=== PATIENT | male | born 1960 | race Caucasian/White ===

== ENCOUNTER 2016-05-24 13:27 | Inpatient (IN) | payer MEDICARE, OTHER ==
[2016-05-24] MEDS ORDERED: SODIUM CHLORIDE 0.9% 1,000 ML IV STA ×2 (13:37→15:56)
[2016-05-24] MEDS: LORazepam 2 MG/ML SYRINGE IV PRN ×3 (13:41→17:49)
--- NOTE | 2016-05-24 13:44 | ED ---
General Adult HPI - General Stated complaint: Cardiac Arrest Time Seen by Provider: 05/24/16 13:36 Source: family, EMS, RN notes reviewed Mode of arrival: EMS Limitations: altered mental status, physical limitation - History of Present Illness Initial comments: Patient is an unresponsive 55-year-old male presenting to the emergency department following cardiac arrest. Patient is unresponsive and provides no history. History is provided by EMS as well as family. Police are present. Patient reportedly has had some confusion since last night, this morning, intermittent. Patient has had that previously associated with his liver problems. Patient has liver failure with associated severe diabetes and kidney problems. Patient also has HIV. Patient was found have odd movements by family and unresponsive. Fire department placed patient on the AED and 2 shocks were provided. EMS did find a pulse when they arrived and patient was intubated for respiratory support. - Related Data Home Medications Medication Instructions Recorded Confirmed Raltegravir Potassium [Isentress] 400 mg PO BID 01/04/14 05/24/16 Tenofovir Disoproxil Fumarate 300 mg PO MOWEFR 01/04/14 05/24/16 [Viread] lamiVUDine [Epivir] 300 mg PO DAILY 01/04/14 05/24/16 Cevimeline HCl [Evoxac] 30 mg PO TID 02/15/14 05/24/16 DULoxetine HCL [Cymbalta] 60 mg PO DAILY 04/22/16 05/24/16 Ergocalciferol [Vitamin D2 50,000 unit PO Q7D 04/22/16 05/24/16 (DRISDOL)] Lactulose 20 gm PO TID PRN 04/22/16 05/24/16 Maraviroc [Selzentry] 300 mg PO BID 04/22/16 05/24/16 Metoprolol Tartrate [Lopressor] 12.5 mg PO BID 04/22/16 05/24/16 NIFEdipine XL [Procardia XL] 30 mg PO DAILY 04/22/16 05/24/16 Rifaximin [Xifaxan] 550 mg PO BID 04/22/16 05/24/16 Sertraline [Zoloft] 50 mg PO DAILY 04/22/16 05/24/16 Furosemide [Lasix] 80 mg PO DAILY 05/24/16 05/24/16 INSULIN LISPRO (HumaLOG) [humaLOG] See Protocol SQ ACHS 05/24/16 05/24/16 Insulin Glargine [Lantus] 55 unit SQ HS 05/24/16 05/24/16 Morphine Sulfate ER [Ms Contin 15 mg PO HS 05/24/16 05/24/16 15Mg] Multivitamins, Thera [Multivitamin] 1 tab PO DAILY@1200 05/24/16 05/24/16 Pantoprazole Sodium [Protonix] 40 mg PO DAILY 05/24/16 05/24/16 Potassium Chloride ER [K-Dur 10] 40 meq PO DAILY 05/24/16 05/24/16 Zolpidem [Ambien] 5 - 10 mg PO HS 05/24/16 05/24/16 Previous Rx's Medication Instructions Recorded oxyCODONE HCL 30 mg PO Q8H PRN #30 tablet 04/29/16 Sennosides-Docusate Sodium 2 each PO HS tab 04/30/16 [Senokot-S] Allergies Allergy/AdvReac Type Severity Reaction Status Date / Time Penicillins Allergy Intermediate Rash/Hives Verified 05/24/16 14:02 Review of Systems ROS Statement: Those systems with pertinent positive or pertinent negative responses have been documented in the HPI. ROS Other: All systems not noted in ROS Statement are negative. Limitations: ROS unobtainable due to patients medical condition Past Medical History Past Medical History: Diabetes Mellitus, Hypertension, Liver Disease Additional Past Medical History / Comment(s): HIV, IDDM type II, cellulitis BLE , loss of all his teeth due to prior medications for the treatment of underlying illnesses, chronic bilateral leg pain, "hole in my heart", murmur, R side of heart is "larger", bilateral leg/feet neuropathy, anemia. History of Any Multi-Drug Resistant Organisms: None Reported Past Surgical History: Cholecystectomy, Hernia Repair Additional Past Surgical History / Comment(s): Fatty tumor removed from back of neck, incisional hernia repair, liver shunt, cystoscopy, colonoscopy. Past Anesthesia/Blood Transfusion Reactions: No Reported Reaction Past Psychological History: Anxiety Additional Psychological History / Comment(s): Pt lives with his nephew, Misael. There are dogs in the house. He has a walker and a wheelchair he uses on occasion. He drives short distances. Smoking Status: Never smoker Past Alcohol Use History: None Reported Additional Past Alcohol Use History / Comment(s): patient is single. He lives independently and his family home. He is 4 dogs and stay with him. He has no service. There's been no change in his home environment. Past Drug Use History: None Reported - Past Family History Father Family Medical History: Congestive Heart Failure (CHF), CVA/TIA General Exam Limitations: altered mental status, physical limitation General appearance: obtunded Head exam: Present: atraumatic Eye exam: Present: normal appearance, PERRL ENT exam: Present: normal oropharynx Neck exam: Present: normal inspection Respiratory exam: Present: normal lung sounds bilaterally (With bagging insufflation equal breath sounds bilaterally) Cardiovascular Exam: Present: regular rate, normal rhythm GI/Abdominal exam: Present: soft. Absent: tenderness Extremities exam: Present: normal inspection Neurological exam: Present: other (Unresponsive however patient is making some movements and taking some breaths) Psychiatric exam: Present: other (Intubated) Skin exam: Absent: rash Course Vital Signs 05/24/16 05/24/16 05/24/16 13:27 13:36 13:46 Temperature 98.4 F Pulse Rate 78 82 90 Pulse Rate [ Right] Respiratory 10 L 10 L 10 L Rate Blood Pressure 150/90 115/79 123/72 Blood Pressure [Right Arm Supine] O2 Sat by Pulse 85 L 84 L 86 L Oximetry 05/24/16 05/24/16 05/24/16 13:55 14:06 14:15 Temperature Pulse Rate Pulse Rate [ 100 85 100 Right] Respiratory 26 H 34 H 34 H Rate Blood Pressure Blood Pressure 167/102 129/74 131/68 [Right Arm Supine] O2 Sat by Pulse 100 100 Oximetry 05/24/16 05/24/16 05/24/16 14:30 14:45 15:00 Temperature Pulse Rate Pulse Rate [ 95 88 99 Right] Respiratory 35 H 35 H 36 H Rate Blood Pressure Blood Pressure 131/68 131/95 155/75 [Right Arm Supine] O2 Sat by Pulse 100 100 100 Oximetry 05/24/16 05/24/16 15:15 15:30 Temperature Pulse Rate Pulse Rate [ 104 H 111 H Right] Respiratory 36 H 40 H Rate Blood Pressure Blood Pressure 164/98 143/108 [Right Arm Supine] O2 Sat by Pulse 100 Oximetry - Reevaluation(s) Reevaluation #1: 05/24/16 14:01 Dr. Kee was notified of patient. He is currently doing a procedure. 05/24/16 15:59 Patient case was earlier discussed with Dr. Kee who will evaluate patient. Patient reevaluated and unchanged. Computed tomography scan of the chest will be ordered for possible pulmonary embolism. Family states patient did have leg surgery done around a month ago. Heparin was started for possible pulmonary embolism as well as possible myocardial infarction, recent cardiac arrest. Potassium replacement. Fluid provided for possible rhabdomyolysis. Lactulose provided for hepatic encephalopathy. Family updated on results and plan. Patient will be admitted to intensive care unit. 05/24/16 16:22 Case was discussed in detail with Dr. bhakta, who will admit for Dr. Garcia. Case also discussed in detail with Dr. Joseph, who will consult for critical care. They both request consults with GI. EKG Findings - EKG Comments: EKG Findings:: Sinus rhythm at 82 with sinus arrhythmia. MI 162. QRS 114. QT 472. QTC 551. Normal axis. Normal QRS. No acute ST change. Medical Decision Making - Lab Data Result diagrams: 05/24/16 14:05 05/24/16 14:05 Lab Results 05/24/16 05/24/16 05/24/16 Range/Units 14:00 14:05 14:05 WBC 7.8 (3.8-10.6) k/uL RBC 3.21 L (4.30-5.90) m/uL Hgb 10.6 L (13.0-17.5) gm/dL Hct 31.7 L (39.0-53.0) % MCV 98.7 (80.0-100.0) fL MCH 33.1 (25.0-35.0) pg MCHC 33.5 (31.0-37.0) g/dL RDW 14.8 (11.5-15.5) % Plt Count 173 D (150-450) k/uL Neutrophils % 83 % Lymphocytes % 10 % Monocytes % 6 % Eosinophils % 0 % Basophils % 0 % Neutrophils # 6.4 (1.3-7.7) k/uL Lymphocytes # 0.7 L (1.0-4.8) k/uL Monocytes # 0.5 (0-1.0) k/uL Eosinophils # 0.0 (0-0.7) k/uL Basophils # 0.0 (0-0.2) k/uL Poikilocytosis Moderate PT 14.0 H (9.0-12.0) sec INR 1.4 (<1.1) APTT 24.4 (22.0-30.0) sec Sodium (137-145) mmol/L Potassium (3.5-5.1) mmol/L Chloride (98-107) mmol/L Carbon Dioxide (22-30) mmol/L Anion Gap mmol/L BUN (9-20) mg/dL Creatinine (0.66-1.25) mg/dL Est GFR (MDRD) Af Amer (>60 ml/min/1.73 sqM) Est GFR (MDRD) Non-Af (>60 ml/min/1.73 sqM) Glucose (74-99) mg/dL Calcium (8.4-10.2) mg/dL Magnesium (1.6-2.3) mg/dL Total Bilirubin (0.2-1.3) mg/dL AST (17-59) U/L ALT (21-72) U/L Alkaline Phosphatase (38-126) U/L Ammonia (<30) umol/L Total Creatine Kinase (55-170) U/L CK-MB (CK-2) (0.0-2.4) ng/mL CK-MB (CK-2) Rel Index Troponin I (0.000-0.034) ng/mL Total Protein (6.3-8.2) g/dL Albumin (3.5-5.0) g/dL TSH (0.465-4.680) mIU/L Urine Color Yellow Urine Appearance Clear (Clear) Urine pH 7.5 (5.0-8.0) Ur Specific [place] 1.010 (1.001-1.035) Urine Protein 2+ H (Negative) Urine Glucose (UA) 1+ H (Negative) Urine Ketones Negative (Negative) Urine Blood Moderate H (Negative) Urine Nitrate Negative (Negative) Urine Bilirubin Negative (Negative) Urine Urobilinogen 2.0 (<2.0) mg/dL Ur Leukocyte Esterase Negative (Negative) Urine RBC 5 (0-5) /hpf Urine WBC 14 H (0-5) /hpf Ur Squamous Epith Cells <1 (0-4) /hpf Urine Bacteria Rare H (None) /hpf Urine Mucus Rare H (None) /hpf Urine Opiates Screen Detected H (NotDetected) Ur Oxycodone Screen Not Detected (NotDetected) Urine Methadone Screen Not Detected (NotDetected) Ur Propoxyphene Screen Not Detected (NotDetected) Ur Barbiturates Screen Not Detected (NotDetected) U Tricyclic Antidepress Not Detected (NotDetected) Ur Phencyclidine Scrn Not Detected (NotDetected) Ur Amphetamines Screen Not Detected (NotDetected) U Methamphetamines Scrn Not Detected (NotDetected) U Benzodiazepines Scrn Not Detected (NotDetected) Urine Cocaine Screen Not Detected (NotDetected) U Marijuana (THC) Screen Not Detected (NotDetected) 05/24/16 05/24/16 05/24/16 Range/Units 14:05 14:05 14:05 WBC (3.8-10.6) k/uL RBC (4.30-5.90) m/uL Hgb (13.0-17.5) gm/dL Hct (39.0-53.0) % MCV (80.0-100.0) fL MCH (25.0-35.0) pg MCHC (31.0-37.0) g/dL RDW (11.5-15.5) % Plt Count (150-450) k/uL Neutrophils % % Lymphocytes % % Monocytes % % Eosinophils % % Basophils % % Neutrophils # (1.3-7.7) k/uL Lymphocytes # (1.0-4.8) k/uL Monocytes # (0-1.0) k/uL Eosinophils # (0-0.7) k/uL Basophils # (0-0.2) k/uL Poikilocytosis PT (9.0-12.0) sec INR (<1.1) APTT (22.0-30.0) sec Sodium 142 (137-145) mmol/L Potassium 2.4 L* (3.5-5.1) mmol/L Chloride 98 (98-107) mmol/L Carbon Dioxide 28 (22-30) mmol/L Anion Gap 16 mmol/L BUN 17 (9-20) mg/dL Creatinine 1.20 (0.66-1.25) mg/dL Est GFR (MDRD) Af Amer >60 (>60 ml/min/1.73 sqM) Est GFR (MDRD) Non-Af >60 (>60 ml/min/1.73 sqM) Glucose 264 H (74-99) mg/dL Calcium 7.9 L (8.4-10.2) mg/dL Magnesium 2.0 (1.6-2.3) mg/dL Total Bilirubin 3.7 H (0.2-1.3) mg/dL AST 339 H (17-59) U/L ALT 55 (21-72) U/L Alkaline Phosphatase 393 H (38-126) U/L Ammonia 149 H (<30) umol/L Total Creatine Kinase 6215 H (55-170) U/L CK-MB (CK-2) 10.2 H* (0.0-2.4) ng/mL CK-MB (CK-2) Rel Index Troponin I 0.142 H* (0.000-0.034) ng/mL Total Protein 6.5 (6.3-8.2) g/dL Albumin 2.2 L (3.5-5.0) g/dL TSH 1.620 (0.465-4.680) mIU/L Urine Color Urine Appearance (Clear) Urine pH (5.0-8.0) Ur Specific [place] (1.001-1.035) Urine Protein (Negative) Urine Glucose (UA) (Negative) Urine Ketones (Negative) Urine Blood (Negative) Urine Nitrate (Negative) Urine Bilirubin (Negative) Urine Urobilinogen (<2.0) mg/dL Ur Leukocyte Esterase (Negative) Urine RBC (0-5) /hpf Urine WBC (0-5) /hpf Ur Squamous Epith Cells (0-4) /hpf Urine Bacteria (None) /hpf Urine Mucus (None) /hpf Urine Opiates Screen (NotDetected) Ur Oxycodone Screen (NotDetected) Urine Methadone Screen (NotDetected) Ur Propoxyphene Screen (NotDetected) Ur Barbiturates Screen (NotDetected) U Tricyclic Antidepress (NotDetected) Ur Phencyclidine Scrn (NotDetected) Ur Amphetamines Screen (NotDetected) U Methamphetamines Scrn (NotDetected) U Benzodiazepines Scrn (NotDetected) Urine Cocaine Screen (NotDetected) U Marijuana (THC) Screen (NotDetected) - Radiology Data Radiology results: image reviewed (Computed tomography scan of brain shows no acute intercranial abnormality. Chest x-ray shows tube appropriately placed. No acute process.) Critical Care Time Critical Care Time: Yes Total Critical Care Time: 41 Disposition Clinical Impression: Hepatic encephalopathy, Hypokalemia, Cardiac arrest, Rhabdomyolysis Disposition: ADMITTED IP TO THIS [facility] Condition: Critical Referrals: Sushant Garcia DO [Primary Care Provider] - 1-2 days
[2016-05-24] MEDS: PROPOFOL 500 MG in EMPTY BAG 1 BAG IV SCH ×6 (13:45→23:06)
--- NOTE | 2016-05-24 14:24 | XR ---
EXAMINATION TYPE: XR chest 1V portable DATE OF EXAM: 05/24/2016 2:19 PM HISTORY: Shortness of breath. COMPARISON: 04/22/2016. TECHNIQUE: Single view of the chest is submitted. FINDINGS: Endotracheal and NG tubes are appropriately placed. Demonstrated are scattered senescent parenchymal change. There is no evidence for focal infiltrate. The heart is enlarged. No evidence for congestive failure. Hilar and mediastinal structures are within normal limits. Degenerative changes are seen of the dorsal spine. IMPRESSION: 1. Endotracheal and NG tubes are appropriately placed. No evidence of cardiomegaly without overt christina lure.
[2016-05-24 14:27] LABS: Appearance,Urine Clear (Clear); Bacteria,Urine Rare /hpf; Bilirubin,Urine Negative (Negative); Glucose,Urine (UA) 1+ (Negative); Ketones,Urine Negative (Negative); Leukocyte Esterase,Urine Negative (Negative); Mucus,Urine Rare /hpf; Nitrite,Urine Negative (Negative); PH, Urine 7.5 (5.0-8.0); Particle Count 7304; Protein,Urine 2+ (Negative); RBC,Urine 5 /hpf (0-5); Squamous Epithelial Cell,Urine <1 /hpf (0-4); UA Billing (MACRO vs. MICRO) MICRO; WBC,Urine 14 /hpf (0-5)
[2016-05-24 14:27] LABS: Basophils % (A) 0 %; CH 33.7; CHCM 34.4; Eosinophils % (A) 0 %; HCT 31.7 % (39.0-53.0); HGB 10.6 gm/dL (13.0-17.5); Luc # (Auto) 0.08; Luc % (Auto) 1; Lymphocytes # (A) 0.7 k/uL (1.0-4.8); Lymphocytes % (A) 10 %; MCH 33.1 pg (25.0-35.0); MCHC 33.5 g/dL (31.0-37.0); MCV 98.7 fL (80.0-100.0); Mean Platelet Volume 7.4; Monocytes # (A) 0.5 k/uL (0-1.0); Monocytes % (A) 6 %; Neutrophils # (A) 6.4 k/uL (1.3-7.7); Neutrophils % (A) 83 %; Poikilocytosis Moderate; RBC 3.21 m/uL (4.30-5.90); RDW 14.8 % (11.5-15.5); WBC 7.8 k/uL (3.8-10.6); WBC (Perox) 8.32
[2016-05-24 14:33] LABS: INR 1.4 (<1.1); Partial Thromboplastin Time 24.4 sec (22.0-30.0)
[2016-05-24 14:44] LABS: ALT 55 U/L (21-72); AST 339 U/L (17-59); Alkaline Phosphatase 393 U/L (38-126); Anion Gap 16 mmol/L; Blood Urea Nitrogen 17 mg/dL (9-20); Calcium 7.9 mg/dL (8.4-10.2); Carbon Dioxide 28 mmol/L (22-30); Chloride 98 mmol/L (98-107); Glucose 264 mg/dL (74-99); Non-African American GFR(MDRD) >60 (>60 ml/min/1.73 sqM); Sodium 142 mmol/L (137-145); Total Bilirubin 3.7 mg/dL (0.2-1.3); Total Protein 6.5 g/dL (6.3-8.2)
--- NOTE | 2016-05-24 14:50 | CT ---
EXAMINATION TYPE: CT brain wo con DATE OF EXAM: 05/24/2016 2:41 PM COMPARISON: Previous study dated 02/14/2014 HISTORY: AMS. Found unresponsive. CHF. Positive HIV and Liver disease CT DLP: 1047.10 mGycm Automated exposure control for dose reduction was used. FINDINGS: Central structures are midline. There is no evidence of hydrocephalus. No acute focal lesion, mass ef fect or midline shift is seen. I do not see evidence of intracranial blood. There is a 1.9 cm retention cyst or polyp arising from the medial wall of the left maxillary sinus. N o depressed skull fracture is seen. IMPRESSION: 1. NO ACUTE INTRACRANIAL ABNORMALITY. 2. RETENTION CYST OR POLYP, LEFT MAXILLARY SINUS.
[2016-05-24 14:52] LABS: Potassium 2.4 mmol/L (3.5-5.1)
[2016-05-24 15:14] LABS: Troponin I 0.142 ng/mL (0.000-0.034)
[2016-05-24 15:16] LABS: Creatine Kinase MB 10.2 ng/mL (0.0-2.4)
[2016-05-24] MEDS ORDERED: POTASSIUM BICARB-CITRIC ACID 25 MEQ TABLET.EFF PO STA (15:34)
[2016-05-24] MEDS ORDERED: RX INFO: IV CONTRAST WAS GIVEN 1 EACH MISC MISCELLANE PRN (15:53)
[2016-05-24] MEDS ORDERED: DEXTROSE 5%-0.45% NACL 1,000 ML with POTASSIUM CHLORIDE 20 MEQ IV ONE ×2 (15:53)
[2016-05-24] MEDS ORDERED: HEPARIN SODIUM,PORCINE 10,000 UNIT/ML 1 ML VIAL IV ONE (15:56)
[2016-05-24] MEDS ORDERED: HEPARIN SODIUM,PORCINE 5,000 UNIT/ML 1 ML VIAL IV PRN (15:56)
[2016-05-24] MEDS: POTASSIUM CHLORIDE 10 MEQ, LIDOCAINE 2% INJ 10 MG in SODIUM CHLORIDE 0.9% 100 ML IVPB SCH ×3 (15:59→18:15)
[2016-05-24] MEDS ORDERED: HEPARIN SODIUM,PORCINE/D5W PMX 25,000 UNIT in DEXTROSE/WATER 1 500ML.BAG IV SCH (16:00)
[2016-05-24] MEDS ORDERED: NALOXONE 0.4 MG/ML 1 ML VIAL IV PRN (16:16)
[2016-05-24] MEDS ORDERED: D5-0.45% NACL WITH KCL 20MEQ/L 1,000 ML IV ONE (16:30)
[2016-05-24 16:45] LABS: ABG Base Excess 6.9 mmol/L; ABG HCO3 30 mmol/L (21-25); ABG PCO2 34 mmHg (35-45); ABG PH 7.55 (7.35-7.45); ABG PO2 359 mmHg (83-108); ABG TCO2 31 mmol/L (19-24)
[2016-05-24 16:59] LABS: Hemoglobin A1C 5.6 % (4.2-6.1)
--- NOTE | 2016-05-24 17:41 | CT ---
EXAMINATION TYPE: CT angio chest DATE OF EXAM: 05/24/2016 5:32 PM COMPARISON: NONE HISTORY: Patient unable to give history. PE. CT DLP: 477.1 mGycm Automated exposure control for dose reduction was used. CONTRAST: CTA scan of the thorax is performed with IV Contrast, patient injected with 100 mL of Omnipaque 350, pulmonary embolism protocol. . There are Three-D postprocessed images. FINDINGS: Endotracheal tube is noted in good position. The lungs show some mild infiltrate and atelectasis at t he left posterior lung base. There is no evidence of a pulmonary mass. Heart is enlarged. There is no evidence of aortic aneurysm or dissection. There is no pericardial effusion. There is suboptimal con trast density in the pulmonary arteries but I see no filling defects. There is no evidence of pulmona ry embolism. There is no mediastinal adenopathy. There are no hilar masses. There is 10% wedging of T 11 vertebra. IMPRESSION: NO EVIDENCE OF PULMONARY EMBOLISM. THERE IS SOME INFILTRATE AND ATELECTASIS AT THE LEFT POSTERIOR ZIGGY G BASE. CARDIOMEGALY. MILD COMPRESSION OF T11 IS PROBABLY OLD.
[2016-05-24] MEDS: LACTULOSE 20 GM/30 ML CUP PO SCH ×2 (18:14→23:34)
[2016-05-24 18:43] LABS: Glucose,Whole Blood 234 mg/dL (75-99)
[2016-05-24] MEDS: INSULIN LISPRO (humaLOG) 300 UNIT/3 ML VIAL SQ SCH ×3 (18:48→23:49)
[2016-05-24 21:34] LABS: Glucose,Whole Blood 207 mg/dL (75-99)
[2016-05-24] MEDS ORDERED: SODIUM CHLORIDE 0.9% 1,000 ML IV ONE (22:53)
[2016-05-24] MEDS ORDERED: INSULIN DETEMIR 100 UNIT/ML 10 ML VIAL SQ SCH (23:00)
[2016-05-24] MEDS ORDERED: NOREPINEPHRINE 4 MG in SODIUM CHLORIDE 0.9% 250 ML IV SCH (23:00)
[2016-05-24] MEDS ORDERED: Potassium Replacement Protocol 1 EACH MISC MISCELLANE PRN (23:03)
[2016-05-24 23:15] LABS: ALT 63 U/L (21-72); AST 328 U/L (17-59); Alkaline Phosphatase 329 U/L (38-126); Anion Gap 9 mmol/L; Blood Urea Nitrogen 20 mg/dL (9-20); Calcium 7.9 mg/dL (8.4-10.2); Carbon Dioxide 28 mmol/L (22-30); Chloride 104 mmol/L (98-107); Glucose 207 mg/dL (74-99); Non-African American GFR(MDRD) 52 (>60 ml/min/1.73 sqM); Sodium 141 mmol/L (137-145); Total Bilirubin 2.5 mg/dL (0.2-1.3); Total Protein 5.9 g/dL (6.3-8.2)
[2016-05-24 23:17] LABS: Potassium 2.3 mmol/L (3.5-5.1)
[2016-05-24 23:19] LABS: Creatine Kinase MB 6.3 ng/mL (0.0-2.4)
[2016-05-24 23:20] LABS: Troponin I 2.71 ng/mL (0.000-0.034)
[2016-05-24] MEDS: IPRATROPIUM-ALBUTEROL 3 ML NEB INHALATION PRN (23:34)
[2016-05-24] MEDS: SODIUM CHLORIDE 0.9% 1,000 ML IV SCH (23:35)
[2016-05-24] MEDS: CHLORHEXIDINE GLUCONATE 15 ML CUP MUCOUS MEM SCH (23:35)
[2016-05-24 23:53] LABS: Glucose,Whole Blood 222 mg/dL (75-99)
[2016-05-25] MEDS ORDERED: POTASSIUM CHLORIDE ER 20 MEQ TAB.ER PO SCH
[2016-05-25] MEDS: INSULIN GLARGINE 100 UNIT/ML 10 ML VIAL SQ SCH ×2 (00:07→21:38)
[2016-05-25] MEDS: INSULIN LISPRO (humaLOG) 300 UNIT/3 ML VIAL SQ SCH ×4 (00:08→18:14)
[2016-05-25] MEDS: POTASSIUM CHLORIDE 10 MEQ, LIDOCAINE 2% INJ 10 MG in SODIUM CHLORIDE 0.9% 100 ML IV SCH ×7 (00:08→13:29)
[2016-05-25] MEDS: POTASSIUM CHLORIDE ER 20 MEQ TAB.ER PO SCH ×3 (00:38→05:33)
[2016-05-25] MEDS: PROPOFOL 500 MG in EMPTY BAG 1 BAG IV SCH ×6 (00:39→21:11)
[2016-05-25] MEDS: MAGNESIUM SULFATE-D5W PMX 1 GM in DEXTROSE/WATER 1 100ML.BAG IVPB SCH ×2 (00:50→02:06)
[2016-05-25 01:41] LABS: Appearance,Urine Clear (Clear); Bilirubin,Urine Negative (Negative); Glucose,Urine (UA) Negative (Negative); Ketones,Urine Negative (Negative); Leukocyte Esterase,Urine Small (Negative); Mucus,Urine Rare /hpf; Nitrite,Urine Negative (Negative); Particle Count 4298; Protein,Urine 1+ (Negative); RBC,Urine 8 /hpf (0-5); Squamous Epithelial Cell,Urine <1 /hpf (0-4); UA Billing (MACRO vs. MICRO) MICRO; WBC,Urine 18 /hpf (0-5)
[2016-05-25 01:54] LABS: Specific Gravity,Urine 1.046 (1.001-1.035)
[2016-05-25] MEDS ORDERED: ARTIFICIAL TEARS-HYPROMELLOSE DROPS 15 ML BTL BOTH EYES PRN (04:19)
[2016-05-25 05:19] LABS: Basophils % (A) 0 %; CH 33.5; CHCM 34.8; Eosinophils % (A) 0 %; HCT 27.2 % (39.0-53.0); HDW 4.11; HGB 9.7 gm/dL (13.0-17.5); Luc # (Auto) 0.13; Luc % (Auto) 2; Lymphocytes # (A) 1.4 k/uL (1.0-4.8); Lymphocytes % (A) 16 %; MCH 34.5 pg (25.0-35.0); MCHC 35.5 g/dL (31.0-37.0); MCV 97.2 fL (80.0-100.0); Mean Platelet Volume 8.4; Monocytes # (A) 0.7 k/uL (0-1.0); Monocytes % (A) 8 %; Neutrophils # (A) 6.5 k/uL (1.3-7.7); Neutrophils % (A) 75 %; Poikilocytosis Moderate; RDW 15.1 % (11.5-15.5); WBC 8.7 k/uL (3.8-10.6); WBC (Perox) 9.35
[2016-05-25 05:32] LABS: Anion Gap 9 mmol/L; Blood Urea Nitrogen 19 mg/dL (9-20); Calcium 7.3 mg/dL (8.4-10.2); Carbon Dioxide 28 mmol/L (22-30); Chloride 106 mmol/L (98-107); Glucose 179 mg/dL (74-99); INR 1.4 (<1.1); Magnesium 2.4 mg/dL (1.6-2.3); Non-African American GFR(MDRD) 57 (>60 ml/min/1.73 sqM); Partial Thromboplastin Time 29.6 sec (22.0-30.0); Phosphorous 2.5 mg/dL (2.5-4.5); Prothrombin Time 13.7 sec (9.0-12.0); Sodium 143 mmol/L (137-145)
[2016-05-25] MEDS: SODIUM CHLORIDE 0.9% 1,000 ML IV SCH ×4 (05:33→23:58)
[2016-05-25 05:37] LABS: Glucose,Whole Blood 187 mg/dL (75-99)
[2016-05-25 05:50] LABS: Potassium 2.3 mmol/L (3.5-5.1)
[2016-05-25 06:02] LABS: Creatine Kinase MB 5.2 ng/mL (0.0-2.4); Troponin I 2.66 ng/mL (0.000-0.034)
[2016-05-25] MEDS: LACTULOSE 20 GM/30 ML CUP PO SCH ×3 (08:24→21:36)
[2016-05-25] MEDS: CHLORHEXIDINE GLUCONATE 15 ML CUP MUCOUS MEM SCH ×2 (08:24→21:35)
[2016-05-25] MEDS: PANTOPRAZOLE 40 MG/10 ML VIAL IV SCH (08:25)
[2016-05-25] MEDS ORDERED: POTASSIUM CHLORIDE ORAL LIQUID 40 MEQ/30 ML CUP PO ONE (09:01)
--- NOTE | 2016-05-25 09:03 | ECHOF ---
Referral Reason:Cardiac arrest MEASUREMENTS -------- HEIGHT: 172.7 cm WEIGHT: 91.6 kg BP: RVIDd: 3.0 cm (< 3.3) IVSd: 1.4 cm (0.6 - 1.1) LVIDd: 5.6 cm (3.9 - 5.3) LVPWd: 1.4 cm (0.6 - 1.1) IVSs: 1.4 cm LVIDs: 5.2 cm LVPWs: 1.3 cm LAESV Index (A-L): 41.32 ml/m Ao Diam: 3.2 cm (2.0 - 3.7) AV Cusp: 1.9 cm (1.5 - 2.6) LA Diam: 5.3 cm (2.7 - 3.8) MV EXCURSION: 14.230 mm (> 18.000) MV EF SLOPE: 68 mm/s (70 - 150) EPSS: 1.2 cm MV E Micheal: 1.03 m/s MV DecT: 153 ms MV A Micheal: 0.71 m/s MV E/A Ratio: 1.45 RAP: 5.00 mmHg RVSP: 23.20 mmHg FINDINGS -------- Undetermined rhythm. This was a technically adequate study. There is moderate concentric left ventricular hypertrophy. Overall left ventricular systolic function is low-normal with, an EF between 50 - 55 %. The right ventricle is normal in size. LA is severely dilated >40 ml/m2 The right atrial size is normal. There is mild aortic valve sclerosis. There is no evidence of aortic regurgitation. Mild mitral annular calcification present. Mild mitral regurgitation is present. Mild tricuspid regurgitation present. There is no evidence of pulmonary hypertension. The right ventricular systolic pressure, as measured by Doppler, is 23.20mmHg. There is no pulmonic regurgitation present. The aortic root size is normal. There is no pericardial effusion. CONCLUSIONS -------- 1. There is moderate concentric left ventricular hypertrophy. 2. Overall left ventricular systolic function is low-normal with, an EF between 50 - 55 %. 3. LA is severely dilated >40 ml/m2 4. There is mild aortic valve sclerosis. 5. Mild mitral annular calcification present. 6. Mild mitral regurgitation is present. 7. Mild tricuspid regurgitation present. 8. There is no evidence of pulmonary hypertension. 9. The right ventricular systolic pressure, as measured by Doppler, is 23.20mmHg. DATA ENTRY COORDINATOR: Carlota Santos RDCS
--- NOTE | 2016-05-25 09:43 | XR ---
EXAMINATION TYPE: XR chest 1V DATE OF EXAM: 05/25/2016 6:45 AM COMPARISON: 05/24/2016 INDICATION: Intubated difficulty breathing TECHNIQUE: Single frontal view of the chest is obtained. FINDINGS: The heart size is normal. The pulmonary vasculature is normal. The lungs are clear. Endotracheal tube tip is above the pk. A nasogastric tube transverses thorax. IMPRESSION: 1. Mild cardiomegaly. 2. Lines and catheters discussed above
--- NOTE | 2016-05-25 12:58 | P.CNNES ---
History of Present Illness Consult date: 05/25/16 Requesting physician: Aguilar Sandoval Reason for Consult: Mental status changes History of Present Illness: Patient is a 55-year-old male who is being evaluated by the neurology service on 05/25/2016 per the request of Dr. Sandoval for altered mental status. Patient is intubated in the intensive care unit. History is obtained by staff and chart. Patient was recently released from rehabilitation due to leg injury. Patient was at home and apparently was found down and EMS was called. EMS had placed the AED on patient and provided 2 shocks. EMS did find a pulse and patient was intubated for respiratory support. Patient does have history of chronic liver disease, diabetes, and HIV. Upon admission, patient had multiple laboratory abnormalities including ammonia of 149, alk phos 393, AST 339, ALT 55 and hypokalemia of 2.4. Computed tomography scan of the brain showed no acute abnormalities. Cardiology and gastroenterology have been consulted. At the time of my evaluation, patient is intubated and appears to be in no acute distress. Review of Systems REVIEW OF SYSTEMS: Otherwise unremarkable and noncontributory. Past Medical History Past Medical History: Diabetes Mellitus, Hypertension, Liver Disease Additional Past Medical History / Comment(s): HIV, IDDM type II, cellulitis BLE , loss of all his teeth due to prior medications for the treatment of underlying illnesses, chronic bilateral leg pain, "hole in my heart", murmur, R side of heart is "larger", bilateral leg/feet neuropathy, anemia.04-05-16 lt tibial fracture d/t fall History of Any Multi-Drug Resistant Organisms: None Reported Past Surgical History: Cholecystectomy, Hernia Repair Additional Past Surgical History / Comment(s): Fatty tumor removed from back of neck, incisional hernia repair, liver shunt, cystoscopy, colonoscopy.04/25/16 insertion intramedullary nail lt tibia fx. Past Anesthesia/Blood Transfusion Reactions: No Reported Reaction Past Psychological History: Anxiety Additional Psychological History / Comment(s): per pt's niece,pt just returned home 1 week ago after being at [facility] for rehab after lt tibia sx.is recieving home nurse and pt(niece not sure what company)Pt lives with his nephew , Misael alvarado. There are dogs in the house. He has a walker and a wheelchair pt is single. before sx/rehab,pt was independant. no service in past. Smoking Status: Never smoker Past Alcohol Use History: None Reported Additional Past Alcohol Use History / Comment(s): ronment. Past Drug Use History: None Reported - Past Family History Mother Family Medical History: Congestive Heart Failure (CHF), Myocardial Infarction ( [place]) Additional Family Medical History / Comment(s): murmur Father Family Medical History: Congestive Heart Failure (CHF), CVA/TIA Medications and Allergies Home Medications Medication Instructions Recorded Confirmed Type Raltegravir Potassium [Isentress] 400 mg PO BID 01/04/14 05/24/16 History Tenofovir Disoproxil Fumarate 300 mg PO MOWEFR 01/04/14 05/24/16 History [Viread] lamiVUDine [Epivir] 300 mg PO DAILY 01/04/14 05/24/16 History Cevimeline HCl [Evoxac] 30 mg PO TID 02/15/14 05/24/16 History DULoxetine HCL [Cymbalta] 60 mg PO DAILY 04/22/16 05/24/16 History Ergocalciferol [Vitamin D2 50,000 unit PO Q7D 04/22/16 05/24/16 History (DRISDOL)] Lactulose 20 gm PO TID PRN 04/22/16 05/24/16 History Maraviroc [Selzentry] 300 mg PO BID 04/22/16 05/24/16 History Metoprolol Tartrate [Lopressor] 12.5 mg PO BID 04/22/16 05/24/16 History NIFEdipine XL [Procardia XL] 30 mg PO DAILY 04/22/16 05/24/16 History Rifaximin [Xifaxan] 550 mg PO BID 04/22/16 05/24/16 History Sertraline [Zoloft] 50 mg PO DAILY 04/22/16 05/24/16 History Furosemide [Lasix] 80 mg PO DAILY 05/24/16 05/24/16 History INSULIN LISPRO (HumaLOG) [humaLOG] See Protocol SQ ACHS 05/24/16 05/24/16 History Insulin Glargine [Lantus] 55 unit SQ HS 05/24/16 05/24/16 History Morphine Sulfate ER [Ms Contin 15 mg PO HS 05/24/16 05/24/16 History 15Mg] Multivitamins, Thera [Multivitamin] 1 tab PO DAILY@1200 05/24/16 05/24/16 History Pantoprazole Sodium [Protonix] 40 mg PO DAILY 05/24/16 05/24/16 History Potassium Chloride ER [K-Dur 10] 40 meq PO DAILY 05/24/16 05/24/16 History Zolpidem [Ambien] 5 - 10 mg PO HS 05/24/16 05/24/16 History Allergies Allergy/AdvReac Type Severity Reaction Status Date / Time Penicillins Allergy Intermediate Rash/Hives Verified 05/24/16 14:02 Physical Examination - Vital Signs Vital Signs: Vital Signs Temp Pulse Pulse Resp BP BP Pulse Ox 05/25/16 08:00 98.5 F 68 17 93/54 100 05/25/16 07:30 69 17 101/59 100 05/25/16 07:00 71 16 107/61 100 05/25/16 06:30 72 27 H 94/54 99 05/25/16 06:00 70 17 96/54 100 05/25/16 05:30 70 17 92/53 99 05/25/16 05:00 72 18 95/53 99 05/25/16 04:30 99.3 F 72 20 94/50 98 05/25/16 04:00 74 23 93/53 100 05/25/16 03:30 76 20 108/64 100 05/25/16 03:00 79 22 119/65 100 05/25/16 02:30 85 21 109/63 100 05/25/16 02:00 85 18 105/59 99 05/25/16 01:30 84 24 109/58 99 05/25/16 01:00 81 23 101/62 100 05/25/16 00:30 81 21 108/64 100 05/25/16 00:00 99.5 F 80 24 106/61 100 05/24/16 23:38 75 05/24/16 23:30 77 23 101/60 100 05/24/16 23:27 75 05/24/16 23:00 70 19 86/50 100 05/24/16 22:30 73 19 87/50 100 05/24/16 22:00 99.6 F 76 15 99/57 100 05/24/16 21:36 99 05/24/16 21:15 100.0 F H 80 26 H 107/58 100 05/24/16 21:00 99 F 90 26 H 108/58 100 05/24/16 20:30 94 28 H 118/55 100 05/24/16 20:00 94 28 H 111/59 05/24/16 19:30 96 28 H 111/56 05/24/16 19:15 96 32 H 116/60 100 05/24/16 19:00 98 30 H 118/59 100 05/24/16 18:45 96 26 H 115/98 05/24/16 18:30 98 26 H 116/53 99 05/24/16 18:15 98 20 113/58 99 05/24/16 18:00 96 28 H 05/24/16 17:45 96 28 H 111/55 99 05/24/16 17:30 96 28 H 111/52 98 05/24/16 17:15 96 30 H 111/53 100 05/24/16 17:00 99 32 H 128/56 05/24/16 16:45 98.3 F 104 H 36 H 119/58 100 05/24/16 16:30 101 H 36 H 114/55 100 Intake and Output 05/24/16 05/25/16 05/25/16 22:59 06:59 14:59 Intake Total 291.516 8803.196 150 Output Total 720 278 25 Balance -596.219 3533.196 125 Intake: IV 130 3080 150 D5-0.45% NaCl with KCl 130 130 20Meq/l 1,000 ml @ 130 mls/hr IV .Q7H42M ONE Rx# :[id number] Magnesium Sulfate-D5w Pmx 200 1 gm In Dextrose/Water 1 100ml.bag @ 100 mls/hr IVPB Q1H ADAN Rx#: [id number] Potassium Chloride 10 meq 400 Lidocaine 2% Inj 10 mg In Sodium Chloride 0.9% 100 ml @ 100 mls/hr IV Q1HR ADAN Rx#:[id number] Sodium Chloride 0.9% 1, 1350 150 000 ml @ 150 mls/hr IV . Q6H40M ADAN Rx#:[id number] Sodium Chloride 0.9% 1, 1000 000 ml @ 999 mls/hr IV . Q1H1M ONE Rx#:[id number] Intake, IV Titration 351.656 229.196 Amount Heparin Sodium,Porcine/ 207.224 D5w Pmx 25,000 unit In Dextrose/Water 1 500ml. bag @ 18 UNITS/KG/HR 32. 98 mls/hr IV .[id number] ADAN Rx#:[id number] Propofol 500 mg In Empty 144.432 229.196 Bag 1 bag @ Titrate IV . Q0M ADAN Rx#:[id number] Oral 50 Other 80 Output: Gastric Drainage 200 Urine 520 278 25 Other: Voiding Method Indwelling Catheter Indwelling Catheter Weight 96.6 kg 96.6 kg Patient Weight 05/26/16 06:59 Weight 96.6 kg PHYSICAL EXAM: GENERAL APPEARANCE: Patient is a well-developed, male who is intubated in the intensive care unit. HEENT: Normocephalic, atraumatic, no facial asymmetry is seen. Neck is supple with no masses felt. CARDIOVASCULAR: Regular rate and rhythm. ABDOMEN: Nontender, nondistended. EXTREMITIES: Show no edema or clubbing. NEUROLOGICAL EXAM: Patient is unresponsive to verbal stimuli but does withdraw all 4 extremities to pain. Exam was performed having been off sedation for 3 hours. No corneal reflex or gag reflex on exam. Due to unresponsiveness, unable to test motor or sensory exam. No tremors or seizure-like activity is noted. Results - Laboratory Findings CBC and BMP: 05/25/16 04:51 05/25/16 06:58 Abnormal Lab Findings: Abnormal Labs 05/24/16 05/24/16 05/24/16 16:23 18:41 21:33 RBC Hgb Hct Plt Count PT APTT ABG pH 7.55 H ABG pCO2 34 L ABG pO2 359 H ABG HCO3 30 H ABG Total CO2 31 H ABG O2 Saturation 100.0 H Potassium Creatinine Glucose POC Glucose (mg/dL) 234 H 207 H Calcium Magnesium Total Bilirubin AST Alkaline Phosphatase Ammonia Total Creatine Kinase CK-MB (CK-2) Troponin I Total Protein Albumin 05/24/16 05/24/16 05/24/16 22:15 22:15 22:15 RBC Hgb Hct Plt Count PT APTT >200.0 H* ABG pH ABG pCO2 ABG pO2 ABG HCO3 ABG Total CO2 ABG O2 Saturation Potassium 2.3 L* Creatinine 1.41 H Glucose 207 H POC Glucose (mg/dL) Calcium 7.9 L Magnesium Total Bilirubin 2.5 H AST 328 H Alkaline Phosphatase 329 H Ammonia Total Creatine Kinase 5202 H CK-MB (CK-2) 6.3 H* Troponin I 2.710 H* Total Protein 5.9 L Albumin 1.9 L 05/24/16 05/25/16 05/25/16 23:52 04:51 04:51 RBC 2.80 L Hgb 9.7 L Hct 27.2 L Plt Count 142 L PT APTT ABG pH ABG pCO2 ABG pO2 ABG HCO3 ABG Total CO2 ABG O2 Saturation Potassium 2.3 L* Creatinine 1.30 H Glucose 179 H POC Glucose (mg/dL) 222 H Calcium 7.3 L Magnesium 2.4 H Total Bilirubin AST Alkaline Phosphatase Ammonia Total Creatine Kinase CK-MB (CK-2) Troponin I Total Protein Albumin 05/25/16 05/25/16 05/25/16 04:51 04:51 05:35 RBC Hgb Hct Plt Count PT 13.7 H APTT ABG pH ABG pCO2 ABG pO2 ABG HCO3 ABG Total CO2 ABG O2 Saturation Potassium Creatinine Glucose POC Glucose (mg/dL) 187 H Calcium Magnesium Total Bilirubin AST Alkaline Phosphatase Ammonia Total Creatine Kinase CK-MB (CK-2) 5.2 H* Troponin I 2.660 H* Total Protein Albumin 05/25/16 05/25/16 06:58 09:18 RBC Hgb Hct Plt Count PT APTT ABG pH ABG pCO2 ABG pO2 ABG HCO3 ABG Total CO2 ABG O2 Saturation Potassium 2.3 L* Creatinine Glucose POC Glucose (mg/dL) Calcium Magnesium Total Bilirubin AST Alkaline Phosphatase Ammonia 46 H Total Creatine Kinase CK-MB (CK-2) Troponin I Total Protein Albumin Assessment and Plan Plan: Impression: 1. Hepatic encephalopathy 2. Status post cardiac arrest 3. Hypokalemia 4. History of chronic liver disease 5. Diabetes mellitus 6. HIV Recommendations: It does appear patient has multiple metabolic abnormalities contributing to his encephalopathy. As mentioned above, CT of the brain was negative for any acute process. I recommend continuing to stabilize metabolic status. Given multiple comorbidities, neurological exam, and recent cardiac arrest, I do believe prognosis is guarded. I will order an EEG and repeat CT of the brain in the morning. Continue current medical management. Continue neurological checks. I will continue to follow with you. Further recommendations to follow. Thank you for allowing me to participate in the care of your patient. Feel free to contact me with any questions or concerns. I performed an examination of the patient and discussed the management with the COMPOSITE WORKER. I have reviewed the COMPOSITE WORKER notes and agree with the findings and plan of care.
[2016-05-25] MEDS: ENOXAPARIN 30 MG/0.3 ML SYRINGE SQ SCH (13:21)
--- NOTE | 2016-05-25 13:42 | P.CNPUL ---
History of Present Illness Consult date: 05/25/16 Requesting physician: Aguilar Sandoval Reason for consult: other (Acute respiratory failure secondary to cardiac arrest.) Chief complaint: Cardiac arrest History of present illness: This is a 55-year-old white male with history of liver cirrhosis, diabetes, hypertension, HIV infection, and history of neuropathy, according to the his liver disease is not related to hepatitis C or related to any alcohol. He was told that he had nonalcoholic fatty liver in the past. Patient has been seen in the past by the liver transplant team at [facility], and I believe he was listed for liver transplant. At any rate patient had a sudden episode of shortness of breath, in the meantime EMS was called. Just before EMS arrived, patient stopped breathing according to his family members, and within a few minutes, EMS arrived patient was placed on the AED, and 2 shocks were provided. Patient was intubated on site, and according the family CPR was started and he was brought to the ER with CPR in progress. However according to the ER note pulse was established by EMS and documented, and the patient was only on respiratory support upon arrival to the ER. CPR was not actually in progress. Apparently CPR was given for a very short time in the field. In the ER, patient was connected to mechanical ventilation, and he had extensive workup including a CT of the brain which was reported as a relatively normal, CT of the chest showed no evidence of pulmonary embolism there was some atelectasis or infiltrate at the left posterior lung base, echocardiogram showed good LV function, his L a was severely dilated, there was mild aortic valve sclerosis, no evidence of pulmonary hypertension, right-sided ventricular systolic pressure was measured to be 23. Ejection fraction was 50-55% chest x- ray was relatively unremarkable. Labs showed hemoglobin of 9.7, INR of 1.4, potassium was low at 2.3, liver enzymes were all elevated ammonia level was 149 , CPK was just over 5000, troponin was elevated CPK MB bands were elevated. ABG showed a pO2 of 359 pCO2 of 34 pH of 7.55. Since then his ventilator settings were adjusted. And his potassium is being corrected. Patient was eventually transferred to the ICU, and he was already seen by neurology on consultation for potential anoxic brain injury. So far it felt that the patient has hepatic encephalopathy and cardiac arrest. At any rate patient will be monitored closely in the ICU, I have discontinued his sedation to assess his mental status adequately. He was already placed on lactulose for his hepatic encephalopathy and elevated ammonia level and he is yet to be seen by cardiology on consultation. Review of Systems ROS unobtainable: due to mental status Past Medical History Past Medical History: Diabetes Mellitus, Hypertension, Liver Disease Additional Past Medical History / Comment(s): HIV, IDDM type II, cellulitis BLE , loss of all his teeth due to prior medications for the treatment of underlying illnesses, chronic bilateral leg pain, "hole in my heart", murmur, R side of heart is "larger", bilateral leg/feet neuropathy, anemia.04-05-16 lt tibial fracture d/t fall History of Any Multi-Drug Resistant Organisms: None Reported Past Surgical History: Cholecystectomy, Hernia Repair Additional Past Surgical History / Comment(s): Fatty tumor removed from back of neck, incisional hernia repair, liver shunt, cystoscopy, colonoscopy.04/25/16 insertion intramedullary nail lt tibia fx. Past Anesthesia/Blood Transfusion Reactions: No Reported Reaction Past Psychological History: Anxiety Additional Psychological History / Comment(s): per pt's niece,pt just returned home 1 week ago after being at [facility] for rehab after lt tibia sx.is recieving home nurse and pt(niece not sure what company)Pt lives with his nephew , Misael alvarado. There are dogs in the house. He has a walker and a wheelchair pt is single. before sx/rehab,pt was independant. no service in past. Smoking Status: Never smoker Past Alcohol Use History: None Reported Additional Past Alcohol Use History / Comment(s): ronanibal. Past Drug Use History: None Reported - Past Family History Mother Family Medical History: Congestive Heart Failure (CHF), Myocardial Infarction ( [place]) Additional Family Medical History / Comment(s): murmur Father Family Medical History: Congestive Heart Failure (CHF), CVA/TIA Medications and Allergies Home Medications Medication Instructions Recorded Confirmed Type Raltegravir Potassium [Isentress] 400 mg PO BID 01/04/14 05/24/16 History Tenofovir Disoproxil Fumarate 300 mg PO MOWEFR 01/04/14 05/24/16 History [Viread] lamiVUDine [Epivir] 300 mg PO DAILY 01/04/14 05/24/16 History Cevimeline HCl [Evoxac] 30 mg PO TID 02/15/14 05/24/16 History DULoxetine HCL [Cymbalta] 60 mg PO DAILY 04/22/16 05/24/16 History Ergocalciferol [Vitamin D2 50,000 unit PO Q7D 04/22/16 05/24/16 History (DRISDOL)] Lactulose 20 gm PO TID PRN 04/22/16 05/24/16 History Maraviroc [Selzentry] 300 mg PO BID 04/22/16 05/24/16 History Metoprolol Tartrate [Lopressor] 12.5 mg PO BID 04/22/16 05/24/16 History NIFEdipine XL [Procardia XL] 30 mg PO DAILY 04/22/16 05/24/16 History Rifaximin [Xifaxan] 550 mg PO BID 04/22/16 05/24/16 History Sertraline [Zoloft] 50 mg PO DAILY 04/22/16 05/24/16 History Furosemide [Lasix] 80 mg PO DAILY 05/24/16 05/24/16 History INSULIN LISPRO (HumaLOG) [humaLOG] See Protocol SQ ACHS 05/24/16 05/24/16 History Insulin Glargine [Lantus] 55 unit SQ HS 05/24/16 05/24/16 History Morphine Sulfate ER [Ms Contin 15 mg PO HS 05/24/16 05/24/16 History 15Mg] Multivitamins, Thera [Multivitamin] 1 tab PO DAILY@1200 05/24/16 05/24/16 History Pantoprazole Sodium [Protonix] 40 mg PO DAILY 05/24/16 05/24/16 History Potassium Chloride ER [K-Dur 10] 40 meq PO DAILY 05/24/16 05/24/16 History Zolpidem [Ambien] 5 - 10 mg PO HS 05/24/16 05/24/16 History Allergies Allergy/AdvReac Type Severity Reaction Status Date / Time Penicillins Allergy Intermediate Rash/Hives Verified 05/24/16 14:02 Physical Exam Vitals: Vital Signs Temp Pulse Pulse Resp BP BP Pulse Ox 05/25/16 08:00 98.5 F 68 17 93/54 100 05/25/16 07:30 69 17 101/59 100 05/25/16 07:00 71 16 107/61 100 05/25/16 06:30 72 27 H 94/54 99 05/25/16 06:00 70 17 96/54 100 05/25/16 05:30 70 17 92/53 99 05/25/16 05:00 72 18 95/53 99 05/25/16 04:30 99.3 F 72 20 94/50 98 05/25/16 04:00 74 23 93/53 100 05/25/16 03:30 76 20 108/64 100 05/25/16 03:00 79 22 119/65 100 05/25/16 02:30 85 21 109/63 100 05/25/16 02:00 85 18 105/59 99 05/25/16 01:30 84 24 109/58 99 05/25/16 01:00 81 23 101/62 100 05/25/16 00:30 81 21 108/64 100 05/25/16 00:00 99.5 F 80 24 106/61 100 05/24/16 23:38 75 05/24/16 23:30 77 23 101/60 100 05/24/16 23:27 75 05/24/16 23:00 70 19 86/50 100 05/24/16 22:30 73 19 87/50 100 05/24/16 22:00 99.6 F 76 15 99/57 100 05/24/16 21:36 99 05/24/16 21:15 100.0 F H 80 26 H 107/58 100 05/24/16 21:00 99 F 90 26 H 108/58 100 05/24/16 20:30 94 28 H 118/55 100 05/24/16 20:00 94 28 H 111/59 05/24/16 19:30 96 28 H 111/56 05/24/16 19:15 96 32 H 116/60 100 05/24/16 19:00 98 30 H 118/59 100 05/24/16 18:45 96 26 H 115/98 05/24/16 18:30 98 26 H 116/53 99 05/24/16 18:15 98 20 113/58 99 05/24/16 18:00 96 28 H 05/24/16 17:45 96 28 H 111/55 99 05/24/16 17:30 96 28 H 111/52 98 05/24/16 17:15 96 30 H 111/53 100 05/24/16 17:00 99 32 H 128/56 05/24/16 16:45 98.3 F 104 H 36 H 119/58 100 05/24/16 16:30 101 H 36 H 114/55 100 Intake and Output 05/24/16 05/25/16 05/25/16 22:59 06:59 14:59 Intake Total 761.016 0783.196 150 Output Total 720 278 25 Balance -801.594 2688.196 125 Intake: IV 130 3080 150 D5-0.45% NaCl with KCl 130 130 20Meq/l 1,000 ml @ 130 mls/hr IV .Q7H42M ONE Rx# :[id number] Magnesium Sulfate-D5w Pmx 200 1 gm In Dextrose/Water 1 100ml.bag @ 100 mls/hr IVPB Q1H ADAN Rx#: [id number] Potassium Chloride 10 meq 400 Lidocaine 2% Inj 10 mg In Sodium Chloride 0.9% 100 ml @ 100 mls/hr IV Q1HR ADAN Rx#:[id number] Sodium Chloride 0.9% 1, 1350 150 000 ml @ 150 mls/hr IV . Q6H40M ADAN Rx#:[id number] Sodium Chloride 0.9% 1, 1000 000 ml @ 999 mls/hr IV . Q1H1M ONE Rx#:[id number] Intake, IV Titration 351.656 229.196 Amount Heparin Sodium,Porcine/ 207.224 D5w Pmx 25,000 unit In Dextrose/Water 1 500ml. bag @ 18 UNITS/KG/HR 32. 98 mls/hr IV .[id number] ADAN Rx#:[id number] Propofol 500 mg In Empty 144.432 229.196 Bag 1 bag @ Titrate IV . Q0M ADAN Rx#:[id number] Oral 50 Other 80 Output: Gastric Drainage 200 Urine 520 278 25 Other: Voiding Method Indwelling Catheter Indwelling Catheter Weight 96.6 kg 96.6 kg Patient Weight 05/26/16 06:59 Weight 96.6 kg General appearance: Unresponsive, patient only responds to deep painful stimuli , does not respond to any verbal stimuli, his eyes are deviated downwards, does not open eyes to painful stimuli he basically withdraws mostly to pain. Head exam: Present: atraumatic, slightly pale Eye exam: Present: normal appearance, PERRL pale conjunctiva, and slight icterus noted. Pupils are about 3 mm, unreactive to light. Negative corneal reflex noted. ENT exam: Present: normal oropharynx Neck exam: Present: normal inspection Respiratory exam: Present: normal lung sounds bilaterally (With bagging insufflation equal breath sounds bilaterally) Cardiovascular Exam: Present: regular rate, normal rhythm GI/Abdominal exam: Present: soft. Absent: tenderness Extremities exam: Present: normal inspection Neurological exam: Present: other (Unresponsive however patient is making some movements and taking some breaths) Skin exam: Absent: rash Results - Laboratory Findings CBC and BMP: 05/25/16 04:51 05/25/16 06:58 ABG ABG pH 7.55 (7.35-7.45) H 05/24/16 16:23 ABG pCO2 34 mmHg (35-45) L 05/24/16 16:23 ABG pO2 359 mmHg (83-108) H 05/24/16 16:23 ABG O2 Saturation 100.0 % (94-97) H 05/24/16 16:23 PT/INR, D-dimer PT 13.7 sec (9.0-12.0) H 05/25/16 04:51 INR 1.4 (<1.1) 05/25/16 04:51 Abnormal lab findings: Abnormal Labs 05/24/16 05/24/16 05/24/16 16:23 18:41 21:33 RBC Hgb Hct Plt Count PT APTT ABG pH 7.55 H ABG pCO2 34 L ABG pO2 359 H ABG HCO3 30 H ABG Total CO2 31 H ABG O2 Saturation 100.0 H Potassium Creatinine Glucose POC Glucose (mg/dL) 234 H 207 H Calcium Magnesium Total Bilirubin AST Alkaline Phosphatase Ammonia Total Creatine Kinase CK-MB (CK-2) Troponin I Total Protein Albumin 05/24/16 05/24/16 05/24/16 22:15 22:15 22:15 RBC Hgb Hct Plt Count PT APTT >200.0 H* ABG pH ABG pCO2 ABG pO2 ABG HCO3 ABG Total CO2 ABG O2 Saturation Potassium 2.3 L* Creatinine 1.41 H Glucose 207 H POC Glucose (mg/dL) Calcium 7.9 L Magnesium Total Bilirubin 2.5 H AST 328 H Alkaline Phosphatase 329 H Ammonia Total Creatine Kinase 5202 H CK-MB (CK-2) 6.3 H* Troponin I 2.710 H* Total Protein 5.9 L Albumin 1.9 L 05/24/16 05/25/16 05/25/16 23:52 04:51 04:51 RBC 2.80 L Hgb 9.7 L Hct 27.2 L Plt Count 142 L PT APTT ABG pH ABG pCO2 ABG pO2 ABG HCO3 ABG Total CO2 ABG O2 Saturation Potassium 2.3 L* Creatinine 1.30 H Glucose 179 H POC Glucose (mg/dL) 222 H Calcium 7.3 L Magnesium 2.4 H Total Bilirubin AST Alkaline Phosphatase Ammonia Total Creatine Kinase CK-MB (CK-2) Troponin I Total Protein Albumin 05/25/16 05/25/16 05/25/16 04:51 04:51 05:35 RBC Hgb Hct Plt Count PT 13.7 H APTT ABG pH ABG pCO2 ABG pO2 ABG HCO3 ABG Total CO2 ABG O2 Saturation Potassium Creatinine Glucose POC Glucose (mg/dL) 187 H Calcium Magnesium Total Bilirubin AST Alkaline Phosphatase Ammonia Total Creatine Kinase CK-MB (CK-2) 5.2 H* Troponin I 2.660 H* Total Protein Albumin 05/25/16 05/25/16 06:58 09:18 RBC Hgb Hct Plt Count PT APTT ABG pH ABG pCO2 ABG pO2 ABG HCO3 ABG Total CO2 ABG O2 Saturation Potassium 2.3 L* Creatinine Glucose POC Glucose (mg/dL) Calcium Magnesium Total Bilirubin AST Alkaline Phosphatase Ammonia 46 H Total Creatine Kinase CK-MB (CK-2) Troponin I Total Protein Albumin - Diagnostic Findings Chest x-ray: image reviewed (Chest x-ray is relatively unremarkable.) Assessment and Plan Plan: Impression: 1 acute hypoxic respiratory failure secondary to acute cardiac arrest and suspect anoxic brain injury. 2 acute hepatic encephalopathy with significantly elevated ammonia level on presentation. This is related to his underlying liver cirrhosis. 3 acute rhabdomyolysis with elevated CPK, hence the patient will be given fluids at a relatively high rate. 4 electrolytes imbalance mostly hypokalemia, etiology is not clear, but will correct the low potassium accordingly. 5 acute on chronic renal failure. 6 history of chronic liver disease with multiple comorbidities including HIV, diabetes, diabetic neuropathy, chronic anemia, Recommendation: Continue present treatment plan, discussed his condition with his family at bedside, I'm mostly concerned about his neurological status at this point, and we will try to seek neurological evaluation regarding his anoxic brain injury presentation. In the meantime I will go ahead and hold sedatives and narcotics, we will continue GI and DVT prophylaxis, we'll address nutritional support, and I will place on antibiotics if felt necessary prognosis is definitely poor and guarded, critical care time is 45 minutes. Time with Patient: Greater than 30
[2016-05-25 13:56] LABS: Glucose,Whole Blood 194 mg/dL (75-99)
[2016-05-25] MEDS: POTASSIUM CHLORIDE ORAL LIQUID 40 MEQ/30 ML CUP NG-TUBE SCH ×2 (16:32→18:14)
--- NOTE | 2016-05-25 16:52 | HP ---
DATE OF ADMISSION: 05/24/2016 PRESENTING COMPLAINT: Passed out. HISTORY OF PRESENTING COMPLAINT: This is a patient 55-year-old who I saw in the ER yesterday on 05/24/16. Patient's chronic medical stable conditions include history of liver disease with possible cirrhosis being followed at [facility], chronic kidney disease, stage III, HIV, also followed by Dr. Santana, diabetes and peripheral neuropathy. The patient recently had left tibia fracture was at [facility] for rehab and gotten home. Patient lives with his nephew Misael. Patient normally does run a high ammonia level. Patient was noted by family to be somewhat confused the previous night and in the morning of presentation, that is yesterday had some odd movements and then patient had a cardiac arrest. When the EMS arrived, patient had no breathing and was pulseless. Two shocks were given by ED and patient reverted to sinus rhythm. Patient's blood pressure did come up to 168/94. The patient's Accu-Chek was 309 and patient was brought to the ER. I saw the patient in ER, patient was intubated, on the ventilator with a propofol drip. Patient did have a gag reflex per EMS notes. REVIEW OF SYSTEMS: Patient currently intubated. Past medical history of chronic kidney disease, stage III, cirrhosis, HIV, diabetes mellitus type 2, peripheral neuropathy, loss of ( ) due to prior medication for treatment of underlying illnesses, chronic bilateral lower extremity pain, hole in his heart, chronic anemia. PAST SURGICAL HISTORY: Cholecystectomy, hernia repair, fatty tumor removed from the back of the neck, incisional hernia repair, liver shunt, intramedullary nail to left tibia on 04/23/16. Past psych history of anxiety. SOCIAL HISTORY: The patient just returned home from [facility]. Lives with his nephew Misael Reddy. No smoking or alcohol. Patient has a wheelchair and a walker. FAMILY HISTORY: CHF, stroke. HOME MEDICATIONS: 1. Humalog per protocol. 2. Oxycodone 30 mg p.o. q.8 p.r.n. 3. Epivir 300 mg p.o. daily. 4. Ambien 5 to 10 mg p.o. q.h.s. 5. Viread 300 mg p.o. Friday, Friday and Friday. 6. Zoloft 50 mg p.o. daily. 7. Senokot-S 2 tablets p.o. q.h.s. 8. Xifaxan 550 mg p.o. b.i.d. 9. Isentress 400 mg p.o. b.i.d. 10. Potassium 40 mEq p.o. daily. 11. Protonix 40 mg p.o. daily. 12. Procardia XL 30 mg p.o. daily. 13. Multivitamin 1 tablet p.o. daily at noon. 14. MS Contin 15 mg p.o. q.h.s. 15. Lopressor 12.5 p.o. b.i.d. 16. Selzentry 300 mg p.o. b.i.d. 17. Lactulose 20 grams p.o. t.i.d. p.r.n. 18. Lantus 55 units subcu q.h.s. 19. Lasix 80 mg p.o. daily. 20. Vitamin D2, 50,000 units every 7 days. 21. Cymbalta 60 mg p.o. daily. 22. Evoxac 30 mg p.o. t.i.d. Allergy to PENICILLIN. On examination, temperature 98.4, pulse 78, respiration 10, blood pressure 150/90, pulse ox 100% on the ventilator with PEEP of 5 to 10. GENERAL APPEARANCE: Well built, BMI of 31,4, lying on the bed, intubated. EYES: Pupils ( ). Conjunctivae slightly sluggish. HEENT: Endotracheal tube in place. NECK: Short thick. Unable to assess JVD. Mass not palpable. RESPIRATORY: Effort normal. LUNGS: Fair air entry. CARDIOVASCULAR: First and second sounds normal. No edema. ABDOMEN: Soft, nontender. Liver and spleen not palpable. LYMPHATIC: No lymph node palpable in the neck or axillae. PSYCHIATRY: Unable to assess. NEUROLOGICAL: Pupils were slightly reactive. Gag reflex is present. Patient was moving his limbs spontaneously. INVESTIGATIONS: White count 7.8, hemoglobin 10.6. Blood gas showed pH of 7.55. Potassium 2.4. BUN and creatinine are normal. Ammonia level is 149. CPK is 6215. Troponin 0.142. Urine drug positive for opiates. EKG is a poor tracing, but showing some nonspecific ST segment changes. CT scan of the brain nil acute. CT scan of the chest, no evidence of PE. ASSESSMENT: 1. This is a patient who was apparently a witnessed cardiac arrest at home. Initially had no pulse, no respiration and after getting 2 shocks was brought around and had a good blood pressure, went into sinus rhythm after that. Has a troponin leak that could be from the shock itself or could be evolving into myocardial infarction. 2. Acute metabolic encephalopathy. Patient was noted to have mental status changes at home. This could be progressive from his cirrhosis from underlying hepatic encephalopathy, given hyper ammonia state. 3. Cirrhosis, chronic. 4. Chronic kidney disease, stage III from diabetic nephropathy and hypertensive nephrosclerosis. 5. Human immunodeficiency virus. 6. Diabetes mellitus type 2, chronically on insulin causing peripheral neuropathy. 7. Depression and anxiety, not otherwise specified. PLAN: Consultation to Dr. Joseph from critical care was called from the ER, Dr. Santana from infectious disease. Given cirrhosis, Dr. Masters was consulted. I also spoke to ER physician about cardiac consult in view of cardiac arrest and underlying coronary artery disease needs to be strongly considered. There is no family at the bedside currently. Home medications will be resumed. Neuro checks will be closely followed. Prognosis is guarded given multiple comorbidities. Patient is being admitted to the ICU.
[2016-05-25 17:51] LABS: Glucose,Whole Blood 178 mg/dL (75-99)
[2016-05-25] MEDS: DULoxetine HCL 60 MG CAPSULE.DR PO SCH (21:35)
[2016-05-25] MEDS: RIFAXIMIN 550 MG TABLET PO SCH (21:35)
[2016-05-25] MEDS: CEVIMELINE 30 MG CAP PO SCH (21:35)
[2016-05-25] MEDS ORDERED: IV VANCOMYCIN PER PHARMACY 1 EACH MISC MISCELLANE PRN (22:00)
[2016-05-25] MEDS ORDERED: VANCOMYCIN 1,000 MG in SODIUM CHLORIDE 0.9% 250 ML IVPB STA (22:00)
[2016-05-25] MEDS: LEVOFLOXACIN 500MG-D5W PMX 500 MG in DEXTROSE/WATER 1 100ML.BAG IVPB SCH (22:29)
[2016-05-25] MEDS ORDERED: POTASSIUM CHLORIDE ORAL LIQUID 40 MEQ/30 ML CUP NG-TUBE SCH (23:00)
[2016-05-25] MEDS: RALTEGRAVIR POTASSIUM 400 MG PO SCH (23:50)
[2016-05-25] MEDS: LAMIVUDINE 300 MG PO SCH (23:51)
[2016-05-25] MEDS: MARAVIROC 300 MG PO SCH (23:51)
[2016-05-25] MEDS: VANCOMYCIN 1,500 MG in SODIUM CHLORIDE 0.9% 250 ML IVPB SCH (23:52)
[2016-05-26 00:06] LABS: Glucose,Whole Blood 209 mg/dL (75-99)
[2016-05-26] MEDS: INSULIN LISPRO (humaLOG) 300 UNIT/3 ML VIAL SQ SCH ×5 (00:27→23:39)
[2016-05-26] MEDS: PROPOFOL 500 MG in EMPTY BAG 1 BAG IV SCH ×2 (01:04→05:11)
[2016-05-26] MEDS ORDERED: POTASSIUM CHLORIDE ORAL LIQUID 40 MEQ/30 ML CUP NG-TUBE SCH (03:00)
[2016-05-26 05:07] LABS: Glucose,Whole Blood 243 mg/dL (75-99)
[2016-05-26 05:13] LABS: Basophils % (A) 0 %; CHCM 33.2; Eosinophils # (A) 0.1 k/uL (0-0.7); Eosinophils % (A) 1 %; HCT 30.1 % (39.0-53.0); HDW 3.77; HGB 9.8 gm/dL (13.0-17.5); Luc # (Auto) 0.15; Luc % (Auto) 2; Lymphocytes # (A) 1.1 k/uL (1.0-4.8); Lymphocytes % (A) 12 %; MCH 32.7 pg (25.0-35.0); MCHC 32.7 g/dL (31.0-37.0); MCV 100.1 fL (80.0-100.0); Macrocytosis Slight; Mean Platelet Volume 8.7; Monocytes # (A) 0.5 k/uL (0-1.0); Monocytes % (A) 5 %; Neutrophils # (A) 7.5 k/uL (1.3-7.7); Neutrophils % (A) 81 %; Poikilocytosis Slight; RBC 3.01 m/uL (4.30-5.90); RDW 14.8 % (11.5-15.5); WBC 9.3 k/uL (3.8-10.6); WBC (Perox) 9.23
[2016-05-26 05:23] LABS: Anion Gap 4 mmol/L; Blood Urea Nitrogen 18 mg/dL (9-20); Calcium 7.5 mg/dL (8.4-10.2); Carbon Dioxide 26 mmol/L (22-30); Chloride 119 mmol/L (98-107); Glucose 228 mg/dL (74-99); Magnesium 2.4 mg/dL (1.6-2.3); Non-African American GFR(MDRD) >60 (>60 ml/min/1.73 sqM); Phosphorous 2.1 mg/dL (2.5-4.5); Potassium 4.3 mmol/L (3.5-5.1); Sodium 149 mmol/L (137-145)
[2016-05-26] MEDS: SERTRALINE 50 MG TAB PO SCH (08:12)
[2016-05-26] MEDS: ENOXAPARIN 30 MG/0.3 ML SYRINGE SQ SCH (08:12)
[2016-05-26] MEDS: LACTULOSE 20 GM/30 ML CUP PO SCH ×3 (08:12→22:00)
[2016-05-26] MEDS: CEVIMELINE 30 MG CAP PO SCH ×3 (08:12→22:00)
[2016-05-26] MEDS: PANTOPRAZOLE 40 MG/10 ML VIAL IV SCH (08:12)
[2016-05-26] MEDS: RIFAXIMIN 550 MG TABLET PO SCH ×2 (08:13→20:51)
[2016-05-26] MEDS: MARAVIROC 300 MG PO SCH ×2 (08:14→20:55)
[2016-05-26] MEDS: LAMIVUDINE 300 MG PO SCH (08:15)
[2016-05-26] MEDS: RALTEGRAVIR POTASSIUM 400 MG PO SCH ×2 (08:16→20:55)
--- NOTE | 2016-05-26 08:35 | XR ---
EXAMINATION TYPE: XR chest 1V DATE OF EXAM: 05/26/2016 6:48 AM COMPARISON: 05/25/2016 INDICATION: Intubated difficulty breathing TECHNIQUE: Single frontal view of the chest is obtained. FINDINGS: The heart size is normal. The pulmonary vasculature is normal. Minimal blunting left costophrenic angles likely present. Correlate for small left pleural effusion. Lungs otherwise appear clear. Endotracheal tube has its tip above the pk. Nasogastric tube transverses the thorax. EKG leads ov erlie the chest. IMPRESSION: 1. Correlate for minimal developing left pleural effusion
[2016-05-26 08:39] LABS: ABG HCO3 24 mmol/L (21-25); ABG PCO2 35 mmHg (35-45); ABG PH 7.46 (7.35-7.45); ABG PO2 123 mmHg (83-108); ABG TCO2 25 mmol/L (19-24)
[2016-05-26] MEDS: CHLORHEXIDINE GLUCONATE 15 ML CUP MUCOUS MEM SCH ×2 (09:00→20:51)
[2016-05-26] MEDS: SPIRONOLACTONE 25 MG TAB PO SCH (09:00)
--- NOTE | 2016-05-26 10:43 | CT ---
EXAMINATION TYPE: CT brain wo con DATE OF EXAM: 05/26/2016 10:20 AM COMPARISON: 05/24/2016 INDICATION: Encephalopathy DLP: 1144.7 mGycm, Automated exposure control for dose reduction was used. CONTRAST: None CT of the brain is performed utilizing 3 mm thick sections through the posterior fossa and 3 mm thick sections through the remaining calvarium. Study is performed within 24 hours of arrival to the hosp ital. No abnormal hyperdensity is present to suggest an acute intracranial hemorrhage. No mass lesion is evident. No acute infarcts are evident. Ventricles and sulci are appropriate for the patient age. Some mild mucosal thickening within ethmoid air cells. Remaining paranasal sinuses and mastoid air ce lls are clear. IMPRESSIONS: 1. Normal CT Brain
--- NOTE | 2016-05-26 11:00 | PN ---
DATE OF SERVICE: 05/25/2016 PRESENTING COMPLAINT: Cardiac arrest. INTERVAL HISTORY: This is a patient with multiple problems presented with cardiac arrest and was intubated. Consultation with critical care. Cardiology was made from the ER. The patient ( ) the ICU. Patient remains on a ventilator. FIO2 59, PEEP 5, ( ) propofol at tube feedings at 20 mL/h. No family is at the bedside. Review of systems: Patient intubated. Current medications include: IV propofol. Patient had norepinephrine earlier. On examination, temperature 99.7, pulse 55, respiration 34, blood pressure 120/59, pulse ox 100% on 50%. GENERAL APPEARANCE: Lying in bed, intubated. EYES: Pupils equal. Conjunctivae is normal. HEENT: Endotracheal tube ( ). NECK: JVD unable to assess. Mass not palpable. RESPIRATORY: Effort normal. LUNGS: Diminished breath sounds. CARDIOVASCULAR: First and second sounds normal. No edema. ABDOMEN: Soft, nontender. ( ). NEUROLOGICAL: Pupils equal. Plantars are downgoing. INVESTIGATIONS: White count 8.7, hemoglobin 9.7. Potassium 2.3, BUN 19, creatinine 1.30. Troponin 2.7. ASSESSMENT: 1. Possible acute myocardial infarction, present on admission. 2. Acute metabolic encephalopathy, multifactorial, including contributing hepatic encephalopathy. 3. Chronic liver cirrhosis. 4. Chronic kidney disease, stage III from diabetic nephropathy and hypertensive nephrosclerosis. 5. HIV. 6. Type 2 diabetes mellitus, chronically on insulin causing peripheral neuropathy. The patient ( ) not otherwise specified. 7. Acute hypoxic respiratory failure, present at admission, the patient was intubated in the ER. 8. Severe hypokalemia. PLAN: Continue current medication and treatment plan. Supportive care. Follow with pulmonary; cardiology. Overall prognosis is guarded. Will follow.
[2016-05-26] MEDS: DULoxetine HCL 60 MG CAPSULE.DR PO SCH (11:40)
--- NOTE | 2016-05-26 11:55 | PCN ---
DATE OF PROCEDURE: 05/25/2016 PROCEDURE: Placement of a right radial arterial line. PREOPERATIVE DIAGNOSIS: Acute respiratory failure. ANESTHESIA: None deployed. DESCRIPTION OF PROCEDURE: Patient was placed in a supine position. The right wrist was prepared in a sterile fashion and drapes were applied. The right radial artery was palpated, cannulated easily, and a guidewire was placed. A radial Cook's catheter was inserted over the guidewire, and the guidewire was removed. Good blood flow and good waveform were noted. No evidence of any immediate complications. Line was secured using 3-0 silk sutures.
[2016-05-26 11:57] LABS: Glucose,Whole Blood 256 mg/dL (75-99)
--- NOTE | 2016-05-26 12:51 | P.PN ---
Subjective Principal diagnosis: Acute respiratory failure secondary to cardiac arrest This is a 55-year-old white male with history of liver cirrhosis, diabetes, hypertension, HIV infection, and history of neuropathy, according to the his liver disease is not related to hepatitis C or related to any alcohol. He was told that he had nonalcoholic fatty liver in the past. Patient has been seen in the past by the liver transplant team at [facility], and I believe he was listed for liver transplant. At any rate patient had a sudden episode of shortness of breath, in the meantime EMS was called. Just before EMS arrived, patient stopped breathing according to his family members, and within a few minutes, EMS arrived patient was placed on the AED, and 2 shocks were provided. Patient was intubated on site, and according the family CPR was started and he was brought to the ER with CPR in progress. However according to the ER note pulse was established by EMS and documented, and the patient was only on respiratory support upon arrival to the ER. CPR was not actually in progress. Apparently CPR was given for a very short time in the field. In the ER, patient was connected to mechanical ventilation, and he had extensive workup including a CT of the brain which was reported as a relatively normal, CT of the chest showed no evidence of pulmonary embolism there was some atelectasis or infiltrate at the left posterior lung base, echocardiogram showed good LV function, his L a was severely dilated, there was mild aortic valve sclerosis, no evidence of pulmonary hypertension, right-sided ventricular systolic pressure was measured to be 23. Ejection fraction was 50-55% chest x- ray was relatively unremarkable. Labs showed hemoglobin of 9.7, INR of 1.4, potassium was low at 2.3, liver enzymes were all elevated ammonia level was 149 , CPK was just over 5000, troponin was elevated CPK MB bands were elevated. ABG showed a pO2 of 359 pCO2 of 34 pH of 7.55. Since then his ventilator settings were adjusted. And his potassium is being corrected. Patient was eventually transferred to the ICU, and he was already seen by neurology on consultation for potential anoxic brain injury. So far it felt that the patient has hepatic encephalopathy and cardiac arrest. At any rate patient will be monitored closely in the ICU, I have discontinued his sedation to assess his mental status adequately. He was already placed on lactulose for his hepatic encephalopathy and elevated ammonia level and he is yet to be seen by cardiology on consultation. Patient was reevaluated today on 05/26/2016, overall the patient is about the same, even in spite of holding the propofol all day yesterday, and all night last night except for a couple of hours when he was noted to be a bit agitated and tachypneic, patient remains comatose, response mostly to painful stimuli. May move his head but doesn't open eyes with verbal stimuli. Patient seems to withdraw to painful stimuli and grimaces. Otherwise no neurological changes noted over the last [address] hours. Patient had repeat CT of the brain today, and it was relatively normal. Chest x-ray showed a small left pleural effusion otherwise unremarkable. ABG showed a pO2 of 123 pCO2 of 35 pH of 7.46, basic metabolic profile showed hypernatremia and hyperchloremia hence I will change his IV fluid to D5W, and I will recommend free water flushes via nasogastric tube. Objective - Vital Signs Vital signs: Vital Signs Temp 98.6 F 05/26/16 08:00 Pulse 80 05/26/16 11:30 Resp 22 05/26/16 11:30 BP 134/71 05/26/16 11:30 Pulse Ox 100 05/26/16 11:30 Intake & Output 05/25/16 05/26/16 05/26/16 18:59 06:59 18:59 Intake Total 2019 2880.716 660 Output Total 1020 1970 145 Balance 1000 910.716 515 Weight 96.6 kg 100.2 kg Intake: IV 1950 2225 600 Levofloxacin 500Mg-D5w 100 Pmx 500 mg In Dextrose/ Water 1 100ml.bag @ 100 mls/hr IVPB Q24H [facility] Rx#: [id number] Potassium Chloride 10 meq 300 Lidocaine 2% Inj 10 mg In Sodium Chloride 0.9% 100 ml @ 100 mls/hr IV Q1HR [facility] Rx#:[id number] Sodium Chloride 0.9% 1, 1650 1875 600 000 ml @ 150 mls/hr IV . Q6H40M [facility] Rx#:[id number] Vancomycin 1,500 mg In 250 Sodium Chloride 0.9% 250 ml @ 125 mls/hr IVPB Q16H [facility] Rx#:[id number] Intake, IV Titration 50 125.716 Amount Propofol 500 mg In Empty 50 125.716 Bag 1 bag @ Titrate IV . Q0M [facility] Rx#:[id number] Tube Feeding 20 440 60 Other 90 Output: Drainage 1500 FMS 1500 Urine 420 470 145 Stool 600 Other: Voiding Method Indwelling Catheter Indwelling Catheter Indwelling Catheter ABP, PAP, CO, CI - Last Documented Arterial Blood Pressure 155/70 - Exam General appearance: Unresponsive, patient only responds to deep painful stimuli , moves her head in response to verbal stimuli, his eyes are deviated downwards , does not open eyes to painful stimuli he basically withdraws mostly to pain. Head exam: Present: atraumatic, slightly pale Eye exam: Present: normal appearance, PERRL pale conjunctiva, and slight icterus noted. Pupils are about 3 mm, unreactive to light. Negative corneal reflex noted. ENT exam: Present: normal oropharynx Neck exam: Present: normal inspection Respiratory exam: Present: normal lung sounds bilaterally (With bagging insufflation equal breath sounds bilaterally) Cardiovascular Exam: Present: regular rate, normal rhythm GI/Abdominal exam: Present: soft. Absent: tenderness Extremities exam: Present: normal inspection Neurological exam: Patient is comatose, pupils are narrow and unreactive, patient withdraws to pain and grimaces from deep painful stimuli. Does not open eyes even with painful stimuli. Moves his head upon verbal stimuli. Glascow coma score is less than 5 - Labs CBC & Chem 7: 05/26/16 05:05 05/26/16 05:05 Labs: Abnormal Lab Results - Last 24 Hours (Table) 05/25/16 05/25/16 05/25/16 Range/Units 13:37 15:25 17:41 RBC (4.30-5.90) m/uL Hgb (13.0-17.5) gm/dL Hct (39.0-53.0) % MCV (80.0-100.0) fL Plt Count (150-450) k/uL ABG pH (7.35-7.45) ABG pO2 (83-108) mmHg ABG Total CO2 (19-24) mmol/L ABG O2 Saturation (94-97) % Sodium (137-145) mmol/L Potassium 3.1 L (3.5-5.1) mmol/L Chloride (98-107) mmol/L Glucose (74-99) mg/dL POC Glucose (mg/dL) 194 H 178 H (75-99) mg/dL Calcium (8.4-10.2) mg/dL Phosphorus (2.5-4.5) mg/dL Magnesium (1.6-2.3) mg/dL 05/26/16 05/26/16 05/26/16 Range/Units 00:04 05:03 05:05 RBC 3.01 L (4.30-5.90) m/uL Hgb 9.8 L (13.0-17.5) gm/dL Hct 30.1 L (39.0-53.0) % MCV 100.1 H (80.0-100.0) fL Plt Count 116 L (150-450) k/uL ABG pH (7.35-7.45) ABG pO2 (83-108) mmHg ABG Total CO2 (19-24) mmol/L ABG O2 Saturation (94-97) % Sodium (137-145) mmol/L Potassium (3.5-5.1) mmol/L Chloride (98-107) mmol/L Glucose (74-99) mg/dL POC Glucose (mg/dL) 209 H 243 H (75-99) mg/dL Calcium (8.4-10.2) mg/dL Phosphorus (2.5-4.5) mg/dL Magnesium (1.6-2.3) mg/dL 05/26/16 05/26/16 05/26/16 Range/Units 05:05 08:25 11:39 RBC (4.30-5.90) m/uL Hgb (13.0-17.5) gm/dL Hct (39.0-53.0) % MCV (80.0-100.0) fL Plt Count (150-450) k/uL ABG pH 7.46 H (7.35-7.45) ABG pO2 123 H (83-108) mmHg ABG Total CO2 25 H (19-24) mmol/L ABG O2 Saturation 99.0 H (94-97) % Sodium 149 H (137-145) mmol/L Potassium (3.5-5.1) mmol/L Chloride 119 H (98-107) mmol/L Glucose 228 H (74-99) mg/dL POC Glucose (mg/dL) 256 H (75-99) mg/dL Calcium 7.5 L (8.4-10.2) mg/dL Phosphorus 2.1 L (2.5-4.5) mg/dL Magnesium 2.4 H (1.6-2.3) mg/dL Microbiology - Last 24 Hours (Table) 05/25/16 21:00 Urine Culture - Preliminary Urine,Catheterized 05/25/16 20:10 Gram Stain - Preliminary Sputum Sputum Culture - Preliminary Gram Neg Bacilli Assessment and Plan Plan: Impression: 1 acute hypoxic respiratory failure secondary to acute cardiac arrest and suspect profound anoxic brain injury. 2 acute hepatic encephalopathy with significantly elevated ammonia level on presentation. This is related to his underlying liver cirrhosis. Patient is on rifaximin 3 acute rhabdomyolysis with elevated CPK, hence the patient will be given fluids at a relatively high rate. 4 electrolytes imbalance mostly hypokalemia, etiology is not clear, but will correct the low potassium accordingly. 5 acute on chronic renal failure. 6 history of chronic liver disease with multiple comorbidities including HIV, diabetes, diabetic neuropathy, chronic anemia, 7 Hypernatremia and hyperchloremia, this will be corrected by changing his IV fluid and free water boluses via nasogastric tube. Recommendation: Continue present treatment plan, I'm mostly concerned about his neurological status at this point, this is clearly anoxic brain injury presentation. In the meantime I will go ahead and hold sedatives and narcotics , we will continue GI and DVT prophylaxis, continue nutritional support, and I will place on antibiotics empirically, prognosis is definitely poor and guarded , critical care time is 35 minutes. Time with Patient: Greater than 30
[2016-05-26] MEDS: DEXTROSE 5% IN WATER 1,000 ML IV SCH (13:37)
[2016-05-26] MEDS: SODIUM CHLORIDE 0.9% 1,000 ML IV SCH (15:53)
[2016-05-26] MEDS: VANCOMYCIN 1,500 MG in SODIUM CHLORIDE 0.9% 250 ML IVPB SCH (15:58)
--- NOTE | 2016-05-26 16:54 | P.PN ---
Subjective Principal diagnosis: Patient is a 55-year-old male who is being followed by the neurology service for a anoxic brain injury. Patient became short of breath at home and EMS was called. EMS arrived and patient was in respiratory arrest. Patient was placed on AED and 2 shocks were provided. Patient was intubated and brought to [facility]. Patient is in the intensive care unit and is currently intubated. Following his cardiac arrestand given his history of liver disease , he most likely is suffering from a anoxic encephalopathy coupled with hepatic encephalopathy. Patient is slightly more responsive today as compared to yesterday. Repeat computed tomography scan from today did not show any acute abnormalities. All sedation has been held. At the time of my evaluation, patient is intubated and does not appear to be in any acute distress. Objective - Vital Signs Vital signs: Vital Signs Temp 98.9 F 05/26/16 16:00 Pulse 82 05/26/16 16:00 Resp 23 05/26/16 16:00 BP 141/72 05/26/16 16:00 Pulse Ox 100 05/26/16 16:00 Intake & Output 05/25/16 05/26/16 05/26/16 18:59 06:59 18:59 Intake Total 2020 2880.716 1320 Output Total 1020 1970 350 Balance 1000 910.716 970 Weight 96.6 kg 100.2 kg Intake: IV 1950 2225 1200 Dextrose 5% in Water 1, 300 000 ml @ 100 mls/hr IV . Q10H [facility] Rx#:[id number] Levofloxacin 500Mg-D5w 100 Pmx 500 mg In Dextrose/ Water 1 100ml.bag @ 100 mls/hr IVPB Q24H [facility] Rx#: [id number] Potassium Chloride 10 meq 300 Lidocaine 2% Inj 10 mg In Sodium Chloride 0.9% 100 ml @ 100 mls/hr IV Q1HR [facility] Rx#:[id number] Sodium Chloride 0.9% 1, 1650 1875 900 000 ml @ 150 mls/hr IV . Q6H40M [facility] Rx#:[id number] Vancomycin 1,500 mg In 250 Sodium Chloride 0.9% 250 ml @ 125 mls/hr IVPB Q16H [facility] Rx#:[id number] Intake, IV Titration 50 125.716 Amount Propofol 500 mg In Empty 50 125.716 Bag 1 bag @ Titrate IV . Q0M [facility] Rx#:[id number] Tube Feeding 20 440 120 Other 90 Output: Drainage 1500 FMS 1500 Urine 420 470 350 Stool 600 Other: Voiding Method Indwelling Catheter Indwelling Catheter Indwelling Catheter ABP, PAP, CO, CI - Last Documented Arterial Blood Pressure 163/73 - Exam PHYSICAL EXAM: GENERAL APPEARANCE: Patient is a well-developed, male who appears to be in no acute distress. HEENT: Normocephalic, atraumatic, no facial asymmetry is seen. Neck is supple with no masses felt. Patient is intubated CARDIOVASCULAR: Regular rate and rhythm. ABDOMEN: Nontender, nondistended. EXTREMITIES: Show no edema or clubbing. NEUROLOGICAL EXAM: Patient is intubated and does turn head in response to verbal stimulation. He does not open his eyes even to painful stimuli. He does withdraw all 4 extremities to painful stimuli. No tremors or seizure-like activity is seen. - Labs CBC & Chem 7: 05/26/16 05:05 05/26/16 05:05 Labs: Abnormal Lab Results - Last 24 Hours (Table) 05/25/16 05/26/16 05/26/16 Range/Units 17:41 00:04 05:03 RBC (4.30-5.90) m/uL Hgb (13.0-17.5) gm/dL Hct (39.0-53.0) % MCV (80.0-100.0) fL Plt Count (150-450) k/uL ABG pH (7.35-7.45) ABG pO2 (83-108) mmHg ABG Total CO2 (19-24) mmol/L ABG O2 Saturation (94-97) % Sodium (137-145) mmol/L Chloride (98-107) mmol/L Glucose (74-99) mg/dL POC Glucose (mg/dL) 178 H 209 H 243 H (75-99) mg/dL Calcium (8.4-10.2) mg/dL Phosphorus (2.5-4.5) mg/dL Magnesium (1.6-2.3) mg/dL 05/26/16 05/26/16 05/26/16 Range/Units 05:05 05:05 08:25 RBC 3.01 L (4.30-5.90) m/uL Hgb 9.8 L (13.0-17.5) gm/dL Hct 30.1 L (39.0-53.0) % MCV 100.1 H (80.0-100.0) fL Plt Count 116 L (150-450) k/uL ABG pH 7.46 H (7.35-7.45) ABG pO2 123 H (83-108) mmHg ABG Total CO2 25 H (19-24) mmol/L ABG O2 Saturation 99.0 H (94-97) % Sodium 149 H (137-145) mmol/L Chloride 119 H (98-107) mmol/L Glucose 228 H (74-99) mg/dL POC Glucose (mg/dL) (75-99) mg/dL Calcium 7.5 L (8.4-10.2) mg/dL Phosphorus 2.1 L (2.5-4.5) mg/dL Magnesium 2.4 H (1.6-2.3) mg/dL 05/26/16 Range/Units 11:39 RBC (4.30-5.90) m/uL Hgb (13.0-17.5) gm/dL Hct (39.0-53.0) % MCV (80.0-100.0) fL Plt Count (150-450) k/uL ABG pH (7.35-7.45) ABG pO2 (83-108) mmHg ABG Total CO2 (19-24) mmol/L ABG O2 Saturation (94-97) % Sodium (137-145) mmol/L Chloride (98-107) mmol/L Glucose (74-99) mg/dL POC Glucose (mg/dL) 256 H (75-99) mg/dL Calcium (8.4-10.2) mg/dL Phosphorus (2.5-4.5) mg/dL Magnesium (1.6-2.3) mg/dL Microbiology - Last 24 Hours (Table) 05/25/16 21:00 Urine Culture - Preliminary Urine,Catheterized 05/25/16 20:10 Gram Stain - Preliminary Sputum Sputum Culture - Preliminary Gram Neg Bacilli Assessment and Plan Plan: Impression: 1. Status post cardiac arrest, most likely with a anoxic encephalopathy 2. Hepatic encephalopathy 3. History of chronic liver disease 4. HIV 5. Diabetes mellitus 6. Electrolyte imbalance 7. Recommendations: Continue current supportive care. CAT scan of the brain was repeated today and does not show any evidence of acute process. I believe he does show symptoms consistent with anoxic brain injury. Any neurological changes I will repeat a stat computed tomography scan. EEG was done and results are pending. I recommend continue holding sedatives and narcotics. Continue current ICU management. Continue neurological checks. At this point I believe prognosis is guarded. I will continue to follow with you. Further recommendations to follow. I performed an examination of the patient and discussed the management with the [facility]. I have reviewed the [facility] notes and agree with the findings and plan of care.
--- NOTE | 2016-05-26 18:07 | P.CRDCN ---
History of Present Illness History of present illness: 55-year-old male patient with cirrhosis of the liver, stage III chronic kidney disease, retroviral disease, diabetes, presented with a cardiac arrest and resuscitated with 2 shocks. Thereafter he was intubated No history available from the patient still intubated Medication list is reviewed ALLERGIES reviewed On examination he is afebrile 98.9F a pressure 141/72 mmHg Breath sounds are reduced bilaterally Heart sounds S1 and S2 are soft Soft abdomen Impression Status post cardiac arrest Likely anoxic encephalopathy Hepatic encephalopathy Chronic kidney disease Suggest ICU care Address DO NOT RESUSCITATE status The issue of anoxic encephalopathy is being addressed Continue cardiac medications at this time Please call for any cardiac issues Thank you Past Medical History Past Medical History: Diabetes Mellitus, Hypertension, Liver Disease Additional Past Medical History / Comment(s): HIV, IDDM type II, cellulitis BLE , loss of all his teeth due to prior medications for the treatment of underlying illnesses, chronic bilateral leg pain, "hole in my heart", murmur, R side of heart is "larger", bilateral leg/feet neuropathy, anemia.04-05-16 lt tibial fracture d/t fall History of Any Multi-Drug Resistant Organisms: None Reported Past Surgical History: Cholecystectomy, Hernia Repair Additional Past Surgical History / Comment(s): Fatty tumor removed from back of neck, incisional hernia repair, liver shunt, cystoscopy, colonoscopy.04/25/16 insertion intramedullary nail lt tibia fx. Past Anesthesia/Blood Transfusion Reactions: No Reported Reaction Past Psychological History: Anxiety Additional Psychological History / Comment(s): per pt's niece,pt just returned home 1 week ago after being at [facility] for rehab after lt tibia sx.is recieving home nurse and pt(niece not sure what company)Pt lives with his nephew , Misael alvarado. There are dogs in the house. He has a walker and a wheelchair pt is single. before sx/rehab,pt was independant. no service in past. Smoking Status: Never smoker Past Alcohol Use History: None Reported Additional Past Alcohol Use History / Comment(s): ronment. Past Drug Use History: None Reported - Past Family History Mother Family Medical History: Congestive Heart Failure (CHF), Myocardial Infarction ( [place]) Additional Family Medical History / Comment(s): murmur Father Family Medical History: Congestive Heart Failure (CHF), CVA/TIA Medications and Allergies Home Medications Medication Instructions Recorded Confirmed Type Raltegravir Potassium [Isentress] 400 mg PO BID 01/04/14 05/24/16 History Tenofovir Disoproxil Fumarate 300 mg PO MOWEFR 01/04/14 05/24/16 History [Viread] lamiVUDine [Epivir] 300 mg PO DAILY 01/04/14 05/24/16 History Cevimeline HCl [Evoxac] 30 mg PO TID 02/15/14 05/24/16 History DULoxetine HCL [Cymbalta] 60 mg PO DAILY 04/22/16 05/24/16 History Ergocalciferol [Vitamin D2 50,000 unit PO Q7D 04/22/16 05/24/16 History (DRISDOL)] Lactulose 20 gm PO TID PRN 04/22/16 05/24/16 History Maraviroc [Selzentry] 300 mg PO BID 04/22/16 05/24/16 History Metoprolol Tartrate [Lopressor] 12.5 mg PO BID 04/22/16 05/24/16 History NIFEdipine XL [Procardia XL] 30 mg PO DAILY 04/22/16 05/24/16 History Rifaximin [Xifaxan] 550 mg PO BID 04/22/16 05/24/16 History Sertraline [Zoloft] 50 mg PO DAILY 04/22/16 05/24/16 History Furosemide [Lasix] 80 mg PO DAILY 05/24/16 05/24/16 History INSULIN LISPRO (HumaLOG) [humaLOG] See Protocol SQ ACHS 05/24/16 05/24/16 History Insulin Glargine [Lantus] 55 unit SQ HS 05/24/16 05/24/16 History Morphine Sulfate ER [Ms Contin 15 mg PO HS 05/24/16 05/24/16 History 15Mg] Multivitamins, Thera [Multivitamin] 1 tab PO DAILY@1200 05/24/16 05/24/16 History Pantoprazole Sodium [Protonix] 40 mg PO DAILY 05/24/16 05/24/16 History Potassium Chloride ER [K-Dur 10] 40 meq PO DAILY 05/24/16 05/24/16 History Zolpidem [Ambien] 5 - 10 mg PO HS 05/24/16 05/24/16 History Allergies Allergy/AdvReac Type Severity Reaction Status Date / Time Penicillins Allergy Intermediate Rash/Hives Verified 05/24/16 14:02 Physical Exam Vitals: Vital Signs Temp Pulse Resp BP Pulse Ox 05/26/16 16:00 98.9 F 82 23 141/72 100 05/26/16 15:30 77 24 135/76 100 05/26/16 15:00 82 24 141/71 100 05/26/16 14:30 82 23 145/77 100 05/26/16 14:00 80 24 140/77 100 05/26/16 13:30 81 21 138/77 100 05/26/16 13:00 81 25 H 135/76 100 05/26/16 12:30 81 22 134/77 100 05/26/16 12:00 98.9 F 81 22 135/73 100 05/26/16 11:30 80 22 134/71 100 05/26/16 11:00 80 23 128/67 99 05/26/16 10:30 82 21 125/70 100 05/26/16 10:00 128/73 05/26/16 09:30 82 28 H 130/73 100 05/26/16 09:00 81 23 135/77 100 05/26/16 08:30 81 17 137/80 100 05/26/16 08:00 98.6 F 79 16 118/72 100 05/26/16 07:00 77 20 129/72 100 05/26/16 06:00 78 22 135/81 100 05/26/16 05:00 77 21 123/73 100 05/26/16 04:00 98.3 F 79 22 133/75 100 05/26/16 03:00 75 19 116/67 100 05/26/16 02:00 77 23 129/73 100 05/26/16 01:00 78 22 123/69 100 05/26/16 00:00 99.8 F H 81 23 125/69 100 05/25/16 23:07 83 23 125/68 100 05/25/16 23:00 83 23 123/68 100 05/25/16 22:00 84 19 128/68 100 05/25/16 21:00 86 17 128/65 99 05/25/16 20:00 101.9 F H 90 28 H 138/73 99 05/25/16 19:00 90 60 H 142/74 99 Intake and Output 05/26/16 05/26/16 05/26/16 06:59 14:59 22:59 Intake Total 2005.915 1120 200 Output Total 1825 280 70 Balance 180.915 840 130 Intake: IV 1550 1000 200 Dextrose 5% in Water 1, 100 200 000 ml @ 100 mls/hr IV . Q10H ADAN Rx#:[id number] Sodium Chloride 0.9% 1, 1300 900 000 ml @ 150 mls/hr IV . Q6H40M ADAN Rx#:[id number] Vancomycin 1,500 mg In 250 Sodium Chloride 0.9% 250 ml @ 125 mls/hr IVPB Q16H ADAN Rx#:[id number] Intake, IV Titration 95.915 Amount Propofol 500 mg In Empty 95.915 Bag 1 bag @ Titrate IV . Q0M ADAN Rx#:[id number] Tube Feeding 300 120 Other 60 Output: Drainage 1500 FMS 1500 Urine 325 280 70 Other: Voiding Method Indwelling Catheter Indwelling Catheter Weight 100.2 kg ABP, PAP, CO, CI - Last 8 Hours Arterial Blood Pressure 163/73 Arterial Blood Pressure 163/73 Arterial Blood Pressure 156/70 Arterial Blood Pressure 164/76 Arterial Blood Pressure 162/71 Arterial Blood Pressure 155/69 Arterial Blood Pressure 158/70 Arterial Blood Pressure 160/71 Arterial Blood Pressure 157/70 Arterial Blood Pressure 155/70 Arterial Blood Pressure 154/68 Arterial Blood Pressure 153/69 Results 05/26/16 05:05 05/26/16 05:05 CBC 05/26/16 Range/Units 05:05 WBC 9.3 (3.8-10.6) k/uL RBC 3.01 L (4.30-5.90) m/uL Hgb 9.8 L (13.0-17.5) gm/dL Hct 30.1 L (39.0-53.0) % Plt Count 116 L (150-450) k/uL Comprehensive Metabolic Panel 05/25/16 05/26/16 05/26/16 Range/Units 21:00 01:50 05:05 Sodium 149 H (137-145) mmol/L Potassium 3.6 3.9 4.3 (3.5-5.1) mmol/L Chloride 119 H (98-107) mmol/L Carbon Dioxide 26 (22-30) mmol/L BUN 18 (9-20) mg/dL Creatinine 1.16 (0.66-1.25) mg/dL Glucose 228 H (74-99) mg/dL Calcium 7.5 L (8.4-10.2) mg/dL Current Medications Generic Name Dose Route Start Last Admin Trade Name Freq PRN Reason Stop Dose Admin Albuterol/Ipratropium 3 ml 05/24/16 16:16 05/24/16 23:34 Duoneb 0.5 Mg-3 Mg/3 Ml Soln INHALATION 3 ml RT-Q4H PRN Administration Shortness Of Breath Or Wheezing Artificial Tears 1 drops 05/25/16 04:19 05/25/16 05:38 Artificial Tear Drops BOTH EYES 1 drops Q4HR PRN Administration Dry Eye(s) Cevimeline HCl 30 mg 05/25/16 22:00 05/26/16 16:03 Evoxac PO 30 mg TID ADAN Administration Chlorhexidine Gluconate 15 ml 05/24/16 23:00 05/26/16 09:00 Peridex MUCOUS MEM 15 ml BID ADAN Administration Duloxetine HCl 60 mg 05/25/16 20:30 05/26/16 11:40 Cymbalta PO Not Given DAILY ADAN Enoxaparin Sodium 30 mg 05/25/16 09:15 05/26/16 08:12 Lovenox SQ 30 mg DAILY ADAN Administration Propofol 500 mg/ IV Solution 50 mls @ 0 mls/hr 05/24/16 13:45 05/26/16 05:11 IV 33.26 mcg/kg/min .Q0M ADAN 20 mls/hr Protocol Administration Titrate Norepinephrine Bitartrate 4 mg 254 mls @ 0 mls/hr 05/24/16 23:00 / Sodium Chloride IV .Q0M ADAN Protocol Titrate Levofloxacin 500 mg/ IV 100 mls @ 100 mls/hr 05/25/16 22:00 05/25/16 22:29 Solution IVPB 100 mls/hr Q24H ADAN Administration Dextrose/Water 1,000 mls @ 100 mls/hr 05/26/16 13:00 05/26/16 13:37 Dextrose 5%-Water Iv Soln IV 100 mls/hr .Q10H ADAN Administration Ceftazidime 2 gm/ Sodium 100 mls @ 100 mls/hr 05/26/16 16:15 05/26/16 17:12 Chloride IVPB 100 mls/hr Q8HR ADAN Administration Insulin Glargine 25 unit 05/24/16 23:45 05/25/16 21:38 Lantus SQ 25 unit HS ADAN Administration Insulin Human Lispro 0 unit 05/25/16 00:00 05/26/16 13:37 Humalog SQ 4 unit Q6H ADAN Administration Protocol Lactulose 30 gm 05/24/16 16:00 05/26/16 16:03 Cephulac PO 30 gm TID ADAN Administration Lorazepam 1 mg 05/24/16 13:39 05/24/16 17:49 Ativan IV 1 mg Q1HR PRN Administration Mild Agitation Lorazepam 2 mg 05/24/16 13:39 05/24/16 13:41 Ativan IV 2 mg Q1HR PRN Administration Severe Agitation Miscellaneous Information 1 each 05/24/16 23:03 Potassium Per Protocol MISCELLANE DAILY PRN Per Protocol Protocol Naloxone HCl 0.2 mg 05/24/16 16:16 Narcan IV Q2M PRN Opioid Reversal Non-Formulary Medication 300 mg 05/25/16 21:00 05/26/16 08:14 Maraviroc [Selzentry] PO 300 mg BID ADAN Administration Non-Formulary Medication 400 mg 05/25/16 21:00 05/26/16 08:16 Raltegravir Potassium [Isentress] PO 400 mg BID ADAN Administration Non-Formulary Medication 300 mg 05/25/16 20:30 05/26/16 08:15 Lamivudine [Epivir] PO 300 mg DAILY ADAN Administration Pantoprazole Sodium 40 mg 05/25/16 09:00 05/26/16 08:12 Protonix IV 40 mg DAILY ADAN Administration Rifaximin 550 mg 05/25/16 21:00 05/26/16 08:13 Xifaxan PO 550 mg BID ADAN Administration Sertraline HCl 50 mg 05/26/16 09:00 05/26/16 08:12 Zoloft PO 50 mg DAILY ADAN Administration Spironolactone 25 mg 05/26/16 09:00 05/26/16 09:00 Aldactone PO 25 mg DAILY ADAN Administration Intake and Output 05/26/16 05/26/16 05/26/16 06:59 14:59 22:59 Intake Total 2005.915 1120 200 Output Total 1825 280 70 Balance 180.915 840 130 Intake: IV 1550 1000 200 Dextrose 5% in Water 1, 100 200 000 ml @ 100 mls/hr IV . Q10H ADAN Rx#:[id number] Sodium Chloride 0.9% 1, 1300 900 000 ml @ 150 mls/hr IV . Q6H40M ADAN Rx#:[id number] Vancomycin 1,500 mg In 250 Sodium Chloride 0.9% 250 ml @ 125 mls/hr IVPB Q16H ADAN Rx#:[id number] Intake, IV Titration 95.915 Amount Propofol 500 mg In Empty 95.915 Bag 1 bag @ Titrate IV . Q0M ADAN Rx#:[id number] Tube Feeding 300 120 Other 60 Output: Drainage 1500 FMS 1500 Urine 325 280 70 Other: Voiding Method Indwelling Catheter Indwelling Catheter Weight 100.2 kg 05/26/16 05:05 05/26/16 05:05
[2016-05-26 19:21] LABS: Glucose,Whole Blood 259 mg/dL (75-99)
--- NOTE | 2016-05-26 19:33 | CONS ---
DATE OF CONSULTATION: 05/26/2016 REASON FOR CONSULTATION: Fever and pneumonia. HISTORY OF PRESENT ILLNESS: The patient is a 55-year-old male who recently did have a left tib-fib fracture. After stabilization the [facility] The patient was discharged for [facility] about 10 days ago to home. The patient was evaluated by the home care nurse and apparently the patient became unresponsive for which the EMS was called and the patient was resuscitated at the scene. He was intubated and was brought to the [facility] ER where the patient had been evaluated by the ER physician. The patient did have CT angiogram that was negative for PE. However, did show atelectasis and infiltrate at the left posterior lung base. Apparently the patient also had history of HIV and followed with Dr. Santana. It is not very clear what his counts . Patient did have a low-grade fever on the twentieth and another fever of 101.9 Fahrenheit for which the patient was started on the Vanco and Levaquin. ID was consulted for further recommendation regarding antibiotic therapy. Patient's fever has resolved. The patient hemodynamically stable, not on any pressor support. At the time of my evaluation the patient remains to be unresponsive and is being seen by multiple market consultant services. All of the information has been obtained from review of the chart and talking to nursing staff, as the patient is unable to provide any history. Some of the information was provided by the niece, who is power of attorney general. Review of systems could not be reliably obtained. The positive points have been mentioned in the HPI. PAST MEDICAL HISTORY: Significant for diabetes mellitus, hypertension, HIV, left leg fracture, status post repair, lower extremity cellulitis. PAST SURGICAL HISTORY: Cholecystectomy, hernia repair, tumor removed from the back of the neck. Hernia repair, cystoscopy, recent left tib-fib fracture repair. SOCIAL HISTORY: No history of smoking, drinking or drug use. FAMILY HISTORY: Mother with history of congestive heart failure and PA. Father with history of congestive heart failure, CVA and TIA. ALLERGIES: PENICILLIN, however, has taken cephalexin without problem. Medications currently include the patient is on DuoNeb, Cymbalta, Lovenox, Lantus, Humalog, lactulose, levofloxacin, Ativan, Narcan, lamivudine, Isentress, Selzentry, Protonix, rifaximin, Zoloft and Aldactone. On examination, blood pressure is 135/76 with pulse of 81, temperature 98.9, T-max 101. He is 100% on 45% FiO2. General description is a middle-age male intubated on the vent. HEENT EXAMINATION: Pallor. The patient is orally intubated. NECK: Trachea is central. No thyromegaly. LUNGS: Unlabored breathing. Decreased breath sounds at the base. No wheeze. HEART: S1, S2. Regular rate and rhythm. ABDOMEN: Soft, no tenderness. EXTREMITIES: No edema feet. SKIN EXAMINATION: No rash or mass palpable. NEUROLOGICAL: The patient remains to be intubated on the vent. LABS: Hemoglobin is 9.8, white count 9.3. Admission white count was 7.8 with a BUN of 18, creatinine 1.16. Sputum is showing pseudomonas species. Blood culture obtained last night has been pending at this point. Chest x-ray and CT scan report as mentioned above. DIAGNOSTIC IMPRESSION AND PLAN: 1. Patient with fever. The patient does have left lower lobe infiltrate on admission to hospital. The patient did have a recent cardiac arrest requiring resuscitation in the field with recent admission to the hospital for left tibial-fibular fracture, status post repair and patient with underlying HIV with sputum now showing Pseudomonas likely a gram-negative pneumonia. 2. Patient does have PENICILLIN ALLERGY limiting the number of antibiotics that can be safely used. PLAN: 1. Discontinue the vancomycin as no Gram-positive has been grown. 2. Will add Fortaz 2 grams q.8 to his Levaquin to cover for the pseudomonas pneumonia. 3. Continue with his antiretroviral regime of Epivir, Isentress and Selzentry. 4. As the patient is known to Dr. Santana, he will follow the patient as of tomorrow. Family present at beside. Their questions and concerns were answered. JESUS MANUEL
[2016-05-26] MEDS: LEVOFLOXACIN 500MG-D5W PMX 500 MG in DEXTROSE/WATER 1 100ML.BAG IVPB SCH (22:00)
[2016-05-26] MEDS: INSULIN GLARGINE 100 UNIT/ML 10 ML VIAL SQ SCH (22:04)
[2016-05-26 23:40] LABS: Glucose,Whole Blood 259 mg/dL (75-99)
[2016-05-26] MEDS: LORazepam 2 MG/ML SYRINGE IV PRN (23:50)
[2016-05-27] MEDS: LORazepam 2 MG/ML SYRINGE IV PRN (01:43)
[2016-05-27] MEDS: DEXTROSE 5% IN WATER 1,000 ML IV SCH ×3 (02:11→13:59)
[2016-05-27 05:37] LABS: ABG Base Excess -0.5 mmol/L; ABG HCO3 23 mmol/L (21-25); ABG PCO2 34 mmHg (35-45); ABG PH 7.45 (7.35-7.45); ABG PO2 121 mmHg (83-108); ABG TCO2 24 mmol/L (19-24)
[2016-05-27 05:39] LABS: Glucose,Whole Blood 249 mg/dL (75-99)
[2016-05-27 05:48] LABS: Basophils % (A) 0 %; CH 32.9; CHCM 32.6; Eosinophils # (A) 0.1 k/uL (0-0.7); Eosinophils % (A) 1 %; HCT 31.5 % (39.0-53.0); HDW 3.63; HGB 10.2 gm/dL (13.0-17.5); Hypochromasia Slight; Luc # (Auto) 0.12; Luc % (Auto) 2; Lymphocytes # (A) 0.9 k/uL (1.0-4.8); Lymphocytes % (A) 12 %; MCH 32.9 pg (25.0-35.0); MCHC 32.3 g/dL (31.0-37.0); MCV 101.7 fL (80.0-100.0); Macrocytosis Slight; Mean Platelet Volume 7.7; Monocytes # (A) 0.4 k/uL (0-1.0); Monocytes % (A) 5 %; Neutrophils % (A) 80 %; Poikilocytosis Slight; RDW 14.5 % (11.5-15.5); WBC 7.6 k/uL (3.8-10.6); WBC (Perox) 7.93
[2016-05-27 05:59] LABS: Anion Gap 3 mmol/L; Blood Urea Nitrogen 19 mg/dL (9-20); Calcium 7.6 mg/dL (8.4-10.2); Carbon Dioxide 26 mmol/L (22-30); Chloride 117 mmol/L (98-107); Glucose 245 mg/dL (74-99); Magnesium 2.3 mg/dL (1.6-2.3); Non-African American GFR(MDRD) >60 (>60 ml/min/1.73 sqM); Phosphorous 2.4 mg/dL (2.5-4.5); Potassium 3.5 mmol/L (3.5-5.1); Sodium 146 mmol/L (137-145)
[2016-05-27] MEDS: INSULIN LISPRO (humaLOG) 300 UNIT/3 ML VIAL SQ SCH ×3 (06:38→19:55)
[2016-05-27] MEDS ORDERED: SODIUM PHOSPHATE 10 MMOL in SODIUM CHLORIDE 0.9% 250 ML IVPB ONE (06:47)
[2016-05-27] MEDS ORDERED: Phosphorus Replacement Protoco 1 EACH MISC MISCELLANE PRN (06:47)
[2016-05-27] MEDS: POTASSIUM CHLORIDE ORAL LIQUID 40 MEQ/30 ML CUP NG-TUBE SCH ×2 (07:48→09:54)
--- NOTE | 2016-05-27 07:50 | XR ---
EXAMINATION TYPE: XR chest 1V DATE OF EXAM: 05/27/2016 6:43 AM COMPARISON: NONE INDICATION: Difficulty breathing, intubated TECHNIQUE: Single frontal view of the chest is obtained. FINDINGS: The heart size is normal. The pulmonary vasculature is normal. There is silhouetting left diaphragm. Left infiltrate may be present. Blunting the right costophrenic angle is not entirely excluded. This could probably be related to patient body habitus. An endotracheal tube is present with tip above the pk. Nasogastric tube transverses the thorax. IMPRESSION: 1. Suggestion of developing mild bibasilar infiltrates. Correlate for atelectasis or effusion. 2. Lines and catheters discussed above.
[2016-05-27] MEDS: IPRATROPIUM-ALBUTEROL 3 ML NEB INHALATION PRN ×5 (07:56→23:28)
[2016-05-27] MEDS: RIFAXIMIN 550 MG TABLET PO SCH ×2 (08:38→22:24)
[2016-05-27] MEDS: SERTRALINE 50 MG TAB PO SCH (08:38)
[2016-05-27] MEDS: DULoxetine HCL 60 MG CAPSULE.DR PO SCH (08:38)
[2016-05-27] MEDS: CEVIMELINE 30 MG CAP PO SCH ×2 (08:38→17:14)
[2016-05-27] MEDS: SPIRONOLACTONE 25 MG TAB PO SCH (08:38)
[2016-05-27] MEDS: LACTULOSE 20 GM/30 ML CUP PO SCH ×3 (08:38→22:27)
[2016-05-27] MEDS: PANTOPRAZOLE 40 MG/10 ML VIAL IV SCH (08:39)
[2016-05-27] MEDS: LAMIVUDINE 300 MG PO SCH (08:44)
[2016-05-27] MEDS: RALTEGRAVIR POTASSIUM 400 MG PO SCH ×2 (08:45→21:00)
[2016-05-27] MEDS: MARAVIROC 300 MG PO SCH ×2 (08:45→22:24)
[2016-05-27] MEDS: ENOXAPARIN 30 MG/0.3 ML SYRINGE SQ SCH (09:00)
[2016-05-27] MEDS: CHLORHEXIDINE GLUCONATE 15 ML CUP MUCOUS MEM SCH ×2 (09:02→22:23)
--- NOTE | 2016-05-27 10:57 | P.PN ---
Subjective Principal diagnosis: Acute respiratory failure secondary to cardiac arrest This is a 55-year-old gentleman with a known history of liver cirrhosis, diabetes mellitus, hypertension, HIV, neuropathy. The family states his liver disease is not related to hepatitis C or excessive alcohol use. There is some history of nonalcoholic fatty liver disease. He had been evaluated with liver transplant plant at [facility] at one point. He presented here on after having an acute episode of shortness of breath, EMS was called and the patient was found unresponsive. He received 2 shocks in the field and intubated on site. CPR was initiated briefly. A computed tomography scan of the brain was negative for acute intracranial process. The patient has remained unresponsive even without sedation. He is suspected of having hepatic encephalopathy and suspected anoxic encephalopathy. He is seen again today in the intensive care unit. Current vent settings are assist control of 12, tidal via 450 FiO2 50% and a PEEP of 5. A.m. blood gases reveal a P O2 of 112 pCO2 34 and a pH of 7.45. His sputum is positive for pseudomonas aeruginosa. He is currently on ceftazadime and Levaquin. Objective - Vital Signs Vital signs: Vital Signs Temp 99.2 F 05/27/16 08:00 Pulse 78 05/27/16 09:00 Resp 19 05/27/16 09:00 BP 141/76 05/27/16 08:00 Pulse Ox 100 05/27/16 09:00 Intake & Output 05/26/16 05/27/16 05/27/16 18:59 06:59 18:59 Intake Total 1660 2060 575 Output Total 475 465 90 Balance 1185 1595 485 Weight 104.8 kg Intake: IV 1500 1100 300 Dextrose 5% in Water 1, 600 1100 300 000 ml @ 100 mls/hr IV . Q10H ADAN Rx#:[id number] Sodium Chloride 0.9% 1, 900 000 ml @ 150 mls/hr IV . Q6H40M ADAN Rx#:[id number] Intake, IV Titration 200 125 Amount Levofloxacin 500Mg-D5w 100 Pmx 500 mg In Dextrose/ Water 1 100ml.bag @ 100 mls/hr IVPB Q24H ADAN Rx#: [id number] Sodium Phosphate 10 mmol 125 In Sodium Chloride 0.9% 250 ml @ 125 mls/hr IVPB ONCE ONE Rx#:[id number] cefTAZidime 2 gm In 100 Sodium Chloride 0.9% 100 ml @ 100 mls/hr IVPB Q8HR ADAN Rx#:[id number] Tube Feeding 160 640 150 Other 120 Output: Urine 475 465 90 Other: Voiding Method Indwelling Catheter Indwelling Catheter Indwelling Catheter # Bowel Movements 1 ABP, PAP, CO, CI - Last Documented Arterial Blood Pressure 152/64 - Exam GENERAL EXAM: Unresponsive, intubated. Cachectic. HEAD: Normocephalic. EYES: Normal reaction of pupils, equal size. NOSE: Clear with pink turbinates. THROAT: Oral endotracheal and gastric tube secured in place. No erythema or exudates. NECK: No masses, no JVD. CHEST: No chest wall deformity. LUNGS: Equal air entry with bilateral rhonchi. CVS: S1 and S2 normal with no audible murmurs, regular rhythm. ABDOMEN: Soft, normal bowel sounds, no guarding or rigidity. Extremities: There is no peripheral edema. No clubbing, no cyanosis. Peripheral pulses are intact. - Labs CBC & Chem 7: 05/27/16 05:30 05/27/16 05:30 Labs: Abnormal Lab Results - Last 24 Hours (Table) 05/26/16 05/26/16 05/26/16 Range/Units 11:39 19:02 23:38 RBC (4.30-5.90) m/uL Hgb (13.0-17.5) gm/dL Hct (39.0-53.0) % MCV (80.0-100.0) fL Plt Count (150-450) k/uL Lymphocytes # (1.0-4.8) k/uL ABG pCO2 (35-45) mmHg ABG pO2 (83-108) mmHg ABG O2 Saturation (94-97) % Sodium (137-145) mmol/L Chloride (98-107) mmol/L Glucose (74-99) mg/dL POC Glucose (mg/dL) 256 H 259 H 259 H (75-99) mg/dL Calcium (8.4-10.2) mg/dL Phosphorus (2.5-4.5) mg/dL 05/27/16 05/27/16 05/27/16 Range/Units 05:15 05:30 05:30 RBC 3.10 L (4.30-5.90) m/uL Hgb 10.2 L (13.0-17.5) gm/dL Hct 31.5 L (39.0-53.0) % MCV 101.7 H (80.0-100.0) fL Plt Count 110 L (150-450) k/uL Lymphocytes # 0.9 L (1.0-4.8) k/uL ABG pCO2 34 L (35-45) mmHg ABG pO2 121 H (83-108) mmHg ABG O2 Saturation 99.0 H (94-97) % Sodium 146 H (137-145) mmol/L Chloride 117 H (98-107) mmol/L Glucose 245 H (74-99) mg/dL POC Glucose (mg/dL) (75-99) mg/dL Calcium 7.6 L (8.4-10.2) mg/dL Phosphorus 2.4 L (2.5-4.5) mg/dL 05/27/16 Range/Units 05:38 RBC (4.30-5.90) m/uL Hgb (13.0-17.5) gm/dL Hct (39.0-53.0) % MCV (80.0-100.0) fL Plt Count (150-450) k/uL Lymphocytes # (1.0-4.8) k/uL ABG pCO2 (35-45) mmHg ABG pO2 (83-108) mmHg ABG O2 Saturation (94-97) % Sodium (137-145) mmol/L Chloride (98-107) mmol/L Glucose (74-99) mg/dL POC Glucose (mg/dL) 249 H (75-99) mg/dL Calcium (8.4-10.2) mg/dL Phosphorus (2.5-4.5) mg/dL Microbiology - Last 24 Hours (Table) 05/25/16 21:00 Blood Culture - Preliminary Blood No Growth after 24 hours 05/25/16 20:10 Blood Culture - Preliminary Blood No Growth after 24 hours 05/25/16 21:00 Urine Culture - Preliminary Urine,Catheterized 05/25/16 20:10 Gram Stain - Preliminary Sputum Sputum Culture - Preliminary Gram Neg Bacilli Assessment and Plan Plan: Impression: #1 Acute hypoxic respiratory failure secondary to acute cardiac arrest and suspected profound anoxic brain injury. Also pseudomonas aeruginosa positive sputum. #2 Acute hepatic encephalopathy with significantly elevated ammonia on presentation. Most likely secondary to underlying liver cirrhosis. Most recent ammonia down to 46. Patient is on rifaximin. #3 Acute rhabdomyolysis with elevated CPK, fluid resuscitated. #4 Acute on chronic renal failure. #5 History of chronic liver disease. #6 HIV. #7 Diabetes mellitus. #8 Diabetic neuropathy. #9 Chronic anemia. Plan: The patient was seen and evaluated by Dr. Bradshaw. We have all of his sedation on hold. He is given a daily interruption of sedation and currently on a weaning trial of pressure support of 5 and a PEEP of 5. He is withdrawing to painful stimuli otherwise not following any simple commands or making any eye contact. EEG results are pending. Neurology is on the case. His prognosis remains quite guarded at this point. We'll have discussion with the patient's niece who also has power of prosecuting attorney. We'll continue to follow make further recommendations based on his clinical status. Critical care time 35 minutes. Time with Patient: Greater than 30
[2016-05-27 11:41] LABS: Glucose,Whole Blood 273 mg/dL (75-99)
--- NOTE | 2016-05-27 13:04 | PN ---
DATE OF SERVICE: 05/26/2016 PRESENTING COMPLAINT: Cardiac arrest. CLINICAL HISTORY: This patient with multiple problems presented with cardiac arrest, was intubated and remains on a ventilator, FiO2 of 45 and PEEP of 5. Patient is running a tube feeding at 40 mL/h, off any pressors. Patient is actually following some commands. Patient on FMS and making liquids, still is on lactulose. REVIEW OF SYSTEMS: Patient is intubated. Current medications include IV ceftazidime, Levaquin. On examination, afebrile, pulse 82, respirations 20, blood pressure 142/74, pulse ox of 45%. A gentleman lying in bed, intubated. EYES: Pupils equal. Conjunctivae normal. HEENT: Endotracheal tube in place, unable to assess, mass not palpable. RESPIRATORY: Decreased breath sounds. CARDIOVASCULAR: First and second sounds normal. No edema. ABDOMEN: Soft, nontender. Liver and spleen not palpable. NEUROLOGICAL: Moving his limbs. Following some commands. Pupils are equal and reactive. INVESTIGATIONS: White count 9.3, hemoglobin 9.8, platelets 116, sodium 149, potassium 4.3, BUN 18, creatinine 1.16. Accu-Cheks are noted. CT scan of the brain normal. ASSESSMENT: 1. Possible acute myocardial infarction, non-ST elevation present on admission related to cardiac arrest. 2. Acute metabolic encephalopathy, multifactorial contributing hepatic encephalopathy. 3. Chronic liver cirrhosis. 4. Chronic kidney disease stage III from diabetic nephropathy and ( ) nephrosclerosis. 5. HIV. 6. Diabetes mellitus type 2, chronically on insulin, causing peripheral neuropathy. 7. Acute hypoxic respiratory failure, present at admission, patient required to be on ventilation. 8. Electrolyte abnormalities. 9. Hepatic nephropathy. 10. Hypernatremia probably from for a free water deficit. 11. Hypoalbuminemia. 12. Left lower abdomen pneumonia, present on admission, showing gram-negative bacilli and pseudomonas. 13. Depression not otherwise specified. PLAN: Overall prognosis is guarded. Continue current medication and treatment plan. Will follow. There maybe an element of anoxic brain injury. Will await further input from Neurology.
--- NOTE | 2016-05-27 13:11 | EEG ---
DATE OF SERVICE: 05/25/2016 INDICATIONS FOR EXAMINATION: Altered mental status. AGE: 55Y DESCRIPTION OF PROCEDURE: This EEG was performed using a 21 channel digital electroencephalograph, following international 10-20 system. DESCRIPTION OF THE RECORDING: From the beginning of the tracing with the patient's eyes closed, the background rhythm was mostly consisting of 5-6 Hz theta frequency. Frequent slowing into the Delta range is seen. Photic stimulation was performed with no driving response seen. No pathological waves were elicited. Rare muscle artifacts are seen. Hyperventilation was not performed. No obvious epileptiform discharges were seen. His EKG lead showed regular rate and rhythm. INTERPRETATION: This awake EEG is abnormal due to the presence of generalized slowing of the background rhythm mostly in the theta range and frequently into the delta range. This is consistent with severe encephalopathy. No epileptiform discharges were seen. The absence of epileptiform discharges does not rule out the diagnosis of epilepsy, therefore, clinical correlation is recommended.
--- NOTE | 2016-05-27 15:51 | P.PN ---
Subjective Principal diagnosis: Patient is a 55-year-old male who is being followed by the neurology service for a anoxic brain injury. Patient became short of breath at home and EMS was called. EMS arrived and patient was in respiratory arrest. Patient was placed on AED and 2 shocks were provided. Patient was intubated and brought to [facility]. Patient is in the intensive care unit and is currently intubated. Following his cardiac arrest and given his history of liver disease , he most likely is suffering from a anoxic encephalopathy coupled with hepatic encephalopathy. Patient is slightly more responsive today as compared to yesterday. Repeat computed tomography scan did not show any acute abnormalities. All sedation has been held. At the time of my evaluation , patient is intubated and does not appear to be in any acute distress. Objective - Vital Signs Vital signs: Vital Signs Temp 99.1 F 05/27/16 12:23 Pulse 79 05/27/16 14:00 Resp 21 05/27/16 12:00 BP 133/75 05/27/16 12:23 Pulse Ox 100 05/27/16 14:00 Intake & Output 05/26/16 05/27/16 05/27/16 18:59 06:59 18:59 Intake Total 1660 2060 1250 Output Total 475 465 335 Balance 1185 1595 915 Weight 104.8 kg Intake: IV 1500 1100 700 Dextrose 5% in Water 1, 600 1100 700 000 ml @ 100 mls/hr IV . Q10H [facility] Rx#:[id number] Sodium Chloride 0.9% 1, 900 000 ml @ 150 mls/hr IV . Q6H40M [facility] Rx#:[id number] Intake, IV Titration 200 350 Amount Levofloxacin 500Mg-D5w 100 Pmx 500 mg In Dextrose/ Water 1 100ml.bag @ 100 mls/hr IVPB Q24H [facility] Rx#: [id number] Sodium Phosphate 10 mmol 250 In Sodium Chloride 0.9% 250 ml @ 125 mls/hr IVPB ONCE ONE Rx#:[id number] cefTAZidime 2 gm In 100 100 Sodium Chloride 0.9% 100 ml @ 100 mls/hr IVPB Q8HR [facility] Rx#:[id number] Tube Feeding 160 640 200 Other 120 Output: Urine 475 465 335 Other: Voiding Method Indwelling Catheter Indwelling Catheter Indwelling Catheter # Bowel Movements 1 ABP, PAP, CO, CI - Last Documented Arterial Blood Pressure 154/67 - Exam PHYSICAL EXAM: GENERAL APPEARANCE: Patient is a well-developed, male who is intubated in the ICU HEENT: Normocephalic, atraumatic, no obvious facial asymmetry is seen. Patient is intubated CARDIOVASCULAR: Regular rate and rhythm. ABDOMEN: Nontender, nondistended. EXTREMITIES: Show no edema or clubbing. NEUROLOGICAL EXAM: Patient is intubated and does turn head in response to verbal stimulation. He does withdraw all 4 extremities to painful stimuli. No tremors or seizure-like activity is seen. - Labs CBC & Chem 7: 05/27/16 05:30 05/27/16 05:30 Labs: Abnormal Lab Results - Last 24 Hours (Table) 05/26/16 05/26/16 05/27/16 Range/Units 19:02 23:38 05:15 RBC (4.30-5.90) m/uL Hgb (13.0-17.5) gm/dL Hct (39.0-53.0) % MCV (80.0-100.0) fL Plt Count (150-450) k/uL Lymphocytes # (1.0-4.8) k/uL ABG pCO2 34 L (35-45) mmHg ABG pO2 121 H (83-108) mmHg ABG O2 Saturation 99.0 H (94-97) % Sodium (137-145) mmol/L Chloride (98-107) mmol/L Glucose (74-99) mg/dL POC Glucose (mg/dL) 259 H 259 H (75-99) mg/dL Calcium (8.4-10.2) mg/dL Phosphorus (2.5-4.5) mg/dL 05/27/16 05/27/16 05/27/16 Range/Units 05:30 05:30 05:38 RBC 3.10 L (4.30-5.90) m/uL Hgb 10.2 L (13.0-17.5) gm/dL Hct 31.5 L (39.0-53.0) % MCV 101.7 H (80.0-100.0) fL Plt Count 110 L (150-450) k/uL Lymphocytes # 0.9 L (1.0-4.8) k/uL ABG pCO2 (35-45) mmHg ABG pO2 (83-108) mmHg ABG O2 Saturation (94-97) % Sodium 146 H (137-145) mmol/L Chloride 117 H (98-107) mmol/L Glucose 245 H (74-99) mg/dL POC Glucose (mg/dL) 249 H (75-99) mg/dL Calcium 7.6 L (8.4-10.2) mg/dL Phosphorus 2.4 L (2.5-4.5) mg/dL 05/27/16 Range/Units 11:24 RBC (4.30-5.90) m/uL Hgb (13.0-17.5) gm/dL Hct (39.0-53.0) % MCV (80.0-100.0) fL Plt Count (150-450) k/uL Lymphocytes # (1.0-4.8) k/uL ABG pCO2 (35-45) mmHg ABG pO2 (83-108) mmHg ABG O2 Saturation (94-97) % Sodium (137-145) mmol/L Chloride (98-107) mmol/L Glucose (74-99) mg/dL POC Glucose (mg/dL) 273 H (75-99) mg/dL Calcium (8.4-10.2) mg/dL Phosphorus (2.5-4.5) mg/dL Microbiology - Last 24 Hours (Table) 05/25/16 21:00 Urine Culture - Preliminary Urine,Catheterized Gram Neg Bacilli 05/25/16 20:10 Gram Stain - Final Sputum Sputum Culture - Final Escherichia coli 05/25/16 21:00 Blood Culture - Preliminary Blood No Growth after 24 hours 05/25/16 20:10 Blood Culture - Preliminary Blood No Growth after 24 hours Assessment and Plan Plan: Impression: 1. Status post cardiac arrest, most likely with a anoxic encephalopathy 2. Hepatic encephalopathy 3. History of chronic liver disease 4. HIV 5. Diabetes mellitus 6. Electrolyte imbalance Recommendations: Continue current supportive care. CAT scan of the brain was repeated and does not show any evidence of acute process. I believe he does show symptoms consistent with anoxic brain injury. Any neurological changes I will repeat a stat computed tomography scan. EEG was done and shows severe encephalopathy. I recommend continue holding sedatives and narcotics. Continue current ICU management. Continue neurological checks. At this point I believe prognosis is guarded. I will continue to follow with you. Further recommendations to follow. I performed an examination of the patient and discussed the management with the [employer]. I have reviewed the [employer] notes and agree with the findings and plan of care.
[2016-05-27 17:43] LABS: Glucose,Whole Blood 319 mg/dL (75-99)
[2016-05-27] MEDS ORDERED: INSULIN REGULAR BOLUS (FROM DRIP BAG) IV PRN ×2 (17:53→18:30)
[2016-05-27] MEDS: INSULIN REGULAR 100 UNIT in SODIUM CHLORIDE 0.9% 100 ML IV SCH (18:27)
[2016-05-27 19:08] LABS: Glucose,Whole Blood 284 mg/dL (75-99)
--- NOTE | 2016-05-27 19:09 | P.PN ---
Subjective Principal diagnosis: Respiratory failure 55-year-old male was noted from the office practice where he is cared for for his HIV infection and his history of severe underlying liver disease. He has a history of nonalcoholic fatty liver disease which has been very severe in the past. He follows with hepatology at [facility] where he's even been evaluated for liver transplantation. However after extensive medical treatment he's had a marked improvement. His extensive ascites resolved. His massive edema resolved. It isn't functioning relatively well. It is related the patient was having shortness of breath. And with this EMS was called. It was related that is a arrives the patient had a cardiopulmonary arrest. AED was applied and he received 2 shocks. He was intubated and transported to hospital with only a brief course of CPR required. The patient is been seen by pulmonary critical care and workup has failed reveal evidence of pulmonary embolus or of an acute myocardial infarction. He has evidence of preserved ejection fraction but does have dilated left atrium. There is concern that there is underlying pneumonia with worsening hepatic encephalopathy as the triggers for his current cardiopulmonary arrest. He remains in the intensive care unit intubated sedated and mechanically ventilated. He isn't having diarrhea, but C. diff was negative likely from the lactulose is being given. Chest x-ray with basilar infiltrate, and potential infiltrate seen on the computed tomography scan of the left lower lobe. Objective - Vital Signs Vital signs: Vital Signs Temp 98.3 F 05/27/16 16:00 Pulse 94 05/27/16 17:00 Resp 21 05/27/16 12:00 BP 133/75 05/27/16 12:23 Pulse Ox 100 05/27/16 17:00 Intake & Output 05/26/16 05/27/16 05/27/16 18:59 06:59 18:59 Intake Total 1660 2060 2000 Output Total 475 465 515 Balance 1185 1595 1485 Weight 104.8 kg Intake: IV 1500 1100 1000 Dextrose 5% in Water 1, 600 1100 1000 000 ml @ 100 mls/hr IV . Q10H [facility] Rx#:[id number] Sodium Chloride 0.9% 1, 900 000 ml @ 150 mls/hr IV . Q6H40M [facility] Rx#:[id number] Intake, IV Titration 200 350 Amount Levofloxacin 500Mg-D5w 100 Pmx 500 mg In Dextrose/ Water 1 100ml.bag @ 100 mls/hr IVPB Q24H [facility] Rx#: [id number] Sodium Phosphate 10 mmol 250 In Sodium Chloride 0.9% 250 ml @ 125 mls/hr IVPB ONCE ONE Rx#:[id number] cefTAZidime 2 gm In 100 100 Sodium Chloride 0.9% 100 ml @ 100 mls/hr IVPB Q8HR [facility] Rx#:[id number] Tube Feeding 160 640 650 Other 120 Output: Urine 475 465 515 Other: Voiding Method Indwelling Catheter Indwelling Catheter Indwelling Catheter # Bowel Movements 1 ABP, PAP, CO, CI - Last Documented Arterial Blood Pressure 157/63 - Exam 55-year-old male who is intubated and mechanically ventilated who is had a large amount of sedation is now on hold but the patient is still not interactive. HEENT: Anicteric conjunctiva are pink and moist nasal mucosa grossly intact without significant lesions, there is no thrush. No lesions neuro-cavity around the endotracheal tube Neck: The neck is supple without significant lymphadenopathy or thyromegaly. Lungs: Symmetrical air entry is noted. No stiff and wheezing. Few basilar crackles. No bronchial sounds. Heart: Regular rate and rhythm with an audible S1-S2, no S3 soft S4 There is no significant murmur click or rub, PMI was nondisplaced. Abdomen: Mildly obese Positive bowel sounds soft and nontender without palpable masses or organomegaly. Abdomen is not rigid and there is no fluid wave Extremities: The upper extremities have excellent pulses they are symmetric, no significant petechiae or telangiectasia. No splinter hemorrhages were noted. Lower extremities reveals the bilateral edema Neuro: The patient has been heavily sedated sedation is now held but he is still obtunded - Labs CBC & Chem 7: 05/27/16 05:30 05/27/16 05:30 Labs: Abnormal Lab Results - Last 24 Hours (Table) 05/26/16 05/26/16 05/27/16 Range/Units 19:02 23:38 05:15 RBC (4.30-5.90) m/uL Hgb (13.0-17.5) gm/dL Hct (39.0-53.0) % MCV (80.0-100.0) fL Plt Count (150-450) k/uL Lymphocytes # (1.0-4.8) k/uL ABG pCO2 34 L (35-45) mmHg ABG pO2 121 H (83-108) mmHg ABG O2 Saturation 99.0 H (94-97) % Sodium (137-145) mmol/L Chloride (98-107) mmol/L Glucose (74-99) mg/dL POC Glucose (mg/dL) 259 H 259 H (75-99) mg/dL Calcium (8.4-10.2) mg/dL Phosphorus (2.5-4.5) mg/dL 05/27/16 05/27/16 05/27/16 Range/Units 05:30 05:30 05:38 RBC 3.10 L (4.30-5.90) m/uL Hgb 10.2 L (13.0-17.5) gm/dL Hct 31.5 L (39.0-53.0) % MCV 101.7 H (80.0-100.0) fL Plt Count 110 L (150-450) k/uL Lymphocytes # 0.9 L (1.0-4.8) k/uL ABG pCO2 (35-45) mmHg ABG pO2 (83-108) mmHg ABG O2 Saturation (94-97) % Sodium 146 H (137-145) mmol/L Chloride 117 H (98-107) mmol/L Glucose 245 H (74-99) mg/dL POC Glucose (mg/dL) 249 H (75-99) mg/dL Calcium 7.6 L (8.4-10.2) mg/dL Phosphorus 2.4 L (2.5-4.5) mg/dL 05/27/16 05/27/16 Range/Units 11:24 17:40 RBC (4.30-5.90) m/uL Hgb (13.0-17.5) gm/dL Hct (39.0-53.0) % MCV (80.0-100.0) fL Plt Count (150-450) k/uL Lymphocytes # (1.0-4.8) k/uL ABG pCO2 (35-45) mmHg ABG pO2 (83-108) mmHg ABG O2 Saturation (94-97) % Sodium (137-145) mmol/L Chloride (98-107) mmol/L Glucose (74-99) mg/dL POC Glucose (mg/dL) 273 H 319 H (75-99) mg/dL Calcium (8.4-10.2) mg/dL Phosphorus (2.5-4.5) mg/dL Microbiology - Last 24 Hours (Table) 05/25/16 21:00 Urine Culture - Preliminary Urine,Catheterized Gram Neg Bacilli 05/25/16 20:10 Gram Stain - Final Sputum Sputum Culture - Final Escherichia coli 05/25/16 21:00 Blood Culture - Preliminary Blood No Growth after 24 hours 05/25/16 20:10 Blood Culture - Preliminary Blood No Growth after 24 hours Laboratory Results WBC 7.6 k/uL (3.8-10.6) 05/27/16 05:30 RBC 3.10 m/uL (4.30-5.90) L 05/27/16 05:30 Hgb 10.2 gm/dL (13.0-17.5) L 05/27/16 05:30 Hct 31.5 % (39.0-53.0) L 05/27/16 05:30 MCV 101.7 fL (80.0-100.0) H 05/27/16 05:30 MCH 32.9 pg (25.0-35.0) 05/27/16 05:30 MCHC 32.3 g/dL (31.0-37.0) 05/27/16 05:30 RDW 14.5 % (11.5-15.5) 05/27/16 05:30 Plt Count 110 k/uL (150-450) L 05/27/16 05:30 Neutrophils % 80 % 05/27/16 05:30 Lymphocytes % 12 % 05/27/16 05:30 Monocytes % 5 % 05/27/16 05:30 Eosinophils % 1 % 05/27/16 05:30 Basophils % 0 % 05/27/16 05:30 Neutrophils # 6.0 k/uL (1.3-7.7) 05/27/16 05:30 Lymphocytes # 0.9 k/uL (1.0-4.8) L 05/27/16 05:30 Monocytes # 0.4 k/uL (0-1.0) 05/27/16 05:30 Eosinophils # 0.1 k/uL (0-0.7) 05/27/16 05:30 Basophils # 0.0 k/uL (0-0.2) 05/27/16 05:30 Hypochromasia Slight 05/27/16 05:30 Poikilocytosis Slight 05/27/16 05:30 Macrocytosis Slight 05/27/16 05:30 PT 13.7 sec (9.0-12.0) H 05/25/16 04:51 INR 1.4 (<1.1) 05/25/16 04:51 APTT 29.6 sec (22.0-30.0) 05/25/16 04:51 Sample Site MIR[place] 05/27/16 05:15 ABG pH 7.45 (7.35-7.45) 05/27/16 05:15 ABG pCO2 34 mmHg (35-45) L 05/27/16 05:15 ABG pO2 121 mmHg (83-108) H 05/27/16 05:15 ABG HCO3 23 mmol/L (21-25) 05/27/16 05:15 ABG Total CO2 24 mmol/L (19-24) 05/27/16 05:15 ABG O2 Saturation 99.0 % (94-97) H 05/27/16 05:15 ABG Base Excess -0.5 mmol/L 05/27/16 05:15 FiO2 45 % 05/27/16 05:15 Sodium 146 mmol/L (137-145) H 05/27/16 05:30 Potassium 3.5 mmol/L (3.5-5.1) 05/27/16 05:30 Chloride 117 mmol/L (98-107) H 05/27/16 05:30 Carbon Dioxide 26 mmol/L (22-30) 05/27/16 05:30 Anion Gap 3 mmol/L 05/27/16 05:30 BUN 19 mg/dL (9-20) 05/27/16 05:30 Creatinine 1.03 mg/dL (0.66-1.25) 05/27/16 05:30 Est GFR (MDRD) Af Amer >60 (>60 ml/min/1.73 sqM) 05/27/16 05:30 Est GFR (MDRD) Non-Af >60 (>60 ml/min/1.73 sqM) 05/27/16 05:30 Glucose 245 mg/dL (74-99) H 05/27/16 05:30 POC Glucose (mg/dL) 319 mg/dL (75-99) H 05/27/16 17:40 POC Glu Matchbook Maker ID Shereen Tidwell 05/27/16 17:[address] Glu mg/dL 114 mg/dL 05/24/16 14:05 Hemoglobin A1c 5.6 % (4.2-6.1) 05/24/16 14:05 Calcium 7.6 mg/dL (8.4-10.2) L 05/27/16 05:30 Phosphorus 2.4 mg/dL (2.5-4.5) L 05/27/16 05:30 Magnesium 2.3 mg/dL (1.6-2.3) 05/27/16 05:30 Total Bilirubin 2.5 mg/dL (0.2-1.3) H 05/24/16 22:15 AST 328 U/L (17-59) H 05/24/16 22:15 ALT 63 U/L (21-72) 05/24/16 22:15 Alkaline Phosphatase 329 U/L (38-126) H 05/24/16 22:15 Ammonia 46 umol/L (<30) H 05/25/16 09:18 Total Creatine Kinase 5202 U/L (55-170) H 05/24/16 22:15 CK-MB (CK-2) 5.2 ng/mL (0.0-2.4) H* 05/25/16 04:51 CK-MB (CK-2) Rel Index 05/24/16 22:15 Troponin I 2.660 ng/mL (0.000-0.034) H* 05/25/16 04:51 Total Protein 5.9 g/dL (6.3-8.2) L 05/24/16 22:15 Albumin 1.9 g/dL (3.5-5.0) L 05/24/16 22:15 TSH 1.620 mIU/L (0.465-4.680) 05/24/16 14:05 Urine Color Yellow 05/24/16 14:00 Urine Appearance Clear (Clear) 05/24/16 14:00 Urine pH 7.5 (5.0-8.0) 05/24/16 14:00 Ur Specific [place] 1.010 (1.001-1.035) 05/24/16 14:00 Urine Protein 2+ (Negative) H 05/24/16 14:00 Urine Glucose (UA) 1+ (Negative) H 05/24/16 14:00 Urine Ketones Negative (Negative) 05/24/16 14:00 Urine Blood Moderate (Negative) H 05/24/16 14:00 Urine Nitrate Negative (Negative) 05/24/16 14:00 Urine Bilirubin Negative (Negative) 05/24/16 14:00 Urine Urobilinogen 2.0 mg/dL (<2.0) 05/24/16 14:00 Ur Leukocyte Esterase Negative (Negative) 05/24/16 14:00 Urine RBC 5 /hpf (0-5) 05/24/16 14:00 Urine WBC 14 /hpf (0-5) H 05/24/16 14:00 Ur Squamous Epith Cells <1 /hpf (0-4) 05/24/16 14:00 Urine Bacteria Rare /hpf (None) H 05/24/16 14:00 Hyaline Casts 2 /lpf (0-2) 05/24/16 01:30 Urine Mucus Rare /hpf (None) H 05/24/16 14:00 Urine Opiates Screen Detected (NotDetected) H 05/24/16 14:00 Ur Oxycodone Screen Not Detected (NotDetected) 05/24/16 14:00 Urine Methadone Screen Not Detected (NotDetected) 05/24/16 14:00 Ur Propoxyphene Screen Not Detected (NotDetected) 05/24/16 14:00 Ur Barbiturates Screen Not Detected (NotDetected) 05/24/16 14:00 U Tricyclic Antidepress Not Detected (NotDetected) 05/24/16 14:00 Ur Phencyclidine Scrn Not Detected (NotDetected) 05/24/16 14:00 Ur Amphetamines Screen Not Detected (NotDetected) 05/24/16 14:00 U Methamphetamines Scrn Not Detected (NotDetected) 05/24/16 14:00 U Benzodiazepines Scrn Not Detected (NotDetected) 05/24/16 14:00 Urine Cocaine Screen Not Detected (NotDetected) 05/24/16 14:00 U Marijuana (THC) Screen Not Detected (NotDetected) 05/24/16 14:00 C. difficile (EIA) Intrp Negative (Negative) 05/27/16 11:00 Microbiology 05/25/16 21:00 Urine,Catheterized Urine Culture - Preliminary Gram Neg Bacilli 05/25/16 20:10 Sputum Gram Stain - Final 05/25/16 20:10 Sputum Sputum Culture - Final Escherichia coli 05/24/16 14:52 Sputum Gram Stain - Preliminary 05/24/16 14:52 Sputum Sputum Culture - Preliminary Pseudomonas aeruginosa Gram Neg Bacilli 05/25/16 21:00 Blood Blood Culture - Preliminary No Growth after 24 hours 05/25/16 20:10 Blood Blood Culture - Preliminary No Growth after 24 hours Assessment and Plan (1) Cardiac arrest Narrative/Plan: 55-year-old male known to the service because of his follow-up in the office for his HIV infection. His home HIV medications have been reordered with his Isentress Selzentry and Epivir. These should continue. Patient had evidence of cardiopulmonary arrest and is now improving. He is on CPAP on the ventilator. But is not having significant awakening at this time. With his underlying liver disease admitted take a while for him to metabolize the sedatives having given up till date. There is of course great concern about anoxic encephalopathy. Patient has evidence of ESBL E. coli as well as pseudomonas aeruginosa in his sputum. And with this his antibiotic therapy is altered to meropenem. Follow-up cultures will be obtained as indicated. Status: Acute (2) Hepatic encephalopathy Status: Acute (3) Pseudomonas pneumonia Status: Acute
[2016-05-27 20:25] LABS: Glucose,Whole Blood 279 mg/dL (75-99)
[2016-05-27 22:23] LABS: Glucose,Whole Blood 236 mg/dL (75-99)
[2016-05-27] MEDS: MEROPENEM 1 GM in SODIUM CHLORIDE 0.9% 100 ML IVPB SCH (22:23)
[2016-05-27] MEDS: LEVOFLOXACIN 500MG-D5W PMX 500 MG in DEXTROSE/WATER 1 100ML.BAG IVPB SCH (22:27)
[2016-05-27 23:59] LABS: Glucose,Whole Blood 230 mg/dL (75-99)
[2016-05-28] MEDS: CEVIMELINE 30 MG CAP PO SCH ×4 (00:33→21:27)
[2016-05-28 01:25] LABS: Glucose,Whole Blood 232 mg/dL (75-99)
[2016-05-28 03:10] LABS: Glucose,Whole Blood 229 mg/dL (75-99)
[2016-05-28] MEDS: IPRATROPIUM-ALBUTEROL 3 ML NEB INHALATION PRN ×4 (03:37→15:45)
[2016-05-28 04:51] LABS: Glucose,Whole Blood 227 mg/dL (75-99)
[2016-05-28 04:58] LABS: Basophils % (A) 0 %; CHCM 32.8; Eosinophils # (A) 0.2 k/uL (0-0.7); Eosinophils % (A) 2 %; HCT 30.5 % (39.0-53.0); HDW 3.46; Luc # (Auto) 0.13; Luc % (Auto) 2; Lymphocytes % (A) 14 %; MCH 33.3 pg (25.0-35.0); MCHC 32.9 g/dL (31.0-37.0); MCV 101.2 fL (80.0-100.0); Macrocytosis Slight; Mean Platelet Volume 8.6; Monocytes # (A) 0.4 k/uL (0-1.0); Monocytes % (A) 6 %; Neutrophils # (A) 5.1 k/uL (1.3-7.7); Neutrophils % (A) 75 %; Poikilocytosis Slight; RBC 3.01 m/uL (4.30-5.90); RDW 14.4 % (11.5-15.5); WBC 6.8 k/uL (3.8-10.6); WBC (Perox) 6.63
[2016-05-28 05:01] LABS: ABG Base Excess -2.7 mmol/L; ABG HCO3 21 mmol/L (21-25); ABG PCO2 34 mmHg (35-45); ABG PH 7.42 (7.35-7.45); ABG PO2 119 mmHg (83-108); ABG TCO2 22 mmol/L (19-24)
[2016-05-28 05:02] LABS: ABG Oxygen Saturation 98.8 % (94-97)
[2016-05-28 05:19] LABS: Anion Gap 7 mmol/L; Blood Urea Nitrogen 17 mg/dL (9-20); Calcium 7.7 mg/dL (8.4-10.2); Carbon Dioxide 23 mmol/L (22-30); Chloride 113 mmol/L (98-107); Glucose 223 mg/dL (74-99); Magnesium 2.3 mg/dL (1.6-2.3); Non-African American GFR(MDRD) >60 (>60 ml/min/1.73 sqM); Phosphorous 2.8 mg/dL (2.5-4.5); Potassium 3.5 mmol/L (3.5-5.1); Sodium 143 mmol/L (137-145)
[2016-05-28] MEDS: MEROPENEM 1 GM in SODIUM CHLORIDE 0.9% 100 ML IVPB SCH ×3 (05:23→21:32)
[2016-05-28] MEDS: DEXTROSE 5% IN WATER 1,000 ML IV SCH (05:23)
[2016-05-28 06:51] LABS: Glucose,Whole Blood 212 mg/dL (75-99)
--- NOTE | 2016-05-28 07:44 | XR ---
EXAMINATION TYPE: XR chest 1V DATE OF EXAM: 05/28/2016 6:37 AM COMPARISON: 05/26/2016 HISTORY: Shortness of breath TECHNIQUE: Single frontal view of the chest is obtained. FINDINGS: ET and NG tube stable. Bilateral infiltrate and small effusion. Stable cardiomegaly. No pn eumothorax. Arthropathy of the shoulders. IMPRESSION: 1. Bilateral infiltrate and small effusion.
[2016-05-28] MEDS: RALTEGRAVIR POTASSIUM 400 MG PO SCH ×2 (08:22→21:27)
[2016-05-28] MEDS: SERTRALINE 50 MG TAB PO SCH (08:22)
[2016-05-28] MEDS: DULoxetine HCL 60 MG CAPSULE.DR PO SCH (08:22)
[2016-05-28] MEDS: MARAVIROC 300 MG PO SCH ×2 (08:22→21:27)
[2016-05-28] MEDS: SPIRONOLACTONE 25 MG TAB PO SCH (08:22)
[2016-05-28] MEDS: RIFAXIMIN 550 MG TABLET PO SCH ×2 (08:22→21:27)
[2016-05-28] MEDS: LAMIVUDINE 300 MG PO SCH (08:22)
[2016-05-28] MEDS: ENOXAPARIN 30 MG/0.3 ML SYRINGE SQ SCH (08:23)
[2016-05-28] MEDS: PANTOPRAZOLE 40 MG/10 ML VIAL IV SCH (08:23)
[2016-05-28 08:25] LABS: Glucose,Whole Blood 220 mg/dL (75-99)
[2016-05-28] MEDS: POTASSIUM CHLORIDE ORAL LIQUID 40 MEQ/30 ML CUP NG-TUBE SCH ×2 (08:33→11:19)
[2016-05-28] MEDS: METOPROLOL TARTRATE 12.5 MG TAB PO SCH ×2 (08:33→21:27)
--- NOTE | 2016-05-28 08:49 | P.PN ---
Subjective Progress note dated 05/28/2016 This is a 55-year-old gentleman with a known history of liver cirrhosis diabetes hypertension and HIV and neuropathy. The patient has a history of acute respiratory failure and should be able to be extubated today. The patient presented on May 24 with an acute episode of shortness of breath EMS was called the patient was found unresponsive. The patient apparently was defibrillated or cardioverted on the field. CPR was initiated. The patient was placed on the ventilator and will be extubated today finally. He sought of anoxic brain injury. His EEG showed evidence of diffuse slowing consistent with metabolic/anoxic brain injury. Talk to the family yesterday about CODE STATUS. There were unwilling to make any decisions about CODE STATUS at that time. Apparently supposed to be in today to see the patient. Today he is much improved and is somewhat alert. Is a weaning parameters are excellent. He did well on this PSG and CPAP and hence the patient will get be given a trial extubation. His rapid shallow breathing index was 53. His vent settings include the assist control mode rate of 10 timeline 400 FiO2 40% PEEP of 5. Currently he is on PSV 5 CPAP of 5 and 40%. His blood gases are valid ventilator included a PaO2 of 119 a pCO2 of 34. Some 0.42. This is consistent with hyperoxemia and a mixed acid-base disturbance including a mild respiratory alkalosis and mild metabolic acidosis. He is on an insulin drip at 6 units per hour D5W to 100 mL now her to be changing 0.4 575 and vital HPI 50 with a goal of 50 which is currently on hold in anticipation of extubation. Objective - Vital Signs Vital signs: Vital Signs Temp 100.4 F H 05/28/16 04:00 Pulse 106 H 05/28/16 08:01 Resp 21 05/28/16 07:46 BP 140/81 05/28/16 07:00 Pulse Ox 100 05/28/16 07:00 Intake & Output 05/27/16 05/28/16 05/28/16 18:59 06:59 18:59 Intake Total 2100 2797.384 400 Output Total 545 1445 25 Balance 1555 1352.384 375 Weight 107.3 kg Intake: IV 1100 1200 100 Dextrose 5% in Water 1, 1100 1200 100 000 ml @ 100 mls/hr IV . Q10H COUNTS INCLUDE 234 BEDS AT THE [facility] Rx#:[id number] Intake, IV Titration 350 387.384 Amount Insulin Regular 100 unit 87.384 In Sodium Chloride 0.9% 100 ml @ Per Protocol IV .Q0M COUNTS INCLUDE 234 BEDS AT THE [facility] Rx#:[id number] Levofloxacin 500Mg-D5w 100 Pmx 500 mg In Dextrose/ Water 1 100ml.bag @ 100 mls/hr IVPB Q24H COUNTS INCLUDE 234 BEDS AT THE [facility] Rx#: [id number] Meropenem 1 gm In Sodium 200 Chloride 0.9% 100 ml @ 100 mls/hr IVPB Q8H COUNTS INCLUDE 234 BEDS AT THE [facility] Rx#:[id number] Sodium Phosphate 10 mmol 250 In Sodium Chloride 0.9% 250 ml @ 125 mls/hr IVPB ONCE ONE Rx#:[id number] cefTAZidime 2 gm In 100 Sodium Chloride 0.9% 100 ml @ 100 mls/hr IVPB Q8HR COUNTS INCLUDE 234 BEDS AT THE [facility] Rx#:[id number] Tube Feeding 650 750 100 Other 460 200 Output: Urine 545 845 25 Stool 600 Other: Voiding Method Indwelling Catheter Indwelling Catheter Indwelling Catheter ABP, PAP, CO, CI - Last Documented Arterial Blood Pressure 181/81 - Exam No acute distress, not particularly oriented. Somewhat somnolent and lethargic but he does arouse. He does follow basic commands. HEENT examination is grossly unremarkable. Endotracheal tube and NG tube in place. Neck supple. Full range of motion. No adenopathy. Cardiovascular examination reveals regular rhythm rate. Heart rate about mid 80s. No murmur. Lungs reveal a few scattered coarse rhonchi. Breath sounds diminished. Abdomen soft bowel sounds are heard. Extremities are intact. - Labs CBC & Chem 7: 05/28/16 04:55 05/28/16 04:55 Labs: Abnormal Lab Results - Last 24 Hours (Table) 05/27/16 05/27/16 05/27/16 Range/Units 11:24 17:40 19:06 RBC (4.30-5.90) m/uL Hgb (13.0-17.5) gm/dL Hct (39.0-53.0) % MCV (80.0-100.0) fL Plt Count (150-450) k/uL ABG pCO2 (35-45) mmHg ABG pO2 (83-108) mmHg ABG O2 Saturation (94-97) % Chloride (98-107) mmol/L Glucose (74-99) mg/dL POC Glucose (mg/dL) 273 H 319 H 284 H (75-99) mg/dL Calcium (8.4-10.2) mg/dL 05/27/16 05/27/16 05/27/16 Range/Units 20:24 22:20 23:56 RBC (4.30-5.90) m/uL Hgb (13.0-17.5) gm/dL Hct (39.0-53.0) % MCV (80.0-100.0) fL Plt Count (150-450) k/uL ABG pCO2 (35-45) mmHg ABG pO2 (83-108) mmHg ABG O2 Saturation (94-97) % Chloride (98-107) mmol/L Glucose (74-99) mg/dL POC Glucose (mg/dL) 279 H 236 H 230 H (75-99) mg/dL Calcium (8.4-10.2) mg/dL 05/28/16 05/28/16 05/28/16 Range/Units 01:24 03:08 04:48 RBC (4.30-5.90) m/uL Hgb (13.0-17.5) gm/dL Hct (39.0-53.0) % MCV (80.0-100.0) fL Plt Count (150-450) k/uL ABG pCO2 (35-45) mmHg ABG pO2 (83-108) mmHg ABG O2 Saturation (94-97) % Chloride (98-107) mmol/L Glucose (74-99) mg/dL POC Glucose (mg/dL) 232 H 229 H 227 H (75-99) mg/dL Calcium (8.4-10.2) mg/dL 05/28/16 05/28/16 05/28/16 Range/Units 04:55 04:55 04:56 RBC 3.01 L (4.30-5.90) m/uL Hgb 10.0 L (13.0-17.5) gm/dL Hct 30.5 L (39.0-53.0) % MCV 101.2 H (80.0-100.0) fL Plt Count 106 L (150-450) k/uL ABG pCO2 34 L (35-45) mmHg ABG pO2 119 H (83-108) mmHg ABG O2 Saturation 98.8 H (94-97) % Chloride 113 H (98-107) mmol/L Glucose 223 H (74-99) mg/dL POC Glucose (mg/dL) (75-99) mg/dL Calcium 7.7 L (8.4-10.2) mg/dL 05/28/16 05/28/16 Range/Units 06:50 08:23 RBC (4.30-5.90) m/uL Hgb (13.0-17.5) gm/dL Hct (39.0-53.0) % MCV (80.0-100.0) fL Plt Count (150-450) k/uL ABG pCO2 (35-45) mmHg ABG pO2 (83-108) mmHg ABG O2 Saturation (94-97) % Chloride (98-107) mmol/L Glucose (74-99) mg/dL POC Glucose (mg/dL) 212 H 220 H (75-99) mg/dL Calcium (8.4-10.2) mg/dL Microbiology - Last 24 Hours (Table) 05/25/16 21:00 Blood Culture - Preliminary Blood No Growth after 48 hours 05/25/16 20:10 Blood Culture - Preliminary Blood No Growth after 48 hours 05/25/16 21:00 Urine Culture - Preliminary Urine,Catheterized Gram Neg Bacilli 05/25/16 20:10 Gram Stain - Final Sputum Sputum Culture - Final Escherichia coli Assessment and Plan (1) Acute respiratory failure Status: Acute (2) Cardiac arrest Status: Acute (3) Hepatic encephalopathy Status: Acute (4) Rhabdomyolysis Status: Acute (5) Altered mental status Status: Acute (6) Cirrhosis Status: Acute (7) Diabetes Status: Acute (8) HIV (human immunodeficiency virus infection) Status: Acute Plan: Plan dated 05/28/2016 The patient will be given a trial of extubation. Additional recommendations suggestions are forthcoming. We'll stop the sedation which has been stopped a couple days ago. We'll DC the tube feeds. We'll DC the endotracheal tube and the NG tube. I'll go through the medications labs and x-rays. Additional recommendations suggestions are forthcoming. Prognosis is very guarded. Time with Patient: Greater than 30
[2016-05-28] MEDS: SODIUM CHLORIDE 0.45% 1,000 ML IV SCH ×2 (08:56→21:26)
[2016-05-28 09:52] LABS: Glucose,Whole Blood 177 mg/dL (75-99)
--- NOTE | 2016-05-28 10:14 | PN ---
DATE OF SERVICE: 05/27/2016 PRESENTING COMPLAINT: Cardiac arrest. INTERVAL HISTORY: This is a patient presented with multiple problems in the ICU and admitted with cardiac arrest, acute UT, remains on the ventilator. FIO2 45 and PEEP of 5. Tube feeding is in place. Patient not on any sedatives. Patient does seem to follow some commands ( ). Moving his limbs about. Still having liquid stools. REVIEW OF SYSTEMS: Patient intubated. Current medications are reviewed that include IV insulin, Levaquin and Meropenem, lactulose, etc. On examination, temperature 99.1, pulse 80, respirations 21, blood pressure 130/75, pulse 100% on ventilator. GENERAL APPEARANCE: Lying in bed. EYES: Open. HEENT: Endotracheal tube in place. NECK: Jugular venous distention unable to assess. Mass not palpable. RESPIRATORY: Effort normal. LUNGS: Diminished breath sounds. CARDIOVASCULAR: First and second sounds no edema. ABDOMEN: Soft, nontender. NEUROLOGICAL: The patient does turn his head to voice. Attempts to move his limbs. INVESTIGATIONS: White count 7.6, hemoglobin 10.2, potassium 3.5. BUN and creatinine are normal. C. difficile negative. EEG is reported per Dr. Wells generalized slowing of the background suggestive of severe encephalopathy. There is no seizure activity. Patient's sputum is growing pseudomonas aeruginosa and urine has gram-negative bacilli. ASSESSMENT: 1. Possible acute myocardial infarction ( ) type, present on admission related cardiac arrest causing cardiac arrest. 2. Acute metabolic encephalopathy multifactorial contributing to hepatic encephalopathy. 3. Possible anoxic some element of anoxic brain injury per neurology. 4. Chronic liver cirrhosis. 5. Chronic kidney stage III from diabetic nephropathy and nephrosclerosis. 6. HIV. 7. Diabetes mellitus type 2, chronically on insulin causing peripheral neuropathy. 8. Acute hypoxic failure, present on admission, the patient remains on ventilator. 9. Electrolyte abnormalities. 10. Hepatic encephalopathy. 11. Hypernatremia, probably from free water deficit. 12. Hypoalbuminemia from liver disease. 13. Left lower lobe pneumonia, present on admission from Pseudomonas. 14. Acute urinary tract infection from gram-negative bacilli. 15. Depression not otherwise specified. PLAN: Overall prognosis guarded. Continue medications and treatment plan. Dr. Bradshaw will be talking to the family. Continue supportive care. Prognosis guarded.
[2016-05-28 11:53] LABS: Glucose,Whole Blood 138 mg/dL (75-99)
[2016-05-28] MEDS ORDERED: POTASSIUM CHLORIDE 10 MEQ, LIDOCAINE 2% INJ 10 MG in SODIUM CHLORIDE 0.9% 100 ML IVPB SCH (12:00)
[2016-05-28 14:21] LABS: Glucose,Whole Blood 150 mg/dL (75-99)
[2016-05-28] MEDS: INSULIN REGULAR 100 UNIT in SODIUM CHLORIDE 0.9% 100 ML IV SCH ×2 (14:28→21:23)
[2016-05-28 15:05] LABS: Glucose,Whole Blood 167 mg/dL (75-99)
[2016-05-28 16:49] LABS: Glucose,Whole Blood 134 mg/dL (75-99)
[2016-05-28 18:07] LABS: Glucose,Whole Blood 139 mg/dL (75-99)
[2016-05-28 19:04] LABS: Glucose,Whole Blood 154 mg/dL (75-99)
[2016-05-28 20:01] LABS: Glucose,Whole Blood 140 mg/dL (75-99)
--- NOTE | 2016-05-28 22:02 | P.PN ---
Subjective Principal diagnosis: Respiratory failure 55-year-old male was noted from the office practice where he is cared for for his HIV infection and his history of severe underlying liver disease. He has a history of nonalcoholic fatty liver disease which has been very severe in the past. He follows with hepatology at [facility] where he's even been evaluated for liver transplantation. However after extensive medical treatment he's had a marked improvement. His extensive ascites resolved. His massive edema resolved. It isn't functioning relatively well. It is related the patient was having shortness of breath. And with this EMS was called. It was related that is a arrives the patient had a cardiopulmonary arrest. AED was applied and he received 2 shocks. He was intubated and transported to hospital with only a brief course of CPR required. The patient is been seen by pulmonary critical care and workup has failed reveal evidence of pulmonary embolus or of an acute myocardial infarction. He has evidence of preserved ejection fraction but does have dilated left atrium. There is concern that there is underlying pneumonia with worsening hepatic encephalopathy as the triggers for his current cardiopulmonary arrest. He remains in the intensive care unit he has been extubated. He was having diarrhea, but C. diff was negative likely from the lactulose is being given. Chest x-ray with basilar infiltrate, and potential infiltrate seen on the computed tomography scan of the left lower lobe. Objective - Vital Signs Vital signs: Vital Signs Temp 99.2 F 05/28/16 20:00 Pulse 78 05/28/16 21:00 Resp 20 05/28/16 21:00 BP 140/69 05/28/16 21:00 Pulse Ox 99 05/28/16 21:00 Intake & Output 05/28/16 05/28/16 05/29/16 06:59 18:59 06:59 Intake Total 2797.384 1269.641 227.283 Output Total 1445 493 105 Balance 1352.384 776.641 122.283 Weight 107.3 kg 107.3 kg Intake: IV 1200 950 225 Dextrose 5% in Water 1, 1200 200 000 ml @ 100 mls/hr IV . Q10H [facility] Rx#:[id number] Sodium Chloride 0.45% 1, 750 225 000 ml @ 75 mls/hr IV . [id number] [facility] Rx#:[id number] Intake, IV Titration 387.384 19.641 2.283 Amount Insulin Regular 100 unit 87.384 19.641 2.283 In Sodium Chloride 0.9% 100 ml @ Per Protocol IV .Q0M [facility] Rx#:[id number] Levofloxacin 500Mg-D5w 100 Pmx 500 mg In Dextrose/ Water 1 100ml.bag @ 100 mls/hr IVPB Q24H [facility] Rx#: [id number] Meropenem 1 gm In Sodium 200 Chloride 0.9% 100 ml @ 100 mls/hr IVPB Q8H [facility] Rx#:[id number] Tube Feeding 750 100 Other 460 200 Output: Urine 845 493 105 Stool 600 Other: Voiding Method Indwelling Catheter Indwelling Catheter Indwelling Catheter ABP, PAP, CO, CI - Last Documented Arterial Blood Pressure 141/61 - Exam 55-year-old male who is extubated opens eyes and smiled but no active speech was noted HEENT: Anicteric conjunctiva are pink and moist nasal mucosa grossly intact without significant lesions, there is no thrush. No lesions in the oral cavity around the prior endotracheal tube Neck: The neck is supple without significant lymphadenopathy or thyromegaly. Lungs: Symmetrical air entry is noted. No stiff and wheezing. Few basilar crackles. No bronchial sounds. Heart: Regular rate and rhythm with an audible S1-S2, no S3 soft S4 There is no significant murmur click or rub, PMI was nondisplaced. Abdomen: Mildly obese Positive bowel sounds soft and nontender without palpable masses or organomegaly. Abdomen is not rigid and there is no fluid wave Extremities: The upper extremities have excellent pulses they are symmetric, no significant petechiae or telangiectasia. No splinter hemorrhages were noted. Lower extremities reveals the bilateral edema Neuro: still sedated but opened eyes and smiled but no spontaneous speech - Labs CBC & Chem 7: 05/28/16 04:55 05/28/16 19:22 Labs: Abnormal Lab Results - Last 24 Hours (Table) 05/27/16 05/27/16 05/28/16 Range/Units 22:20 23:56 01:24 RBC (4.30-5.90) m/uL Hgb (13.0-17.5) gm/dL Hct (39.0-53.0) % MCV (80.0-100.0) fL Plt Count (150-450) k/uL ABG pCO2 (35-45) mmHg ABG pO2 (83-108) mmHg ABG O2 Saturation (94-97) % Potassium (3.5-5.1) mmol/L Chloride (98-107) mmol/L Glucose (74-99) mg/dL POC Glucose (mg/dL) 236 H 230 H 232 H (75-99) mg/dL Calcium (8.4-10.2) mg/dL 05/28/16 05/28/16 05/28/16 Range/Units 03:08 04:48 04:55 RBC 3.01 L (4.30-5.90) m/uL Hgb 10.0 L (13.0-17.5) gm/dL Hct 30.5 L (39.0-53.0) % MCV 101.2 H (80.0-100.0) fL Plt Count 106 L (150-450) k/uL ABG pCO2 (35-45) mmHg ABG pO2 (83-108) mmHg ABG O2 Saturation (94-97) % Potassium (3.5-5.1) mmol/L Chloride (98-107) mmol/L Glucose (74-99) mg/dL POC Glucose (mg/dL) 229 H 227 H (75-99) mg/dL Calcium (8.4-10.2) mg/dL 05/28/16 05/28/16 05/28/16 Range/Units 04:55 04:56 06:50 RBC (4.30-5.90) m/uL Hgb (13.0-17.5) gm/dL Hct (39.0-53.0) % MCV (80.0-100.0) fL Plt Count (150-450) k/uL ABG pCO2 34 L (35-45) mmHg ABG pO2 119 H (83-108) mmHg ABG O2 Saturation 98.8 H (94-97) % Potassium (3.5-5.1) mmol/L Chloride 113 H (98-107) mmol/L Glucose 223 H (74-99) mg/dL POC Glucose (mg/dL) 212 H (75-99) mg/dL Calcium 7.7 L (8.4-10.2) mg/dL 05/28/16 05/28/16 05/28/16 Range/Units 08:23 09:51 11:51 RBC (4.30-5.90) m/uL Hgb (13.0-17.5) gm/dL Hct (39.0-53.0) % MCV (80.0-100.0) fL Plt Count (150-450) k/uL ABG pCO2 (35-45) mmHg ABG pO2 (83-108) mmHg ABG O2 Saturation (94-97) % Potassium (3.5-5.1) mmol/L Chloride (98-107) mmol/L Glucose (74-99) mg/dL POC Glucose (mg/dL) 220 H 177 H 138 H (75-99) mg/dL Calcium (8.4-10.2) mg/dL 05/28/16 05/28/16 05/28/16 Range/Units 14:19 15:04 16:47 RBC (4.30-5.90) m/uL Hgb (13.0-17.5) gm/dL Hct (39.0-53.0) % MCV (80.0-100.0) fL Plt Count (150-450) k/uL ABG pCO2 (35-45) mmHg ABG pO2 (83-108) mmHg ABG O2 Saturation (94-97) % Potassium (3.5-5.1) mmol/L Chloride (98-107) mmol/L Glucose (74-99) mg/dL POC Glucose (mg/dL) 150 H 167 H 134 H (75-99) mg/dL Calcium (8.4-10.2) mg/dL 05/28/16 05/28/16 05/28/16 Range/Units 18:04 19:03 19:22 RBC (4.30-5.90) m/uL Hgb (13.0-17.5) gm/dL Hct (39.0-53.0) % MCV (80.0-100.0) fL Plt Count (150-450) k/uL ABG pCO2 (35-45) mmHg ABG pO2 (83-108) mmHg ABG O2 Saturation (94-97) % Potassium 5.6 H (3.5-5.1) mmol/L Chloride (98-107) mmol/L Glucose (74-99) mg/dL POC Glucose (mg/dL) 139 H 154 H (75-99) mg/dL Calcium (8.4-10.2) mg/dL 05/28/16 Range/Units 20:00 RBC (4.30-5.90) m/uL Hgb (13.0-17.5) gm/dL Hct (39.0-53.0) % MCV (80.0-100.0) fL Plt Count (150-450) k/uL ABG pCO2 (35-45) mmHg ABG pO2 (83-108) mmHg ABG O2 Saturation (94-97) % Potassium (3.5-5.1) mmol/L Chloride (98-107) mmol/L Glucose (74-99) mg/dL POC Glucose (mg/dL) 140 H (75-99) mg/dL Calcium (8.4-10.2) mg/dL Microbiology - Last 24 Hours (Table) 05/25/16 21:00 Urine Culture - Final Urine,Catheterized Proteus mirabilis 05/25/16 21:00 Blood Culture - Preliminary Blood No Growth after 48 hours 05/25/16 20:10 Blood Culture - Preliminary Blood No Growth after 48 hours Laboratory Results WBC 6.8 k/uL (3.8-10.6) 05/28/16 04:55 RBC 3.01 m/uL (4.30-5.90) L 05/28/16 04:55 Hgb 10.0 gm/dL (13.0-17.5) L 05/28/16 04:55 Hct 30.5 % (39.0-53.0) L 05/28/16 04:55 MCV 101.2 fL (80.0-100.0) H 05/28/16 04:55 MCH 33.3 pg (25.0-35.0) 05/28/16 04:55 MCHC 32.9 g/dL (31.0-37.0) 05/28/16 04:55 RDW 14.4 % (11.5-15.5) 05/28/16 04:55 Plt Count 106 k/uL (150-450) L 05/28/16 04:55 Neutrophils % 75 % 05/28/16 04:55 Lymphocytes % 14 % 05/28/16 04:55 Monocytes % 6 % 05/28/16 04:55 Eosinophils % 2 % 05/28/16 04:55 Basophils % 0 % 05/28/16 04:55 Neutrophils # 5.1 k/uL (1.3-7.7) 05/28/16 04:55 Lymphocytes # 1.0 k/uL (1.0-4.8) 05/28/16 04:55 Monocytes # 0.4 k/uL (0-1.0) 05/28/16 04:55 Eosinophils # 0.2 k/uL (0-0.7) 05/28/16 04:55 Basophils # 0.0 k/uL (0-0.2) 05/28/16 04:55 Hypochromasia Slight 05/27/16 05:30 Poikilocytosis Slight 05/28/16 04:55 Macrocytosis Slight 05/28/16 04:55 PT 13.7 sec (9.0-12.0) H 05/25/16 04:51 INR 1.4 (<1.1) 05/25/16 04:51 APTT 29.6 sec (22.0-30.0) 05/25/16 04:51 Sample Site [place] 05/28/16 04:56 ABG pH 7.42 (7.35-7.45) 05/28/16 04:56 ABG pCO2 34 mmHg (35-45) L 05/28/16 04:56 ABG pO2 119 mmHg (83-108) H 05/28/16 04:56 ABG HCO3 21 mmol/L (21-25) 05/28/16 04:56 ABG Total CO2 22 mmol/L (19-24) 05/28/16 04:56 ABG O2 Saturation 98.8 % (94-97) H 05/28/16 04:56 ABG Base Excess -2.7 mmol/L 05/28/16 04:56 FiO2 45 % 05/28/16 04:56 Sodium 143 mmol/L (137-145) 05/28/16 04:55 Potassium 5.6 mmol/L (3.5-5.1) H 05/28/16 19:22 Chloride 113 mmol/L (98-107) H 05/28/16 04:55 Carbon Dioxide 23 mmol/L (22-30) 05/28/16 04:55 Anion Gap 7 mmol/L 05/28/16 04:55 BUN 17 mg/dL (9-20) 05/28/16 04:55 Creatinine 0.90 mg/dL (0.66-1.25) 05/28/16 04:55 Est GFR (MDRD) Af Amer >60 (>60 ml/min/1.73 sqM) 05/28/16 04:55 Est GFR (MDRD) Non-Af >60 (>60 ml/min/1.73 sqM) 05/28/16 04:55 Glucose 223 mg/dL (74-99) H 05/28/16 04:55 POC Glucose (mg/dL) 140 mg/dL (75-99) H 05/28/16 20:00 POC Glu Lead Designer ID Lyn Singer 05/28/16 20:[address] Glu mg/dL 114 mg/dL 05/24/16 14:05 Hemoglobin A1c 5.6 % (4.2-6.1) 05/24/16 14:05 Calcium 7.7 mg/dL (8.4-10.2) L 05/28/16 04:55 Phosphorus 2.8 mg/dL (2.5-4.5) 05/28/16 04:55 Magnesium 2.3 mg/dL (1.6-2.3) 05/28/16 04:55 Total Bilirubin 2.5 mg/dL (0.2-1.3) H 05/24/16 22:15 AST 328 U/L (17-59) H 05/24/16 22:15 ALT 63 U/L (21-72) 05/24/16 22:15 Alkaline Phosphatase 329 U/L (38-126) H 05/24/16 22:15 Ammonia 28 umol/L (<30) 05/28/16 08:10 Total Creatine Kinase 5202 U/L (55-170) H 05/24/16 22:15 CK-MB (CK-2) 5.2 ng/mL (0.0-2.4) H* 05/25/16 04:51 CK-MB (CK-2) Rel Index 05/24/16 22:15 Troponin I 2.660 ng/mL (0.000-0.034) H* 05/25/16 04:51 Total Protein 5.9 g/dL (6.3-8.2) L 05/24/16 22:15 Albumin 1.9 g/dL (3.5-5.0) L 05/24/16 22:15 TSH 1.620 mIU/L (0.465-4.680) 05/24/16 14:05 Urine Color Yellow 05/24/16 14:00 Urine Appearance Clear (Clear) 05/24/16 14:00 Urine pH 7.5 (5.0-8.0) 05/24/16 14:00 Ur Specific [place] 1.010 (1.001-1.035) 05/24/16 14:00 Urine Protein 2+ (Negative) H 05/24/16 14:00 Urine Glucose (UA) 1+ (Negative) H 05/24/16 14:00 Urine Ketones Negative (Negative) 05/24/16 14:00 Urine Blood Moderate (Negative) H 05/24/16 14:00 Urine Nitrate Negative (Negative) 05/24/16 14:00 Urine Bilirubin Negative (Negative) 05/24/16 14:00 Urine Urobilinogen 2.0 mg/dL (<2.0) 05/24/16 14:00 Ur Leukocyte Esterase Negative (Negative) 05/24/16 14:00 Urine RBC 5 /hpf (0-5) 05/24/16 14:00 Urine WBC 14 /hpf (0-5) H 05/24/16 14:00 Ur Squamous Epith Cells <1 /hpf (0-4) 05/24/16 14:00 Urine Bacteria Rare /hpf (None) H 05/24/16 14:00 Hyaline Casts 2 /lpf (0-2) 05/24/16 01:30 Urine Mucus Rare /hpf (None) H 05/24/16 14:00 Urine Opiates Screen Detected (NotDetected) H 05/24/16 14:00 Ur Oxycodone Screen Not Detected (NotDetected) 05/24/16 14:00 Urine Methadone Screen Not Detected (NotDetected) 05/24/16 14:00 Ur Propoxyphene Screen Not Detected (NotDetected) 05/24/16 14:00 Ur Barbiturates Screen Not Detected (NotDetected) 05/24/16 14:00 U Tricyclic Antidepress Not Detected (NotDetected) 05/24/16 14:00 Ur Phencyclidine Scrn Not Detected (NotDetected) 05/24/16 14:00 Ur Amphetamines Screen Not Detected (NotDetected) 05/24/16 14:00 U Methamphetamines Scrn Not Detected (NotDetected) 05/24/16 14:00 U Benzodiazepines Scrn Not Detected (NotDetected) 05/24/16 14:00 Urine Cocaine Screen Not Detected (NotDetected) 05/24/16 14:00 U Marijuana (THC) Screen Not Detected (NotDetected) 05/24/16 14:00 C. difficile (EIA) Intrp Negative (Negative) 05/27/16 11:00 Microbiology 05/25/16 21:00 Urine,Catheterized Urine Culture - Final Proteus mirabilis 05/24/16 14:52 Sputum Gram Stain - Final 05/24/16 14:52 Sputum Sputum Culture - Final Pseudomonas aeruginosa Escherichia coli 05/25/16 21:00 Blood Blood Culture - Preliminary No Growth after 48 hours 05/25/16 20:10 Blood Blood Culture - Preliminary No Growth after 48 hours 05/25/16 20:10 Sputum Gram Stain - Final 05/25/16 20:10 Sputum Sputum Culture - Final Escherichia coli Assessment and Plan (1) Cardiac arrest Narrative/Plan: 55-year-old male known to the service because of his follow-up in the office for his HIV infection. His home HIV medications have been reordered with his Isentress Selzentry and Epivir. These should continue. Patient had evidence of cardiopulmonary arrest and is now improving. Patient has evidence of ESBL E. coli as well as pseudomonas aeruginosa in his sputum. And with this his antibiotic therapy is altered to meropenem. Follow-up cultures will be obtained as indicated. The urine culture reveals ESBL Proteus, also treated with the Merrem Improved and extubated but still with altered mental status. Status: Acute (2) Hepatic encephalopathy Status: Acute (3) Pseudomonas pneumonia Status: Acute
[2016-05-28 22:07] LABS: Glucose,Whole Blood 136 mg/dL (75-99)
[2016-05-28] MEDS: LEVOFLOXACIN 500MG-D5W PMX 500 MG in DEXTROSE/WATER 1 100ML.BAG IVPB SCH (22:18)
--- NOTE | 2016-05-28 22:18 | P.PN ---
Subjective Principal diagnosis: Toxic Metablic Encephalopathy The patient 55-year-old male being followed by neurology for toxic metabolic encephalopathy. Patient became short of breath at home and EMS was called. EMS arrived the patient was in cardiac arrest, was placed on AED multiple shocks were given to resuscitate the patient. Patient was intubated prior to arrival at the ED. Currently the patient is in the intensive care unit and is supine in bed in no acute distress. Patient was observed to be extubated prior to contact today and per nursing staff appears to be making some small improvement. As noted earlier repeated CT of the brain did not show any acute abnormalities. Objective - Vital Signs Vital signs: Vital Signs Temp 99.2 F 05/28/16 20:00 Pulse 78 05/28/16 21:00 Resp 20 05/28/16 21:00 BP 140/69 05/28/16 21:00 Pulse Ox 99 05/28/16 21:00 Intake & Output 05/28/16 05/28/16 05/29/16 06:59 18:59 06:59 Intake Total 2797.384 1269.641 227.283 Output Total 1445 493 105 Balance 1352.384 776.641 122.283 Weight 107.3 kg 107.3 kg Intake: IV 1200 950 225 Dextrose 5% in Water 1, 1200 200 000 ml @ 100 mls/hr IV . Q10H [facility] Rx#:[id number] Sodium Chloride 0.45% 1, 750 225 000 ml @ 75 mls/hr IV . [id number] ADAN Rx#:[id number] Intake, IV Titration 387.384 19.641 2.283 Amount Insulin Regular 100 unit 87.384 19.641 2.283 In Sodium Chloride 0.9% 100 ml @ Per Protocol IV .Q0M ADAN Rx#:[id number] Levofloxacin 500Mg-D5w 100 Pmx 500 mg In Dextrose/ Water 1 100ml.bag @ 100 mls/hr IVPB Q24H ADAN Rx#: [id number] Meropenem 1 gm In Sodium 200 Chloride 0.9% 100 ml @ 100 mls/hr IVPB Q8H [facility] Rx#:[id number] Tube Feeding 750 100 Other 460 200 Output: Urine 845 493 105 Stool 600 Other: Voiding Method Indwelling Catheter Indwelling Catheter Indwelling Catheter ABP, PAP, CO, CI - Last Documented Arterial Blood Pressure 141/61 - Constitutional General appearance: Present: no acute distress, obese - EENT EENT Comment(s): normocephalic, atraumatic, no obvious facial asymmetry is seen. Patient is no longer an intubated. - Neck Details: supple no masses - Respiratory Details: breathing independently, not intubated and on room air. - Cardiovascular Details: regular rate and rhythm - Gastrointestinal Gastrointestinal Comment(s): nontender, nondistended - Neurologic Neurologic Comment(s): Patient does turn head to verbal stimuli. Patient will follow some small commands. Patient does withdraw to pain. No tremors or seizure-like activity was observed on exam. No unilateral lateralizing weakness on exam. Patient was alert and oriented 1. Speech was garbled. - Musculoskeletal Musculoskeletal Comment(s): strengths are equal bilaterally, 1 out of 5 in upper extremities. Strengths are equal bilaterally in the patient's lower extremities. Strength lower extremity are 1 out of 5. - Psychiatric Psychiatric Comment(s): alert and oriented 1. - Labs CBC & Chem 7: 05/28/16 04:55 05/28/16 19:22 Labs: Abnormal Lab Results - Last 24 Hours (Table) 05/27/16 05/27/16 05/28/16 Range/Units 22:20 23:56 01:24 RBC (4.30-5.90) m/uL Hgb (13.0-17.5) gm/dL Hct (39.0-53.0) % MCV (80.0-100.0) fL Plt Count (150-450) k/uL ABG pCO2 (35-45) mmHg ABG pO2 (83-108) mmHg ABG O2 Saturation (94-97) % Potassium (3.5-5.1) mmol/L Chloride (98-107) mmol/L Glucose (74-99) mg/dL POC Glucose (mg/dL) 236 H 230 H 232 H (75-99) mg/dL Calcium (8.4-10.2) mg/dL 05/28/16 05/28/16 05/28/16 Range/Units 03:08 04:48 04:55 RBC 3.01 L (4.30-5.90) m/uL Hgb 10.0 L (13.0-17.5) gm/dL Hct 30.5 L (39.0-53.0) % MCV 101.2 H (80.0-100.0) fL Plt Count 106 L (150-450) k/uL ABG pCO2 (35-45) mmHg ABG pO2 (83-108) mmHg ABG O2 Saturation (94-97) % Potassium (3.5-5.1) mmol/L Chloride (98-107) mmol/L Glucose (74-99) mg/dL POC Glucose (mg/dL) 229 H 227 H (75-99) mg/dL Calcium (8.4-10.2) mg/dL 05/28/16 05/28/16 05/28/16 Range/Units 04:55 04:56 06:50 RBC (4.30-5.90) m/uL Hgb (13.0-17.5) gm/dL Hct (39.0-53.0) % MCV (80.0-100.0) fL Plt Count (150-450) k/uL ABG pCO2 34 L (35-45) mmHg ABG pO2 119 H (83-108) mmHg ABG O2 Saturation 98.8 H (94-97) % Potassium (3.5-5.1) mmol/L Chloride 113 H (98-107) mmol/L Glucose 223 H (74-99) mg/dL POC Glucose (mg/dL) 212 H (75-99) mg/dL Calcium 7.7 L (8.4-10.2) mg/dL 05/28/16 05/28/16 05/28/16 Range/Units 08:23 09:51 11:51 RBC (4.30-5.90) m/uL Hgb (13.0-17.5) gm/dL Hct (39.0-53.0) % MCV (80.0-100.0) fL Plt Count (150-450) k/uL ABG pCO2 (35-45) mmHg ABG pO2 (83-108) mmHg ABG O2 Saturation (94-97) % Potassium (3.5-5.1) mmol/L Chloride (98-107) mmol/L Glucose (74-99) mg/dL POC Glucose (mg/dL) 220 H 177 H 138 H (75-99) mg/dL Calcium (8.4-10.2) mg/dL 01/05/28/16 05/28/16 Range/Units 14:19 15:04 16:47 RBC (4.30-5.90) m/uL Hgb (13.0-17.5) gm/dL Hct (39.0-53.0) % MCV (80.0-100.0) fL Plt Count (150-450) k/uL ABG pCO2 (35-45) mmHg ABG pO2 (83-108) mmHg ABG O2 Saturation (94-97) % Potassium (3.5-5.1) mmol/L Chloride (98-107) mmol/L Glucose (74-99) mg/dL POC Glucose (mg/dL) 150 H 167 H 134 H (75-99) mg/dL Calcium (8.4-10.2) mg/dL 05/28/16 05/28/16 05/28/16 Range/Units 18:04 19:03 19:22 RBC (4.30-5.90) m/uL Hgb (13.0-17.5) gm/dL Hct (39.0-53.0) % MCV (80.0-100.0) fL Plt Count (150-450) k/uL ABG pCO2 (35-45) mmHg ABG pO2 (83-108) mmHg ABG O2 Saturation (94-97) % Potassium 5.6 H (3.5-5.1) mmol/L Chloride (98-107) mmol/L Glucose (74-99) mg/dL POC Glucose (mg/dL) 139 H 154 H (75-99) mg/dL Calcium (8.4-10.2) mg/dL 05/28/16 Range/Units 20:00 RBC (4.30-5.90) m/uL Hgb (13.0-17.5) gm/dL Hct (39.0-53.0) % MCV (80.0-100.0) fL Plt Count (150-450) k/uL ABG pCO2 (35-45) mmHg ABG pO2 (83-108) mmHg ABG O2 Saturation (94-97) % Potassium (3.5-5.1) mmol/L Chloride (98-107) mmol/L Glucose (74-99) mg/dL POC Glucose (mg/dL) 140 H (75-99) mg/dL Calcium (8.4-10.2) mg/dL Microbiology - Last 24 Hours (Table) 05/25/16 21:00 Urine Culture - Final Urine,Catheterized Proteus mirabilis 05/25/16 21:00 Blood Culture - Preliminary Blood No Growth after 48 hours 05/25/16 20:10 Blood Culture - Preliminary Blood No Growth after 48 hours Assessment and Plan (1) Toxic metabolic encephalopathy Status: Acute (2) Altered mental status Narrative/Plan: impression: 1. Status post cardiac arrest 2. Toxic metabolic encephalopathy 3. History of chronic liver disease 4. Diabetes mellitus 5. HIV 6. Electrolyte imbalance Continue current supportive care. CT of the brain does not show any evidence of acute process. Patient's symptoms appear to be consistent with toxic metabolic encephalopathy. On exam today it was noted that the patient is extubated, more alert, does respond to simple commands and does appear to be slightly improved from previous neurology note. EEG confirms severe encephalopathy. Recommend continued holding of sedatives and narcotics. Continue current ICU protocol management. Neurological checks as ordered are continued. If patient experiences any neurological decline, patient will be immediately sent for stat CT of the brain to attempt to identify any new or changing underlying etiology. Current prognosis is still guarded although slightly improved. Neurology will continue to follow provide further updates as needed or warranted. I discussed the patient's pertinent medical information with Dr. Wells. He agrees with the plan of care as implemented. Status: Acute
[2016-05-28 23:06] LABS: Glucose,Whole Blood 132 mg/dL (75-99)
[2016-05-29 00:05] LABS: Glucose,Whole Blood 147 mg/dL (75-99)
[2016-05-29 01:01] LABS: Glucose,Whole Blood 157 mg/dL (75-99)
[2016-05-29 02:03] LABS: Glucose,Whole Blood 141 mg/dL (75-99)
[2016-05-29 04:40] LABS: Glucose,Whole Blood 134 mg/dL (75-99)
[2016-05-29 05:17] LABS: Anion Gap 5 mmol/L; Calcium 8.1 mg/dL (8.4-10.2); Carbon Dioxide 20 mmol/L (22-30); Chloride 115 mmol/L (98-107); Glucose 133 mg/dL (74-99); Non-African American GFR(MDRD) >60 (>60 ml/min/1.73 sqM); Sodium 140 mmol/L (137-145)
[2016-05-29] MEDS: MEROPENEM 1 GM in SODIUM CHLORIDE 0.9% 100 ML IVPB SCH ×3 (05:17→22:27)
[2016-05-29 05:21] LABS: Basophils % (A) 1 %; CH 31.9; Eosinophils # (A) 0.2 k/uL (0-0.7); Eosinophils % (A) 4 %; HCT 30.6 % (39.0-53.0); HGB 9.5 gm/dL (13.0-17.5); Hypochromasia Marked; Luc # (Auto) 0.13; Luc % (Auto) 2; Lymphocytes # (A) 0.9 k/uL (1.0-4.8); Lymphocytes % (A) 15 %; MCH 33.1 pg (25.0-35.0); Macrocytosis Moderate; Mean Platelet Volume 8.2; Monocytes # (A) 0.4 k/uL (0-1.0); Monocytes % (A) 7 %; Neutrophils # (A) 4.1 k/uL (1.3-7.7); Neutrophils % (A) 72 %; RBC 2.86 m/uL (4.30-5.90); RDW 14.3 % (11.5-15.5); WBC 5.8 k/uL (3.8-10.6); WBC (Perox) 5.97
[2016-05-29 05:24] LABS: Blood Urea Nitrogen 18 mg/dL (9-20); Magnesium 2.3 mg/dL (1.6-2.3); Phosphorous 2.4 mg/dL (2.5-4.5); Potassium 4.7 mmol/L (3.5-5.1)
[2016-05-29 05:28] LABS: MCV 106.9 fL (80.0-100.0)
[2016-05-29 05:35] LABS: Glucose,Whole Blood 144 mg/dL (75-99)
[2016-05-29 06:00] LABS: Glucose,Whole Blood 128 mg/dL (75-99)
[2016-05-29 06:51] LABS: Glucose,Whole Blood 128 mg/dL (75-99)
--- NOTE | 2016-05-29 07:28 | XR ---
EXAMINATION TYPE: XR chest 1V DATE OF EXAM: 05/29/2016 6:51 AM HISTORY: Shortness of breath. COMPARISON: 05/28/2016 TECHNIQUE: Single view of the chest is submitted. FINDINGS: Endotracheal and NG tubes have been removed. Demonstrated are scattered senescent parenchymal change. There is continued increased density left lower lobe. The heart is enlarged. Pulmonary venous congestion without overt failure. Hilar and mediastinal structures are within normal limits. Degenerative changes are seen of the dorsal spine. IMPRESSION: 1. There is continued increased density left lower lobe. The heart is enlarged. Pulmonary venous congestion without overt failure.
--- NOTE | 2016-05-29 08:31 | PN ---
DATE OF SERVICE: 05/28/2016 PRESENTING COMPLAINT: Cardiac arrest. INTERVAL HISTORY: This patient with multiple problems in the ICU, initially presented with cardiac arrest. Extubated earlier this morning, on nasal cannula. Following simple commands but lethargic. Patient's family is at the bedside. Review of systems cannot be done but patient is following commands. Current medications are reviewed. On examination, temperature 98, pulse 71, respiration 16, blood pressure 122/72, pulse ox 100%. GENERAL APPEARANCE: Lying in bed, awake, lethargic. EYES: Pupils equal, conjunctivae normal. HEENT: Nasal cannula in place. NECK: JVD not able to assess. Respiratory effort increased LUNGS: Diminished breath sounds. CARDIOVASCULAR: First and second sounds normal. No edema. ABDOMEN: Soft, nontender. Liver and spleen not palpable. NEUROLOGICAL: Patient is following commands, moving limbs but lethargic. INVESTIGATIONS: White count 7.6, hemoglobin 10.2, potassium 4.5, labs are from yesterday. ASSESSMENT: 1. Possible acute myocardial infarction present at admission causing cardiac arrest. 2. Acute metabolic encephalopathy, multifactorial, present on admission including hepatic encephalopathy. 3. Element of anoxic brain injury following cardiac arrest per Neurology. 4. Liver cirrhosis. 5. Chronic kidney disease stage III, from diabetic nephropathy and nephrosclerosis. 6. HIV. 7. Diabetes mellitus type 2, chronically on insulin causing peripheral neuropathy. 8. Acute hypoxic respiratory failure, patient was on the ventilator and I extubated earlier today. 9. Electrolyte abnormalities. 10. Hepatic encephalopathy. 11. Hypernatremia from free water deficit. 12. Hyperlipidemia from liver disease and possibly malnutrition. 13. Left lobe pneumonia, ( ) from pseudomonas. 14. Acute urinary tract infection from gram-negative bacilli. 15. Depression, not otherwise specified. PLAN: Continue current medication and treatment plan. Care was discussed with the family at the beside. Prognosis is guarded. They want the patient to remain FULL CODE. Care was also discussed with Dr. Bradshaw from Pulmonary.
[2016-05-29 08:32] LABS: Glucose,Whole Blood 120 mg/dL (75-99)
[2016-05-29] MEDS: DULoxetine HCL 60 MG CAPSULE.DR PO SCH (09:42)
[2016-05-29] MEDS: LAMIVUDINE 300 MG PO SCH (09:42)
[2016-05-29] MEDS: SERTRALINE 50 MG TAB PO SCH (09:42)
[2016-05-29] MEDS: PANTOPRAZOLE 40 MG/10 ML VIAL IV SCH (09:42)
[2016-05-29] MEDS: METOPROLOL TARTRATE 12.5 MG TAB PO SCH ×2 (09:42→21:09)
[2016-05-29] MEDS: SPIRONOLACTONE 25 MG TAB PO SCH (09:42)
[2016-05-29] MEDS: RIFAXIMIN 550 MG TABLET PO SCH ×2 (09:43→21:09)
[2016-05-29] MEDS: ENOXAPARIN 40 MG/0.4 ML SYRINGE SQ SCH (09:43)
[2016-05-29] MEDS: CEVIMELINE 30 MG CAP PO SCH ×3 (09:43→21:43)
[2016-05-29] MEDS: MARAVIROC 300 MG PO SCH ×2 (09:43→21:07)
[2016-05-29] MEDS: RALTEGRAVIR POTASSIUM 400 MG PO SCH ×2 (09:47→21:08)
--- NOTE | 2016-05-29 10:22 | P.PN ---
Subjective Progress note dated 05/28/2016 This is a 55-year-old gentleman with a known history of liver cirrhosis diabetes hypertension and HIV and neuropathy. The patient has a history of acute respiratory failure and should be able to be extubated today. The patient presented on May 24 with an acute episode of shortness of breath EMS was called the patient was found unresponsive. The patient apparently was defibrillated or cardioverted on the field. CPR was initiated. The patient was placed on the ventilator and will be extubated today finally. He sought of anoxic brain injury. His EEG showed evidence of diffuse slowing consistent with metabolic/anoxic brain injury. Talk to the family yesterday about CODE STATUS. There were unwilling to make any decisions about CODE STATUS at that time. Apparently supposed to be in today to see the patient. Today he is much improved and is somewhat alert. Is a weaning parameters are excellent. He did well on this PSG and CPAP and hence the patient will get be given a trial extubation. His rapid shallow breathing index was 53. His vent settings include the assist control mode rate of 10 timeline 400 FiO2 40% PEEP of 5. Currently he is on PSV 5 CPAP of 5 and 40%. His blood gases are valid ventilator included a PaO2 of 119 a pCO2 of 34. Some 0.42. This is consistent with hyperoxemia and a mixed acid-base disturbance including a mild respiratory alkalosis and mild metabolic acidosis. He is on an insulin drip at 6 units per hour D5W to 100 mL now her to be changing 0.4 575 and vital HPI 50 with a goal of 50 which is currently on hold in anticipation of extubation. Progress note dated 05/29/2016 next This is a 55-year-old man who was extubated on May 28. He is doing much better. He Getting room air. His IV is up 0.45 IV at 75 mL an hour. His insulin drip is off. Other than that the patient is doing relatively well. The patient can be transferred out of the unit. Regular him a bed on the general medical floor with telemetry. Objective - Vital Signs Vital signs: Vital Signs Temp 98.4 F 05/29/16 09:00 Pulse 74 05/29/16 10:00 Resp 24 05/29/16 10:00 BP 138/72 05/29/16 10:00 Pulse Ox 97 05/29/16 10:00 Intake & Output 05/28/16 05/29/16 05/29/16 18:59 06:59 18:59 Intake Total 8659.820 8721.767 225 Output Total 493 1430 130 Balance 776.641 -224.233 95 Weight 107.3 kg 106.2 kg Intake: IV 950 1100 225 Dextrose 5% in Water 1, 200 000 ml @ 100 mls/hr IV . Q10H [facility] Rx#:[id number] Levofloxacin 500Mg-D5w 100 Pmx 500 mg In Dextrose/ Water 1 100ml.bag @ 100 mls/hr IVPB Q24H [facility] Rx#: [id number] Meropenem 1 gm In Sodium 100 Chloride 0.9% 100 ml @ 100 mls/hr IVPB Q8H [facility] Rx#:[id number] Sodium Chloride 0.45% 1, 750 900 225 000 ml @ 75 mls/hr IV . [id number] [facility] Rx#:[id number] Intake, IV Titration 19.641 105.767 Amount Insulin Regular 100 unit 19.641 5.767 In Sodium Chloride 0.9% 100 ml @ Per Protocol IV .Q0M [facility] Rx#:[id number] Meropenem 1 gm In Sodium 100 Chloride 0.9% 100 ml @ 100 mls/hr IVPB Q8H [facility] Rx#:[id number] Tube Feeding 100 Other 200 Output: Drainage 900 FMS 900 Urine 493 530 130 Stool 0 0 Other: Voiding Method Indwelling Catheter Indwelling Catheter Indwelling Catheter ABP, PAP, CO, CI - Last Documented Arterial Blood Pressure 141/61 - Exam No acute distress, not particularly oriented. Somewhat somnolent and lethargic but he does arouse. He does follow basic commands. HEENT examination is grossly unremarkable. Endotracheal tube and NG tube in place. Neck supple. Full range of motion. No adenopathy. Cardiovascular examination reveals regular rhythm rate. Heart rate about mid 80s. No murmur. Lungs reveal a few scattered coarse rhonchi. Breath sounds diminished. Abdomen soft bowel sounds are heard. Extremities are intact. - Labs CBC & Chem 7: 05/29/16 04:40 05/29/16 04:40 Labs: Abnormal Lab Results - Last 24 Hours (Table) 05/28/16 05/28/16 05/28/16 Range/Units 11:51 14:19 15:04 RBC (4.30-5.90) m/uL Hgb (13.0-17.5) gm/dL Hct (39.0-53.0) % MCV (80.0-100.0) fL Plt Count (150-450) k/uL Lymphocytes # (1.0-4.8) k/uL Potassium (3.5-5.1) mmol/L Chloride (98-107) mmol/L Carbon Dioxide (22-30) mmol/L Glucose (74-99) mg/dL POC Glucose (mg/dL) 138 H 150 H 167 H (75-99) mg/dL Calcium (8.4-10.2) mg/dL Phosphorus (2.5-4.5) mg/dL 05/28/16 05/28/16 05/28/16 Range/Units 16:47 18:04 19:03 RBC (4.30-5.90) m/uL Hgb (13.0-17.5) gm/dL Hct (39.0-53.0) % MCV (80.0-100.0) fL Plt Count (150-450) k/uL Lymphocytes # (1.0-4.8) k/uL Potassium (3.5-5.1) mmol/L Chloride (98-107) mmol/L Carbon Dioxide (22-30) mmol/L Glucose (74-99) mg/dL POC Glucose (mg/dL) 134 H 139 H 154 H (75-99) mg/dL Calcium (8.4-10.2) mg/dL Phosphorus (2.5-4.5) mg/dL 05/28/16 05/28/16 05/28/16 Range/Units 19:22 20:00 22:05 RBC (4.30-5.90) m/uL Hgb (13.0-17.5) gm/dL Hct (39.0-53.0) % MCV (80.0-100.0) fL Plt Count (150-450) k/uL Lymphocytes # (1.0-4.8) k/uL Potassium 5.6 H (3.5-5.1) mmol/L Chloride (98-107) mmol/L Carbon Dioxide (22-30) mmol/L Glucose (74-99) mg/dL POC Glucose (mg/dL) 140 H 136 H (75-99) mg/dL Calcium (8.4-10.2) mg/dL Phosphorus (2.5-4.5) mg/dL 05/28/16 05/29/16 05/29/16 Range/Units 23:04 00:02 01:00 RBC (4.30-5.90) m/uL Hgb (13.0-17.5) gm/dL Hct (39.0-53.0) % MCV (80.0-100.0) fL Plt Count (150-450) k/uL Lymphocytes # (1.0-4.8) k/uL Potassium (3.5-5.1) mmol/L Chloride (98-107) mmol/L Carbon Dioxide (22-30) mmol/L Glucose (74-99) mg/dL POC Glucose (mg/dL) 132 H 147 H 157 H (75-99) mg/dL Calcium (8.4-10.2) mg/dL Phosphorus (2.5-4.5) mg/dL 05/29/16 05/29/16 05/29/16 Range/Units 02:01 04:21 04:40 RBC 2.86 L (4.30-5.90) m/uL Hgb 9.5 L (13.0-17.5) gm/dL Hct 30.6 L (39.0-53.0) % MCV 106.9 H D (80.0-100.0) fL Plt Count 108 L (150-450) k/uL Lymphocytes # 0.9 L (1.0-4.8) k/uL Potassium (3.5-5.1) mmol/L Chloride (98-107) mmol/L Carbon Dioxide (22-30) mmol/L Glucose (74-99) mg/dL POC Glucose (mg/dL) 141 H 134 H (75-99) mg/dL Calcium (8.4-10.2) mg/dL Phosphorus (2.5-4.5) mg/dL 05/29/16 05/29/16 05/29/16 Range/Units 04:40 05:16 05:56 RBC (4.30-5.90) m/uL Hgb (13.0-17.5) gm/dL Hct (39.0-53.0) % MCV (80.0-100.0) fL Plt Count (150-450) k/uL Lymphocytes # (1.0-4.8) k/uL Potassium (3.5-5.1) mmol/L Chloride 115 H (98-107) mmol/L Carbon Dioxide 20 L (22-30) mmol/L Glucose 133 H (74-99) mg/dL POC Glucose (mg/dL) 144 H 128 H (75-99) mg/dL Calcium 8.1 L (8.4-10.2) mg/dL Phosphorus 2.4 L (2.5-4.5) mg/dL 05/29/16 05/29/16 Range/Units 06:49 08:31 RBC (4.30-5.90) m/uL Hgb (13.0-17.5) gm/dL Hct (39.0-53.0) % MCV (80.0-100.0) fL Plt Count (150-450) k/uL Lymphocytes # (1.0-4.8) k/uL Potassium (3.5-5.1) mmol/L Chloride (98-107) mmol/L Carbon Dioxide (22-30) mmol/L Glucose (74-99) mg/dL POC Glucose (mg/dL) 128 H 120 H (75-99) mg/dL Calcium (8.4-10.2) mg/dL Phosphorus (2.5-4.5) mg/dL Microbiology - Last 24 Hours (Table) 05/25/16 21:00 Blood Culture - Preliminary Blood No Growth after 72 hours 05/25/16 20:10 Blood Culture - Preliminary Blood No Growth after 72 hours 05/25/16 21:00 Urine Culture - Final Urine,Catheterized Proteus mirabilis Assessment and Plan (1) Acute respiratory failure Status: Acute (2) Cardiac arrest Status: Acute (3) Hepatic encephalopathy Status: Acute (4) Rhabdomyolysis Status: Acute (5) Altered mental status Status: Acute (6) Cirrhosis Status: Acute (7) Diabetes Status: Acute (8) HIV (human immunodeficiency virus infection) Status: Acute Plan: Plan dated 05/28/2016 The patient will be given a trial of extubation. Additional recommendations suggestions are forthcoming. We'll stop the sedation which has been stopped a couple days ago. We'll DC the tube feeds. We'll DC the endotracheal tube and the NG tube. I'll go through the medications labs and x-rays. Additional recommendations suggestions are forthcoming. Prognosis is very guarded. Plan dated 05/29/2016 The patient is doing much better. The patient can be transferred out to the general medical floor with telemetry. We'll review we'll review the medications labs x-rays. No discharge recommendations are made. Overall prognosis is still guarded. We'll continue to follow. Time with Patient: Less than 30
[2016-05-29] MEDS ORDERED: IPRATROPIUM-ALBUTEROL 3 ML NEB INHALATION PRN (10:24)
[2016-05-29 10:59] LABS: Glucose,Whole Blood 139 mg/dL (75-99)
[2016-05-29] MEDS: IPRATROPIUM-ALBUTEROL 3 ML NEB INHALATION SCH ×3 (11:48→19:51)
[2016-05-29 12:26] LABS: Glucose,Whole Blood 146 mg/dL (75-99)
[2016-05-29] MEDS: SODIUM CHLORIDE 0.45% 1,000 ML IV SCH (12:36)
[2016-05-29] MEDS: INSULIN LISPRO (humaLOG) 300 UNIT/3 ML VIAL SQ SCH ×3 (13:27→21:11)
[2016-05-29 17:29] LABS: Glucose,Whole Blood 155 mg/dL (75-99)
--- NOTE | 2016-05-29 17:41 | PN ---
DATE OF SERVICE: 05/29/2016 PRESENTING COMPLAINT: Cardiac arrest. INTERVAL HISTORY: This is a patient in the ICU who initially presented with cardiac arrest felt to be from acute [place]. Patient was extubated yesterday. Patient is lethargic. Does speak a bit, but still somewhat lethargic. ( ) his meals. No family is at the bedside. Review of systems is difficult to obtain. Current medications are reviewed that include Levaquin, meropenem, Xifaxan. On examination, temperature 98.6, pulse 65, respiration 20, blood pressure 127/64, pulse ox 97% on room air. GENERAL APPEARANCE: Propped up in bed. Tired. Somewhat lethargic but does follow commands. EYES: Pupils equal. Conjunctivae normal. NECK: JVD not raised. Mass not palpable. RESPIRATORY: Effort increased. LUNGS: Diminished breath sounds. CARDIOVASCULAR: First and second sounds normal. No edema. ABDOMEN: Soft, nontender. Liver and spleen not palpable. PSYCHIATRY: Unable to assess. NEUROLOGICAL: Moving all 4 limbs. Following commands, but lethargic. INVESTIGATIONS: Accu-Cheks are noted. White count 5.8, hemoglobin 9.5. Potassium 4.7. BUN and creatinine are normal. Chest x-ray, portable: Questionable infiltrate. ASSESSMENT: 1. Possible acute myocardial infarction upon admission causing the patient to have cardiac arrest, [id number] type. 2. Acute metabolic encephalopathy, multifactorial, present on admission, including hepatic encephalopathy. 3. Element of anoxic brain injury following cardiac arrest per Neurology. 4. Liver cirrhosis. 5. Chronic kidney disease, stage III, from diabetic nephropathy and nephrosclerosis. 6. HIV. 7. Diabetes mellitus, type 2, chronically on insulin, causing peripheral neuropathy. 8. Acute hypoxic respiratory failure. Patient was on ventilator, extubated yesterday. 9. Electrolyte abnormalities. 10. Hepatic encephalopathy. 11. Hypernatremia from free water deficit. 12. Hyperlipidemia from liver disease. 13. Hypoalbuminemia from liver disease and possible malnutrition. 14. Left lobe pneumonia from pseudomonas. 15. Urinary tract infection from Proteus mirabilis. 16. Depression not otherwise specified. PLAN: Overall prognosis remains guarded. Patient is FULL CODE per family. I will put the patient back on some lactulose. Antiretroviral treatment is in place. Overall prognosis guarded.
--- NOTE | 2016-05-29 18:46 | P.PN ---
Subjective Principal diagnosis: Patient is a 55-year-old male who is being followed by the neurology service for toxic metabolic encephalopathy. Patient became short of breath at home and EMS was called. EMS arrived and patient was in respiratory arrest. Patient was placed on AED and 2 shocks were provided. Patient was intubated and brought to [facility]. Patient is currently extubated and has been transferred to medical floor. Patient is slightly more responsive today as compared to yesterday. Patient is following commands. Patient tries to speak but difficult to understand. Computed tomography scan on admission did not show any acute abnormalities and a repeat CT was done which also did not show any acute abnormalities. At the time of my evaluation, patient is extubated and does not appear to be in any acute distress. Objective - Vital Signs Vital signs: Vital Signs Temp 98 F 05/29/16 18:22 Pulse 79 05/29/16 18:22 Resp 20 05/29/16 18:22 BP 127/70 05/29/16 18:22 Pulse Ox 96 05/29/16 18:22 Intake & Output 05/28/16 05/29/16 05/29/16 18:59 06:59 18:59 Intake Total 4248.255 7806.767 700 Output Total 493 1430 2533 Balance 776.641 -224.233 -1833 Weight 107.3 kg 106.2 kg Intake: IV 950 1100 700 Dextrose 5% in Water 1, 200 000 ml @ 100 mls/hr IV . Q10H [facility] Rx#:[id number] Levofloxacin 500Mg-D5w 100 Pmx 500 mg In Dextrose/ Water 1 100ml.bag @ 100 mls/hr IVPB Q24H [facility] Rx#: [id number] Meropenem 1 gm In Sodium 100 100 Chloride 0.9% 100 ml @ 100 mls/hr IVPB Q8H [facility] Rx#:[id number] Sodium Chloride 0.45% 1, 750 900 600 000 ml @ 75 mls/hr IV . [id number] [facility] Rx#:[id number] Intake, IV Titration 19.641 105.767 Amount Insulin Regular 100 unit 19.641 5.767 In Sodium Chloride 0.9% 100 ml @ Per Protocol IV .Q0M [facility] Rx#:[id number] Meropenem 1 gm In Sodium 100 Chloride 0.9% 100 ml @ 100 mls/hr IVPB Q8H [facility] Rx#:[id number] Tube Feeding 100 Other 200 Output: Drainage 900 1800 FMS 900 1800 Urine 493 530 733 Stool 0 0 Other: Voiding Method Indwelling Catheter Indwelling Catheter Indwelling Catheter ABP, PAP, CO, CI - Last Documented Arterial Blood Pressure 141/61 - Exam PHYSICAL EXAM: GENERAL APPEARANCE: Patient is a well-developed, male who is intubated in the ICU HEENT: Normocephalic, atraumatic, no obvious facial asymmetry is seen. Patient is intubated CARDIOVASCULAR: Regular rate and rhythm. ABDOMEN: Nontender, nondistended. EXTREMITIES: Show no edema or clubbing. NEUROLOGICAL EXAM: Patient is extubated and and is following commands. He moves all 4 extremities purposefully. No obvious facial asymmetry is noted. Unable to assess for sensory deficit as patient is not able to cooperate as of yet. No tremors or seizure-like activity is seen. - Labs CBC & Chem 7: 05/29/16 04:40 05/29/16 04:40 Labs: Abnormal Lab Results - Last 24 Hours (Table) 05/28/16 05/28/16 05/28/16 Range/Units 19:03 19:22 20:00 RBC (4.30-5.90) m/uL Hgb (13.0-17.5) gm/dL Hct (39.0-53.0) % MCV (80.0-100.0) fL Plt Count (150-450) k/uL Lymphocytes # (1.0-4.8) k/uL Potassium 5.6 H (3.5-5.1) mmol/L Chloride (98-107) mmol/L Carbon Dioxide (22-30) mmol/L Glucose (74-99) mg/dL POC Glucose (mg/dL) 154 H 140 H (75-99) mg/dL Calcium (8.4-10.2) mg/dL Phosphorus (2.5-4.5) mg/dL 05/28/16 05/28/16 05/29/16 Range/Units 22:05 23:04 00:02 RBC (4.30-5.90) m/uL Hgb (13.0-17.5) gm/dL Hct (39.0-53.0) % MCV (80.0-100.0) fL Plt Count (150-450) k/uL Lymphocytes # (1.0-4.8) k/uL Potassium (3.5-5.1) mmol/L Chloride (98-107) mmol/L Carbon Dioxide (22-30) mmol/L Glucose (74-99) mg/dL POC Glucose (mg/dL) 136 H 132 H 147 H (75-99) mg/dL Calcium (8.4-10.2) mg/dL Phosphorus (2.5-4.5) mg/dL 05/29/16 05/29/16 05/29/16 Range/Units 01:00 02:01 04:21 RBC (4.30-5.90) m/uL Hgb (13.0-17.5) gm/dL Hct (39.0-53.0) % MCV (80.0-100.0) fL Plt Count (150-450) k/uL Lymphocytes # (1.0-4.8) k/uL Potassium (3.5-5.1) mmol/L Chloride (98-107) mmol/L Carbon Dioxide (22-30) mmol/L Glucose (74-99) mg/dL POC Glucose (mg/dL) 157 H 141 H 134 H (75-99) mg/dL Calcium (8.4-10.2) mg/dL Phosphorus (2.5-4.5) mg/dL 05/29/16 05/29/16 05/29/16 Range/Units 04:40 04:40 05:16 RBC 2.86 L (4.30-5.90) m/uL Hgb 9.5 L (13.0-17.5) gm/dL Hct 30.6 L (39.0-53.0) % MCV 106.9 H D (80.0-100.0) fL Plt Count 108 L (150-450) k/uL Lymphocytes # 0.9 L (1.0-4.8) k/uL Potassium (3.5-5.1) mmol/L Chloride 115 H (98-107) mmol/L Carbon Dioxide 20 L (22-30) mmol/L Glucose 133 H (74-99) mg/dL POC Glucose (mg/dL) 144 H (75-99) mg/dL Calcium 8.1 L (8.4-10.2) mg/dL Phosphorus 2.4 L (2.5-4.5) mg/dL 05/29/16 05/29/16 05/29/16 Range/Units 05:56 06:49 08:31 RBC (4.30-5.90) m/uL Hgb (13.0-17.5) gm/dL Hct (39.0-53.0) % MCV (80.0-100.0) fL Plt Count (150-450) k/uL Lymphocytes # (1.0-4.8) k/uL Potassium (3.5-5.1) mmol/L Chloride (98-107) mmol/L Carbon Dioxide (22-30) mmol/L Glucose (74-99) mg/dL POC Glucose (mg/dL) 128 H 128 H 120 H (75-99) mg/dL Calcium (8.4-10.2) mg/dL Phosphorus (2.5-4.5) mg/dL 05/29/16 05/29/16 05/29/16 Range/Units 10:39 12:25 17:27 RBC (4.30-5.90) m/uL Hgb (13.0-17.5) gm/dL Hct (39.0-53.0) % MCV (80.0-100.0) fL Plt Count (150-450) k/uL Lymphocytes # (1.0-4.8) k/uL Potassium (3.5-5.1) mmol/L Chloride (98-107) mmol/L Carbon Dioxide (22-30) mmol/L Glucose (74-99) mg/dL POC Glucose (mg/dL) 139 H 146 H 155 H (75-99) mg/dL Calcium (8.4-10.2) mg/dL Phosphorus (2.5-4.5) mg/dL Microbiology - Last 24 Hours (Table) 05/25/16 21:00 Blood Culture - Preliminary Blood No Growth after 72 hours 05/25/16 20:10 Blood Culture - Preliminary Blood No Growth after 72 hours 05/25/16 21:00 Urine Culture - Final Urine,Catheterized Proteus mirabilis Assessment and Plan Plan: Impression: 1. Status post cardiac arrest 2. Toxic metabolic encephalopathy 3. History of chronic liver disease 4. HIV 5. Diabetes mellitus 6. Electrolyte imbalance Recommendations: Continue current supportive care. As you recall Brian CAT scan of the brain was repeated and did not show any evidence of acute process. He is much more responsive today and following commands. Any neurological changes I will repeat a stat computed tomography scan. EEG was done and shows severe encephalopathy. I recommend continue holding sedatives and narcotics. Continue current medical management. Continue neurological checks. I will continue to follow with you. Further recommendations to follow. I performed an examination of the patient and discussed the management with the LEAF TIER. I have reviewed the LEAF TIER notes and agree with the findings and plan of care.
[2016-05-29 20:41] LABS: Glucose,Whole Blood 164 mg/dL (75-99)
--- NOTE | 2016-05-29 21:50 | P.PN ---
Subjective Principal diagnosis: Respiratory failure 55-year-old male was noted from the office practice where he is cared for for his HIV infection and his history of severe underlying liver disease. He has a history of nonalcoholic fatty liver disease which has been very severe in the past. He follows with hepatology at [facility] where he's even been evaluated for liver transplantation. However after extensive medical treatment he's had a marked improvement. His extensive ascites resolved. His massive edema resolved. It isn't functioning relatively well. It is related the patient was having shortness of breath. And with this EMS was called. It was related that is a arrives the patient had a cardiopulmonary arrest. AED was applied and he received 2 shocks. He was intubated and transported to hospital with only a brief course of CPR required. The patient is been seen by pulmonary critical care and workup has failed reveal evidence of pulmonary embolus or of an acute myocardial infarction. He has evidence of preserved ejection fraction but does have dilated left atrium. There is concern that there is underlying pneumonia with worsening hepatic encephalopathy as the triggers for his current cardiopulmonary arrest. He remains in the intensive care unit he has been extubated. He was having diarrhea, but C. diff was negative likely from the lactulose is being given. Chest x-ray with basilar infiltrate, and potential infiltrate seen on the computed tomography scan of the left lower lobe. Patient is now more awake and alert. He recognizes me and is able to say my name. Speech is somewhat still difficult to discern with his niece present it is very easy to understand what he is saying. He has not achieved his baseline. However he relates the president was Obama and doesn't like the other antonieta. Although not at baseline he certainly is considerably improved. Objective - Vital Signs Vital signs: Vital Signs Temp 98 F 05/29/16 18:22 Pulse 70 05/29/16 20:01 Resp 20 05/29/16 18:22 BP 127/70 05/29/16 18:22 Pulse Ox 96 05/29/16 18:22 Intake & Output 05/29/16 05/29/16 05/30/16 06:59 18:59 06:59 Intake Total 1205.767 700 Output Total 1430 0623 Balance -224.233 -1833 Weight 106.2 kg Intake: IV 1100 700 Levofloxacin 500Mg-D5w 100 Pmx 500 mg In Dextrose/ Water 1 100ml.bag @ 100 mls/hr IVPB Q24H [facility] Rx#: [id number] Meropenem 1 gm In Sodium 100 100 Chloride 0.9% 100 ml @ 100 mls/hr IVPB Q8H [facility] Rx#:[id number] Sodium Chloride 0.45% 1, 900 600 000 ml @ 75 mls/hr IV . [id number] [facility] Rx#:[id number] Intake, IV Titration 105.767 Amount Insulin Regular 100 unit 5.767 In Sodium Chloride 0.9% 100 ml @ Per Protocol IV .Q0M [facility] Rx#:[id number] Meropenem 1 gm In Sodium 100 Chloride 0.9% 100 ml @ 100 mls/hr IVPB Q8H [facility] Rx#:[id number] Output: Drainage 900 1800 FMS 900 1800 Urine 530 733 Stool 0 0 Other: Voiding Method Indwelling Catheter Indwelling Catheter ABP, PAP, CO, CI - Last Documented Arterial Blood Pressure 141/61 - Exam 55-year-old male who is extubated opens eyes and smiled but no active speech was noted HEENT: Anicteric conjunctiva are pink and moist nasal mucosa grossly intact without significant lesions, there is no thrush. No lesions in the oral cavity around the prior endotracheal tube Neck: The neck is supple without significant lymphadenopathy or thyromegaly. Lungs: Symmetrical air entry is noted. No stiff and wheezing. Few basilar crackles. No bronchial sounds. Heart: Regular rate and rhythm with an audible S1-S2, no S3 soft S4 There is no significant murmur click or rub, PMI was nondisplaced. Abdomen: Mildly obese Positive bowel sounds soft and nontender without palpable masses or organomegaly. Abdomen is not rigid and there is no fluid wave Extremities: The upper extremities have excellent pulses they are symmetric, no significant petechiae or telangiectasia. No splinter hemorrhages were noted. Lower extremities reveals the bilateral edema Neuro: Was able to state my Name still not at baseline however as far as his mental status - Labs CBC & Chem 7: 05/29/16 04:40 05/29/16 04:40 Labs: Abnormal Lab Results - Last 24 Hours (Table) 05/28/16 05/28/16 05/29/16 Range/Units 22:05 23:04 00:02 RBC (4.30-5.90) m/uL Hgb (13.0-17.5) gm/dL Hct (39.0-53.0) % MCV (80.0-100.0) fL Plt Count (150-450) k/uL Lymphocytes # (1.0-4.8) k/uL Chloride (98-107) mmol/L Carbon Dioxide (22-30) mmol/L Glucose (74-99) mg/dL POC Glucose (mg/dL) 136 H 132 H 147 H (75-99) mg/dL Calcium (8.4-10.2) mg/dL Phosphorus (2.5-4.5) mg/dL 05/29/16 05/29/16 05/29/16 Range/Units 01:00 02:01 04:21 RBC (4.30-5.90) m/uL Hgb (13.0-17.5) gm/dL Hct (39.0-53.0) % MCV (80.0-100.0) fL Plt Count (150-450) k/uL Lymphocytes # (1.0-4.8) k/uL Chloride (98-107) mmol/L Carbon Dioxide (22-30) mmol/L Glucose (74-99) mg/dL POC Glucose (mg/dL) 157 H 141 H 134 H (75-99) mg/dL Calcium (8.4-10.2) mg/dL Phosphorus (2.5-4.5) mg/dL 05/29/16 05/29/16 05/29/16 Range/Units 04:40 04:40 05:16 RBC 2.86 L (4.30-5.90) m/uL Hgb 9.5 L (13.0-17.5) gm/dL Hct 30.6 L (39.0-53.0) % MCV 106.9 H D (80.0-100.0) fL Plt Count 108 L (150-450) k/uL Lymphocytes # 0.9 L (1.0-4.8) k/uL Chloride 115 H (98-107) mmol/L Carbon Dioxide 20 L (22-30) mmol/L Glucose 133 H (74-99) mg/dL POC Glucose (mg/dL) 144 H (75-99) mg/dL Calcium 8.1 L (8.4-10.2) mg/dL Phosphorus 2.4 L (2.5-4.5) mg/dL 05/29/16 05/29/16 05/29/16 Range/Units 05:56 06:49 08:31 RBC (4.30-5.90) m/uL Hgb (13.0-17.5) gm/dL Hct (39.0-53.0) % MCV (80.0-100.0) fL Plt Count (150-450) k/uL Lymphocytes # (1.0-4.8) k/uL Chloride (98-107) mmol/L Carbon Dioxide (22-30) mmol/L Glucose (74-99) mg/dL POC Glucose (mg/dL) 128 H 128 H 120 H (75-99) mg/dL Calcium (8.4-10.2) mg/dL Phosphorus (2.5-4.5) mg/dL 05/29/16 05/29/16 05/29/16 Range/Units 10:39 12:25 17:27 RBC (4.30-5.90) m/uL Hgb (13.0-17.5) gm/dL Hct (39.0-53.0) % MCV (80.0-100.0) fL Plt Count (150-450) k/uL Lymphocytes # (1.0-4.8) k/uL Chloride (98-107) mmol/L Carbon Dioxide (22-30) mmol/L Glucose (74-99) mg/dL POC Glucose (mg/dL) 139 H 146 H 155 H (75-99) mg/dL Calcium (8.4-10.2) mg/dL Phosphorus (2.5-4.5) mg/dL 05/29/16 Range/Units 20:39 RBC (4.30-5.90) m/uL Hgb (13.0-17.5) gm/dL Hct (39.0-53.0) % MCV (80.0-100.0) fL Plt Count (150-450) k/uL Lymphocytes # (1.0-4.8) k/uL Chloride (98-107) mmol/L Carbon Dioxide (22-30) mmol/L Glucose (74-99) mg/dL POC Glucose (mg/dL) 164 H (75-99) mg/dL Calcium (8.4-10.2) mg/dL Phosphorus (2.5-4.5) mg/dL Microbiology - Last 24 Hours (Table) 05/25/16 21:00 Blood Culture - Preliminary Blood No Growth after 72 hours 05/25/16 20:10 Blood Culture - Preliminary Blood No Growth after 72 hours Laboratory Results WBC 5.8 k/uL (3.8-10.6) 05/29/16 04:40 RBC 2.86 m/uL (4.30-5.90) L 05/29/16 04:40 Hgb 9.5 gm/dL (13.0-17.5) L 05/29/16 04:40 Hct 30.6 % (39.0-53.0) L 05/29/16 04:40 MCV 106.9 fL (80.0-100.0) H D 05/29/16 04:40 MCH 33.1 pg (25.0-35.0) 05/29/16 04:40 MCHC 31.0 g/dL (31.0-37.0) 05/29/16 04:40 RDW 14.3 % (11.5-15.5) 05/29/16 04:40 Plt Count 108 k/uL (150-450) L 05/29/16 04:40 Neutrophils % 72 % 05/29/16 04:40 Lymphocytes % 15 % 05/29/16 04:40 Monocytes % 7 % 05/29/16 04:40 Eosinophils % 4 % 05/29/16 04:40 Basophils % 1 % 05/29/16 04:40 Neutrophils # 4.1 k/uL (1.3-7.7) 05/29/16 04:40 Lymphocytes # 0.9 k/uL (1.0-4.8) L 05/29/16 04:40 Monocytes # 0.4 k/uL (0-1.0) 05/29/16 04:40 Eosinophils # 0.2 k/uL (0-0.7) 05/29/16 04:40 Basophils # 0.0 k/uL (0-0.2) 05/29/16 04:40 Hypochromasia Marked 05/29/16 04:40 Poikilocytosis Slight 05/28/16 04:55 Macrocytosis Moderate 05/29/16 04:40 PT 13.7 sec (9.0-12.0) H 05/25/16 04:51 INR 1.4 (<1.1) 05/25/16 04:51 APTT 29.6 sec (22.0-30.0) 05/25/16 04:51 Sample Site MIRLANDE 05/28/16 04:56 ABG pH 7.42 (7.35-7.45) 05/28/16 04:56 ABG pCO2 34 mmHg (35-45) L 05/28/16 04:56 ABG pO2 119 mmHg (83-108) H 05/28/16 04:56 ABG HCO3 21 mmol/L (21-25) 05/28/16 04:56 ABG Total CO2 22 mmol/L (19-24) 05/28/16 04:56 ABG O2 Saturation 98.8 % (94-97) H 05/28/16 04:56 ABG Base Excess -2.7 mmol/L 05/28/16 04:56 FiO2 45 % 05/28/16 04:56 Sodium 140 mmol/L (137-145) 05/29/16 04:40 Potassium 4.7 mmol/L (3.5-5.1) 05/29/16 04:40 Chloride 115 mmol/L (98-107) H 05/29/16 04:40 Carbon Dioxide 20 mmol/L (22-30) L 05/29/16 04:40 Anion Gap 5 mmol/L 05/29/16 04:40 BUN 18 mg/dL (9-20) 05/29/16 04:40 Creatinine 0.80 mg/dL (0.66-1.25) 05/29/16 04:40 Est GFR (MDRD) Af Amer >60 (>60 ml/min/1.73 sqM) 05/29/16 04:40 Est GFR (MDRD) Non-Af >60 (>60 ml/min/1.73 sqM) 05/29/16 04:40 Glucose 133 mg/dL (74-99) H 05/29/16 04:40 POC Glucose (mg/dL) 164 mg/dL (75-99) H 05/29/16 20:39 POC Glu [employer] Odette Fraire 05/29/16 20:[address] Glu mg/dL 114 mg/dL 05/24/16 14:05 Hemoglobin A1c 5.6 % (4.2-6.1) 05/24/16 14:05 Calcium 8.1 mg/dL (8.4-10.2) L 05/29/16 04:40 Phosphorus 2.4 mg/dL (2.5-4.5) L 05/29/16 04:40 Magnesium 2.3 mg/dL (1.6-2.3) 05/29/16 04:40 Total Bilirubin 2.5 mg/dL (0.2-1.3) H 05/24/16 22:15 AST 328 U/L (17-59) H 05/24/16 22:15 ALT 63 U/L (21-72) 05/24/16 22:15 Alkaline Phosphatase 329 U/L (38-126) H 05/24/16 22:15 Ammonia 28 umol/L (<30) 05/28/16 08:10 Total Creatine Kinase 5202 U/L (55-170) H 05/24/16 22:15 CK-MB (CK-2) 5.2 ng/mL (0.0-2.4) H* 05/25/16 04:51 CK-MB (CK-2) Rel Index 05/24/16 22:15 Troponin I 2.660 ng/mL (0.000-0.034) H* 05/25/16 04:51 Total Protein 5.9 g/dL (6.3-8.2) L 05/24/16 22:15 Albumin 1.9 g/dL (3.5-5.0) L 05/24/16 22:15 TSH 1.620 mIU/L (0.465-4.680) 05/24/16 14:05 Urine Color Yellow 05/24/16 14:00 Urine Appearance Clear (Clear) 05/24/16 14:00 Urine pH 7.5 (5.0-8.0) 05/24/16 14:00 Ur Specific [place] 1.010 (1.001-1.035) 05/24/16 14:00 Urine Protein 2+ (Negative) H 05/24/16 14:00 Urine Glucose (UA) 1+ (Negative) H 05/24/16 14:00 Urine Ketones Negative (Negative) 05/24/16 14:00 Urine Blood Moderate (Negative) H 05/24/16 14:00 Urine Nitrate Negative (Negative) 05/24/16 14:00 Urine Bilirubin Negative (Negative) 05/24/16 14:00 Urine Urobilinogen 2.0 mg/dL (<2.0) 05/24/16 14:00 Ur Leukocyte Esterase Negative (Negative) 05/24/16 14:00 Urine RBC 5 /hpf (0-5) 05/24/16 14:00 Urine WBC 14 /hpf (0-5) H 05/24/16 14:00 Ur Squamous Epith Cells <1 /hpf (0-4) 05/24/16 14:00 Urine Bacteria Rare /hpf (None) H 05/24/16 14:00 Hyaline Casts 2 /lpf (0-2) 05/24/16 01:30 Urine Mucus Rare /hpf (None) H 05/24/16 14:00 Urine Opiates Screen Detected (NotDetected) H 05/24/16 14:00 Ur Oxycodone Screen Not Detected (NotDetected) 05/24/16 14:00 Urine Methadone Screen Not Detected (NotDetected) 05/24/16 14:00 Ur Propoxyphene Screen Not Detected (NotDetected) 05/24/16 14:00 Ur Barbiturates Screen Not Detected (NotDetected) 05/24/16 14:00 U Tricyclic Antidepress Not Detected (NotDetected) 05/24/16 14:00 Ur Phencyclidine Scrn Not Detected (NotDetected) 05/24/16 14:00 Ur Amphetamines Screen Not Detected (NotDetected) 05/24/16 14:00 U Methamphetamines Scrn Not Detected (NotDetected) 05/24/16 14:00 U Benzodiazepines Scrn Not Detected (NotDetected) 05/24/16 14:00 Urine Cocaine Screen Not Detected (NotDetected) 05/24/16 14:00 U Marijuana (THC) Screen Not Detected (NotDetected) 05/24/16 14:00 C. difficile (EIA) Intrp Negative (Negative) 05/27/16 11:00 Microbiology 05/25/16 21:00 Blood Blood Culture - Preliminary No Growth after 72 hours 01/21/17 20:10 Blood Blood Culture - Preliminary No Growth after 72 hours 05/25/16 21:00 Urine,Catheterized Urine Culture - Final Proteus mirabilis 05/24/16 14:52 Sputum Gram Stain - Final 05/24/16 14:52 Sputum Sputum Culture - Final Pseudomonas aeruginosa Escherichia coli 05/25/16 20:10 Sputum Gram Stain - Final 05/25/16 20:10 Sputum Sputum Culture - Final Escherichia coli Assessment and Plan (1) Cardiac arrest Narrative/Plan: 55-year-old male known to the service because of his follow-up in the office for his HIV infection. His home HIV medications have been reordered with his Isentress Selzentry and Epivir. These should continue. Patient had evidence of cardiopulmonary arrest and is now improving. Patient has evidence of ESBL E. coli as well as pseudomonas aeruginosa in his sputum. And with this his antibiotic therapy is altered to meropenem. Follow-up cultures will be obtained as indicated. The urine culture reveals ESBL Proteus, also treated with the Merrem Overall he is improved. Doing well with current supportive care. Antibiotic therapy is planned for a 7-10 day course of therapy for the multiple passages of them and found both in his sputum as well as his urine. Fortunately he is showing some significant improvement at this time. HIV medications to continue. Status: Acute (2) Hepatic encephalopathy Status: Acute (3) Pseudomonas pneumonia Status: Acute
[2016-05-29] MEDS: LEVOFLOXACIN 500MG-D5W PMX 500 MG in DEXTROSE/WATER 1 100ML.BAG IVPB SCH (23:28)
[2016-05-30] MEDS: MEROPENEM 1 GM in SODIUM CHLORIDE 0.9% 100 ML IVPB SCH ×3 (05:02→21:24)
[2016-05-30] MEDS: SODIUM CHLORIDE 0.45% 1,000 ML IV SCH ×2 (05:04→13:17)
[2016-05-30] MEDS: IPRATROPIUM-ALBUTEROL 3 ML NEB INHALATION SCH ×4 (07:05→20:05)
[2016-05-30 07:16] LABS: Glucose,Whole Blood 180 mg/dL (75-99)
[2016-05-30] MEDS: SERTRALINE 50 MG TAB PO SCH (08:09)
[2016-05-30] MEDS: METOPROLOL TARTRATE 12.5 MG TAB PO SCH ×2 (08:09→20:39)
[2016-05-30] MEDS: CEVIMELINE 30 MG CAP PO SCH ×3 (08:09→22:39)
[2016-05-30] MEDS: INSULIN LISPRO (humaLOG) 300 UNIT/3 ML VIAL SQ SCH ×4 (08:10→22:36)
[2016-05-30] MEDS: PANTOPRAZOLE 40 MG TABLET PO SCH (08:10)
[2016-05-30] MEDS: LAMIVUDINE 300 MG PO SCH (08:10)
[2016-05-30] MEDS: DULoxetine HCL 60 MG CAPSULE.DR PO SCH (08:10)
[2016-05-30] MEDS: RIFAXIMIN 550 MG TABLET PO SCH ×2 (08:10→20:41)
[2016-05-30] MEDS: SPIRONOLACTONE 25 MG TAB PO SCH (08:10)
[2016-05-30] MEDS: MARAVIROC 300 MG PO SCH ×2 (08:12→20:38)
[2016-05-30] MEDS: RALTEGRAVIR POTASSIUM 400 MG PO SCH ×2 (08:12→20:41)
--- NOTE | 2016-05-30 10:44 | P.CN ---
Psychiatric Consult - . Consult date: 05/30/16 Consult:: I reviewed the medical record and attempted to interview Mr. Mcintyre. Medicine service consulted psychiatry because Mr. Mcintyre has a history of depression and is currently treated with 2 antidepressant medications sertraline and duloxetine. According to the EMR is family called EMS. When EMS arrived at the home he was reportedly without not breathing and pulseless. He reverted to normal sinus rhythm after EMT administered cardioversion. In the ED he had altered mental status. He was obtunded and unresponsive except for occasional involuntary movements. He has history of chronic kidney disease, cirrhosis of liver, HIV, diabetes mellitus type 2, peripheral neuropathy and recent admission for internal fixation of a left tibial fracture. He was admitted to ICU with the diagnoses of an encephalopathy due to anoxia and hepatic failure. He was extubated 05/28/2016 and transferred from ICU to a general medical bed on 2016. He was unable to provide a history. He was alert and responsive. He made eye contact but had difficulty attending to the examination. He could not explain the reason for his hospitalization. During our interview he began picking at his bed linen and uttered "somebody lost their passport." He also pointed to the side of his bed and spoke as though he was seeing a dog. He talked about the dog having and he "threw it in the trash". He had a bright almost elated facial expression. He was oriented to person and place (he was able to identify the hospital as "[facility]"). He showed psychomotor agitation and restless movements of his legs. I did not evaluate his gait. His speech was spontaneous and dysarthric. His affect was bright and inappropriate to the circumstance and the setting. His thinking was concrete and not fully coherent and organized. He was experiencing visual hallucinations but denied auditory hallucinations. He did not appear to be responding to internal stimuli. [facility] Concentration [facility]. His total weighted error score was 23; a total weighted error score greater than 10 is consistent with cognitive impairment. He did not know the year or the month ( he thought the month was July and the year was 1986). He registered the memory phrase "Arden Naqvi, [address] [place] [address]". He was not able to estimate the time within 1 hour actual time. He is able to count backwards from 20-1 but he was unable to say the months of the year in reverse order. He remembered one element of the memory phrase after the above distraction exercise as (he remembered "[place]"). Impression: He is a 55-year-old man with multiple medical problems who presented to the hospital following a cardiopulmonary event. His treatment required the services of the intensive care unit including respiratory support. He has marked impairment of cognitive functioning associated with visual hallucinations. From a psychiatric perspective his history and presentation is consistent with delirium most likely from multiple causes. His cognitive impairments preclude assessment and treatment of his depression. Recommendation: I discontinued the sertraline. I'm uncertain if he had been prescribed duloxetine for depression or for the treatment of peripheral neuropathy. If he had been prescribed duloxetine for depression we can taper it and discontinue the medication and reevaluate his need for antidepressant medications once his cognitive functioning returns to baseline. If he becomes agitated consider haloperidol 5 mg by mouth/IM depending on the severity of agitation. Will follow. 05/30/16 10:13
[2016-05-30 12:57] LABS: Glucose,Whole Blood 193 mg/dL (75-99)
[2016-05-30] MEDS ORDERED: LIDOCAINE 2% INJ 20 MG/ML SQ ONE (14:26)
[2016-05-30] MEDS: LACTULOSE 20 GM/30 ML CUP PO SCH ×2 (16:14→22:42)
--- NOTE | 2016-05-30 17:55 | P.PN ---
Subjective Principal diagnosis: Patient is a 55-year-old male who is being followed by the neurology service for toxic metabolic encephalopathy. Patient became short of breath at home and EMS was called. EMS arrived and patient was in respiratory arrest. Patient was placed on AED and 2 shocks were provided. Patient was intubated and brought to [facility]. Patient is currently extubated and has been transferred to medical floor. Patient is much more responsive today as compared to yesterday. Patient is following commands. Patient speech is much clearer. Repeat EEG was done and results are pending. At the time of my evaluation, patient is extubated and does not appear to be in any acute distress. Objective - Vital Signs Vital signs: Vital Signs Temp 97.8 F 05/30/16 15:56 Pulse 81 05/30/16 15:56 Resp 20 05/30/16 15:56 BP 139/70 05/30/16 15:56 Pulse Ox 97 05/30/16 15:56 Intake & Output 05/29/16 05/30/16 05/30/16 18:59 06:59 18:59 Intake Total 700 360 Output Total 2533 425 400 Balance -1833 -425 -40 Weight 89.6 kg Intake: IV 700 Meropenem 1 gm In Sodium 100 Chloride 0.9% 100 ml @ 100 mls/hr IVPB Q8H ADAN Rx#:[id number] Sodium Chloride 0.45% 1, 600 000 ml @ 75 mls/hr IV . [id number] ADAN Rx#:[id number] Oral 360 Output: Drainage 1800 FMS 1800 Urine 733 425 400 Stool 0 Other: Voiding Method Indwelling Catheter Indwelling Catheter Indwelling Catheter # Bowel Movements 1 ABP, PAP, CO, CI - Last Documented Arterial Blood Pressure 141/61 - Exam PHYSICAL EXAM: GENERAL APPEARANCE: Patient is a well-developed, male who appears to be in no acute distress HEENT: Normocephalic, atraumatic, no obvious facial asymmetry is seen. CARDIOVASCULAR: Regular rate and rhythm. ABDOMEN: Nontender, nondistended. EXTREMITIES: Show no edema or clubbing. NEUROLOGICAL EXAM: Patient is awake, alert, and oriented 3. Strength is 4/5 in bilateral upper extremities and 3+/5 in bilateral lower extremities. Sensory exam is normal to light touch in all 4 extremities. No facial asymmetry is seen on cranial nerve testing. No tremors or seizure-like activity is noted. - Labs CBC & Chem 7: 05/29/16 04:40 05/29/16 04:40 Labs: Abnormal Lab Results - Last 24 Hours (Table) 05/29/16 05/30/16 05/30/16 Range/Units 20:39 07:02 12:36 POC Glucose (mg/dL) 164 H 180 H 193 H (75-99) mg/dL Microbiology - Last 24 Hours (Table) 05/25/16 21:00 Blood Culture - Preliminary Blood No Growth after 96 hours 05/25/16 20:10 Blood Culture - Preliminary Blood No Growth after 96 hours Assessment and Plan Plan: Impression: 1. Status post cardiac arrest 2. Toxic metabolic encephalopathy 3. History of chronic liver disease 4. HIV 5. Diabetes mellitus 6. Electrolyte imbalance Recommendations: Continue current supportive care. Patient is much more responsive today and following commands. Any neurological changes I will repeat a stat computed tomography scan. Repeat EEG was done and results are pending. I recommend continue holding sedatives and narcotics. Continue current medical management. Continue neurological checks. I will continue to follow with you. Further recommendations to follow. I performed an examination of the patient and discussed the management with the FUR MATCHER. I have reviewed the FUR MATCHER notes and agree with the findings and plan of care.
[2016-05-30 18:36] LABS: Glucose,Whole Blood 212 mg/dL (75-99)
[2016-05-30 18:45] LABS: Glucose,Whole Blood 231 mg/dL (75-99)
--- NOTE | 2016-05-30 20:19 | PN ---
DATE OF SERVICE: 05/30/2016 PRESENTING COMPLAINT: Cardiac arrest. INTERVAL HISTORY: This patient is in ICU, initially presented with cardiac arrest felt to be acute [facility]. Patient is far more awake today, but is still a bit lethargic. Also getting treated for pneumonia and a UTI. Patient did tolerate his diet. Patient has chronically no teeth. Does not appear to be much trouble swallowing. Review of systems done for constitutional, cardiovascular, GI, pulmonary; relevant findings as above. Current medications are reviewed that include: 1. IV meropenem and 2. Levaquin. On examination, temperature 97.8, pulse 81, respirations 20, blood pressure 130/70, pulse ox 97% on room air. GENERAL APPEARANCE: Sitting in bed, more awake; joking, was less lethargic. EYES: Pupils equal. Conjunctivae normal. NECK: JVD not raised. Mass not palpable. RESPIRATORY: Effort normal. LUNGS: Diminished breath sounds. CARDIOVASCULAR: First and second sounds normal. No edema. ABDOMEN: Nontender. Liver and spleen not palpable. PSYCHIATRY: Still mentation is a bit low, but patient is actually smiling and joking. NEUROLOGICAL: Moving all 4 limbs. INVESTIGATIONS: Accu-Cheks are noted. ASSESSMENT: 1. Acute myocardial infarction upon admission causing the patient to have a cardiac arrest, non-ST elevation type. 2. Acute metabolic encephalopathy, multifactorial, present on admission, including hepatic encephalopathy with improvement. 3. 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 4. Liver cirrhosis. 5. Chronic kidney stage 3 from diabetic nephropathy and nephrosclerosis. 6. Human immunodeficiency virus. 7. Diabetes mellitus type 2 chronically on insulin causing peripheral neuropathy. 8. Acute hypoxic respiratory failure. Patient is status post ventilator, currently on nasal cannula. 9. Hepatic encephalopathy. 10. Hypernatremia from free water deficit, improved. 11. Hypoalbuminemia from liver disease and possible malnutrition. 12. Left lower lobe pneumonia from Pseudomonas and extended-spectrum beta-lactamase Escherichia coli. 13. Acute urinary tract infection from Proteus mirabilis. 14. Depression, not otherwise specified possible. PLAN: Patient will be started on lactulose. I spoke to the speech therapy. Patient's diet will be advanced to mechanical soft diet. Patient seems to be slowly coming around. I spoke to the nurse, who will titrate his bowel movements to 2 to 3 times a day.
[2016-05-30] MEDS: LEVOFLOXACIN 500 MG TAB PO SCH (20:36)
[2016-05-30] MEDS ORDERED: MORPHINE SULFATE ER 15 MG TABLET PO SCH (21:00)
[2016-05-30 21:32] LABS: Glucose,Whole Blood 196 mg/dL (75-99)
--- NOTE | 2016-05-30 22:09 | P.PN ---
Subjective Principal diagnosis: Respiratory failure 55-year-old male was noted from the office practice where he is cared for for his HIV infection and his history of severe underlying liver disease. He has a history of nonalcoholic fatty liver disease which has been very severe in the past. He follows with hepatology at [facility] where he's even been evaluated for liver transplantation. However after extensive medical treatment he's had a marked improvement. His extensive ascites resolved. His massive edema resolved. It isn't functioning relatively well. It is related the patient was having shortness of breath. And with this EMS was called. It was related that is a arrives the patient had a cardiopulmonary arrest. AED was applied and he received 2 shocks. He was intubated and transported to hospital with only a brief course of CPR required. The patient is been seen by pulmonary critical care and workup has failed reveal evidence of pulmonary embolus or of an acute myocardial infarction. He has evidence of preserved ejection fraction but does have dilated left atrium. There is concern that there is underlying pneumonia with worsening hepatic encephalopathy as the triggers for his current cardiopulmonary arrest. He remains in the intensive care unit he has been extubated. He was having diarrhea, but C. diff was negative likely from the lactulose is being given. Chest x-ray with basilar infiltrate, and potential infiltrate seen on the computed tomography scan of the left lower lobe. Patient is sitting up. Eating his lunch. Recognize my name and says it very clearly. However still having some hallucination believes his nephew was sitting in the room. He is not present. Objective - Vital Signs Vital signs: Vital Signs Temp 98.5 F 05/30/16 21:50 Pulse 83 05/30/16 21:50 Resp 18 05/30/16 21:50 BP 155/74 05/30/16 21:50 Pulse Ox 95 05/30/16 21:50 Intake & Output 05/30/16 05/30/16 05/31/16 06:59 18:59 06:59 Intake Total 360 Output Total 425 400 Balance -425 -40 Weight 89.6 kg Intake: Oral 360 Output: Urine 425 400 Other: Voiding Method Indwelling Catheter Indwelling Catheter # Bowel Movements 1 ABP, PAP, CO, CI - Last Documented Arterial Blood Pressure 141/61 - Exam 55-year-old male who is extubated opens eyes and smiled but no active speech was noted HEENT: Anicteric conjunctiva are pink and moist nasal mucosa grossly intact without significant lesions, there is no thrush. No lesions in the oral cavity around the prior endotracheal tube Neck: The neck is supple without significant lymphadenopathy or thyromegaly. Lungs: Symmetrical air entry is noted. No stiff and wheezing. Few basilar crackles. No bronchial sounds. Heart: Regular rate and rhythm with an audible S1-S2, no S3 soft S4 There is no significant murmur click or rub, PMI was nondisplaced. Abdomen: Mildly obese Positive bowel sounds soft and nontender without palpable masses or organomegaly. Abdomen is not rigid and there is no fluid wave Extremities: The upper extremities have excellent pulses they are symmetric, no significant petechiae or telangiectasia. No splinter hemorrhages were noted. Lower extremities reveals the bilateral edema Neuro: Was able to state my Name still not at baseline however as far as his mental status - Labs CBC & Chem 7: 05/29/16 04:40 05/29/16 04:40 Labs: Abnormal Lab Results - Last 24 Hours (Table) 05/30/16 05/30/16 05/30/16 Range/Units 07:02 12:36 18:33 POC Glucose (mg/dL) 180 H 193 H 231 H (75-99) mg/dL 05/30/16 05/30/16 Range/Units 18:35 21:24 POC Glucose (mg/dL) 212 H 196 H (75-99) mg/dL Microbiology - Last 24 Hours (Table) 05/25/16 21:00 Blood Culture - Preliminary Blood No Growth after 96 hours 05/25/16 20:10 Blood Culture - Preliminary Blood No Growth after 96 hours Laboratory Results WBC 5.8 k/uL (3.8-10.6) 05/29/16 04:40 RBC 2.86 m/uL (4.30-5.90) L 05/29/16 04:40 Hgb 9.5 gm/dL (13.0-17.5) L 05/29/16 04:40 Hct 30.6 % (39.0-53.0) L 05/29/16 04:40 MCV 106.9 fL (80.0-100.0) H D 05/29/16 04:40 MCH 33.1 pg (25.0-35.0) 05/29/16 04:40 MCHC 31.0 g/dL (31.0-37.0) 05/29/16 04:40 RDW 14.3 % (11.5-15.5) 05/29/16 04:40 Plt Count 108 k/uL (150-450) L 05/29/16 04:40 Neutrophils % 72 % 05/29/16 04:40 Lymphocytes % 15 % 05/29/16 04:40 Monocytes % 7 % 05/29/16 04:40 Eosinophils % 4 % 05/29/16 04:40 Basophils % 1 % 05/29/16 04:40 Neutrophils # 4.1 k/uL (1.3-7.7) 05/29/16 04:40 Lymphocytes # 0.9 k/uL (1.0-4.8) L 05/29/16 04:40 Monocytes # 0.4 k/uL (0-1.0) 05/29/16 04:40 Eosinophils # 0.2 k/uL (0-0.7) 05/29/16 04:40 Basophils # 0.0 k/uL (0-0.2) 05/29/16 04:40 Hypochromasia Marked 05/29/16 04:40 Poikilocytosis Slight 05/28/16 04:55 Macrocytosis Moderate 05/29/16 04:40 PT 13.7 sec (9.0-12.0) H 05/25/16 04:51 INR 1.4 (<1.1) 05/25/16 04:51 APTT 29.6 sec (22.0-30.0) 05/25/16 04:51 Sample Site GILBERTS 05/28/16 04:56 ABG pH 7.42 (7.35-7.45) 05/28/16 04:56 ABG pCO2 34 mmHg (35-45) L 05/28/16 04:56 ABG pO2 119 mmHg (83-108) H 05/28/16 04:56 ABG HCO3 21 mmol/L (21-25) 05/28/16 04:56 ABG Total CO2 22 mmol/L (19-24) 05/28/16 04:56 ABG O2 Saturation 98.8 % (94-97) H 05/28/16 04:56 ABG Base Excess -2.7 mmol/L 05/28/16 04:56 FiO2 45 % 05/28/16 04:56 Sodium 140 mmol/L (137-145) 05/29/16 04:40 Potassium 4.7 mmol/L (3.5-5.1) 05/29/16 04:40 Chloride 115 mmol/L (98-107) H 05/29/16 04:40 Carbon Dioxide 20 mmol/L (22-30) L 05/29/16 04:40 Anion Gap 5 mmol/L 05/29/16 04:40 BUN 18 mg/dL (9-20) 05/29/16 04:40 Creatinine 0.80 mg/dL (0.66-1.25) 05/29/16 04:40 Est GFR (MDRD) Af Amer >60 (>60 ml/min/1.73 sqM) 05/29/16 04:40 Est GFR (MDRD) Non-Af >60 (>60 ml/min/1.73 sqM) 05/29/16 04:40 Glucose 133 mg/dL (74-99) H 05/29/16 04:40 POC Glucose (mg/dL) 196 mg/dL (75-99) H 05/30/16 21:24 POC Glu Spring Machine Operator ID 05/30/16 21:[address] Glu mg/dL 114 mg/dL 05/24/16 14:05 Hemoglobin A1c 5.6 % (4.2-6.1) 05/24/16 14:05 Calcium 8.1 mg/dL (8.4-10.2) L 05/29/16 04:40 Phosphorus 2.4 mg/dL (2.5-4.5) L 05/29/16 04:40 Magnesium 2.3 mg/dL (1.6-2.3) 05/29/16 04:40 Total Bilirubin 2.5 mg/dL (0.2-1.3) H 05/24/16 22:15 AST 328 U/L (17-59) H 05/24/16 22:15 ALT 63 U/L (21-72) 05/24/16 22:15 Alkaline Phosphatase 329 U/L (38-126) H 05/24/16 22:15 Ammonia 28 umol/L (<30) 05/28/16 08:10 Total Creatine Kinase 5202 U/L (55-170) H 05/24/16 22:15 CK-MB (CK-2) 5.2 ng/mL (0.0-2.4) H* 05/25/16 04:51 CK-MB (CK-2) Rel Index 05/24/16 22:15 Troponin I 2.660 ng/mL (0.000-0.034) H* 05/25/16 04:51 Total Protein 5.9 g/dL (6.3-8.2) L 05/24/16 22:15 Albumin 1.9 g/dL (3.5-5.0) L 05/24/16 22:15 TSH 1.620 mIU/L (0.465-4.680) 05/24/16 14:05 Urine Color Yellow 05/24/16 14:00 Urine Appearance Clear (Clear) 05/24/16 14:00 Urine pH 7.5 (5.0-8.0) 05/24/16 14:00 Ur Specific [place] 1.010 (1.001-1.035) 05/24/16 14:00 Urine Protein 2+ (Negative) H 05/24/16 14:00 Urine Glucose (UA) 1+ (Negative) H 05/24/16 14:00 Urine Ketones Negative (Negative) 05/24/16 14:00 Urine Blood Moderate (Negative) H 05/24/16 14:00 Urine Nitrate Negative (Negative) 05/24/16 14:00 Urine Bilirubin Negative (Negative) 05/24/16 14:00 Urine Urobilinogen 2.0 mg/dL (<2.0) 05/24/16 14:00 Ur Leukocyte Esterase Negative (Negative) 05/24/16 14:00 Urine RBC 5 /hpf (0-5) 05/24/16 14:00 Urine WBC 14 /hpf (0-5) H 05/24/16 14:00 Ur Squamous Epith Cells <1 /hpf (0-4) 05/24/16 14:00 Urine Bacteria Rare /hpf (None) H 05/24/16 14:00 Hyaline Casts 2 /lpf (0-2) 05/24/16 01:30 Urine Mucus Rare /hpf (None) H 05/24/16 14:00 Urine Opiates Screen Detected (NotDetected) H 05/24/16 14:00 Ur Oxycodone Screen Not Detected (NotDetected) 05/24/16 14:00 Urine Methadone Screen Not Detected (NotDetected) 05/24/16 14:00 Ur Propoxyphene Screen Not Detected (NotDetected) 05/24/16 14:00 Ur Barbiturates Screen Not Detected (NotDetected) 05/24/16 14:00 U Tricyclic Antidepress Not Detected (NotDetected) 05/24/16 14:00 Ur Phencyclidine Scrn Not Detected (NotDetected) 05/24/16 14:00 Ur Amphetamines Screen Not Detected (NotDetected) 05/24/16 14:00 U Methamphetamines Scrn Not Detected (NotDetected) 05/24/16 14:00 U Benzodiazepines Scrn Not Detected (NotDetected) 05/24/16 14:00 Urine Cocaine Screen Not Detected (NotDetected) 05/24/16 14:00 U Marijuana (THC) Screen Not Detected (NotDetected) 05/24/16 14:00 C. difficile (EIA) Intrp Negative (Negative) 05/27/16 11:00 Microbiology 05/25/16 21:00 Blood Blood Culture - Preliminary No Growth after 96 hours 05/25/16 20:10 Blood Blood Culture - Preliminary No Growth after 96 hours 05/25/16 21:00 Urine,Catheterized Urine Culture - Final Proteus mirabilis 05/24/16 14:52 Sputum Gram Stain - Final 05/24/16 14:52 Sputum Sputum Culture - Final Pseudomonas aeruginosa Escherichia coli 05/25/16 20:10 Sputum Gram Stain - Final 05/25/16 20:10 Sputum Sputum Culture - Final Escherichia coli Assessment and Plan (1) Cardiac arrest Narrative/Plan: 55-year-old male known to the service because of his follow-up in the office for his HIV infection. His home HIV medications have been reordered with his Isentress Selzentry and Epivir. These should continue. Patient had evidence of cardiopulmonary arrest and is now improving. Patient has evidence of ESBL E. coli as well as pseudomonas aeruginosa in his sputum. And with this his antibiotic therapy is altered to meropenem. Follow-up cultures will be obtained as indicated. The urine culture reveals ESBL Proteus, also treated with the Merrem Overall he is improved. Doing well with current supportive care. Antibiotic therapy is planned for 10 day course of therapy for the multiple pathogens and found both in his sputum as well as his urine. Fortunately he is showing some significant improvement at this time. HIV medications to continue. Status: Acute (2) Hepatic encephalopathy Status: Acute (3) Pseudomonas pneumonia Status: Acute
[2016-05-30] MEDS: MORPHINE SULFATE ER 15 MG TABLET PO SCH (22:40)
[2016-05-31] MEDS: MEROPENEM 1 GM in SODIUM CHLORIDE 0.9% 100 ML IVPB SCH ×3 (05:25→21:36)
[2016-05-31] MEDS: SODIUM CHLORIDE 0.45% 1,000 ML IV SCH ×3 (05:29→21:48)
[2016-05-31] MEDS: IPRATROPIUM-ALBUTEROL 3 ML NEB INHALATION SCH ×4 (06:43→21:04)
[2016-05-31 07:32] LABS: Glucose,Whole Blood 175 mg/dL (75-99)
--- NOTE | 2016-05-31 07:53 | EEG ---
DATE OF SERVICE: 05/30/2016 INDICATIONS FOR EXAMINATION: Altered mental status, status post cardiac arrest. AGE: 55Y DESCRIPTION OF THE PROCEDURE: This EEG was performed using a 21-channel digital electroencephalograph, following the international 10 to 20 system. DESCRIPTION OF THE RECORDING: From the beginning of the tracing, and with the patient's eyes closed, the background rhythm was mostly consisting of 7 Hz theta frequency in the posterior occipital leads. No obvious asymmetry is seen. Frequent movement artifacts and muscle artifacts are noticed. Photic stimulation was performed with no driving response seen. No pathological waves were elicited. Hyperventilation was not performed. The patient remains awake throughout the tracing. No epileptiform discharges were seen. His EKG lead showed a regular rate and rhythm. INTERPRETATION: This awake EEG is limited due to the frequency of movement and muscle artifacts. The background rhythm was mostly consisting of 7 Hz theta frequency, consistent with mild encephalopathy. No epileptiform discharges were seen. Overall, this EEG shows improvements compared to 05/25/2016 study. Clinical correlation is recommended.
[2016-05-31] MEDS: SPIRONOLACTONE 25 MG TAB PO SCH (08:54)
[2016-05-31] MEDS: LACTULOSE 20 GM/30 ML CUP PO SCH ×2 (08:54→17:16)
[2016-05-31] MEDS: PANTOPRAZOLE 40 MG TABLET PO SCH (08:54)
[2016-05-31] MEDS: METOPROLOL TARTRATE 12.5 MG TAB PO SCH ×2 (08:54→21:57)
[2016-05-31] MEDS: RIFAXIMIN 550 MG TABLET PO SCH ×2 (08:54→22:00)
[2016-05-31] MEDS: DULoxetine HCL 60 MG CAPSULE.DR PO SCH (08:54)
[2016-05-31] MEDS: MARAVIROC 300 MG PO SCH ×2 (08:55→21:56)
[2016-05-31] MEDS: RALTEGRAVIR POTASSIUM 400 MG PO SCH ×2 (08:55→22:00)
[2016-05-31] MEDS: ENOXAPARIN 40 MG/0.4 ML SYRINGE SQ SCH (08:55)
[2016-05-31] MEDS: INSULIN LISPRO (humaLOG) 300 UNIT/3 ML VIAL SQ SCH ×4 (08:55→20:19)
[2016-05-31] MEDS: CEVIMELINE 30 MG CAP PO SCH ×3 (08:56→22:08)
[2016-05-31] MEDS: LAMIVUDINE 300 MG PO SCH (08:56)
--- NOTE | 2016-05-31 09:50 | IR ---
EXAMINATION TYPE: IR cvc insert >=5 years DATE OF EXAM: 05/30/2016 2:57 PM COMPARISON: NONE CLINICAL HISTORY: Infection Needs long-term intravenous access for antibiotics. PROCEDURE: After informed consent, the skin overlying the upper extremity vein was localized with ultrasound and noted to be compressible and patent. An ultrasound image was obtained and submitted on the patient' s chart. The overlying skin was prepped and draped and Lidocaine was used for local anesthesia. A s kin john was made with a scalpel. Access was gained to the vein under ultrasound guidance with a 21 gauge needle and a 0.018 inch wire was advanced. Access site was dilated with Peel-Away sheath and c atheter tailored to the appropriate length and advanced such that the distal tip is at the cavoatrial junction. Spot image was obtained verifying placement. Catheter was fixed to the skin with suture and a sterile dressing was placed following hemostasis. Catheter was aspirated and flushed with sali ne. Patient was discharged in stable condition without complication. Maximal barrier technique is ut ilized. Ultrasound image is documented on the chart. Ultrasound used with sterile technique. Fluoro time and fluoroscopic images submitted to document procedure: Single intraoperative C-arm imag e, 0.7 minutes fluoroscopy time IMPRESSION: STATUS POST ULTRASOUND AND FLUOROSCOPIC GUIDED PICC LINE PLACEMENT, READY FOR USE. THIS PROCEDURE WAS PERFORMED BY THE UNDERSIGNED.
[2016-05-31] MEDS ORDERED: DULoxetine HCL 60 MG CAPSULE.DR PO SCH (11:07)
--- NOTE | 2016-05-31 11:09 | P.CN ---
Psychiatric Consult - . Consult date: 05/31/16 Consult:: SUBJECTIVE: I reviewed the medical record and attempted interview Mr. Mcintyre. He asked me if I liked his dog and he pointed to his lap. He appeared surprised when I told him that I don't see a dog on his lap. He then turned and spoke as though somebody was sitting in the corner of his room-"you see the dog don't you." OBJECTIVE: According to the record he has had no episodes of behavioral dyscontrol. He presented as a disheveled appearing 55-year-old male who was pleasant on approach. He was edentulous. He maintained eye contact and appeared to attend to the interview. He had a bright almost elated facial expression. He was alert and oriented to person only. He recognizes he is in hospital but he did not know the name the hospital. He thought the month was July and the year was 1953. He was laying comfortably in bed. He had episodic movements of his head and legs that did not appear leg breaker former ballistic in nature. His speech was spontaneous; he did not show pressured speech or flight of ideas. His affect was bright and inappropriate to the circumstance. He did not express ideas reference or paranoid ideation. His thinking was concrete and not coherent or logical. He described visual hallucinations. Is unable to determine if he was experiencing auditory or tactile hallucinations. ASSESSMENT: He remains confused and disoriented. However, he has not demonstrated behavioral dyscontrol or the need for administration of sedatives and/or antipsychotic medications. PLAN: I can see no indication to continue duloxetine at the present time. I will discontinue decreased the dose to 30 mg; consider discontinuing in 2-3 days. If he shows behavioral dyscontrol or agitation consider Haldol 5 mg IM/ by mouth depending on the severity of the agitation. I will sign off on the case for now. If you have further concerns please reconsult psychiatry. 05/30/16 10:13 05/31/16 10:58
[2016-05-31 12:14] LABS: Glucose,Whole Blood 149 mg/dL (75-99)
[2016-05-31 17:06] LABS: Glucose,Whole Blood 174 mg/dL (75-99)
[2016-05-31] MEDS ORDERED: LACTULOSE 20 GM/30 ML CUP PO PRN (19:48)
[2016-05-31 20:18] LABS: Glucose,Whole Blood 197 mg/dL (75-99)
[2016-05-31] MEDS: LEVOFLOXACIN 500 MG TAB PO SCH (21:56)
[2016-05-31] MEDS: MORPHINE SULFATE ER 15 MG TABLET PO SCH (21:58)
--- NOTE | 2016-05-31 22:47 | P.PN ---
Subjective Principal diagnosis: Respiratory failure 55-year-old male was noted from the office practice where he is cared for for his HIV infection and his history of severe underlying liver disease. He has a history of nonalcoholic fatty liver disease which has been very severe in the past. He follows with hepatology at [facility] where he's even been evaluated for liver transplantation. However after extensive medical treatment he's had a marked improvement. His extensive ascites resolved. His massive edema resolved. It isn't functioning relatively well. It is related the patient was having shortness of breath. And with this EMS was called. It was related that is a arrives the patient had a cardiopulmonary arrest. AED was applied and he received 2 shocks. He was intubated and transported to hospital with only a brief course of CPR required. The patient is been seen by pulmonary critical care and workup has failed reveal evidence of pulmonary embolus or of an acute myocardial infarction. He has evidence of preserved ejection fraction but does have dilated left atrium. There is concern that there is underlying pneumonia with worsening hepatic encephalopathy as the triggers for his current cardiopulmonary arrest. He remains in the intensive care unit he has been extubated. He was having diarrhea, but C. diff was negative likely from the lactulose is being given. Chest x-ray with basilar infiltrate, and potential infiltrate seen on the computed tomography scan of the left lower lobe. Patient is sitting up. Eating his lunch. Recognize my name and says it very clearly. However still having some hallucination believes his dog is on his bed. He is not present. Objective - Vital Signs Vital signs: Vital Signs Temp 98.3 F 05/31/16 22:13 Pulse 83 05/31/16 22:13 Resp 17 05/31/16 22:13 BP 147/75 05/31/16 22:13 Pulse Ox 96 05/31/16 22:13 Intake & Output 05/31/16 05/31/16 06/01/16 06:59 18:59 06:59 Intake Total 200 100 Output Total 425 Balance 200 -325 Weight 89.6 kg Intake: Oral 200 100 Output: Urine 425 Other: Voiding Method Indwelling Catheter Indwelling Catheter # Bowel Movements 6 3 ABP, PAP, CO, CI - Last Documented Arterial Blood Pressure 141/61 - Exam 55-year-old male who is extubated opens eyes and smiled but no active speech was noted HEENT: Anicteric conjunctiva are pink and moist nasal mucosa grossly intact without significant lesions, there is no thrush. No lesions in the oral cavity around the prior endotracheal tube Neck: The neck is supple without significant lymphadenopathy or thyromegaly. Lungs: Symmetrical air entry is noted. No stiff and wheezing. Few basilar crackles. No bronchial sounds. Heart: Regular rate and rhythm with an audible S1-S2, no S3 soft S4 There is no significant murmur click or rub, PMI was nondisplaced. Abdomen: Mildly obese Positive bowel sounds soft and nontender without palpable masses or organomegaly. Abdomen is not rigid and there is no fluid wave Extremities: The upper extremities have excellent pulses they are symmetric, no significant petechiae or telangiectasia. No splinter hemorrhages were noted. Lower extremities reveals the bilateral edema Neuro: Was able to state my Name still not at baseline however as far as his mental status - Labs CBC & Chem 7: 05/29/16 04:40 05/29/16 04:40 Labs: Abnormal Lab Results - Last 24 Hours (Table) 05/31/16 05/31/16 05/31/16 Range/Units 07:14 12:04 16:41 POC Glucose (mg/dL) 175 H 149 H 174 H (75-99) mg/dL 05/31/16 Range/Units 20:17 POC Glucose (mg/dL) 197 H (75-99) mg/dL Microbiology - Last 24 Hours (Table) 05/25/16 20:10 Blood Culture - Final Blood No Growth after 144 hours 05/25/16 21:00 Blood Culture - Preliminary Blood No Growth after 120 hours Laboratory Results WBC 5.8 k/uL (3.8-10.6) 05/29/16 04:40 RBC 2.86 m/uL (4.30-5.90) L 05/29/16 04:40 Hgb 9.5 gm/dL (13.0-17.5) L 05/29/16 04:40 Hct 30.6 % (39.0-53.0) L 05/29/16 04:40 MCV 106.9 fL (80.0-100.0) H D 05/29/16 04:40 MCH 33.1 pg (25.0-35.0) 05/29/16 04:40 MCHC 31.0 g/dL (31.0-37.0) 05/29/16 04:40 RDW 14.3 % (11.5-15.5) 05/29/16 04:40 Plt Count 108 k/uL (150-450) L 05/29/16 04:40 Neutrophils % 72 % 05/29/16 04:40 Lymphocytes % 15 % 05/29/16 04:40 Monocytes % 7 % 05/29/16 04:40 Eosinophils % 4 % 05/29/16 04:40 Basophils % 1 % 05/29/16 04:40 Neutrophils # 4.1 k/uL (1.3-7.7) 05/29/16 04:40 Lymphocytes # 0.9 k/uL (1.0-4.8) L 05/29/16 04:40 Monocytes # 0.4 k/uL (0-1.0) 05/29/16 04:40 Eosinophils # 0.2 k/uL (0-0.7) 05/29/16 04:40 Basophils # 0.0 k/uL (0-0.2) 05/29/16 04:40 Hypochromasia Marked 05/29/16 04:40 Poikilocytosis Slight 05/28/16 04:55 Macrocytosis Moderate 05/29/16 04:40 PT 13.7 sec (9.0-12.0) H 05/25/16 04:51 INR 1.4 (<1.1) 05/25/16 04:51 APTT 29.6 sec (22.0-30.0) 05/25/16 04:51 Sample Site [place] 05/28/16 04:56 ABG pH 7.42 (7.35-7.45) 05/28/16 04:56 ABG pCO2 34 mmHg (35-45) L 05/28/16 04:56 ABG pO2 119 mmHg (83-108) H 05/28/16 04:56 ABG HCO3 21 mmol/L (21-25) 05/28/16 04:56 ABG Total CO2 22 mmol/L (19-24) 05/28/16 04:56 ABG O2 Saturation 98.8 % (94-97) H 05/28/16 04:56 ABG Base Excess -2.7 mmol/L 05/28/16 04:56 FiO2 45 % 05/28/16 04:56 Sodium 140 mmol/L (137-145) 05/29/16 04:40 Potassium 4.7 mmol/L (3.5-5.1) 05/29/16 04:40 Chloride 115 mmol/L (98-107) H 05/29/16 04:40 Carbon Dioxide 20 mmol/L (22-30) L 05/29/16 04:40 Anion Gap 5 mmol/L 05/29/16 04:40 BUN 18 mg/dL (9-20) 05/29/16 04:40 Creatinine 0.80 mg/dL (0.66-1.25) 05/29/16 04:40 Est GFR (MDRD) Af Amer >60 (>60 ml/min/1.73 sqM) 05/29/16 04:40 Est GFR (MDRD) Non-Af >60 (>60 ml/min/1.73 sqM) 05/29/16 04:40 Glucose 133 mg/dL (74-99) H 05/29/16 04:40 POC Glucose (mg/dL) 197 mg/dL (75-99) H 05/31/16 20:17 POC Glu Le[employer] ROMARIO Odette Garibay 05/31/16 20:[address] Glu mg/dL 114 mg/dL 05/24/16 14:05 Hemoglobin A1c 5.6 % (4.2-6.1) 05/24/16 14:05 Calcium 8.1 mg/dL (8.4-10.2) L 05/29/16 04:40 Phosphorus 2.4 mg/dL (2.5-4.5) L 05/29/16 04:40 Magnesium 2.3 mg/dL (1.6-2.3) 05/29/16 04:40 Total Bilirubin 2.5 mg/dL (0.2-1.3) H 05/24/16 22:15 AST 328 U/L (17-59) H 05/24/16 22:15 ALT 63 U/L (21-72) 05/24/16 22:15 Alkaline Phosphatase 329 U/L (38-126) H 05/24/16 22:15 Ammonia 28 umol/L (<30) 05/28/16 08:10 Total Creatine Kinase 5202 U/L (55-170) H 05/24/16 22:15 CK-MB (CK-2) 5.2 ng/mL (0.0-2.4) H* 05/25/16 04:51 CK-MB (CK-2) Rel Index 05/24/16 22:15 Troponin I 2.660 ng/mL (0.000-0.034) H* 05/25/16 04:51 Total Protein 5.9 g/dL (6.3-8.2) L 05/24/16 22:15 Albumin 1.9 g/dL (3.5-5.0) L 05/24/16 22:15 TSH 1.620 mIU/L (0.465-4.680) 05/24/16 14:05 Urine Color Yellow 05/24/16 14:00 Urine Appearance Clear (Clear) 05/24/16 14:00 Urine pH 7.5 (5.0-8.0) 05/24/16 14:00 Ur Specific [place] 1.010 (1.001-1.035) 05/24/16 14:00 Urine Protein 2+ (Negative) H 05/24/16 14:00 Urine Glucose (UA) 1+ (Negative) H 05/24/16 14:00 Urine Ketones Negative (Negative) 05/24/16 14:00 Urine Blood Moderate (Negative) H 05/24/16 14:00 Urine Nitrate Negative (Negative) 05/24/16 14:00 Urine Bilirubin Negative (Negative) 05/24/16 14:00 Urine Urobilinogen 2.0 mg/dL (<2.0) 05/24/16 14:00 Ur Leukocyte Esterase Negative (Negative) 05/24/16 14:00 Urine RBC 5 /hpf (0-5) 05/24/16 14:00 Urine WBC 14 /hpf (0-5) H 05/24/16 14:00 Ur Squamous Epith Cells <1 /hpf (0-4) 05/24/16 14:00 Urine Bacteria Rare /hpf (None) H 05/24/16 14:00 Hyaline Casts 2 /lpf (0-2) 05/24/16 01:30 Urine Mucus Rare /hpf (None) H 05/24/16 14:00 Urine Opiates Screen Detected (NotDetected) H 05/24/16 14:00 Ur Oxycodone Screen Not Detected (NotDetected) 05/24/16 14:00 Urine Methadone Screen Not Detected (NotDetected) 05/24/16 14:00 Ur Propoxyphene Screen Not Detected (NotDetected) 05/24/16 14:00 Ur Barbiturates Screen Not Detected (NotDetected) 05/24/16 14:00 U Tricyclic Antidepress Not Detected (NotDetected) 05/24/16 14:00 Ur Phencyclidine Scrn Not Detected (NotDetected) 05/24/16 14:00 Ur Amphetamines Screen Not Detected (NotDetected) 05/24/16 14:00 U Methamphetamines Scrn Not Detected (NotDetected) 05/24/16 14:00 U Benzodiazepines Scrn Not Detected (NotDetected) 05/24/16 14:00 Urine Cocaine Screen Not Detected (NotDetected) 05/24/16 14:00 U Marijuana (THC) Screen Not Detected (NotDetected) 05/24/16 14:00 C. difficile (EIA) Intrp Negative (Negative) 05/27/16 11:00 Microbiology 05/25/16 20:10 Blood Blood Culture - Final No Growth after 144 hours 05/25/16 21:00 Blood Blood Culture - Preliminary No Growth after 120 hours 05/25/16 21:00 Urine,Catheterized Urine Culture - Final Proteus mirabilis 05/24/16 14:52 Sputum Gram Stain - Final 05/24/16 14:52 Sputum Sputum Culture - Final Pseudomonas aeruginosa Escherichia coli 05/25/16 20:10 Sputum Gram Stain - Final 05/25/16 20:10 Sputum Sputum Culture - Final Escherichia coli Assessment and Plan (1) Cardiac arrest Narrative/Plan: 55-year-old male known to the service because of his follow-up in the office for his HIV infection. His home HIV medications have been reordered with his Isentress Selzentry and Epivir. These should continue. Patient had evidence of cardiopulmonary arrest and is now improving. Patient has evidence of ESBL E. coli as well as pseudomonas aeruginosa in his sputum. And with this his antibiotic therapy is altered to meropenem. Follow-up cultures will be obtained as indicated. The urine culture reveals ESBL Proteus, also treated with the Merrem Overall he is improved. Doing well with current supportive care. Antibiotic therapy is planned for 10 day course of therapy for the multiple pathogens and found both in his sputum as well as his urine. Fortunately he is showing some significant improvement at this time. HIV medications to continue. Status: Acute (2) Hepatic encephalopathy Status: Acute (3) Pseudomonas pneumonia Status: Acute
--- NOTE | 2016-05-31 22:54 | PN ---
DATE OF SERVICE: 05/31/2016 PRESENTING COMPLAINT: Cardiac arrest. INTERVAL HISTORY: This patient in the ICU presented with cardiac arrest felt to be from acute [place]. Patient also had a UTI, pneumonia, also underlying cirrhosis. Patient is awake, but is delirious. Patient tolerating his diet, having bowel movements. Review of systems done for constitutional, cardiovascular, GI, pulmonary; relevant findings as above. Current medications are reviewed that include IV meropenem. On examination, temperature 99.1, pulse rate 89, respirations 18, blood pressure 139/73, pulse ox 95% on room air. GENERAL APPEARANCE: Lying in bed; awake, but somewhat delirious. EYES: Pupils equal. Conjunctivae normal. NECK: JVD not raised. Mass not palpable. RESPIRATORY: Effort normal. Diminished breath sounds. CARDIOVASCULAR: First and second sounds normal. No edema. ABDOMEN: Soft, nontender. Liver and spleen not palpable. PSYCHIATRY: Patient thinks it is the 1980s. He takes the name of another place. NEUROLOGICAL: Moving all 4 limbs. INVESTIGATIONS: Accu-Cheks are noted. ASSESSMENT: 1. Acute myocardial infarction upon admission causing the patient to have a cardiac arrest with non-ST elevation type. 2. Acute metabolic encephalopathy, multifactorial, present at admission, including hepatic encephalopathy. 3. Acute delirium, multifactorial. 4. Anoxic brain injury suspected by Neurology. 5. Liver cirrhosis. 6. Chronic kidney disease stage 3 from diabetic nephropathy and nephrosclerosis. 7. Human immunodeficiency virus. 8. Diabetes mellitus type 2, chronically on insulin, causing peripheral neuropathy. 9. Acute hypoxic respiratory failure. Patient is status post ventilator, currently on nasal cannula. 10. Hepatic encephalopathy. 11. Hypernatremia from free water deficit, improved. 12. Hypoalbuminemia from liver disease and possible malnutrition. 13. Left lobe pneumonia from Pseudomonas and extended-spectrum beta-lactamase Escherichia coli. 14. Acute urinary tract infection from Proteus mirabilis. 15. Depression, not otherwise specified. PLAN: Continue current medication and treatment plan. Patient is getting his MS Contin at night. I am not sure if that is contributing to his confusion or not. Patient is already on lactulose to titrate his stools. Continue to watch.
--- NOTE | 2016-05-31 23:30 | P.PN ---
Subjective Principal diagnosis: Toxic Metablic Encephalopathy The patient 55-year-old male being followed by neurology for toxic metabolic encephalopathy. Patient became short of breath at home and EMS was called. EMS arrived the patient was in cardiac arrest, was placed on AED multiple shocks were given to resuscitate the patient. Patient was intubated prior to arrival at the ED. Since being hopstalized, the patient was in [facility] ICU on a ventilator but has since improved, was extubated and envetually transferred to the floor. The patient was supine in bed with nursing in the room. The patient was still confused. He was alert and oriented x2 and in no acute distress. He is currently being managed for toxic metabolic encepahlopathy that is multifactorial. Objective - Vital Signs Vital signs: Vital Signs Temp 98.3 F 05/31/16 22:13 Pulse 83 05/31/16 22:13 Resp 17 05/31/16 22:13 BP 147/75 05/31/16 22:13 Pulse Ox 96 05/31/16 22:13 Intake & Output 05/31/16 05/31/16 06/01/16 06:59 18:59 06:59 Intake Total 200 100 Output Total 425 Balance 200 -325 Weight 89.6 kg Intake: Oral 200 100 Output: Urine 425 Other: Voiding Method Indwelling Catheter Indwelling Catheter # Bowel Movements 6 3 ABP, PAP, CO, CI - Last Documented Arterial Blood Pressure 141/61 - Constitutional General appearance: Present: no acute distress, obese - EENT Eyes: Present: EOMI, PERRLA ENT: Present: NA/AT - Neck Details: supple no masses - Respiratory Details: no increased work of breathing - Cardiovascular Details: regular rate and rhythm - Gastrointestinal Gastrointestinal Comment(s): nontender nondistended - Integumentary Integumentary Comment(s): normal - Neurologic Neurologic Comment(s): Patient is alert and oriented 2, strength is 5 the bilateral upper and lower extremities. No unilateral weakness, no facial asymmetry is seen in physical exam. No seizure activity noted. Deep tendon reflexes are equal bilaterally both upper and lower extremities. - Musculoskeletal Musculoskeletal: Present: strength equal bilaterally - Labs CBC & Chem 7: 05/29/16 04:40 05/29/16 04:40 Labs: Abnormal Lab Results - Last 24 Hours (Table) 05/31/16 05/31/16 05/31/16 Range/Units 07:14 12:04 16:41 POC Glucose (mg/dL) 175 H 149 H 174 H (75-99) mg/dL 05/31/16 Range/Units 20:17 POC Glucose (mg/dL) 197 H (75-99) mg/dL Microbiology - Last 24 Hours (Table) 05/25/16 21:00 Blood Culture - Final Blood No Growth after 144 hours 05/25/16 20:10 Blood Culture - Final Blood No Growth after 144 hours Assessment and Plan (1) Toxic metabolic encephalopathy Status: Acute (2) Altered mental status Narrative/Plan: impression: 1. Status post cardiac arrest 2. Toxic metabolic encephalopathy 3. History of chronic liver disease 4. Diabetes mellitus 5. HIV 6. Electrolyte imbalance Continue current supportive care. CT of the brain does not show any evidence of acute process. Patient's symptoms appear to be consistent with toxic metabolic encephalopathy. On exam today it was noted that the patient is resting in bed and but he still is somewhat intermittently disoriented. Repeat EEG noted mild encephalopathy. Recommend continued holding of sedatives and narcotics. Neurological checks as ordered are continued. If patient experiences any neurological decline, patient will be immediately sent for stat CT of the brain to attempt to identify any new or changing underlying etiology. Neurology will follow on an as-needed basis. If the patient is discharged, please notify the patient to contact our office within 2 business days for a follow-up appointment in office within 10 business days. I discussed the patient's pertinent medical information with Dr. Wells. He agrees with the plan of care as implemented. Status: Acute
[2016-06-01] MEDS: MEROPENEM 1 GM in SODIUM CHLORIDE 0.9% 100 ML IVPB SCH ×3 (05:30→20:55)
[2016-06-01 07:15] LABS: Glucose,Whole Blood 161 mg/dL (75-99)
[2016-06-01] MEDS: IPRATROPIUM-ALBUTEROL 3 ML NEB INHALATION SCH ×4 (08:13→20:35)
[2016-06-01] MEDS: INSULIN LISPRO (humaLOG) 300 UNIT/3 ML VIAL SQ SCH ×4 (09:39→21:10)
[2016-06-01] MEDS: METOPROLOL TARTRATE 12.5 MG TAB PO SCH ×2 (09:40→20:58)
[2016-06-01] MEDS: RIFAXIMIN 550 MG TABLET PO SCH ×2 (09:40→20:59)
[2016-06-01] MEDS: CEVIMELINE 30 MG CAP PO SCH ×3 (09:40→20:58)
[2016-06-01] MEDS: PANTOPRAZOLE 40 MG TABLET PO SCH (09:41)
[2016-06-01] MEDS: RALTEGRAVIR POTASSIUM 400 MG PO SCH ×2 (09:41→21:00)
[2016-06-01] MEDS: SPIRONOLACTONE 25 MG TAB PO SCH (09:41)
[2016-06-01] MEDS: LAMIVUDINE 300 MG PO SCH (09:42)
[2016-06-01] MEDS: MARAVIROC 300 MG PO SCH ×2 (09:42→20:59)
[2016-06-01] MEDS: DULoxetine HCL 30 MG CAPSULE.DR PO SCH (12:00)
[2016-06-01 12:29] LABS: Glucose,Whole Blood 152 mg/dL (75-99)
[2016-06-01] MEDS: SODIUM CHLORIDE 0.45% 1,000 ML IV SCH (13:02)
--- NOTE | 2016-06-01 17:07 | P.PN ---
Subjective Principal diagnosis: Respiratory failure 55-year-old male was noted from the office practice where he is cared for for his HIV infection and his history of severe underlying liver disease. He has a history of nonalcoholic fatty liver disease which has been very severe in the past. He follows with hepatology at [facility] where he's even been evaluated for liver transplantation. However after extensive medical treatment he's had a marked improvement. His extensive ascites resolved. His massive edema resolved. It isn't functioning relatively well. It is related the patient was having shortness of breath. And with this EMS was called. It was related that is a arrives the patient had a cardiopulmonary arrest. AED was applied and he received 2 shocks. He was intubated and transported to hospital with only a brief course of CPR required. The patient is been seen by pulmonary critical care and workup has failed reveal evidence of pulmonary embolus or of an acute myocardial infarction. He has evidence of preserved ejection fraction but does have dilated left atrium. There is concern that there is underlying pneumonia with worsening hepatic encephalopathy as the triggers for his current cardiopulmonary arrest. He remains in the intensive care unit he has been extubated. He was having diarrhea, but C. diff was negative likely from the lactulose is being given. Chest x-ray with basilar infiltrate, and potential infiltrate seen on the computed tomography scan of the left lower lobe. Patient is sitting up. Eating his lunch. Recognize my name and says it very clearly. However still having some hallucination believes his dog is on his bed. He is not present. Objective - Vital Signs Vital signs: Vital Signs Temp 98.4 F 06/01/16 14:46 Pulse 72 06/01/16 14:53 Resp 20 06/01/16 14:46 BP 146/73 06/01/16 14:46 Pulse Ox 92 L 06/01/16 14:46 Intake & Output 05/31/16 06/01/16 06/01/16 18:59 06:59 18:59 Intake Total 100 250 Output Total 425 650 300 Balance -325 -650 -50 Weight 89.6 kg 102.5 kg Intake: Oral 100 250 Output: Urine 425 650 300 Other: Voiding Method Indwelling Catheter Indwelling Catheter Indwelling Catheter # Voids 1 # Bowel Movements 3 1 ABP, PAP, CO, CI - Last Documented Arterial Blood Pressure 141/61 - Exam 55-year-old male who is extubated opens eyes and smiled but no active speech was noted HEENT: Anicteric conjunctiva are pink and moist nasal mucosa grossly intact without significant lesions, there is no thrush. No lesions in the oral cavity around the prior endotracheal tube Neck: The neck is supple without significant lymphadenopathy or thyromegaly. Lungs: Symmetrical air entry is noted. No stiff and wheezing. Few basilar crackles. No bronchial sounds. Heart: Regular rate and rhythm with an audible S1-S2, no S3 soft S4 There is no significant murmur click or rub, PMI was nondisplaced. Abdomen: Mildly obese Positive bowel sounds soft and nontender without palpable masses or organomegaly. Abdomen is not rigid and there is no fluid wave Extremities: The upper extremities have excellent pulses they are symmetric, no significant petechiae or telangiectasia. No splinter hemorrhages were noted. Lower extremities reveals the bilateral edema Neuro: Was able to state my Name still not at baseline however as far as his mental status - Labs CBC & Chem 7: 05/29/16 04:40 05/29/16 04:40 Labs: Abnormal Lab Results - Last 24 Hours (Table) 05/31/16 06/01/16 06/01/16 Range/Units 20:17 07:06 11:57 POC Glucose (mg/dL) 197 H 161 H 152 H (75-99) mg/dL Microbiology - Last 24 Hours (Table) 05/25/16 21:00 Blood Culture - Final Blood No Growth after 144 hours 05/25/16 20:10 Blood Culture - Final Blood No Growth after 144 hours Laboratory Results WBC 5.8 k/uL (3.8-10.6) 05/29/16 04:40 RBC 2.86 m/uL (4.30-5.90) L 05/29/16 04:40 Hgb 9.5 gm/dL (13.0-17.5) L 05/29/16 04:40 Hct 30.6 % (39.0-53.0) L 05/29/16 04:40 MCV 106.9 fL (80.0-100.0) H D 05/29/16 04:40 MCH 33.1 pg (25.0-35.0) 05/29/16 04:40 MCHC 31.0 g/dL (31.0-37.0) 05/29/16 04:40 RDW 14.3 % (11.5-15.5) 05/29/16 04:40 Plt Count 108 k/uL (150-450) L 05/29/16 04:40 Neutrophils % 72 % 05/29/16 04:40 Lymphocytes % 15 % 05/29/16 04:40 Monocytes % 7 % 05/29/16 04:40 Eosinophils % 4 % 05/29/16 04:40 Basophils % 1 % 05/29/16 04:40 Neutrophils # 4.1 k/uL (1.3-7.7) 05/29/16 04:40 Lymphocytes # 0.9 k/uL (1.0-4.8) L 05/29/16 04:40 Monocytes # 0.4 k/uL (0-1.0) 05/29/16 04:40 Eosinophils # 0.2 k/uL (0-0.7) 05/29/16 04:40 Basophils # 0.0 k/uL (0-0.2) 05/29/16 04:40 Hypochromasia Marked 05/29/16 04:40 Poikilocytosis Slight 05/28/16 04:55 Macrocytosis Moderate 05/29/16 04:40 PT 13.7 sec (9.0-12.0) H 05/25/16 04:51 INR 1.4 (<1.1) 05/25/16 04:51 APTT 29.6 sec (22.0-30.0) 05/25/16 04:51 Sample Site [place] 05/28/16 04:56 ABG pH 7.42 (7.35-7.45) 05/28/16 04:56 ABG pCO2 34 mmHg (35-45) L 05/28/16 04:56 ABG pO2 119 mmHg (83-108) H 05/28/16 04:56 ABG HCO3 21 mmol/L (21-25) 05/28/16 04:56 ABG Total CO2 22 mmol/L (19-24) 05/28/16 04:56 ABG O2 Saturation 98.8 % (94-97) H 05/28/16 04:56 ABG Base Excess -2.7 mmol/L 05/28/16 04:56 FiO2 45 % 05/28/16 04:56 Sodium 140 mmol/L (137-145) 05/29/16 04:40 Potassium 4.7 mmol/L (3.5-5.1) 05/29/16 04:40 Chloride 115 mmol/L (98-107) H 05/29/16 04:40 Carbon Dioxide 20 mmol/L (22-30) L 05/29/16 04:40 Anion Gap 5 mmol/L 05/29/16 04:40 BUN 18 mg/dL (9-20) 05/29/16 04:40 Creatinine 0.80 mg/dL (0.66-1.25) 05/29/16 04:40 Est GFR (MDRD) Af Amer >60 (>60 ml/min/1.73 sqM) 05/29/16 04:40 Est GFR (MDRD) Non-Af >60 (>60 ml/min/1.73 sqM) 05/29/16 04:40 Glucose 133 mg/dL (74-99) H 05/29/16 04:40 POC Glucose (mg/dL) 152 mg/dL (75-99) H 06/01/16 11:57 POC Glu [employer]vey[employer] Operator ID Maria Del Carmen Martins 06/01/16 11:[address] Glu mg/dL 114 mg/dL 05/24/16 14:05 Hemoglobin A1c 5.6 % (4.2-6.1) 05/24/16 14:05 Calcium 8.1 mg/dL (8.4-10.2) L 05/29/16 04:40 Phosphorus 2.4 mg/dL (2.5-4.5) L 05/29/16 04:40 Magnesium 2.3 mg/dL (1.6-2.3) 05/29/16 04:40 Total Bilirubin 2.5 mg/dL (0.2-1.3) H 05/24/16 22:15 AST 328 U/L (17-59) H 05/24/16 22:15 ALT 63 U/L (21-72) 05/24/16 22:15 Alkaline Phosphatase 329 U/L (38-126) H 05/24/16 22:15 Ammonia 28 umol/L (<30) 05/28/16 08:10 Total Creatine Kinase 5202 U/L (55-170) H 05/24/16 22:15 CK-MB (CK-2) 5.2 ng/mL (0.0-2.4) H* 05/25/16 04:51 CK-MB (CK-2) Rel Index 05/24/16 22:15 Troponin I 2.660 ng/mL (0.000-0.034) H* 05/25/16 04:51 Total Protein 5.9 g/dL (6.3-8.2) L 05/24/16 22:15 Albumin 1.9 g/dL (3.5-5.0) L 05/24/16 22:15 TSH 1.620 mIU/L (0.465-4.680) 05/24/16 14:05 Urine Color Yellow 05/24/16 14:00 Urine Appearance Clear (Clear) 05/24/16 14:00 Urine pH 7.5 (5.0-8.0) 05/24/16 14:00 Ur Specific [place] 1.010 (1.001-1.035) 05/24/16 14:00 Urine Protein 2+ (Negative) H 05/24/16 14:00 Urine Glucose (UA) 1+ (Negative) H 05/24/16 14:00 Urine Ketones Negative (Negative) 05/24/16 14:00 Urine Blood Moderate (Negative) H 05/24/16 14:00 Urine Nitrate Negative (Negative) 05/24/16 14:00 Urine Bilirubin Negative (Negative) 05/24/16 14:00 Urine Urobilinogen 2.0 mg/dL (<2.0) 05/24/16 14:00 Ur Leukocyte Esterase Negative (Negative) 05/24/16 14:00 Urine RBC 5 /hpf (0-5) 05/24/16 14:00 Urine WBC 14 /hpf (0-5) H 05/24/16 14:00 Ur Squamous Epith Cells <1 /hpf (0-4) 05/24/16 14:00 Urine Bacteria Rare /hpf (None) H 05/24/16 14:00 Hyaline Casts 2 /lpf (0-2) 05/24/16 01:30 Urine Mucus Rare /hpf (None) H 05/24/16 14:00 Urine Opiates Screen Detected (NotDetected) H 05/24/16 14:00 Ur Oxycodone Screen Not Detected (NotDetected) 05/24/16 14:00 Urine Methadone Screen Not Detected (NotDetected) 05/24/16 14:00 Ur Propoxyphene Screen Not Detected (NotDetected) 05/24/16 14:00 Ur Barbiturates Screen Not Detected (NotDetected) 05/24/16 14:00 U Tricyclic Antidepress Not Detected (NotDetected) 05/24/16 14:00 Ur Phencyclidine Scrn Not Detected (NotDetected) 05/24/16 14:00 Ur Amphetamines Screen Not Detected (NotDetected) 05/24/16 14:00 U Methamphetamines Scrn Not Detected (NotDetected) 05/24/16 14:00 U Benzodiazepines Scrn Not Detected (NotDetected) 05/24/16 14:00 Urine Cocaine Screen Not Detected (NotDetected) 05/24/16 14:00 U Marijuana (THC) Screen Not Detected (NotDetected) 05/24/16 14:00 C. difficile (EIA) Intrp Negative (Negative) 05/27/16 11:00 Microbiology 05/25/16 21:00 Blood Blood Culture - Final No Growth after 144 hours 05/25/16 20:10 Blood Blood Culture - Final No Growth after 144 hours 05/25/16 21:00 Urine,Catheterized Urine Culture - Final Proteus mirabilis 05/24/16 14:52 Sputum Gram Stain - Final 05/24/16 14:52 Sputum Sputum Culture - Final Pseudomonas aeruginosa Escherichia coli 05/25/16 20:10 Sputum Gram Stain - Final 05/25/16 20:10 Sputum Sputum Culture - Final Escherichia coli Assessment and Plan (1) Cardiac arrest Narrative/Plan: 55-year-old male known to the service because of his follow-up in the office for his HIV infection. His home HIV medications have been reordered with his Isentress Selzentry and Epivir. These should continue. Patient had evidence of cardiopulmonary arrest and is now improving. Patient has evidence of ESBL E. coli as well as pseudomonas aeruginosa in his sputum. And with this his antibiotic therapy is altered to meropenem. Follow-up cultures will be obtained as indicated. The urine culture reveals ESBL Proteus, also treated with the Merrem Overall he is improved. Doing well with current supportive care. Antibiotic therapy is planned for 10 day course of therapy for the multiple pathogens and found both in his sputum as well as his urine. Fortunately he is showing some significant improvement at this time. HIV medications to continue. Incentive spirometer is requested Status: Acute (2) Hepatic encephalopathy Status: Acute (3) Pseudomonas pneumonia Status: Acute
[2016-06-01 17:18] LABS: Glucose,Whole Blood 201 mg/dL (75-99)
[2016-06-01] MEDS: MORPHINE SULFATE ER 15 MG TABLET PO SCH (20:55)
[2016-06-01] MEDS: LEVOFLOXACIN 500 MG TAB PO SCH (20:59)
[2016-06-01 21:04] LABS: Glucose,Whole Blood 164 mg/dL (75-99)
--- NOTE | 2016-06-01 22:34 | PN ---
DATE OF SERVICE: 06/01/2016 PRESENTING COMPLAINT: Cardiac arrest. INTERVAL HISTORY: This patient presented with cardiac arrest, acute OH, also treated for UTI, pneumonia, has underlying cirrhosis. Patient's niece and nephew in the room. Patient does live only with his nephew. Patient doing a bit better. He knows that he is at [facility], is a bit more oriented today, has been tolerating his diet. Review of systems done for constitutional, cardiovascular, GI, pulmonary; relevant findings as above. Current medications are reviewed that include: 1. Levaquin. 2. Meropenem. On examination, temperature 98.4, pulse 71, respirations 20, blood pressure 146/73, pulse ox 92% on room air. GENERAL APPEARANCE: Lying in bed awake, moving about, more comfortable. EYES: Pupils equal. Conjunctivae normal. NECK: JVD not raised. Mass not palpable. RESPIRATORY: Effort normal. LUNGS: Slightly decreased breath sounds. CARDIOVASCULAR: First and second sounds normal. No edema. ABDOMEN: Soft. Liver, spleen not palpable. PSYCHIATRY: Patient notes that he is in [facility], more oriented than yesterday. NEUROLOGICAL: Moving all 4 limbs. INVESTIGATIONS: Accu-Cheks are noted. ASSESSMENT: 1. Acute myocardial infarction upon presentation, causing patient to be in cardiac arrest, non-ST elevation type. 2. Acute metabolic encephalopathy, multifactorial, present on admission, including hepatic encephalopathy. 3. Acute delirium, multifactorial, improving. 4. Anoxic brain injury suspected per Neurology. 5. Liver cirrhosis. 6. Chronic kidney disease stage 3 from diabetic nephropathy and nephrosclerosis. 7. Human immunodeficiency virus. 8. Diabetes mellitus type 2, chronically on insulin causing peripheral neuropathy. 9. Acute hypoxic respiratory failure, status post ventilator. 10. Hypernatremia from the free water deficit, improved. 11. Hypoalbuminemia from liver disease and possible malnutrition. 12. Left lobe pneumonia from Pseudomonas, extended-spectrum beta-lactamase Escherichia coli. 13. Acute urinary tract infection from Proteus mirabilis. 14. Depression, not otherwise specified. PLAN: Patient is somewhat doing better. Will repeat a chest x-ray in the morning, labs in the morning. Follow.
[2016-06-02] MEDS: MEROPENEM 1 GM in SODIUM CHLORIDE 0.9% 100 ML IVPB SCH ×3 (05:16→20:33)
[2016-06-02 07:24] LABS: Glucose,Whole Blood 137 mg/dL (75-99)
[2016-06-02] MEDS: IPRATROPIUM-ALBUTEROL 3 ML NEB INHALATION SCH ×4 (07:51→19:57)
[2016-06-02 09:23] LABS: ALT 67 U/L (21-72); AST 100 U/L (17-59); Alkaline Phosphatase 367 U/L (38-126); Anion Gap 4 mmol/L; Blood Urea Nitrogen 14 mg/dL (9-20); Calcium 8.4 mg/dL (8.4-10.2); Carbon Dioxide 26 mmol/L (22-30); Chloride 112 mmol/L (98-107); Glucose 139 mg/dL (74-99); Non-African American GFR(MDRD) >60 (>60 ml/min/1.73 sqM); Potassium 3.8 mmol/L (3.5-5.1); Sodium 142 mmol/L (137-145); Total Bilirubin 2.6 mg/dL (0.2-1.3); Total Protein 6.2 g/dL (6.3-8.2)
[2016-06-02 09:25] LABS: Basophils % (A) 1 %; CH 33.2; CHCM 32.9; Eosinophils # (A) 0.2 k/uL (0-0.7); Eosinophils % (A) 3 %; HCT 34.5 % (39.0-53.0); HDW 3.48; HGB 11.2 gm/dL (13.0-17.5); Luc # (Auto) 0.14; Luc % (Auto) 2; Lymphocytes % (A) 17 %; MCH 33.1 pg (25.0-35.0); MCHC 32.6 g/dL (31.0-37.0); Macrocytosis Slight; Mean Platelet Volume 8.1; Monocytes # (A) 0.5 k/uL (0-1.0); Monocytes % (A) 9 %; Neutrophils # (A) 3.9 k/uL (1.3-7.7); Neutrophils % (A) 68 %; Poikilocytosis Slight; RBC 3.39 m/uL (4.30-5.90); RDW 14.8 % (11.5-15.5); WBC 5.8 k/uL (3.8-10.6)
--- NOTE | 2016-06-02 09:38 | XR ---
EXAMINATION TYPE: XR chest 2V DATE OF EXAM: 06/02/2016 9:35 AM COMPARISON: 05/29/2016 HISTORY: Shortness of breath FINDINGS: The the heart is enlarged. Subsegmental changes at the left lung base again noted. Interstitium stabl e. PICC line again noted. No pneumothorax. Small effusion noted bilaterally greater on the left. Lung s are clear and there is no pneumothorax, pleural effusion, or focal pneumonia. IMPRESSION: 1. Left lower lobe infiltrate and small bilateral effusions are stable. Mild central venous congestio n not excluded. Correlate clinically.
[2016-06-02 09:44] LABS: MCV 101.7 fL (80.0-100.0)
[2016-06-02] MEDS: RALTEGRAVIR POTASSIUM 400 MG PO SCH ×2 (10:23→20:32)
[2016-06-02] MEDS: METOPROLOL TARTRATE 12.5 MG TAB PO SCH ×2 (10:24→20:33)
[2016-06-02] MEDS: LAMIVUDINE 300 MG PO SCH (10:24)
[2016-06-02] MEDS: INSULIN LISPRO (humaLOG) 300 UNIT/3 ML VIAL SQ SCH ×4 (10:24→20:56)
[2016-06-02] MEDS: MARAVIROC 300 MG PO SCH ×2 (10:24→20:32)
[2016-06-02] MEDS: CEVIMELINE 30 MG CAP PO SCH ×3 (10:25→20:44)
[2016-06-02] MEDS: RIFAXIMIN 550 MG TABLET PO SCH ×2 (10:25→20:33)
[2016-06-02] MEDS: PANTOPRAZOLE 40 MG TABLET PO SCH (10:25)
[2016-06-02] MEDS: DULoxetine HCL 30 MG CAPSULE.DR PO SCH (10:25)
[2016-06-02] MEDS: SPIRONOLACTONE 25 MG TAB PO SCH (10:27)
[2016-06-02 12:08] LABS: Glucose,Whole Blood 182 mg/dL (75-99)
--- NOTE | 2016-06-02 16:10 | P.PN ---
Subjective Principal diagnosis: Respiratory failure 55-year-old male was noted from the office practice where he is cared for for his HIV infection and his history of severe underlying liver disease. He has a history of nonalcoholic fatty liver disease which has been very severe in the past. He follows with hepatology at [facility] where he's even been evaluated for liver transplantation. However after extensive medical treatment he's had a marked improvement. His extensive ascites resolved. His massive edema resolved. It isn't functioning relatively well. It is related the patient was having shortness of breath. And with this EMS was called. It was related that is a arrives the patient had a cardiopulmonary arrest. AED was applied and he received 2 shocks. He was intubated and transported to hospital with only a brief course of CPR required. The patient is been seen by pulmonary critical care and workup has failed reveal evidence of pulmonary embolus or of an acute myocardial infarction. He has evidence of preserved ejection fraction but does have dilated left atrium. There is concern that there is underlying pneumonia with worsening hepatic encephalopathy as the triggers for his current cardiopulmonary arrest. He remains in the intensive care unit he has been extubated. He was having diarrhea, but C. diff was negative likely from the lactulose is being given. Chest x-ray with basilar infiltrate, and potential infiltrate seen on the computed tomography scan of the left lower lobe. Patient is sitting up. Eating his lunch. Recognize my name and says it very clearly. Hallucinations have cleared. No longer seeing animals or other people in the room that are not present. Still not at baseline. Objective - Vital Signs Vital signs: Vital Signs Temp 98.9 F 06/02/16 15:00 Pulse 72 06/02/16 15:45 Resp 20 06/02/16 15:00 BP 123/79 06/02/16 15:00 Pulse Ox 92 L 06/02/16 15:00 Intake & Output 06/01/16 06/02/16 06/02/16 18:59 06:59 18:59 Intake Total 250 360 Output Total 300 400 250 Balance -50 -400 110 Weight 104.5 kg Intake: Oral 250 360 Output: Urine 300 400 250 Other: Voiding Method Indwelling Catheter Indwelling Catheter Indwelling Catheter # Bowel Movements 1 1 ABP, PAP, CO, CI - Last Documented Arterial Blood Pressure 141/61 - Exam 55-year-old male who is extubated opens eyes and smiled but no active speech was noted HEENT: Anicteric conjunctiva are pink and moist nasal mucosa grossly intact without significant lesions, there is no thrush. No lesions in the oral cavity around the prior endotracheal tube Neck: The neck is supple without significant lymphadenopathy or thyromegaly. Lungs: Symmetrical air entry is noted. No stiff and wheezing. Few basilar crackles. No bronchial sounds. Heart: Regular rate and rhythm with an audible S1-S2, no S3 soft S4 There is no significant murmur click or rub, PMI was nondisplaced. Abdomen: Mildly obese Positive bowel sounds soft and nontender without palpable masses or organomegaly. Abdomen is not rigid and there is no fluid wave Extremities: The upper extremities have excellent pulses they are symmetric, no significant petechiae or telangiectasia. No splinter hemorrhages were noted. Lower extremities reveals the bilateral edema Neuro: Was able to state my Name Marlene Sanchez, conversational still not at baseline however as far as his mental status - Labs CBC & Chem 7: 06/02/16 08:45 06/02/16 08:45 Labs: Abnormal Lab Results - Last 24 Hours (Table) 06/01/16 06/01/16 06/02/16 Range/Units 16:56 21:01 06:58 RBC (4.30-5.90) m/uL Hgb (13.0-17.5) gm/dL Hct (39.0-53.0) % MCV (80.0-100.0) fL Plt Count (150-450) k/uL Chloride (98-107) mmol/L Glucose (74-99) mg/dL POC Glucose (mg/dL) 201 H 164 H 137 H (75-99) mg/dL Total Bilirubin (0.2-1.3) mg/dL AST (17-59) U/L Alkaline Phosphatase (38-126) U/L Total Protein (6.3-8.2) g/dL Albumin (3.5-5.0) g/dL 06/02/16 06/02/16 06/02/16 Range/Units 08:45 08:45 11:42 RBC 3.39 L (4.30-5.90) m/uL Hgb 11.2 L (13.0-17.5) gm/dL Hct 34.5 L (39.0-53.0) % MCV 101.7 H D (80.0-100.0) fL Plt Count 120 L (150-450) k/uL Chloride 112 H (98-107) mmol/L Glucose 139 H (74-99) mg/dL POC Glucose (mg/dL) 182 H (75-99) mg/dL Total Bilirubin 2.6 H (0.2-1.3) mg/dL AST 100 H (17-59) U/L Alkaline Phosphatase 367 H (38-126) U/L Total Protein 6.2 L (6.3-8.2) g/dL Albumin 1.9 L (3.5-5.0) g/dL Laboratory Results WBC 5.8 k/uL (3.8-10.6) 06/02/16 08:45 RBC 3.39 m/uL (4.30-5.90) L 06/02/16 08:45 Hgb 11.2 gm/dL (13.0-17.5) L 06/02/16 08:45 Hct 34.5 % (39.0-53.0) L 06/02/16 08:45 MCV 101.7 fL (80.0-100.0) H D 06/02/16 08:45 MCH 33.1 pg (25.0-35.0) 06/02/16 08:45 MCHC 32.6 g/dL (31.0-37.0) 06/02/16 08:45 RDW 14.8 % (11.5-15.5) 06/02/16 08:45 Plt Count 120 k/uL (150-450) L 06/02/16 08:45 Neutrophils % 68 % 06/02/16 08:45 Lymphocytes % 17 % 06/02/16 08:45 Monocytes % 9 % 06/02/16 08:45 Eosinophils % 3 % 06/02/16 08:45 Basophils % 1 % 06/02/16 08:45 Neutrophils # 3.9 k/uL (1.3-7.7) 06/02/16 08:45 Lymphocytes # 1.0 k/uL (1.0-4.8) 06/02/16 08:45 Monocytes # 0.5 k/uL (0-1.0) 06/02/16 08:45 Eosinophils # 0.2 k/uL (0-0.7) 06/02/16 08:45 Basophils # 0.0 k/uL (0-0.2) 06/02/16 08:45 Hypochromasia Marked 05/29/16 04:40 Poikilocytosis Slight 06/02/16 08:45 Macrocytosis Slight 06/02/16 08:45 PT 13.7 sec (9.0-12.0) H 05/25/16 04:51 INR 1.4 (<1.1) 05/25/16 04:51 APTT 29.6 sec (22.0-30.0) 05/25/16 04:51 Sample Site [place] 05/28/16 04:56 ABG pH 7.42 (7.35-7.45) 05/28/16 04:56 ABG pCO2 34 mmHg (35-45) L 05/28/16 04:56 ABG pO2 119 mmHg (83-108) H 05/28/16 04:56 ABG HCO3 21 mmol/L (21-25) 05/28/16 04:56 ABG Total CO2 22 mmol/L (19-24) 05/28/16 04:56 ABG O2 Saturation 98.8 % (94-97) H 05/28/16 04:56 ABG Base Excess -2.7 mmol/L 05/28/16 04:56 FiO2 45 % 05/28/16 04:56 Sodium 142 mmol/L (137-145) 06/02/16 08:45 Potassium 3.8 mmol/L (3.5-5.1) 06/02/16 08:45 Chloride 112 mmol/L (98-107) H 06/02/16 08:45 Carbon Dioxide 26 mmol/L (22-30) 06/02/16 08:45 Anion Gap 4 mmol/L 06/02/16 08:45 BUN 14 mg/dL (9-20) 06/02/16 08:45 Creatinine 0.83 mg/dL (0.66-1.25) 06/02/16 08:45 Est GFR (MDRD) Af Amer >60 (>60 ml/min/1.73 sqM) 06/02/16 08:45 Est GFR (MDRD) Non-Af >60 (>60 ml/min/1.73 sqM) 06/02/16 08:45 Glucose 139 mg/dL (74-99) H 06/02/16 08:45 POC Glucose (mg/dL) 182 mg/dL (75-99) H 06/02/16 11:42 POC Glu Director Safety Council ID Maria Del Carmen Martins 06/02/16 11:[address] Glu mg/dL 114 mg/dL 05/24/16 14:05 Hemoglobin A1c 5.6 % (4.2-6.1) 05/24/16 14:05 Calcium 8.4 mg/dL (8.4-10.2) 06/02/16 08:45 Phosphorus 2.4 mg/dL (2.5-4.5) L 05/29/16 04:40 Magnesium 2.3 mg/dL (1.6-2.3) 05/29/16 04:40 Total Bilirubin 2.6 mg/dL (0.2-1.3) H 06/02/16 08:45 AST 100 U/L (17-59) H 06/02/16 08:45 ALT 67 U/L (21-72) 06/02/16 08:45 Alkaline Phosphatase 367 U/L (38-126) H 06/02/16 08:45 Ammonia 28 umol/L (<30) 05/28/16 08:10 Total Creatine Kinase 5202 U/L (55-170) H 05/24/16 22:15 CK-MB (CK-2) 5.2 ng/mL (0.0-2.4) H* 05/25/16 04:51 CK-MB (CK-2) Rel Index 05/24/16 22:15 Troponin I 2.660 ng/mL (0.000-0.034) H* 05/25/16 04:51 Total Protein 6.2 g/dL (6.3-8.2) L 06/02/16 08:45 Albumin 1.9 g/dL (3.5-5.0) L 06/02/16 08:45 TSH 1.620 mIU/L (0.465-4.680) 05/24/16 14:05 Urine Color Yellow 05/24/16 14:00 Urine Appearance Clear (Clear) 05/24/16 14:00 Urine pH 7.5 (5.0-8.0) 05/24/16 14:00 Ur Specific [place] 1.010 (1.001-1.035) 05/24/16 14:00 Urine Protein 2+ (Negative) H 05/24/16 14:00 Urine Glucose (UA) 1+ (Negative) H 05/24/16 14:00 Urine Ketones Negative (Negative) 05/24/16 14:00 Urine Blood Moderate (Negative) H 05/24/16 14:00 Urine Nitrate Negative (Negative) 05/24/16 14:00 Urine Bilirubin Negative (Negative) 05/24/16 14:00 Urine Urobilinogen 2.0 mg/dL (<2.0) 05/24/16 14:00 Ur Leukocyte Esterase Negative (Negative) 05/24/16 14:00 Urine RBC 5 /hpf (0-5) 05/24/16 14:00 Urine WBC 14 /hpf (0-5) H 05/24/16 14:00 Ur Squamous Epith Cells <1 /hpf (0-4) 05/24/16 14:00 Urine Bacteria Rare /hpf (None) H 05/24/16 14:00 Hyaline Casts 2 /lpf (0-2) 05/24/16 01:30 Urine Mucus Rare /hpf (None) H 05/24/16 14:00 Urine Opiates Screen Detected (NotDetected) H 05/24/16 14:00 Ur Oxycodone Screen Not Detected (NotDetected) 05/24/16 14:00 Urine Methadone Screen Not Detected (NotDetected) 05/24/16 14:00 Ur Propoxyphene Screen Not Detected (NotDetected) 05/24/16 14:00 Ur Barbiturates Screen Not Detected (NotDetected) 05/24/16 14:00 U Tricyclic Antidepress Not Detected (NotDetected) 05/24/16 14:00 Ur Phencyclidine Scrn Not Detected (NotDetected) 05/24/16 14:00 Ur Amphetamines Screen Not Detected (NotDetected) 05/24/16 14:00 U Methamphetamines Scrn Not Detected (NotDetected) 05/24/16 14:00 U Benzodiazepines Scrn Not Detected (NotDetected) 05/24/16 14:00 Urine Cocaine Screen Not Detected (NotDetected) 05/24/16 14:00 U Marijuana (THC) Screen Not Detected (NotDetected) 05/24/16 14:00 C. difficile (EIA) Intrp Negative (Negative) 05/27/16 11:00 Microbiology 05/25/16 21:00 Blood Blood Culture - Final No Growth after 144 hours 05/25/16 20:10 Blood Blood Culture - Final No Growth after 144 hours 05/25/16 21:00 Urine,Catheterized Urine Culture - Final Proteus mirabilis 05/24/16 14:52 Sputum Gram Stain - Final 05/24/16 14:52 Sputum Sputum Culture - Final Pseudomonas aeruginosa Escherichia coli 05/25/16 20:10 Sputum Gram Stain - Final 05/25/16 20:10 Sputum Sputum Culture - Final Escherichia coli Assessment and Plan (1) Cardiac arrest Narrative/Plan: 55-year-old male known to the service because of his follow-up in the office for his HIV infection. His home HIV medications have been reordered with his Isentress Selzentry and Epivir. These should continue. Patient had evidence of cardiopulmonary arrest and is now improving. Patient has evidence of ESBL E. coli as well as pseudomonas aeruginosa in his sputum. And with this his antibiotic therapy is altered to meropenem. Follow-up cultures will be obtained as indicated. The urine culture reveals ESBL Proteus, also treated with the Merrem Overall he is improved. Doing well with current supportive care. Antibiotic therapy is planned for 10 day course of therapy for the multiple pathogens and found both in his sputum as well as his urine. Fortunately he is showing some significant improvement at this time. HIV medications to continue. Incentive spirometer is requested Status: Acute (2) Hepatic encephalopathy Status: Acute (3) Pseudomonas pneumonia Status: Acute
[2016-06-02 17:52] LABS: Glucose,Whole Blood 291 mg/dL (75-99)
[2016-06-02] MEDS: LEVOFLOXACIN 500 MG TAB PO SCH (20:31)
[2016-06-02] MEDS: MORPHINE SULFATE ER 15 MG TABLET PO SCH (20:42)
[2016-06-02 21:00] LABS: Glucose,Whole Blood 212 mg/dL (75-99)
[2016-06-03] MEDS: FUROSEMIDE 10 MG/ML 2 ML VIAL IV SCH ×4 (00:19→23:03)
[2016-06-03] MEDS: MEROPENEM 1 GM in SODIUM CHLORIDE 0.9% 100 ML IVPB SCH ×3 (04:57→20:49)
[2016-06-03 07:51] LABS: Glucose,Whole Blood 205 mg/dL (75-99)
[2016-06-03] MEDS: IPRATROPIUM-ALBUTEROL 3 ML NEB INHALATION SCH ×4 (08:46→19:48)
[2016-06-03] MEDS: RALTEGRAVIR POTASSIUM 400 MG PO SCH ×2 (08:56→20:48)
[2016-06-03] MEDS: MARAVIROC 300 MG PO SCH ×2 (08:56→20:49)
[2016-06-03] MEDS: RIFAXIMIN 550 MG TABLET PO SCH ×2 (08:57→20:50)
[2016-06-03] MEDS: CEVIMELINE 30 MG CAP PO SCH ×3 (08:57→20:50)
[2016-06-03] MEDS: METOPROLOL TARTRATE 12.5 MG TAB PO SCH ×2 (08:57→20:49)
[2016-06-03] MEDS: LAMIVUDINE 300 MG PO SCH (08:57)
[2016-06-03] MEDS: PANTOPRAZOLE 40 MG TABLET PO SCH (08:57)
[2016-06-03] MEDS: SPIRONOLACTONE 25 MG TAB PO SCH (08:58)
[2016-06-03] MEDS: INSULIN LISPRO (humaLOG) 300 UNIT/3 ML VIAL SQ SCH ×4 (08:58→20:50)
[2016-06-03] MEDS: DULoxetine HCL 30 MG CAPSULE.DR PO SCH (08:58)
[2016-06-03 11:38] VITALS: BMI 34.3
--- NOTE | 2016-06-03 12:10 | PN ---
DATE OF SERVICE: 06/02/2016 PRESENTING COMPLAINT: Cardiac arrest. INTERVAL HISTORY: This patient had a cardiac arrest/acute [place], also found to have a UTI, pneumonia, has got underlying cirrhosis and HIV. Every single day is getting more and more talkative, still not back to his normal self. Looks like he did tolerate some diet. Review of systems done for constitutional, cardiovascular, GI, pulmonary; relevant findings as above, really has not been out of bed. Current medications are reviewed that include IV meropenem, Levaquin. On examination, temperature 98.9, pulse 74, respirations 20, blood pressure 123/79, pulse ox 92% on room air. GENERAL: Lying in bed, tired-appearing, but more awake. EYES: Pupils equal, conjunctivae normal. NECK: JVD not raised. Mass not palpable. Respiratory effort normal. LUNGS: Diminished breath sounds. CARDIOVASCULAR: First and second sounds normal. Edema present ABDOMEN: Soft, nontender. Liver and spleen not palpable. PSYCHIATRY: Getting more and more day awake, knows that he is in the hospital, is talking about why he is here. NEUROLOGICAL: Moving all 4 limbs. INVESTIGATIONS: Chest x-ray shows pulmonary edema. White count 5.8. Potassium 3.8, BUN and creatinine are normal. Accu-Cheks are noted, albumin 1.9. ASSESSMENT: 1. Acute myocardial infarction upon presentation, causing patient to be in cardiac arrest, non-ST elevation-type. 2. Acute metabolic encephalopathy, multifactorial present on admission, including hepatic encephalopathy improving. 3. Acute delirium, multifactorial improving. 4. Anoxic brain injury, initially suspected per Neurology. 5. Liver cirrhosis. 6. Chronic kidney disease stage III, from diabetic nephropathy and nephrosclerosis. 7. HIV. 8. Diabetes mellitus type 2, chronically on insulin causing peripheral neuropathy. 9. Acute hypoxic respiratory failure, status post ventilator. 10. Hypernatremia from free water deficit, improved. 11. Hypoalbuminemia from liver disease and possible moderate protein calorie malnutrition from decreased oral intake. 12. Left lower lobe pneumonia from Pseudomonas and ESBL Escherichia coli. 13. Acute urinary tract infection from Proteus mirabilis. 14. Depression, not otherwise specified. PLAN: ( ) patient increased fluid overloaded. Will give IV Lasix, will also check patient's BNP. Patient's 2-D echocardiogram has shown preserved LV function.
[2016-06-03 12:14] LABS: Glucose,Whole Blood 174 mg/dL (75-99)
--- NOTE | 2016-06-03 17:11 | P.PN ---
Subjective This is a 55-year-old gentleman with a known history of liver cirrhosis, diabetes ,hypertension ,and HIV and neuropathy. He has a history of nonalcoholic fatty liver disease which has been very severe in the past. He follows with hepatology at [facility] where he's even been evaluated for liver transplantation. The patient had a cardiacpulmonary arrest. It is related the patient was having shortness of breath. And with this EMS was called. It was related that is a arrives the patient had a cardiopulmonary arrest. AED was applied and he received 2 shocks. He was intubated and transported to hospital with only a brief course of CPR required. The patient is been seen by pulmonary critical care and workup has failed reveal evidence of pulmonary embolus or of an acute myocardial infarction. He has evidence of preserved ejection fraction but does have dilated left atrium. the patient was also weaned off the mechanical ventilator and was extubated without any major difficulties. On 06/03/2016, the patient's mental status improved significantly and he is much more appropriate and alert. His edema is also improved and he does not have any new complaints for now. The patient is on IV Lasix 20 mg IV push every 8 hours. He is producing adequate amount of urine output. The patient is also on lactulose and Xifaxan and there is no evidence of any significant hepatic encephalopathy for now. He is tolerating his diet. His chest x-ray from yesterday showed some small better pleural effusion and pulmonary vascular congestion/increased pulmonary vascular markings. Patient has pseudomonas and E. coli in his sputum and Proteus mirabilis in his urine and the patient is currently on a combination of Merrem and Levaquin. ID is on the case and the patient is being followed up by Dr. Santana. Objective - Vital Signs Vital signs: Vital Signs Temp 98.5 F 06/03/16 07:00 Pulse 64 06/03/16 12:05 Resp 18 06/03/16 07:00 BP 145/97 06/03/16 07:00 Pulse Ox 94 L 06/03/16 08:46 Intake & Output 06/02/16 06/03/16 06/03/16 18:59 06:59 18:59 Intake Total 900 200 Output Total 250 1250 Balance 650 200 -1250 Weight 105.5 kg 105.5 kg Intake: Oral 900 200 Output: Urine 250 1250 Other: Voiding Method Indwelling Catheter Indwelling Catheter Indwelling Catheter # Bowel Movements 2 1 ABP, PAP, CO, CI - Last Documented Arterial Blood Pressure 141/61 - Exam The patient appeared well nourished and normally developed. Vital signs as documented. Head exam is unremarkable. No scleral icterus or corneal arcus noted. Neck is without jugular venous distension, thyromegaly, or carotid bruits. Carotid upstrokes are brisk bilaterally. Lungs are clear to auscultation and percussion. Cardiac exam reveals the PMI to be normally sized and situated. Rhythm is regular. First and second heart sounds normal. No murmurs, rubs or gallops. Abdominal exam reveals normal bowel sounds, no masses , no organomegaly and no aortic enlargement. Extremities are nonedematous and both femoral and pedal pulses are normal. - Labs CBC & Chem 7: 06/02/16 08:45 06/02/16 08:45 Labs: Abnormal Lab Results - Last 24 Hours (Table) 06/02/16 06/02/16 06/03/16 Range/Units 17:14 20:52 07:38 POC Glucose (mg/dL) 291 H 212 H 205 H (75-99) mg/dL 06/03/16 Range/Units 12:09 POC Glucose (mg/dL) 174 H (75-99) mg/dL Assessment and Plan Plan: Impression: #1 Acute hypoxic respiratory failure secondary to acute cardiopulmonary arrest which is recovered and the patient was extubated without any major difficulties. Most recent chest x-ray from yesterday showing small bilateral pleural effusions and cardiomegaly. There is no evidence of any ongoing pneumonia. The patient was found to have Pseudomonas and E. coli in his sputum and he is currently on a combination of Merrem and Levaquin. The E. coli is an ESBL producing organism. #2 Acute hepatic encephalopathy with significantly elevated ammonia on presentation. Most likely secondary to underlying liver cirrhosis. The patient 's mentation is improved and the patient is still on a combination of lactulose and Xifaxan #3 Acute rhabdomyolysis with elevated CPK, recovered #4 Acute on chronic renal failure, recovered. The patient is still has a Proteus mirabilis in his urine #5 History of chronic liver disease. #6 HIV. #7 Diabetes mellitus. #8 Diabetic neuropathy. #9 Chronic anemia. Plan Continue treatment. Continue antibiotics. We'll follow
[2016-06-03 17:30] LABS: Glucose,Whole Blood 231 mg/dL (75-99)
--- NOTE | 2016-06-03 19:13 | P.PN ---
Subjective Principal diagnosis: Respiratory failure 55-year-old male was noted from the office practice where he is cared for for his HIV infection and his history of severe underlying liver disease. He has a history of nonalcoholic fatty liver disease which has been very severe in the past. He follows with hepatology at [facility] where he's even been evaluated for liver transplantation. However after extensive medical treatment he's had a marked improvement. His extensive ascites resolved. His massive edema resolved. It isn't functioning relatively well. It is related the patient was having shortness of breath. And with this EMS was called. It was related that is a arrives the patient had a cardiopulmonary arrest. AED was applied and he received 2 shocks. He was intubated and transported to hospital with only a brief course of CPR required. The patient is been seen by pulmonary critical care and workup has failed reveal evidence of pulmonary embolus or of an acute myocardial infarction. He has evidence of preserved ejection fraction but does have dilated left atrium. There is concern that there is underlying pneumonia with worsening hepatic encephalopathy as the triggers for his current cardiopulmonary arrest. He remains in the intensive care unit he has been extubated. He was having diarrhea, but C. diff was negative likely from the lactulose is being given. Chest x-ray with basilar infiltrate, and potential infiltrate seen on the computed tomography scan of the left lower lobe. Patient is sitting up. Remains further improved. Recognize my name and says it very clearly. Hallucinations have cleared. No longer seeing animals or other people in the room that are not present. Still not at baseline. Objective - Vital Signs Vital signs: Vital Signs Temp 100.0 F H 06/03/16 15:00 Pulse 70 06/03/16 15:00 Resp 18 06/03/16 15:00 BP 136/74 06/03/16 15:00 Pulse Ox 94 L 06/03/16 15:00 Intake & Output 06/03/16 06/03/16 06/04/16 06:59 18:59 06:59 Intake Total 200 Output Total 1900 Balance 200 -1900 Weight 105.5 kg 105.5 kg Intake: Oral 200 Output: Urine 1900 Other: Voiding Method Indwelling Catheter Indwelling Catheter # Bowel Movements 2 ABP, PAP, CO, CI - Last Documented Arterial Blood Pressure 141/61 - Exam 55-year-old male who is extubated opens eyes and smiled but no active speech was noted HEENT: Anicteric conjunctiva are pink and moist nasal mucosa grossly intact without significant lesions, there is no thrush. No lesions in the oral cavity around the prior endotracheal tube Neck: The neck is supple without significant lymphadenopathy or thyromegaly. Lungs: Symmetrical air entry is noted. No stiff and wheezing. Few basilar crackles. No bronchial sounds. Heart: Regular rate and rhythm with an audible S1-S2, no S3 soft S4 There is no significant murmur click or rub, PMI was nondisplaced. Abdomen: Mildly obese Positive bowel sounds soft and nontender without palpable masses or organomegaly. Abdomen is not rigid and there is no fluid wave Extremities: The upper extremities have excellent pulses they are symmetric, no significant petechiae or telangiectasia. No splinter hemorrhages were noted. Lower extremities reveals the bilateral edema Neuro: Was able to state my Name Marlene Sanchez, conversational still not at baseline however as far as his mental status - Labs CBC & Chem 7: 06/02/16 08:45 06/02/16 08:45 Labs: Abnormal Lab Results - Last 24 Hours (Table) 06/02/16 06/03/16 06/03/16 Range/Units 20:52 07:38 12:09 POC Glucose (mg/dL) 212 H 205 H 174 H (75-99) mg/dL 06/03/16 Range/Units 17:10 POC Glucose (mg/dL) 231 H (75-99) mg/dL Laboratory Results WBC 5.8 k/uL (3.8-10.6) 06/02/16 08:45 RBC 3.39 m/uL (4.30-5.90) L 06/02/16 08:45 Hgb 11.2 gm/dL (13.0-17.5) L 06/02/16 08:45 Hct 34.5 % (39.0-53.0) L 06/02/16 08:45 MCV 101.7 fL (80.0-100.0) H D 06/02/16 08:45 MCH 33.1 pg (25.0-35.0) 06/02/16 08:45 MCHC 32.6 g/dL (31.0-37.0) 06/02/16 08:45 RDW 14.8 % (11.5-15.5) 06/02/16 08:45 Plt Count 120 k/uL (150-450) L 06/02/16 08:45 Neutrophils % 68 % 06/02/16 08:45 Lymphocytes % 17 % 06/02/16 08:45 Monocytes % 9 % 06/02/16 08:45 Eosinophils % 3 % 06/02/16 08:45 Basophils % 1 % 06/02/16 08:45 Neutrophils # 3.9 k/uL (1.3-7.7) 06/02/16 08:45 Lymphocytes # 1.0 k/uL (1.0-4.8) 06/02/16 08:45 Monocytes # 0.5 k/uL (0-1.0) 06/02/16 08:45 Eosinophils # 0.2 k/uL (0-0.7) 06/02/16 08:45 Basophils # 0.0 k/uL (0-0.2) 06/02/16 08:45 Hypochromasia Marked 05/29/16 04:40 Poikilocytosis Slight 06/02/16 08:45 Macrocytosis Slight 06/02/16 08:45 PT 13.7 sec (9.0-12.0) H 05/25/16 04:51 INR 1.4 (<1.1) 05/25/16 04:51 APTT 29.6 sec (22.0-30.0) 05/25/16 04:51 Sample Site BRACKNEY 05/28/16 04:56 ABG pH 7.42 (7.35-7.45) 05/28/16 04:56 ABG pCO2 34 mmHg (35-45) L 05/28/16 04:56 ABG pO2 119 mmHg (83-108) H 05/28/16 04:56 ABG HCO3 21 mmol/L (21-25) 05/28/16 04:56 ABG Total CO2 22 mmol/L (19-24) 05/28/16 04:56 ABG O2 Saturation 98.8 % (94-97) H 05/28/16 04:56 ABG Base Excess -2.7 mmol/L 05/28/16 04:56 FiO2 45 % 05/28/16 04:56 Sodium 142 mmol/L (137-145) 06/02/16 08:45 Potassium 3.8 mmol/L (3.5-5.1) 06/02/16 08:45 Chloride 112 mmol/L (98-107) H 06/02/16 08:45 Carbon Dioxide 26 mmol/L (22-30) 06/02/16 08:45 Anion Gap 4 mmol/L 06/02/16 08:45 BUN 14 mg/dL (9-20) 06/02/16 08:45 Creatinine 0.83 mg/dL (0.66-1.25) 06/02/16 08:45 Est GFR (MDRD) Af Amer >60 (>60 ml/min/1.73 sqM) 06/02/16 08:45 Est GFR (MDRD) Non-Af >60 (>60 ml/min/1.73 sqM) 06/02/16 08:45 Glucose 139 mg/dL (74-99) H 06/02/16 08:45 POC Glucose (mg/dL) 231 mg/dL (75-99) H 06/03/16 17:10 POC Glu Conventions Assistant ID Maria Del Carmen Martins 06/03/16 17:[address] Glu mg/dL 114 mg/dL 05/24/16 14:05 Hemoglobin A1c 5.6 % (4.2-6.1) 05/24/16 14:05 Calcium 8.4 mg/dL (8.4-10.2) 06/02/16 08:45 Phosphorus 2.4 mg/dL (2.5-4.5) L 05/29/16 04:40 Magnesium 2.3 mg/dL (1.6-2.3) 05/29/16 04:40 Total Bilirubin 2.6 mg/dL (0.2-1.3) H 06/02/16 08:45 AST 100 U/L (17-59) H 06/02/16 08:45 ALT 67 U/L (21-72) 06/02/16 08:45 Alkaline Phosphatase 367 U/L (38-126) H 06/02/16 08:45 Ammonia 28 umol/L (<30) 05/28/16 08:10 Total Creatine Kinase 5202 U/L (55-170) H 05/24/16 22:15 CK-MB (CK-2) 5.2 ng/mL (0.0-2.4) H* 05/25/16 04:51 CK-MB (CK-2) Rel Index 05/24/16 22:15 Troponin I 2.660 ng/mL (0.000-0.034) H* 05/25/16 04:51 NT-Pro-B Natriuret Pep 8680 pg/mL 06/02/16 05:58 Total Protein 6.2 g/dL (6.3-8.2) L 06/02/16 08:45 Albumin 1.9 g/dL (3.5-5.0) L 06/02/16 08:45 TSH 1.620 mIU/L (0.465-4.680) 05/24/16 14:05 Urine Color Yellow 05/24/16 14:00 Urine Appearance Clear (Clear) 05/24/16 14:00 Urine pH 7.5 (5.0-8.0) 05/24/16 14:00 Ur Specific [place] 1.010 (1.001-1.035) 05/24/16 14:00 Urine Protein 2+ (Negative) H 05/24/16 14:00 Urine Glucose (UA) 1+ (Negative) H 05/24/16 14:00 Urine Ketones Negative (Negative) 05/24/16 14:00 Urine Blood Moderate (Negative) H 05/24/16 14:00 Urine Nitrate Negative (Negative) 05/24/16 14:00 Urine Bilirubin Negative (Negative) 05/24/16 14:00 Urine Urobilinogen 2.0 mg/dL (<2.0) 05/24/16 14:00 Ur Leukocyte Esterase Negative (Negative) 05/24/16 14:00 Urine RBC 5 /hpf (0-5) 05/24/16 14:00 Urine WBC 14 /hpf (0-5) H 05/24/16 14:00 Ur Squamous Epith Cells <1 /hpf (0-4) 05/24/16 14:00 Urine Bacteria Rare /hpf (None) H 05/24/16 14:00 Hyaline Casts 2 /lpf (0-2) 05/24/16 01:30 Urine Mucus Rare /hpf (None) H 05/24/16 14:00 Urine Opiates Screen Detected (NotDetected) H 05/24/16 14:00 Ur Oxycodone Screen Not Detected (NotDetected) 05/24/16 14:00 Urine Methadone Screen Not Detected (NotDetected) 05/24/16 14:00 Ur Propoxyphene Screen Not Detected (NotDetected) 05/24/16 14:00 Ur Barbiturates Screen Not Detected (NotDetected) 05/24/16 14:00 U Tricyclic Antidepress Not Detected (NotDetected) 05/24/16 14:00 Ur Phencyclidine Scrn Not Detected (NotDetected) 05/24/16 14:00 Ur Amphetamines Screen Not Detected (NotDetected) 05/24/16 14:00 U Methamphetamines Scrn Not Detected (NotDetected) 05/24/16 14:00 U Benzodiazepines Scrn Not Detected (NotDetected) 05/24/16 14:00 Urine Cocaine Screen Not Detected (NotDetected) 05/24/16 14:00 U Marijuana (THC) Screen Not Detected (NotDetected) 05/24/16 14:00 C. difficile (EIA) Intrp Negative (Negative) 05/27/16 11:00 Microbiology 05/25/16 21:00 Blood Blood Culture - Final No Growth after 144 hours 05/25/16 20:10 Blood Blood Culture - Final No Growth after 144 hours 05/25/16 21:00 Urine,Catheterized Urine Culture - Final Proteus mirabilis 05/24/16 14:52 Sputum Gram Stain - Final 05/24/16 14:52 Sputum Sputum Culture - Final Pseudomonas aeruginosa Escherichia coli 05/25/16 20:10 Sputum Gram Stain - Final 05/25/16 20:10 Sputum Sputum Culture - Final Escherichia coli Assessment and Plan (1) Cardiac arrest Narrative/Plan: 55-year-old male known to the service because of his follow-up in the office for his HIV infection. His home HIV medications have been reordered with his Isentress Selzentry and Epivir. These should continue. Patient had evidence of cardiopulmonary arrest and is now improving. Patient has evidence of ESBL E. coli as well as pseudomonas aeruginosa in his sputum. And with this his antibiotic therapy is altered to meropenem. Follow-up cultures will be obtained as indicated. The urine culture reveals ESBL Proteus, also treated with the Merrem Overall he is improved. Doing well with current supportive care. Antibiotic therapy is planned for 10 day course of therapy for the multiple pathogens and found both in his sputum as well as his urine. Fortunately he is showing some significant improvement at this time. HIV medications to continue. Incentive spirometer is being utilized Status: Acute (2) Hepatic encephalopathy Status: Acute (3) Pseudomonas pneumonia Status: Acute
[2016-06-03 20:28] LABS: Glucose,Whole Blood 249 mg/dL (75-99)
--- NOTE | 2016-06-03 22:46 | PN ---
DATE OF SERVICE: 06/03/2016 PRESENTING COMPLAINT: Fluid overload. INTERVAL HISTORY: This patient initially presented with cardiac arrest/acute DC, also UTI, pneumonia, underlying cirrhosis and HIV. I started the patient on IV Lasix yesterday because he was found to have significant fluid overload. The patient this afternoon had 250 negative fluid balance. The patient is far more awake, far more talkative. Daughter is at the bedside. Far more communicative. Actually worked with physical therapy, took 2 to 3 steps. Review of systems done for constitutional, cardiovascular, GI, pulmonary; relevant findings as above. Current medications are resumed, including IV meropenem. On examination, temperature 98.5, pulse 66, respiration 18, blood pressure 140/97, pulse of 94% on room air. GENERAL APPEARANCE: Far more awake, rather talkative today. HEENT: Pupils equal. Conjunctivae normal. NECK: JVD not raised. Mass not palpable. RESPIRATORY: Effort normal. LUNGS: Diminished breath sounds. CARDIOVASCULAR: First and second sounds normal. No edema present. ABDOMEN: Nontender. Liver and spleen not palpable. PSYCHIATRY: Far more communicative today. Alert, oriented x3. NEUROLOGICAL: Moving all 4 limbs. INVESTIGATIONS: Accu-Cheks are noted. ASSESSMENT: 1. Acute myocardial infarction upon presentation, causing patient to have a cardiac arrest, non-ST elevation type. 2. Acute metabolic encephalopathy, multifactorial, present on admission including hepatic encephalopathy, now nearly resolved. 3. Acute delirium, multifactorial on presentation, much improved. 4. Liver cirrhosis. 5. Chronic kidney disease, stage III, from diabetic nephropathy and nephrosclerosis. 6. HIV. 7. Diabetes mellitus type 2, chronically on insulin, causing peripheral neuropathy. 8. Acute hypoxic respiratory failure, status post ventilator. 9. Hyponatremia from free water deficit, improved. 10. Hypoalbuminemia with liver disease and possible protein calorie malnutrition with decreased oral intake. 11. Left lower lobe pneumonia from Pseudomonas and ESBL E. coli with much clinical improvement. 12. Acute urinary tract infection from Proteus mirabilis. 13. Depression, not otherwise specified. PLAN: Patient is diuresing well. We will do this for another 24 hours at least. Care was discussed with the patient and family. Looking at [facility] rehab probably by Friday.
[2016-06-03] MEDS: MORPHINE SULFATE ER 15 MG TABLET PO SCH (23:02)
[2016-06-04] MEDS: MEROPENEM 1 GM in SODIUM CHLORIDE 0.9% 100 ML IVPB SCH ×3 (04:35→20:36)
[2016-06-04 07:23] LABS: Glucose,Whole Blood 139 mg/dL (75-99)
[2016-06-04] MEDS: IPRATROPIUM-ALBUTEROL 3 ML NEB INHALATION SCH ×4 (07:25→19:35)
[2016-06-04] MEDS: INSULIN LISPRO (humaLOG) 300 UNIT/3 ML VIAL SQ SCH ×4 (09:16→21:05)
[2016-06-04] MEDS: CEVIMELINE 30 MG CAP PO SCH ×3 (09:17→20:38)
[2016-06-04] MEDS: DULoxetine HCL 30 MG CAPSULE.DR PO SCH (09:17)
[2016-06-04] MEDS: PANTOPRAZOLE 40 MG TABLET PO SCH (09:17)
[2016-06-04] MEDS: RIFAXIMIN 550 MG TABLET PO SCH ×2 (09:17→20:38)
[2016-06-04] MEDS: FUROSEMIDE 10 MG/ML 2 ML VIAL IV SCH ×3 (09:17→23:06)
[2016-06-04] MEDS: METOPROLOL TARTRATE 12.5 MG TAB PO SCH ×2 (09:17→20:38)
[2016-06-04] MEDS: RALTEGRAVIR POTASSIUM 400 MG PO SCH ×2 (09:18→20:38)
[2016-06-04] MEDS: LAMIVUDINE 300 MG PO SCH (09:18)
[2016-06-04] MEDS: MARAVIROC 300 MG PO SCH ×2 (09:19→20:37)
[2016-06-04] MEDS: SPIRONOLACTONE 25 MG TAB PO SCH (09:21)
[2016-06-04 10:25] LABS: ALT 70 U/L (21-72); AST 93 U/L (17-59); Alkaline Phosphatase 409 U/L (38-126); Anion Gap 6 mmol/L; Blood Urea Nitrogen 11 mg/dL (9-20); Calcium 7.9 mg/dL (8.4-10.2); Carbon Dioxide 26 mmol/L (22-30); Chloride 107 mmol/L (98-107); Glucose 149 mg/dL (74-99); Non-African American GFR(MDRD) >60 (>60 ml/min/1.73 sqM); Potassium 3.5 mmol/L (3.5-5.1); Sodium 139 mmol/L (137-145); Total Bilirubin 2.7 mg/dL (0.2-1.3); Total Protein 5.9 g/dL (6.3-8.2)
[2016-06-04 10:44] LABS: Basophils # (A) 0.1 k/uL (0-0.2); Basophils % (A) 1 %; CH 33.2; CHCM 33.6; Eosinophils # (A) 0.2 k/uL (0-0.7); Eosinophils % (A) 3 %; HCT 31.3 % (39.0-53.0); HDW 3.51; HGB 10.4 gm/dL (13.0-17.5); Luc % (Auto) 1; Lymphocytes # (A) 0.8 k/uL (1.0-4.8); Lymphocytes % (A) 11 %; MCH 33.1 pg (25.0-35.0); MCHC 33.2 g/dL (31.0-37.0); MCV 99.5 fL (80.0-100.0); Macrocytosis Slight; Mean Platelet Volume 8.2; Monocytes # (A) 0.5 k/uL (0-1.0); Monocytes % (A) 7 %; Neutrophils # (A) 6.2 k/uL (1.3-7.7); Neutrophils % (A) 78 %; Poikilocytosis Slight; RBC 3.15 m/uL (4.30-5.90); RDW 14.6 % (11.5-15.5); WBC 7.9 k/uL (3.8-10.6)
[2016-06-04 12:36] LABS: Glucose,Whole Blood 140 mg/dL (75-99)
--- NOTE | 2016-06-04 16:09 | P.PN ---
Subjective Principal diagnosis: Acute respiratory failure secondary to cardiac arrest This is a 55-year-old gentleman with a known history of liver cirrhosis, diabetes mellitus, hypertension, HIV, neuropathy. The family states his liver disease is not related to hepatitis C or excessive alcohol use. There is some history of nonalcoholic fatty liver disease. He had been evaluated with liver transplant plant at [facility] at one point. He presented here on after having an acute episode of shortness of breath, EMS was called and the patient was found unresponsive. He received 2 shocks in the field and intubated on site. CPR was initiated briefly. A computed tomography scan of the brain was negative for acute intracranial process. The patient has remained unresponsive even without sedation. He is suspected of having hepatic encephalopathy and suspected anoxic encephalopathy. The patient is seen again today 06/04/2016 in follow-up. His mental status has improved significantly. He is awake and alert sitting up in the chair at the bedside. He is on the regular medical floor. He is in no acute distress. His complaint is that of some lower extremity weakness which is to be expected. Physical therapy is on the case as well. He was found to have Pseudomonas and E. coli in the sputum and Proteus mirabilis in the urine. He is currently on a combination of Merrem and Levaquin. Infectious diseases on the case as well. He denies any worsening shortness of breath at this time. No cough or congestion. He is maintaining good O2 saturations in the mid 90s on room air. He's currently afebrile. Hemodynamically stable. Objective - Vital Signs Vital signs: Vital Signs Temp 98.9 F 06/04/16 15:00 Pulse 68 06/04/16 15:00 Resp 20 06/04/16 15:00 BP 103/59 06/04/16 15:00 Pulse Ox 93 L 06/04/16 15:00 Intake & Output 06/03/16 06/04/16 06/04/16 18:59 06:59 18:59 Output Total 1900 3353 Balance -1900 -3353 Weight 105.5 kg 103.5 kg Output: Urine 1900 3350 Urine/Stool Mix 3 Other: Voiding Method Indwelling Catheter Urinal Urinal Diaper Diaper # Bowel Movements 2 ABP, PAP, CO, CI - Last Documented Arterial Blood Pressure 141/61 - Exam GENERAL EXAM: Alert, cooperative in no acute distress. HEAD: Normocephalic. EYES: Normal reaction of pupils, equal size. NOSE: Clear with pink turbinates. THROAT: No erythema or exudates. NECK: No masses, no JVD. CHEST: No chest wall deformity. LUNGS: Equal air entry with bilateral rhonchi. CVS: S1 and S2 normal with no audible murmurs, regular rhythm. ABDOMEN: Soft, normal bowel sounds, no guarding or rigidity. Extremities: There is no peripheral edema. No clubbing, no cyanosis. Peripheral pulses are intact. - Labs CBC & Chem 7: 06/04/16 09:13 06/04/16 09:13 Labs: Abnormal Lab Results - Last 24 Hours (Table) 06/03/16 06/03/16 06/04/16 Range/Units 17:10 20:24 07:16 RBC (4.30-5.90) m/uL Hgb (13.0-17.5) gm/dL Hct (39.0-53.0) % Plt Count (150-450) k/uL Lymphocytes # (1.0-4.8) k/uL Glucose (74-99) mg/dL POC Glucose (mg/dL) 231 H 249 H 139 H (75-99) mg/dL Calcium (8.4-10.2) mg/dL Total Bilirubin (0.2-1.3) mg/dL AST (17-59) U/L Alkaline Phosphatase (38-126) U/L Total Protein (6.3-8.2) g/dL Albumin (3.5-5.0) g/dL 06/04/16 06/04/16 06/04/16 Range/Units 09:13 09:13 12:22 RBC 3.15 L (4.30-5.90) m/uL Hgb 10.4 L (13.0-17.5) gm/dL Hct 31.3 L (39.0-53.0) % Plt Count 106 L (150-450) k/uL Lymphocytes # 0.8 L (1.0-4.8) k/uL Glucose 149 H (74-99) mg/dL POC Glucose (mg/dL) 140 H (75-99) mg/dL Calcium 7.9 L (8.4-10.2) mg/dL Total Bilirubin 2.7 H (0.2-1.3) mg/dL AST 93 H (17-59) U/L Alkaline Phosphatase 409 H (38-126) U/L Total Protein 5.9 L (6.3-8.2) g/dL Albumin 1.8 L (3.5-5.0) g/dL Assessment and Plan Plan: Impression: #1 Acute hypoxic respiratory failure secondary to acute cardiac arrest and the patient has recovered neurologically. Currently awake and alert in no acute distress. #2 Acute hepatic encephalopathy with significantly elevated ammonia on presentation. Most likely secondary to underlying liver cirrhosis. Most recent ammonia down to 46. Patient is on rifaximin. #3 Acute rhabdomyolysis with elevated CPK, fluid resuscitated. #4 Acute on chronic renal failure. Proteus mirabilis in the urine. #5 History of chronic liver disease. #6 HIV. #7 Diabetes mellitus. #8 Diabetic neuropathy. #9 Chronic anemia. #10 Pseudomonas and E. coli/ESBL infection of the sputum currently on Merrem and Levaquin. Plan: The patient was seen and evaluated by Dr. Becerra ad reviewed his most recent chest x-ray and labs were reviewed. The patient is more stable from the pulmonary standpoint. We'll continue with his current antibiotics in the form of Merrem. We will increase his activity as tolerated. We'll continue to follow make further recommendations based on his clinical status.
[2016-06-04 17:26] LABS: Glucose,Whole Blood 224 mg/dL (75-99)
--- NOTE | 2016-06-04 18:38 | CONS ---
DATE OF CONSULTATION: 06/04/2016 PSYCHIATRIC CONSULTATION PURPOSE FOR CONSULTATION: Evaluate for depression. INTERVAL HISTORY: This is a followup from Dr. Madera's psychiatric consultation of May 30. It is noted that at the time of the evaluation, Dr. Madera assessed the patient as having marked impairment of cognitive function consistent with delirium. The patient had been on Zoloft, which was discontinued. There was consideration for initiating Cymbalta, which was done. The patient currently is on Cymbalta 30 mg a day. Patient was able to give some accurate history; noted that he was at home on the day of admission to the hospital; he had passed out and understood that he had in fact suffered a cardiac arrest. He is aware that he was confused early on during his hospital stay. He reports that he is doing better in this regard. In regards to his psychiatric history, the patient notes that he has not had long-term problems with depression. He says there are some times where his mood gets down, but it is not persistent. He notes that somewhat recently he was started on Zoloft, which he understood was prescribed for sleep. He said he only took 2 or 3 doses and then stopped it. He said that he slept excessively on it and felt that it caused him to be a little unsteady on his feet. He notes that he had recently been hospitalized for a broken leg. He went into [facility] for rehabilitation. He said that while was at [facility] he very much appreciated the situation there. He said he had an excellent mood there. He believes staff were very supportive. He made a good effort at his rehabilitation. He said he gained strength. He had positive interactions with the staff there. He said that his experience there was very positive. He returned home, though apparently he had only minimal services at home. He reports that currently he is not having problems with depression. He says he is not sleeping so well at night time, though he has had some ups and downs in his sleep. He anticipates that he will be going back for rehabilitation. I talked to the patient's niece, who is his DPOA and his closest family support. She confirmed the history that the patient provided. 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 He does tend to have some issues with down mood in the winter time, mainly because he does not get out. He otherwise likes to be very active. He generally has a positive outlook. The niece confirmed that he did very well at [facility] and that he had an excellent mood there. The niece's major concern was that when he returned home from [facility] he had poor followup that was not adequate to meet his general needs, let alone identify symptoms leading up to his MA. His niece noted that she did not believe that at present the patient needed to be on an antidepressant. If he goes to [facility], which she thought would be the case, he would not need an antidepressant there. There would be concern when he returns home, both in terms of close followup for his mood as well as for comprehensive home care to continue the rehabilitation process. The ( ) does confirm that he has some limitations in cognitive function though overall is able to manage a fair amount of his personal affairs. He had been living with a nephew, though due to the events leading to this hospitalization, the nephew has decided that he cannot continue to watch over the patient. That will be an issue to be anticipated when he is transferred from a rehabilitation program. MENTAL STATUS: Patient was in his room sitting up. He gave good eye contact. Psychomotor activity was a little restless. Speech was clear. He responded appropriately. His thoughts were coherent and goal-directed. His affect was broad. He smiled. He was friendly and pleasant. He did tend to ramble a little, though generally stayed on track with the conversation. His mood was positive. He did not appear to be distressed. There was no indication of thought disorder. ASSESSMENT: At this point the patient appears to show good clearing of delirium. He may not be fully back to baseline, though based on reports from his niece, who knows him well, it does appear that he is getting back to his usual level of function. At this point I will discontinue Cymbalta. There is not a clear reason for him to be on Cymbalta. Also, if he is transferred to [facility] rehabilitation, he has shown a very positive response to that setting and is likely to do well there without needed to be on an antidepressant. A consideration would be when he returns to some more independent living setting, he should be set up for more a comprehensive follow-up program to provide good supervision and management over his home care capabilities as well as to provide him with supportive physical therapy options. Thirty-five minutes was spent in evaluation. I reviewed medical records and reviewed progress with staff. The patient was interviewed. I reviewed discharge plans with the nurse. I discussed care with the patient's DPOA. Greater than 50% of time was spent in counseling and coordination of care. JESUS MANUEL
[2016-06-04] MEDS: MORPHINE SULFATE ER 15 MG TABLET PO SCH (20:40)
[2016-06-04 21:10] LABS: Glucose,Whole Blood 267 mg/dL (75-99)
--- NOTE | 2016-06-04 21:50 | P.PN ---
Subjective Principal diagnosis: Respiratory failure 55-year-old male was noted from the office practice where he is cared for for his HIV infection and his history of severe underlying liver disease. He has a history of nonalcoholic fatty liver disease which has been very severe in the past. He follows with hepatology at [facility] where he's even been evaluated for liver transplantation. However after extensive medical treatment he's had a marked improvement. His extensive ascites resolved. His massive edema resolved. It isn't functioning relatively well. It is related the patient was having shortness of breath. And with this EMS was called. It was related that is a arrives the patient had a cardiopulmonary arrest. AED was applied and he received 2 shocks. He was intubated and transported to hospital with only a brief course of CPR required. The patient is been seen by pulmonary critical care and workup has failed reveal evidence of pulmonary embolus or of an acute myocardial infarction. He has evidence of preserved ejection fraction but does have dilated left atrium. There is concern that there is underlying pneumonia with worsening hepatic encephalopathy as the triggers for his current cardiopulmonary arrest. He remains in the intensive care unit he has been extubated. He was having diarrhea, but C. diff was negative likely from the lactulose is being given. Chest x-ray with basilar infiltrate, and potential infiltrate seen on the computed tomography scan of the left lower lobe. Patient is sitting up. Remains further improved. Recognize my name and says it very clearly. Hallucinations have cleared. No longer seeing animals or other people in the room that are not present. Still not at baseline but improved from yesterday vocal quality is closer to normal. Objective - Vital Signs Vital signs: Vital Signs Temp 98.9 F 06/04/16 15:00 Pulse 72 06/04/16 19:46 Resp 20 06/04/16 15:00 BP 103/59 06/04/16 15:00 Pulse Ox 93 L 06/04/16 15:00 Intake & Output 06/04/16 06/04/16 06/05/16 06:59 18:59 06:59 Output Total 3353 Balance -3353 Weight 103.5 kg Output: Urine 3350 Urine/Stool Mix 3 Other: Voiding Method Urinal Urinal Diaper Diaper ABP, PAP, CO, CI - Last Documented Arterial Blood Pressure 141/61 - Exam 55-year-old male who is extubated opens eyes and smiled but no active speech was noted HEENT: Anicteric conjunctiva are pink and moist nasal mucosa grossly intact without significant lesions, there is no thrush. No lesions in the oral cavity around the prior endotracheal tube Neck: The neck is supple without significant lymphadenopathy or thyromegaly. Lungs: Symmetrical air entry is noted. No stiff and wheezing. Few basilar crackles. No bronchial sounds. Heart: Regular rate and rhythm with an audible S1-S2, no S3 soft S4 There is no significant murmur click or rub, PMI was nondisplaced. Abdomen: Mildly obese Positive bowel sounds soft and nontender without palpable masses or organomegaly. Abdomen is not rigid and there is no fluid wave Extremities: The upper extremities have excellent pulses they are symmetric, no significant petechiae or telangiectasia. No splinter hemorrhages were noted. Lower extremities reveals the bilateral edema Neuro: Was able to state my Name Marlene Sanchez, conversational still not at baseline however as far as his mental status - Labs CBC & Chem 7: 06/04/16 09:13 06/04/16 09:13 Labs: Abnormal Lab Results - Last 24 Hours (Table) 06/04/16 06/04/16 06/04/16 Range/Units 07:16 09:13 09:13 RBC 3.15 L (4.30-5.90) m/uL Hgb 10.4 L (13.0-17.5) gm/dL Hct 31.3 L (39.0-53.0) % Plt Count 106 L (150-450) k/uL Lymphocytes # 0.8 L (1.0-4.8) k/uL Glucose 149 H (74-99) mg/dL POC Glucose (mg/dL) 139 H (75-99) mg/dL Calcium 7.9 L (8.4-10.2) mg/dL Total Bilirubin 2.7 H (0.2-1.3) mg/dL AST 93 H (17-59) U/L Alkaline Phosphatase 409 H (38-126) U/L Total Protein 5.9 L (6.3-8.2) g/dL Albumin 1.8 L (3.5-5.0) g/dL 06/04/16 06/04/16 06/04/16 Range/Units 12:22 17:15 21:04 RBC (4.30-5.90) m/uL Hgb (13.0-17.5) gm/dL Hct (39.0-53.0) % Plt Count (150-450) k/uL Lymphocytes # (1.0-4.8) k/uL Glucose (74-99) mg/dL POC Glucose (mg/dL) 140 H 224 H 267 H (75-99) mg/dL Calcium (8.4-10.2) mg/dL Total Bilirubin (0.2-1.3) mg/dL AST (17-59) U/L Alkaline Phosphatase (38-126) U/L Total Protein (6.3-8.2) g/dL Albumin (3.5-5.0) g/dL Laboratory Results WBC 7.9 k/uL (3.8-10.6) 06/04/16 09:13 RBC 3.15 m/uL (4.30-5.90) L 06/04/16 09:13 Hgb 10.4 gm/dL (13.0-17.5) L 06/04/16 09:13 Hct 31.3 % (39.0-53.0) L 06/04/16 09:13 MCV 99.5 fL (80.0-100.0) 06/04/16 09:13 MCH 33.1 pg (25.0-35.0) 06/04/16 09:13 MCHC 33.2 g/dL (31.0-37.0) 06/04/16 09:13 RDW 14.6 % (11.5-15.5) 06/04/16 09:13 Plt Count 106 k/uL (150-450) L 06/04/16 09:13 Neutrophils % 78 % 06/04/16 09:13 Lymphocytes % 11 % 06/04/16 09:13 Monocytes % 7 % 06/04/16 09:13 Eosinophils % 3 % 06/04/16 09:13 Basophils % 1 % 06/04/16 09:13 Neutrophils # 6.2 k/uL (1.3-7.7) 06/04/16 09:13 Lymphocytes # 0.8 k/uL (1.0-4.8) L 06/04/16 09:13 Monocytes # 0.5 k/uL (0-1.0) 06/04/16 09:13 Eosinophils # 0.2 k/uL (0-0.7) 06/04/16 09:13 Basophils # 0.1 k/uL (0-0.2) 06/04/16 09:13 Hypochromasia Marked 05/29/16 04:40 Poikilocytosis Slight 06/04/16 09:13 Macrocytosis Slight 06/04/16 09:13 PT 13.7 sec (9.0-12.0) H 05/25/16 04:51 INR 1.4 (<1.1) 05/25/16 04:51 APTT 29.6 sec (22.0-30.0) 05/25/16 04:51 Sample Site MIRLANDE 05/28/16 04:56 ABG pH 7.42 (7.35-7.45) 05/28/16 04:56 ABG pCO2 34 mmHg (35-45) L 05/28/16 04:56 ABG pO2 119 mmHg (83-108) H 05/28/16 04:56 ABG HCO3 21 mmol/L (21-25) 05/28/16 04:56 ABG Total CO2 22 mmol/L (19-24) 05/28/16 04:56 ABG O2 Saturation 98.8 % (94-97) H 05/28/16 04:56 ABG Base Excess -2.7 mmol/L 05/28/16 04:56 FiO2 45 % 05/28/16 04:56 Sodium 139 mmol/L (137-145) 06/04/16 09:13 Potassium 3.5 mmol/L (3.5-5.1) 06/04/16 09:13 Chloride 107 mmol/L (98-107) 06/04/16 09:13 Carbon Dioxide 26 mmol/L (22-30) 06/04/16 09:13 Anion Gap 6 mmol/L 06/04/16 09:13 BUN 11 mg/dL (9-20) 06/04/16 09:13 Creatinine 0.73 mg/dL (0.66-1.25) 06/04/16 09:13 Est GFR (MDRD) Af Amer >60 (>60 ml/min/1.73 sqM) 06/04/16 09:13 Est GFR (MDRD) Non-Af >60 (>60 ml/min/1.73 sqM) 06/04/16 09:13 Glucose 149 mg/dL (74-99) H 06/04/16 09:13 POC Glucose (mg/dL) 267 mg/dL (75-99) H 06/04/16 21:04 POC Glu Continuous Improvement Coordinator ID Emily Perez 06/04/16 21:[address] Glu mg/dL 114 mg/dL 05/24/16 14:05 Hemoglobin A1c 5.6 % (4.2-6.1) 05/24/16 14:05 Calcium 7.9 mg/dL (8.4-10.2) L 06/04/16 09:13 Phosphorus 2.4 mg/dL (2.5-4.5) L 05/29/16 04:40 Magnesium 1.6 mg/dL (1.6-2.3) 06/04/16 09:13 Total Bilirubin 2.7 mg/dL (0.2-1.3) H 06/04/16 09:13 AST 93 U/L (17-59) H 06/04/16 09:13 ALT 70 U/L (21-72) 06/04/16 09:13 Alkaline Phosphatase 409 U/L (38-126) H 06/04/16 09:13 Ammonia 28 umol/L (<30) 05/28/16 08:10 Total Creatine Kinase 5202 U/L (55-170) H 05/24/16 22:15 CK-MB (CK-2) 5.2 ng/mL (0.0-2.4) H* 05/25/16 04:51 CK-MB (CK-2) Rel Index 05/24/16 22:15 Troponin I 2.660 ng/mL (0.000-0.034) H* 05/25/16 04:51 NT-Pro-B Natriuret Pep 6930 pg/mL 06/04/16 09:13 Total Protein 5.9 g/dL (6.3-8.2) L 06/04/16 09:13 Albumin 1.8 g/dL (3.5-5.0) L 06/04/16 09:13 TSH 1.620 mIU/L (0.465-4.680) 05/24/16 14:05 Urine Color Yellow 05/24/16 14:00 Urine Appearance Clear (Clear) 05/24/16 14:00 Urine pH 7.5 (5.0-8.0) 05/24/16 14:00 Ur Specific Clutier 1.010 (1.001-1.035) 05/24/16 14:00 Urine Protein 2+ (Negative) H 05/24/16 14:00 Urine Glucose (UA) 1+ (Negative) H 05/24/16 14:00 Urine Ketones Negative (Negative) 05/24/16 14:00 Urine Blood Moderate (Negative) H 05/24/16 14:00 Urine Nitrate Negative (Negative) 05/24/16 14:00 Urine Bilirubin Negative (Negative) 05/24/16 14:00 Urine Urobilinogen 2.0 mg/dL (<2.0) 05/24/16 14:00 Ur Leukocyte Esterase Negative (Negative) 05/24/16 14:00 Urine RBC 5 /hpf (0-5) 05/24/16 14:00 Urine WBC 14 /hpf (0-5) H 05/24/16 14:00 Ur Squamous Epith Cells <1 /hpf (0-4) 05/24/16 14:00 Urine Bacteria Rare /hpf (None) H 05/24/16 14:00 Hyaline Casts 2 /lpf (0-2) 05/24/16 01:30 Urine Mucus Rare /hpf (None) H 05/24/16 14:00 Urine Opiates Screen Detected (NotDetected) H 05/24/16 14:00 Ur Oxycodone Screen Not Detected (NotDetected) 05/24/16 14:00 Urine Methadone Screen Not Detected (NotDetected) 05/24/16 14:00 Ur Propoxyphene Screen Not Detected (NotDetected) 05/24/16 14:00 Ur Barbiturates Screen Not Detected (NotDetected) 05/24/16 14:00 U Tricyclic Antidepress Not Detected (NotDetected) 05/24/16 14:00 Ur Phencyclidine Scrn Not Detected (NotDetected) 05/24/16 14:00 Ur Amphetamines Screen Not Detected (NotDetected) 05/24/16 14:00 U Methamphetamines Scrn Not Detected (NotDetected) 05/24/16 14:00 U Benzodiazepines Scrn Not Detected (NotDetected) 05/24/16 14:00 Urine Cocaine Screen Not Detected (NotDetected) 05/24/16 14:00 U Marijuana (THC) Screen Not Detected (NotDetected) 05/24/16 14:00 C. difficile (EIA) Intrp Negative (Negative) 05/27/16 11:00 Microbiology 05/25/16 21:00 Blood Blood Culture - Final No Growth after 144 hours 05/25/16 20:10 Blood Blood Culture - Final No Growth after 144 hours 05/25/16 21:00 Urine,Catheterized Urine Culture - Final Proteus mirabilis 05/24/16 14:52 Sputum Gram Stain - Final 05/24/16 14:52 Sputum Sputum Culture - Final Pseudomonas aeruginosa Escherichia coli 05/25/16 20:10 Sputum Gram Stain - Final 05/25/16 20:10 Sputum Sputum Culture - Final Escherichia coli Assessment and Plan (1) Cardiac arrest Narrative/Plan: 55-year-old male known to the service because of his follow-up in the office for his HIV infection. His home HIV medications have been reordered with his Isentress Selzentry and Epivir. These should continue. Patient had evidence of cardiopulmonary arrest and is now improving. Patient has evidence of ESBL E. coli as well as pseudomonas aeruginosa in his sputum. And with this his antibiotic therapy is altered to meropenem. Follow-up cultures will be obtained as indicated. The urine culture reveals ESBL Proteus, also treated with the Merrem Overall he is improved. Doing well with current supportive care. Antibiotic therapy is planned for 10 day course of therapy for the multiple pathogens and found both in his sputum as well as his urine. Fortunately he is showing some significant improvement at this time. HIV medications to continue. Incentive spirometer is being utilized Status: Acute (2) Hepatic encephalopathy Status: Acute (3) Pseudomonas pneumonia Status: Acute
[2016-06-05] MEDS: MEROPENEM 1 GM in SODIUM CHLORIDE 0.9% 100 ML IVPB SCH ×3 (06:13→21:11)
[2016-06-05] MEDS: LAMIVUDINE 300 MG PO SCH (07:31)
[2016-06-05] MEDS: MARAVIROC 300 MG PO SCH ×2 (07:31→21:11)
[2016-06-05] MEDS: RALTEGRAVIR POTASSIUM 400 MG PO SCH ×2 (07:32→21:11)
[2016-06-05] MEDS: CEVIMELINE 30 MG CAP PO SCH ×3 (07:32→21:11)
[2016-06-05] MEDS: METOPROLOL TARTRATE 12.5 MG TAB PO SCH ×2 (07:33→21:11)
[2016-06-05] MEDS: FUROSEMIDE 10 MG/ML 2 ML VIAL IV SCH ×2 (07:33→17:34)
[2016-06-05] MEDS: PANTOPRAZOLE 40 MG TABLET PO SCH (07:34)
[2016-06-05] MEDS: INSULIN LISPRO (humaLOG) 300 UNIT/3 ML VIAL SQ SCH ×4 (07:34→21:10)
[2016-06-05] MEDS: SPIRONOLACTONE 25 MG TAB PO SCH (07:35)
[2016-06-05] MEDS: RIFAXIMIN 550 MG TABLET PO SCH ×2 (07:36→21:11)
[2016-06-05 07:44] LABS: Glucose,Whole Blood 147 mg/dL (75-99)
--- NOTE | 2016-06-05 09:01 | PN ---
DATE OF SERVICE: 06/04/2016 PRESENTING COMPLAINT: Fluid overload. This patient initially presented with cardiac arrest, acute [place], also UTI, pneumonia, underlying cirrhosis, HIV. Continues to do better. Physical Therapy is seeing him today. He has been putting out good urine. ( ) is improved. Patient is rather talkative. Patient has put out close to -4 L of fluid since has been on IV Lasix. Review of systems done for constitutional, cardiovascular, GI, pulmonary; relevant findings as above. Current medications are reviewed that include IV meropenem. On examination, temperature 98.9, pulse 68, respiration 20, blood pressure 103/59, Pulse ox 93% on room air. GENERAL APPEARANCE: Sitting up, awake, talking. EYES: Pupils equal. Conjunctivae normal. NECK: JVD not raised. Mass not palpable. Respiratory effort increased. LUNGS: Decreased breath sounds. CARDIOVASCULAR: First and second sounds normal. Decreased edema. ABDOMEN: Soft, nontender. Liver and spleen not palpable. PSYCHIATRY: Alert and oriented x3. Mood and affect cheerful. INVESTIGATIONS: White count 7.9. Potassium 3.5. BUN and creatinine are normal. Accu-Cheks are noted. ProBNP 6930. ASSESSMENT: 1. Acute myocardial infarction upon presentation causing patient to have a cardiac arrest, non-ST elevation type. 2. Acute metabolic encephalopathy, multifactorial, present on admission including hepatic encephalopathy, now nearly resolved. 3. Acute delirium, multifactorial, present on admission which improved. 4. Liver cirrhosis. 5. Chronic kidney disease stage III, from diabetic nephropathy and nephrosclerosis. 6. HIV. 7. Diabetes mellitus type 2, chronically on insulin, causing peripheral neuropathy. 8. Acute hypoxic respiratory failure, status post ventilator. 9. Hypernatremia from free water deficit, improved. 10. Hyperlipidemia with liver disease and possible protein calorie malnutrition with decreased oral intake. 11. Left lower lobe pneumonia from Pseudomonas and extended spectrum beta-lactamase Escherichia coli with clinical improvement. 12. Acute urinary tract infection from Proteus mirabilis. 13. Depression, not otherwise specified. PLAN: Continue current medication and treatment plan. Will repeat a chest x-ray in the morning, keep the patient on IV Lasix as he is diuresing really well, Looking at discharge to inpatient rehab in 24 to 48 hours.
[2016-06-05 09:06] LABS: Anion Gap 5 mmol/L; Blood Urea Nitrogen 12 mg/dL (9-20); Calcium 8.1 mg/dL (8.4-10.2); Carbon Dioxide 32 mmol/L (22-30); Chloride 103 mmol/L (98-107); Glucose 145 mg/dL (74-99); Non-African American GFR(MDRD) >60 (>60 ml/min/1.73 sqM); Potassium 3.9 mmol/L (3.5-5.1); Sodium 140 mmol/L (137-145)
--- NOTE | 2016-06-05 10:18 | XR ---
EXAMINATION TYPE: XR chest 2V DATE OF EXAM: 06/05/2016 10:14 AM HISTORY: Difficulty breathing. REFERENCE: Previous study dated 06/02/2016. FINDINGS: The heart is enlarged. Lung volumes are prominent. There is a left-sided effusion. Pulmonar y vasculature has returned to normal. There is no cade edema at this time. There is some airspace di sease at the left lung base. IMPRESSION: 1. CARDIOMEGALY. 2. LEFT-SIDED EFFUSION. 3. LEFT BASILAR AIRSPACE DISEASE.
--- NOTE | 2016-06-05 10:50 | CONS ---
DATE OF CONSULTATION: 06/05/2016 PURPOSE FOR CONSULTATION: Evaluate for depression. INTERVAL HISTORY: Patient has been doing fairly well. He has no complaints today. He has a good outlook. He talked at length about his home situation. He is anticipating going to a rehabilitation program prior to returning home. He slept well last night. He has a good appetite. He has not had any problems with discontinuation of Cymbalta. When I saw the patient, he was sitting in his bed. He had good eye contact. Psychomotor activity was normal. His speech was clear. He rambled some. His affect was in a good range. His mood even. He smiled. He did not appear to be distressed. ASSESSMENT: I will continue the current treatment plan. At this point the patient will continue off antidepressant medications. I discussed with the patient the importance of having a good treatment plan set up at some point when he leaves rehabilitation and returns to his home whether or not he develops any issues with depression, probably relates to the level of support he gets at home. It will be important for him to have a could treatment program with some continued help for physical rehabilitation.
[2016-06-05] MEDS: IPRATROPIUM-ALBUTEROL 3 ML NEB INHALATION SCH ×4 (10:55→20:12)
[2016-06-05 12:14] LABS: Glucose,Whole Blood 253 mg/dL (75-99)
[2016-06-05 17:20] LABS: Glucose,Whole Blood 219 mg/dL (75-99)
[2016-06-05 21:04] LABS: Glucose,Whole Blood 419 mg/dL (75-99)
[2016-06-05] MEDS: FUROSEMIDE 10 MG/ML 4 ML VIAL IV SCH (21:10)
[2016-06-05] MEDS: MORPHINE SULFATE ER 15 MG TABLET PO SCH (21:11)
--- NOTE | 2016-06-05 22:13 | PN ---
DATE OF SERVICE: 06/05/2016 PRESENTING COMPLAINT: Fluid overload. INTERVAL HISTORY: This patient is status post cardiac arrest, acute [place], urinary tract infection, pneumonia, underlying cirrhosis, HIV. He continues to diurese well. Edema continues to go down. Seen by psychiatrist earlier. He is okay with keeping him off the Cymbalta. Review of systems done for constitutional, cardiovascular, GI, pulmonary; relevant findings as above. Current medications are reviewed and include IV meropenem, ( ), IV Lasix. On examination, temperature 97.4, pulse 62, respirations 20, blood pressure 120/56, pulse ox 95% on room air. GENERAL: Lying in bed, awake, talking. EYES: Pupils equal. Conjunctivae normal. NECK: JVD not raised. RESPIRATORY: Effort increased. LUNGS: Decreased breath sounds. CARDIOVASCULAR: First and second heart sounds are normal. Edema decreased but still present in the thighs. ABDOMEN: Soft, nontender. Liver and spleen not palpable. PSYCHIATRY: Alert, oriented x3. Mood and affect normal. INVESTIGATIONS: Potassium 3.9. BUN and creatinine normal. ASSESSMENT: 1. Acute myocardial infarction upon presentation causing patient to have a cardiac arrest, non-ST elevation type. 2. Acute metabolic encephalopathy, multifactorial, present on admission, including hepatic encephalopathy, now resolved. 3. Acute delirium, multifactorial, present at admission, resolved. 4. Liver cirrhosis. 5. Chronic kidney disease documented earlier, probably not present as patient's creatinine has come down to normal. 6. HIV. 7. Diabetes mellitus type 2, chronically on insulin, causing peripheral neuropathy. 8. Acute hypoxic respiratory failure status post ventilator. 9. Hyponatremia from free water deficit, improved. 10. Hyperlipidemia with liver disease and possible protein calorie malnutrition with decreased oral intake. 11. Left lower left lower lobe pneumonia from Pseudomonas and extended spectrum beta-lactamase Escherichia coli with significant improvement. 12. Acute urinary tract infection from Proteus mirabilis. 13. Depression, not otherwise specified, much improved. No further medications per psychiatry. 14. Hypoalbuminemia from decreased oral intake and protein calorie malnutrition. 15. Acute renal failure. Patient's creatinine was 1.4, now down to 0.8. Does not appear to be any chronic kidney disease. PLAN: Patient still will be diuresed. Still has fluid. Orthopedics will be consulted to see if the patient can weight bear more on his left leg. Current treatment plan. Repeat chest x-ray shows improved fluid status.
--- NOTE | 2016-06-05 23:22 | P.PN ---
Subjective Principal diagnosis: Respiratory failure 55-year-old male was noted from the office practice where he is cared for for his HIV infection and his history of severe underlying liver disease. He has a history of nonalcoholic fatty liver disease which has been very severe in the past. He follows with hepatology at [facility] where he's even been evaluated for liver transplantation. However after extensive medical treatment he's had a marked improvement. His extensive ascites resolved. His massive edema resolved. It isn't functioning relatively well. It is related the patient was having shortness of breath. And with this EMS was called. It was related that is a arrives the patient had a cardiopulmonary arrest. AED was applied and he received 2 shocks. He was intubated and transported to hospital with only a brief course of CPR required. The patient is been seen by pulmonary critical care and workup has failed reveal evidence of pulmonary embolus or of an acute myocardial infarction. He has evidence of preserved ejection fraction but does have dilated left atrium. There is concern that there is underlying pneumonia with worsening hepatic encephalopathy as the triggers for his current cardiopulmonary arrest. He remains in the intensive care unit he has been extubated. He was having diarrhea, but C. diff was negative likely from the lactulose is being given. Chest x-ray with basilar infiltrate, and potential infiltrate seen on the computed tomography scan of the left lower lobe. Patient is sitting up. Remains further improved. Recognize my name and says it very clearly. Hallucinations have cleared. No longer seeing animals or other people in the room that are not present. Still not at baseline but improved from yesterday vocal quality is closer to normal. Anxious about return to rehab Objective - Vital Signs Vital signs: Vital Signs Temp 97.4 F L 06/05/16 14:42 Pulse 88 06/05/16 21:09 Resp 20 06/05/16 14:42 BP 136/64 06/05/16 21:09 Pulse Ox 96 06/05/16 16:41 Intake & Output 06/05/16 06/05/16 06/06/16 06:59 18:59 06:59 Intake Total 200 Output Total 1300 650 300 Balance -1100 -650 -300 Weight 85.5 kg Intake: Oral 200 Output: Urine 1300 650 300 Other: Voiding Method Urinal Urinal Urinal Diaper Diaper Diaper # Voids 2 1 # Bowel Movements 1 1 ABP, PAP, CO, CI - Last Documented Arterial Blood Pressure 141/61 - Exam 55-year-old male who is extubated opens eyes and smiled but no active speech was noted HEENT: Anicteric conjunctiva are pink and moist nasal mucosa grossly intact without significant lesions, there is no thrush. No lesions in the oral cavity around the prior endotracheal tube Neck: The neck is supple without significant lymphadenopathy or thyromegaly. Lungs: Symmetrical air entry is noted. No stiff and wheezing. Few basilar crackles. No bronchial sounds. Heart: Regular rate and rhythm with an audible S1-S2, no S3 soft S4 There is no significant murmur click or rub, PMI was nondisplaced. Abdomen: Mildly obese Positive bowel sounds soft and nontender without palpable masses or organomegaly. Abdomen is not rigid and there is no fluid wave Extremities: The upper extremities have excellent pulses they are symmetric, no significant petechiae or telangiectasia. No splinter hemorrhages were noted. Lower extremities reveals the bilateral edema Neuro: Was able to state my Name Marlene Sanchez, conversational still not at baseline however as far as his mental status - Labs CBC & Chem 7: 06/04/16 09:13 06/05/16 07:44 Labs: Abnormal Lab Results - Last 24 Hours (Table) 06/05/16 06/05/16 06/05/16 Range/Units 07:23 07:44 11:58 Carbon Dioxide 32 H (22-30) mmol/L Glucose 145 H (74-99) mg/dL POC Glucose (mg/dL) 147 H 253 H (75-99) mg/dL Calcium 8.1 L (8.4-10.2) mg/dL 06/05/16 06/05/16 Range/Units 16:41 21:02 Carbon Dioxide (22-30) mmol/L Glucose (74-99) mg/dL POC Glucose (mg/dL) 219 H 419 H (75-99) mg/dL Calcium (8.4-10.2) mg/dL Laboratory Results WBC 7.9 k/uL (3.8-10.6) 06/04/16 09:13 RBC 3.15 m/uL (4.30-5.90) L 06/04/16 09:13 Hgb 10.4 gm/dL (13.0-17.5) L 06/04/16 09:13 Hct 31.3 % (39.0-53.0) L 06/04/16 09:13 MCV 99.5 fL (80.0-100.0) 06/04/16 09:13 MCH 33.1 pg (25.0-35.0) 06/04/16 09:13 MCHC 33.2 g/dL (31.0-37.0) 06/04/16 09:13 RDW 14.6 % (11.5-15.5) 06/04/16 09:13 Plt Count 106 k/uL (150-450) L 06/04/16 09:13 Neutrophils % 78 % 06/04/16 09:13 Lymphocytes % 11 % 06/04/16 09:13 Monocytes % 7 % 06/04/16 09:13 Eosinophils % 3 % 06/04/16 09:13 Basophils % 1 % 06/04/16 09:13 Neutrophils # 6.2 k/uL (1.3-7.7) 06/04/16 09:13 Lymphocytes # 0.8 k/uL (1.0-4.8) L 06/04/16 09:13 Monocytes # 0.5 k/uL (0-1.0) 06/04/16 09:13 Eosinophils # 0.2 k/uL (0-0.7) 06/04/16 09:13 Basophils # 0.1 k/uL (0-0.2) 06/04/16 09:13 Hypochromasia Marked 05/29/16 04:40 Poikilocytosis Slight 06/04/16 09:13 Macrocytosis Slight 06/04/16 09:13 PT 13.7 sec (9.0-12.0) H 05/25/16 04:51 INR 1.4 (<1.1) 05/25/16 04:51 APTT 29.6 sec (22.0-30.0) 05/25/16 04:51 Sample Site [facility] 05/28/16 04:56 ABG pH 7.42 (7.35-7.45) 05/28/16 04:56 ABG pCO2 34 mmHg (35-45) L 05/28/16 04:56 ABG pO2 119 mmHg (83-108) H 05/28/16 04:56 ABG HCO3 21 mmol/L (21-25) 05/28/16 04:56 ABG Total CO2 22 mmol/L (19-24) 05/28/16 04:56 ABG O2 Saturation 98.8 % (94-97) H 05/28/16 04:56 ABG Base Excess -2.7 mmol/L 05/28/16 04:56 FiO2 45 % 05/28/16 04:56 Sodium 140 mmol/L (137-145) 06/05/16 07:44 Potassium 3.9 mmol/L (3.5-5.1) 06/05/16 07:44 Chloride 103 mmol/L (98-107) 06/05/16 07:44 Carbon Dioxide 32 mmol/L (22-30) H 06/05/16 07:44 Anion Gap 5 mmol/L 06/05/16 07:44 BUN 12 mg/dL (9-20) 06/05/16 07:44 Creatinine 0.80 mg/dL (0.66-1.25) 06/05/16 07:44 Est GFR (MDRD) Af Amer >60 (>60 ml/min/1.73 sqM) 06/05/16 07:44 Est GFR (MDRD) Non-Af >60 (>60 ml/min/1.73 sqM) 06/05/16 07:44 Glucose 145 mg/dL (74-99) H 06/05/16 07:44 POC Glucose (mg/dL) 419 mg/dL (75-99) H 06/05/16 21:02 POC Glu [employer] Process Control Technician Shelly Ernst 06/05/16 21:[address] Glu mg/dL 114 mg/dL 05/24/16 14:05 Hemoglobin A1c 5.6 % (4.2-6.1) 05/24/16 14:05 Calcium 8.1 mg/dL (8.4-10.2) L 06/05/16 07:44 Phosphorus 2.4 mg/dL (2.5-4.5) L 05/29/16 04:40 Magnesium 1.6 mg/dL (1.6-2.3) 06/04/16 09:13 Total Bilirubin 2.7 mg/dL (0.2-1.3) H 06/04/16 09:13 AST 93 U/L (17-59) H 06/04/16 09:13 ALT 70 U/L (21-72) 06/04/16 09:13 Alkaline Phosphatase 409 U/L (38-126) H 06/04/16 09:13 Ammonia 28 umol/L (<30) 05/28/16 08:10 Total Creatine Kinase 5202 U/L (55-170) H 05/24/16 22:15 CK-MB (CK-2) 5.2 ng/mL (0.0-2.4) H* 05/25/16 04:51 CK-MB (CK-2) Rel Index 05/24/16 22:15 Troponin I 2.660 ng/mL (0.000-0.034) H* 05/25/16 04:51 NT-Pro-B Natriuret Pep 6930 pg/mL 06/04/16 09:13 Total Protein 5.9 g/dL (6.3-8.2) L 06/04/16 09:13 Albumin 1.8 g/dL (3.5-5.0) L 06/04/16 09:13 TSH 1.620 mIU/L (0.465-4.680) 05/24/16 14:05 Urine Color Yellow 05/24/16 14:00 Urine Appearance Clear (Clear) 05/24/16 14:00 Urine pH 7.5 (5.0-8.0) 05/24/16 14:00 Ur Specific [place] 1.010 (1.001-1.035) 05/24/16 14:00 Urine Protein 2+ (Negative) H 05/24/16 14:00 Urine Glucose (UA) 1+ (Negative) H 05/24/16 14:00 Urine Ketones Negative (Negative) 05/24/16 14:00 Urine Blood Moderate (Negative) H 05/24/16 14:00 Urine Nitrate Negative (Negative) 05/24/16 14:00 Urine Bilirubin Negative (Negative) 05/24/16 14:00 Urine Urobilinogen 2.0 mg/dL (<2.0) 05/24/16 14:00 Ur Leukocyte Esterase Negative (Negative) 05/24/16 14:00 Urine RBC 5 /hpf (0-5) 05/24/16 14:00 Urine WBC 14 /hpf (0-5) H 05/24/16 14:00 Ur Squamous Epith Cells <1 /hpf (0-4) 05/24/16 14:00 Urine Bacteria Rare /hpf (None) H 05/24/16 14:00 Hyaline Casts 2 /lpf (0-2) 05/24/16 01:30 Urine Mucus Rare /hpf (None) H 05/24/16 14:00 Urine Opiates Screen Detected (NotDetected) H 05/24/16 14:00 Ur Oxycodone Screen Not Detected (NotDetected) 05/24/16 14:00 Urine Methadone Screen Not Detected (NotDetected) 05/24/16 14:00 Ur Propoxyphene Screen Not Detected (NotDetected) 05/24/16 14:00 Ur Barbiturates Screen Not Detected (NotDetected) 05/24/16 14:00 U Tricyclic Antidepress Not Detected (NotDetected) 05/24/16 14:00 Ur Phencyclidine Scrn Not Detected (NotDetected) 05/24/16 14:00 Ur Amphetamines Screen Not Detected (NotDetected) 05/24/16 14:00 U Methamphetamines Scrn Not Detected (NotDetected) 05/24/16 14:00 U Benzodiazepines Scrn Not Detected (NotDetected) 05/24/16 14:00 Urine Cocaine Screen Not Detected (NotDetected) 05/24/16 14:00 U Marijuana (THC) Screen Not Detected (NotDetected) 05/24/16 14:00 C. difficile (EIA) Intrp Negative (Negative) 05/27/16 11:00 Microbiology 05/25/16 21:00 Blood Blood Culture - Final No Growth after 144 hours 05/25/16 20:10 Blood Blood Culture - Final No Growth after 144 hours 05/25/16 21:00 Urine,Catheterized Urine Culture - Final Proteus mirabilis 05/24/16 14:52 Sputum Gram Stain - Final 05/24/16 14:52 Sputum Sputum Culture - Final Pseudomonas aeruginosa Escherichia coli 05/25/16 20:10 Sputum Gram Stain - Final 05/25/16 20:10 Sputum Sputum Culture - Final Escherichia coli Assessment and Plan (1) Cardiac arrest Narrative/Plan: 55-year-old male known to the service because of his follow-up in the office for his HIV infection. His home HIV medications have been reordered with his Isentress Selzentry and Epivir. These should continue. Patient had evidence of cardiopulmonary arrest and is now improving. Patient has evidence of ESBL E. coli as well as pseudomonas aeruginosa in his sputum. And with this his antibiotic therapy is altered to meropenem. Follow-up cultures will be obtained as indicated. The urine culture reveals ESBL Proteus, also treated with the Merrem Overall he is improved. Doing well with current supportive care. Antibiotic therapy is planned for 10 day course of therapy ( today is 12/12)for the multiple pathogens and found both in his sputum as well as his urine. Fortunately he is showing some significant improvement at this time. HIV medications to continue. Incentive spirometer is being utilized Status: Acute (2) Hepatic encephalopathy Status: Acute (3) Pseudomonas pneumonia Status: Acute
[2016-06-06 00:14] LABS: Glucose,Whole Blood 227 mg/dL (75-99)
[2016-06-06] MEDS: MEROPENEM 1 GM in SODIUM CHLORIDE 0.9% 100 ML IVPB SCH ×3 (04:14→22:09)
[2016-06-06 07:04] LABS: Glucose,Whole Blood 216 mg/dL (75-99)
[2016-06-06] MEDS: INSULIN LISPRO (humaLOG) 300 UNIT/3 ML VIAL SQ SCH ×5 (08:06→21:49)
[2016-06-06] MEDS: PANTOPRAZOLE 40 MG TABLET PO SCH (08:07)
[2016-06-06] MEDS: CEVIMELINE 30 MG CAP PO SCH ×3 (08:08→21:49)
[2016-06-06] MEDS: FUROSEMIDE 10 MG/ML 4 ML VIAL IV SCH ×2 (08:09→22:08)
[2016-06-06] MEDS: LAMIVUDINE 300 MG PO SCH (08:09)
[2016-06-06] MEDS: MARAVIROC 300 MG PO SCH ×2 (08:10→21:24)
[2016-06-06] MEDS: RALTEGRAVIR POTASSIUM 400 MG PO SCH ×2 (08:11→21:23)
[2016-06-06] MEDS: METOPROLOL TARTRATE 12.5 MG TAB PO SCH ×2 (08:11→21:22)
[2016-06-06] MEDS: RIFAXIMIN 550 MG TABLET PO SCH ×2 (08:12→21:23)
[2016-06-06] MEDS: SPIRONOLACTONE 25 MG TAB PO SCH (08:12)
[2016-06-06 09:53] LABS: Anion Gap 7 mmol/L; Blood Urea Nitrogen 13 mg/dL (9-20); Calcium 7.8 mg/dL (8.4-10.2); Carbon Dioxide 31 mmol/L (22-30); Chloride 102 mmol/L (98-107); Glucose 206 mg/dL (74-99); Magnesium 1.7 mg/dL (1.6-2.3); Non-African American GFR(MDRD) >60 (>60 ml/min/1.73 sqM); Potassium 3.3 mmol/L (3.5-5.1); Sodium 140 mmol/L (137-145)
[2016-06-06] MEDS: IPRATROPIUM-ALBUTEROL 3 ML NEB INHALATION SCH ×4 (10:01→19:21)
[2016-06-06 12:08] LABS: Glucose,Whole Blood 260 mg/dL (75-99)
[2016-06-06] MEDS ORDERED: POTASSIUM CHLORIDE ER 20 MEQ TAB.ER PO STA (13:13)
[2016-06-06 17:16] LABS: Glucose,Whole Blood 308 mg/dL (75-99)
--- NOTE | 2016-06-06 20:07 | PN ---
DATE OF SERVICE: 06/06/2016 PRESENTING COMPLAINT: Fluid overload. INTERVAL HISTORY: This patient is status post cardiac arrest, acute [place], urinary tract infection, pneumonia. Has underlying cirrhosis and HIV. Continues to diurese well. The edema continues to go down. Tolerating better, eating better. Lying in bed. Review of systems done for constitutional, cardiovascular, GI, pulmonary; relevant findings as above. Current medications are reviewed that include IV meropenem. On examination, temperature 98.1, pulse 77, respirations 18, blood pressure 115/58, pulse ox 93% on room air. GENERAL APPEARANCE: Sitting in bed, awake. EYES: Pupils equal. Conjunctivae normal. NECK: JVD not raised. Mass not palpable. RESPIRATORY: Effort increased. LUNGS: Diminished breath sounds. CARDIOVASCULAR: First and second heart sounds are normal. Edema is still present in the thighs but decreased from before. ABDOMEN: Soft. Liver spleen not palpable. PSYCHIATRY: Alert and oriented x3. Mood and affect normal. INVESTIGATIONS: Potassium 3.3. Accu-Cheks are noted. ASSESSMENT: 1. Acute myocardial infarction upon presentation causing patient to have a cardiac arrest, non-ST ejection-type. 2. Acute metabolic encephalopathy, multifactorial, present on admission including hepatic encephalopathy, now resolved. 3. Acute delirium, multifactorial, present on admission, resolved. 4. Liver cirrhosis. 5. Chronic kidney disease. Actually renal function is improved; hence this diagnosis is dropped. 6. HIV. 7. Diabetes mellitus type 2, chronically on insulin, causing peripheral neuropathy. 8. Acute hypoxic respiratory failure, status post ventilator. 9. Hypernatremia from free water deficit, improved. 10. Hyperlipidemia. 11. Hypoalbuminemia with liver disease and possible protein calorie malnutrition with decreased oral intake. 12. Left lower lobe pneumonia from Pseudomonas and extended spectrum beta lactamase Escherichia coli with significant improvement. 13. Acute urinary tract infection from Proteus mirabilis. 14. Adrenal specified. Much improved. No further medications per psychiatry. 15. Acute renal failure. Patient's creatinine was 1.4, now normalized. PLAN: Patient will be continued on IV Lasix. He still has edema. We will replace potassium. I asked the nurse yesterday to check with orthopedics on weight-bearing status. I did talk to the nurse today to follow up on the same. In the meantime, we will continue with IV Lasix for right now. We will start the patient back on his Lantus 20 units with 5 with meals.
--- NOTE | 2016-06-06 20:59 | P.PN ---
Subjective Principal diagnosis: Respiratory failure 55-year-old male was noted from the office practice where he is cared for for his HIV infection and his history of severe underlying liver disease. He has a history of nonalcoholic fatty liver disease which has been very severe in the past. He follows with hepatology at [facility] where he's even been evaluated for liver transplantation. However after extensive medical treatment he's had a marked improvement. His extensive ascites resolved. His massive edema resolved. It isn't functioning relatively well. It is related the patient was having shortness of breath. And with this EMS was called. It was related that is a arrives the patient had a cardiopulmonary arrest. AED was applied and he received 2 shocks. He was intubated and transported to hospital with only a brief course of CPR required. The patient is been seen by pulmonary critical care and workup has failed reveal evidence of pulmonary embolus or of an acute myocardial infarction. He has evidence of preserved ejection fraction but does have dilated left atrium. There is concern that there is underlying pneumonia with worsening hepatic encephalopathy as the triggers for his current cardiopulmonary arrest. He remains in the intensive care unit he has been extubated. He was having diarrhea, but C. diff was negative likely from the lactulose is being given. Chest x-ray with basilar infiltrate, and potential infiltrate seen on the computed tomography scan of the left lower lobe. Patient is sitting up. Remains further improved. Recognize my name and says it very clearly. Hallucinations have cleared. No longer seeing animals or other people in the room that are not present. Still not at baseline but improved from yesterday vocal quality is closer to normal. Anxious about return to rehab Objective - Vital Signs Vital signs: Vital Signs Temp 98.1 F 06/06/16 15:00 Pulse 72 06/06/16 19:30 Resp 16 06/06/16 19:26 BP 115/58 06/06/16 15:00 Pulse Ox 93 L 06/06/16 15:00 Intake & Output 06/06/16 06/06/16 06/07/16 06:59 18:59 06:59 Intake Total 1000 236 Output Total 300 Balance -300 1000 236 Weight 94.12 kg Intake: Oral 1000 236 Output: Urine 300 Other: Voiding Method Urinal Urinal Urinal Diaper # Voids 4 1 ABP, PAP, CO, CI - Last Documented Arterial Blood Pressure 141/61 - Exam 55-year-old male who is extubated opens eyes and smiled but no active speech was noted HEENT: Anicteric conjunctiva are pink and moist nasal mucosa grossly intact without significant lesions, there is no thrush. No lesions in the oral cavity around the prior endotracheal tube Neck: The neck is supple without significant lymphadenopathy or thyromegaly. Lungs: Symmetrical air entry is noted. No stiff and wheezing. Few basilar crackles. No bronchial sounds. Heart: Regular rate and rhythm with an audible S1-S2, no S3 soft S4 There is no significant murmur click or rub, PMI was nondisplaced. Abdomen: Mildly obese Positive bowel sounds soft and nontender without palpable masses or organomegaly. Abdomen is not rigid and there is no fluid wave Extremities: The upper extremities have excellent pulses they are symmetric, no significant petechiae or telangiectasia. No splinter hemorrhages were noted. Lower extremities reveals the bilateral edema Neuro: Was able to state my Name Marlene Sanchez, conversational still not at baseline however as far as his mental status - Labs CBC & Chem 7: 06/04/16 09:13 06/06/16 18:49 Labs: Abnormal Lab Results - Last 24 Hours (Table) 06/05/16 06/06/16 06/06/16 Range/Units 21:02 00:12 07:03 Potassium (3.5-5.1) mmol/L Carbon Dioxide (22-30) mmol/L Glucose (74-99) mg/dL POC Glucose (mg/dL) 419 H 227 H 216 H (75-99) mg/dL Calcium (8.4-10.2) mg/dL 06/06/16 06/06/16 06/06/16 Range/Units 08:23 12:06 17:12 Potassium 3.3 L (3.5-5.1) mmol/L Carbon Dioxide 31 H (22-30) mmol/L Glucose 206 H (74-99) mg/dL POC Glucose (mg/dL) 260 H 308 H (75-99) mg/dL Calcium 7.8 L (8.4-10.2) mg/dL Laboratory Results WBC 7.9 k/uL (3.8-10.6) 06/04/16 09:13 RBC 3.15 m/uL (4.30-5.90) L 06/04/16 09:13 Hgb 10.4 gm/dL (13.0-17.5) L 06/04/16 09:13 Hct 31.3 % (39.0-53.0) L 06/04/16 09:13 MCV 99.5 fL (80.0-100.0) 06/04/16 09:13 MCH 33.1 pg (25.0-35.0) 06/04/16 09:13 MCHC 33.2 g/dL (31.0-37.0) 06/04/16 09:13 RDW 14.6 % (11.5-15.5) 06/04/16 09:13 Plt Count 106 k/uL (150-450) L 06/04/16 09:13 Neutrophils % 78 % 06/04/16 09:13 Lymphocytes % 11 % 06/04/16 09:13 Monocytes % 7 % 06/04/16 09:13 Eosinophils % 3 % 06/04/16 09:13 Basophils % 1 % 06/04/16 09:13 Neutrophils # 6.2 k/uL (1.3-7.7) 06/04/16 09:13 Lymphocytes # 0.8 k/uL (1.0-4.8) L 06/04/16 09:13 Monocytes # 0.5 k/uL (0-1.0) 06/04/16 09:13 Eosinophils # 0.2 k/uL (0-0.7) 06/04/16 09:13 Basophils # 0.1 k/uL (0-0.2) 06/04/16 09:13 Hypochromasia Marked 05/29/16 04:40 Poikilocytosis Slight 06/04/16 09:13 Macrocytosis Slight 06/04/16 09:13 PT 13.7 sec (9.0-12.0) H 05/25/16 04:51 INR 1.4 (<1.1) 05/25/16 04:51 APTT 29.6 sec (22.0-30.0) 05/25/16 04:51 Sample Site OCALA 05/28/16 04:56 ABG pH 7.42 (7.35-7.45) 05/28/16 04:56 ABG pCO2 34 mmHg (35-45) L 05/28/16 04:56 ABG pO2 119 mmHg (83-108) H 05/28/16 04:56 ABG HCO3 21 mmol/L (21-25) 05/28/16 04:56 ABG Total CO2 22 mmol/L (19-24) 05/28/16 04:56 ABG O2 Saturation 98.8 % (94-97) H 05/28/16 04:56 ABG Base Excess -2.7 mmol/L 05/28/16 04:56 FiO2 45 % 05/28/16 04:56 Sodium 140 mmol/L (137-145) 06/06/16 08:23 Potassium 4.0 mmol/L (3.5-5.1) 06/06/16 18:49 Chloride 102 mmol/L (98-107) 06/06/16 08:23 Carbon Dioxide 31 mmol/L (22-30) H 06/06/16 08:23 Anion Gap 7 mmol/L 06/06/16 08:23 BUN 13 mg/dL (9-20) 06/06/16 08:23 Creatinine 0.74 mg/dL (0.66-1.25) 06/06/16 08:23 Est GFR (MDRD) Af Amer >60 (>60 ml/min/1.73 sqM) 06/06/16 08:23 Est GFR (MDRD) Non-Af >60 (>60 ml/min/1.73 sqM) 06/06/16 08:23 Glucose 206 mg/dL (74-99) H 06/06/16 08:23 POC Glucose (mg/dL) 308 mg/dL (75-99) H 06/06/16 17:12 POC Glu Retail Asset Protection Specialist ID Tyesha Mayo 06/06/16 17:[address] Glu mg/dL 114 mg/dL 05/24/16 14:05 Hemoglobin A1c 5.6 % (4.2-6.1) 05/24/16 14:05 Calcium 7.8 mg/dL (8.4-10.2) L 06/06/16 08:23 Phosphorus 2.4 mg/dL (2.5-4.5) L 05/29/16 04:40 Magnesium 1.7 mg/dL (1.6-2.3) 06/06/16 08:23 Total Bilirubin 2.7 mg/dL (0.2-1.3) H 06/04/16 09:13 AST 93 U/L (17-59) H 06/04/16 09:13 ALT 70 U/L (21-72) 06/04/16 09:13 Alkaline Phosphatase 409 U/L (38-126) H 06/04/16 09:13 Ammonia 28 umol/L (<30) 05/28/16 08:10 Total Creatine Kinase 5202 U/L (55-170) H 05/24/16 22:15 CK-MB (CK-2) 5.2 ng/mL (0.0-2.4) H* 05/25/16 04:51 CK-MB (CK-2) Rel Index 05/24/16 22:15 Troponin I 2.660 ng/mL (0.000-0.034) H* 05/25/16 04:51 NT-Pro-B Natriuret Pep 6930 pg/mL 06/04/16 09:13 Total Protein 5.9 g/dL (6.3-8.2) L 06/04/16 09:13 Albumin 1.8 g/dL (3.5-5.0) L 06/04/16 09:13 TSH 1.620 mIU/L (0.465-4.680) 05/24/16 14:05 Urine Color Yellow 05/24/16 14:00 Urine Appearance Clear (Clear) 05/24/16 14:00 Urine pH 7.5 (5.0-8.0) 05/24/16 14:00 Ur Specific [place] 1.010 (1.001-1.035) 05/24/16 14:00 Urine Protein 2+ (Negative) H 05/24/16 14:00 Urine Glucose (UA) 1+ (Negative) H 05/24/16 14:00 Urine Ketones Negative (Negative) 05/24/16 14:00 Urine Blood Moderate (Negative) H 05/24/16 14:00 Urine Nitrate Negative (Negative) 05/24/16 14:00 Urine Bilirubin Negative (Negative) 05/24/16 14:00 Urine Urobilinogen 2.0 mg/dL (<2.0) 05/24/16 14:00 Ur Leukocyte Esterase Negative (Negative) 05/24/16 14:00 Urine RBC 5 /hpf (0-5) 05/24/16 14:00 Urine WBC 14 /hpf (0-5) H 05/24/16 14:00 Ur Squamous Epith Cells <1 /hpf (0-4) 05/24/16 14:00 Urine Bacteria Rare /hpf (None) H 05/24/16 14:00 Hyaline Casts 2 /lpf (0-2) 05/24/16 01:30 Urine Mucus Rare /hpf (None) H 05/24/16 14:00 Urine Opiates Screen Detected (NotDetected) H 05/24/16 14:00 Ur Oxycodone Screen Not Detected (NotDetected) 05/24/16 14:00 Urine Methadone Screen Not Detected (NotDetected) 05/24/16 14:00 Ur Propoxyphene Screen Not Detected (NotDetected) 05/24/16 14:00 Ur Barbiturates Screen Not Detected (NotDetected) 05/24/16 14:00 U Tricyclic Antidepress Not Detected (NotDetected) 05/24/16 14:00 Ur Phencyclidine Scrn Not Detected (NotDetected) 05/24/16 14:00 Ur Amphetamines Screen Not Detected (NotDetected) 05/24/16 14:00 U Methamphetamines Scrn Not Detected (NotDetected) 05/24/16 14:00 U Benzodiazepines Scrn Not Detected (NotDetected) 05/24/16 14:00 Urine Cocaine Screen Not Detected (NotDetected) 05/24/16 14:00 U Marijuana (THC) Screen Not Detected (NotDetected) 05/24/16 14:00 C. difficile (EIA) Intrp Negative (Negative) 05/27/16 11:00 Microbiology 05/25/16 21:00 Blood Blood Culture - Final No Growth after 144 hours 05/25/16 20:10 Blood Blood Culture - Final No Growth after 144 hours 05/25/16 21:00 Urine,Catheterized Urine Culture - Final Proteus mirabilis 05/24/16 14:52 Sputum Gram Stain - Final 05/24/16 14:52 Sputum Sputum Culture - Final Pseudomonas aeruginosa Escherichia coli 05/25/16 20:10 Sputum Gram Stain - Final 05/25/16 20:10 Sputum Sputum Culture - Final Escherichia coli Assessment and Plan (1) Cardiac arrest Narrative/Plan: 55-year-old male known to the service because of his follow-up in the office for his HIV infection. His home HIV medications have been reordered with his Isentress Selzentry and Epivir. These should continue. Patient had evidence of cardiopulmonary arrest and is now improving. Patient has evidence of ESBL E. coli as well as pseudomonas aeruginosa in his sputum. And with this his antibiotic therapy is altered to meropenem. Follow-up cultures will be obtained as indicated. The urine culture reveals ESBL Proteus, also treated with the Merrem Overall he is improved. Doing well with current supportive care. Antibiotic therapy is planned for 10 day course of therapy ( today is 01/12)for the multiple pathogens and found both in his sputum as well as his urine. Fortunately he is showing some significant improvement at this time. HIV medications to continue. Incentive spirometer is being utilized Status: Acute (2) Hepatic encephalopathy Status: Acute (3) Pseudomonas pneumonia Status: Acute
[2016-06-06] MEDS ORDERED: INSULIN GLARGINE 100 UNIT/ML 10 ML VIAL SQ SCH (21:00)
[2016-06-06 21:13] LABS: Glucose,Whole Blood 343 mg/dL (75-99)
[2016-06-06] MEDS: MORPHINE SULFATE ER 15 MG TABLET PO SCH (22:50)
[2016-06-07] MEDS: MEROPENEM 1 GM in SODIUM CHLORIDE 0.9% 100 ML IVPB SCH ×2 (05:09→12:53)
[2016-06-07 07:32] LABS: Glucose,Whole Blood 194 mg/dL (75-99)
[2016-06-07] MEDS: INSULIN LISPRO (humaLOG) 300 UNIT/3 ML VIAL SQ SCH ×5 (07:48→17:39)
[2016-06-07] MEDS: FUROSEMIDE 10 MG/ML 4 ML VIAL IV SCH (07:49)
[2016-06-07] MEDS: PANTOPRAZOLE 40 MG TABLET PO SCH (07:49)
[2016-06-07] MEDS: CEVIMELINE 30 MG CAP PO SCH ×2 (07:49→16:43)
[2016-06-07] MEDS: MARAVIROC 300 MG PO SCH (07:50)
[2016-06-07] MEDS: LAMIVUDINE 300 MG PO SCH (07:50)
[2016-06-07] MEDS: METOPROLOL TARTRATE 12.5 MG TAB PO SCH (07:52)
[2016-06-07] MEDS: RALTEGRAVIR POTASSIUM 400 MG PO SCH (07:52)
[2016-06-07] MEDS: RIFAXIMIN 550 MG TABLET PO SCH (07:53)
[2016-06-07] MEDS: SPIRONOLACTONE 25 MG TAB PO SCH (07:53)
--- NOTE | 2016-06-07 08:50 | XR ---
EXAMINATION TYPE: XR tibia fibula LT DATE OF EXAM: 06/07/2016 8:42 AM CLINICAL HISTORY: Postoperative progress study. TECHNIQUE: Two views of the left leg are obtained. COMPARISON: Left leg x-ray April 22, 2016.. FINDINGS: There is large intramedullary gregory with 2 proximal and 2 distal transverse fixating screws t hrough comminuted fracture midshaft level of left tibia. Some callus formation is present. Slight med ial and posterior displacement of distal fracture fragment is seen significantly improved after open reduction internal fixation. There is callus formation through mildly displaced proximal fibular diap hysis fracture. [place] osseous structures are demineralized. Mild diffuse subcutaneous edema is prese nt. Visualized portion of knee and ankle joints is felt within normal limits. IMPRESSION: There is interval open reduction internal fixation with improved alignment and callus fo rmation noted.
[2016-06-07] MEDS: IPRATROPIUM-ALBUTEROL 3 ML NEB INHALATION SCH ×3 (08:53→15:04)
[2016-06-07 11:45] LABS: Glucose,Whole Blood 252 mg/dL (75-99)
--- NOTE | 2016-06-07 14:27 | DS ---
DATE OF ADMISSION: 05/24/2016 DATE OF DISCHARGE: 06/07/2016 FINAL DIAGNOSES: 1. Acute myocardial infarction upon presentation causing the patient to have a cardiac arrest, non-ST elevation type. 2. Acute metabolic encephalopathy, multifactorial, present on admission including hepatic encephalopathy, now resolved. 3. Acute delirium, multifactorial, present on admission, resolved. 4. Liver cirrhosis. 5. Chronic kidney disease, not present. 6. HIV. 7. Diabetes mellitus type 2, chronically on insulin, causing peripheral neuropathy, uncontrolled, hyperglycemia. 8. Acute hypoxic respiratory failure, status post ventilator. 9. Hypernatremia from free water deficit, improved. 10. Hyperlipidemia. 11. Hypoalbuminemia with liver disease and possible protein calorie malnutrition with decreased oral intake. 12. Left lower lobe pneumonia from Pseudomonas and ESBL Escherichia coli with significant improvement. Antibiotics course is completed. 13. Urinary tract infection from Proteus mirabilis. 14. Acute renal failure, prerenal, resolved. HOSPITAL COURSE: This patient presented with cardiac arrest. Troponin was high. Strongly felt to be a possible myocardial infarction. Patient was on the ventilator, extubated,. Was rather delirious secondary encephalopathy, which greatly improved. The patient received IV Lasix for diuresis. By the time of discharge, patient doing much better, talkative, communicating. The patient has a fracture of the left lower extremity which is healing. Talked to Dr. Barraza today, suppose to be toe touch. ON EXAMINATION: LUNGS: Improve air entry. CARDIOVASCULAR: First and second sounds normal. ABDOMEN: Soft, nontender. Some edema in the thighs present. INVESTIGATIONS: BUN and creatinine normal. DISCHARGE MEDICATIONS: 1. Isentress 400 mg b.i.d. 2. Viread 300 mg p.o. Friday, Friday and Friday. 3. Epivir 300 mg p.o. daily. 4. Evoxac 30 mg p.o. t.i.d. 5. Vitamin D2, 50,000 units every 7 days. 6. Lactulose 20 grams p.o. t.i.d. p.r.n. 7. Selzentry 300 mg p.o. b.i.d. 8. Lopressor 12.5 p.o. b.i.d. 9. Xifaxan 550 mg p.o. b.i.d. 10. Humalog per scale. 11. Multivitamin 1 tablet p.o. daily. 12. Protonix 40 mg p.o. daily. 13. Potassium 40 mEq daily. 14. Artificial tears one drop to both eyes q.4 hours p.r.n. 15. Aspirin 81 mg daily. 16. Lipitor 20 mg p.o. daily. 17. Lasix 40 mg daily. 18. Humalog 8 units subcu a.c. t.i.d. 19. Lantus 26 units subcu q.h.s. 20. DuoNeb q.i.d. 21. Lactulose 20 grams p.o. t.i.d., titrate to 2 or 3 BMs a day. 22. MS Contin 15 mg p.o. q.h.s. 23. Aldactone 100 mg daily. Follow up with Dr. Barraza in one week; Dr. Dotson at [facility]; Dr. Sushant Garcia after discharge from [facility]; Dr. Alejo Rivera in one week; Dr. Santana in one week. Discharge planning more than 35 minutes.
--- NOTE | 2016-06-07 15:39 | P.CNOR ---
History of Present Illness - HPI Consult date: 06/07/16 Consult reason: other (Follow-up left tibia/fibular fracture) History of present illness: This is a 55-year-old gentleman who is admitted with multiple medical morbidities. He has active HIV infection is admitted with pneumonia. He had a tib/fib fracture in April 2016 which was fixed surgically with IM gregory by Dr. Barraza. We are consulted for follow-up evaluation and weightbearing status recommendations. Past Medical History Past Medical History: Diabetes Mellitus, Hypertension, Liver Disease Additional Past Medical History / Comment(s): HIV, IDDM type II, cellulitis BLE , loss of all his teeth due to prior medications for the treatment of underlying illnesses, chronic bilateral leg pain, "hole in my heart", murmur, R side of heart is "larger", bilateral leg/feet neuropathy, anemia.04-05-16 lt tibial fracture d/t fall History of Any Multi-Drug Resistant Organisms: ESBL Year Discovered:: 05/25/16 ESBL-E.coli 05/25/16 ESBL Proteus MDRO Source:: Sputum-ESBL; Urine- ESBL Past Surgical History: Cholecystectomy, Hernia Repair Additional Past Surgical History / Comment(s): Fatty tumor removed from back of neck, incisional hernia repair, liver shunt, cystoscopy, colonoscopy.04/25/16 insertion intramedullary nail lt tibia fx. Past Anesthesia/Blood Transfusion Reactions: No Reported Reaction Past Psychological History: Anxiety Additional Psychological History / Comment(s): per pt's niece,pt just returned home 1 week ago after being at [facility] for rehab after lt tibia sx.is recieving home nurse and pt(niece not sure what company)Pt lives with his nephew , Misael alvraado. There are dogs in the house. He has a walker and a wheelchair pt is single. before sx/rehab,pt was independant. no service in past. Smoking Status: Never smoker Past Alcohol Use History: None Reported Additional Past Alcohol Use History / Comment(s): ronanibal. Past Drug Use History: None Reported - Past Family History Mother Family Medical History: Congestive Heart Failure (CHF), Myocardial Infarction ( [place]) Additional Family Medical History / Comment(s): murmur Father Family Medical History: Congestive Heart Failure (CHF), CVA/TIA Medications and Allergies Home Medications Medication Instructions Recorded Confirmed Type Raltegravir Potassium [Isentress] 400 mg PO BID 01/04/14 05/24/16 History Tenofovir Disoproxil Fumarate 300 mg PO MOWEFR 01/04/14 05/24/16 History [Viread] lamiVUDine [Epivir] 300 mg PO DAILY 01/04/14 05/24/16 History Cevimeline HCl [Evoxac] 30 mg PO TID 02/15/14 05/24/16 History Ergocalciferol [Vitamin D2 50,000 unit PO Q7D 04/22/16 05/24/16 History (DRISDOL)] Lactulose 20 gm PO TID PRN 04/22/16 05/24/16 History Maraviroc [Selzentry] 300 mg PO BID 04/22/16 05/24/16 History Metoprolol Tartrate [Lopressor] 12.5 mg PO BID 04/22/16 05/24/16 History Rifaximin [Xifaxan] 550 mg PO BID 04/22/16 05/24/16 History INSULIN LISPRO (HumaLOG) [humaLOG] See Protocol SQ ACHS 05/24/16 05/24/16 History Multivitamins, Thera [Multivitamin] 1 tab PO DAILY@1200 05/24/16 05/24/16 History Pantoprazole Sodium [Protonix] 40 mg PO DAILY 05/24/16 05/24/16 History Potassium Chloride ER [K-Dur 10] 40 meq PO DAILY 05/24/16 05/24/16 History Allergies Allergy/AdvReac Type Severity Reaction Status Date / Time Penicillins Allergy Intermediate Rash/Hives Verified 05/24/16 14:02 Physical Examination This is a pleasant 55-year-old male in no acute distress. He is alert and oriented 3. Exam the left lower extremity reveals that his incisions are well- healed. There is no swelling or deformity noted. There is no pain on palpation about the knee or lower leg. He has full foot and ankle motion without difficulty or pain. Neurovascular status to the lower extremity is intact. Results X-rays of the left leg reveal intramedullary gregory fixation of the tibia in good position and alignment. There is a proximal fibular fracture in good position. There is very little evidence of bony healing to the tibia or proximal fibula. - Labs Labs: Abnormal Lab Results - Last 24 Hours (Table) 06/06/16 06/06/16 06/07/16 Range/Units 17:12 21:12 07:30 POC Glucose (mg/dL) 308 H 343 H 194 H (75-99) mg/dL 06/07/16 Range/Units 11:43 POC Glucose (mg/dL) 252 H (75-99) mg/dL H & H 05/25/16 05/26/16 05/27/16 Range/Units 04:51 05:05 05:30 Hgb 9.7 L 9.8 L 10.2 L (13.0-17.5) gm/dL Hct 27.2 L 30.1 L 31.5 L (39.0-53.0) % 05/28/16 05/29/16 06/02/16 Range/Units 04:55 04:40 08:45 Hgb 10.0 L 9.5 L 11.2 L (13.0-17.5) gm/dL Hct 30.5 L 30.6 L 34.5 L (39.0-53.0) % 06/04/16 Range/Units 09:13 Hgb 10.4 L (13.0-17.5) gm/dL Hct 31.3 L (39.0-53.0) % Coagulation 05/25/16 Range/Units 04:51 INR 1.4 (<1.1) Result Diagrams: 06/04/16 09:13 06/06/16 18:49 Assessment and Plan (1) Fracture of fibula with tibia, left, closed Status: Acute (2) Pseudomonas pneumonia Status: Acute Plan: The clinical and x-ray findings are discussed the patient. He may progress to toe-touch weightbearing to the left lower extremity with a walker. He is to follow-up with Dr. Barraza in one week. Patient understands and agrees with the plan. All discussions are answered to best of my ability.
[2016-06-07 16:01] VITALS: BP 138/68; PULSE 72; RESP 19; TEMP 97.2
[2016-06-07 16:24] LABS: Glucose,Whole Blood 323 mg/dL (75-99)
[2016-06-07] MEDS ORDERED: INSULIN LISPRO (humaLOG) 300 UNIT/3 ML VIAL SQ SCH (17:30)
--- NOTE | 2016-06-07 18:20 | P.PN ---
Subjective Principal diagnosis: Respiratory failure 55-year-old male was noted from the office practice where he is cared for for his HIV infection and his history of severe underlying liver disease. He has a history of nonalcoholic fatty liver disease which has been very severe in the past. He follows with hepatology at [facility] where he's even been evaluated for liver transplantation. However after extensive medical treatment he's had a marked improvement. His extensive ascites resolved. His massive edema resolved. It isn't functioning relatively well. It is related the patient was having shortness of breath. And with this EMS was called. It was related that is a arrives the patient had a cardiopulmonary arrest. AED was applied and he received 2 shocks. He was intubated and transported to hospital with only a brief course of CPR required. The patient is been seen by pulmonary critical care and workup has failed reveal evidence of pulmonary embolus or of an acute myocardial infarction. He has evidence of preserved ejection fraction but does have dilated left atrium. There is concern that there is underlying pneumonia with worsening hepatic encephalopathy as the triggers for his current cardiopulmonary arrest. He remains in the intensive care unit he has been extubated. He was having diarrhea, but C. diff was negative likely from the lactulose is being given. Chest x-ray with basilar infiltrate, and potential infiltrate seen on the computed tomography scan of the left lower lobe. Patient is sitting up. Remains further improved. Recognize my name and says it very clearly. Hallucinations have cleared. No longer seeing animals or other people in the room that are not present. Still not at baseline but improved from yesterday vocal quality is closer to normal. Anxious about return to rehab Objective - Vital Signs Vital signs: Vital Signs Temp 97.2 F L 06/07/16 15:00 Pulse 66 06/07/16 15:15 Resp 19 06/07/16 15:00 BP 138/68 06/07/16 15:00 Pulse Ox 96 06/07/16 15:00 Intake & Output 06/06/16 06/07/16 06/07/16 18:59 06:59 18:59 Intake Total 1000 236 Balance 1000 236 Weight 91.172 kg Intake: Oral 1000 236 Other: Voiding Method Urinal Urinal Urinal # Voids 1 ABP, PAP, CO, CI - Last Documented Arterial Blood Pressure 141/61 - Exam 55-year-old male who is extubated opens eyes and smiled but no active speech was noted HEENT: Anicteric conjunctiva are pink and moist nasal mucosa grossly intact without significant lesions, there is no thrush. No lesions in the oral cavity around the prior endotracheal tube Neck: The neck is supple without significant lymphadenopathy or thyromegaly. Lungs: Symmetrical air entry is noted. No stiff and wheezing. Few basilar crackles. No bronchial sounds. Heart: Regular rate and rhythm with an audible S1-S2, no S3 soft S4 There is no significant murmur click or rub, PMI was nondisplaced. Abdomen: Mildly obese Positive bowel sounds soft and nontender without palpable masses or organomegaly. Abdomen is not rigid and there is no fluid wave Extremities: The upper extremities have excellent pulses they are symmetric, no significant petechiae or telangiectasia. No splinter hemorrhages were noted. Lower extremities reveals the bilateral edema Neuro: Was able to state my Name Marlene Sanchez, conversational still not at baseline however as far as his mental status - Labs CBC & Chem 7: 06/04/16 09:13 06/06/16 18:49 Labs: Abnormal Lab Results - Last 24 Hours (Table) 06/06/16 06/07/16 06/07/16 Range/Units 21:12 07:30 11:43 POC Glucose (mg/dL) 343 H 194 H 252 H (75-99) mg/dL 06/07/16 Range/Units 16:23 POC Glucose (mg/dL) 323 H (75-99) mg/dL Assessment and Plan (1) Cardiac arrest Narrative/Plan: 55-year-old male known to the service because of his follow-up in the office for his HIV infection. His home HIV medications have been reordered with his Isentress Selzentry and Epivir. These should continue. Patient had evidence of cardiopulmonary arrest and is now improving. Patient has evidence of ESBL E. coli as well as pseudomonas aeruginosa in his sputum. And with this his antibiotic therapy is altered to meropenem. Follow-up cultures will be obtained as indicated. The urine culture reveals ESBL Proteus, also treated with the Merrem Overall he is improved. Doing well with current supportive care. Antibiotic therapy is planned for 10 day course of therapy ( today is 01/12)for the multiple pathogens and found both in his sputum as well as his urine. Fortunately he is showing some significant improvement at this time. HIV medications to continue. Incentive spirometer is being utilized We'll transfer to extended care. His antibiotic therapy has completed as of today. Follow-up in the office. Status: Acute (2) Hepatic encephalopathy Status: Acute (3) Pseudomonas pneumonia Status: Acute
[2016-06-07] MEDS ORDERED: INSULIN GLARGINE 100 UNIT/ML 10 ML VIAL SQ SCH (21:00)
== END 2016-06-07 18:08 | DRG 280 ==
LOC: EC 13:27 → 6ICU 16:16 → 4MS4W 05-29 17:25
PROVIDERS: ADMIT Hospitalist; ATTEND Hospitalist
PROC: 5A1945Z Respiratory Ventilation, 24-96 Consecutive Hours (ICD-10-PCS; principal; 2016-05-24)
PROC: 0D9670Z Drainage of Stomach with Drainage Device, Via Natural or Artificial Opening (ICD-10-PCS; 2016-05-24)
PROC: 03HY32Z Insertion of Monitoring Device into Upper Artery, Percutaneous Approach (ICD-10-PCS; 2016-05-25)
PROC: 4A133B1 Monitoring of Arterial Pressure, Peripheral, Percutaneous Approach (ICD-10-PCS; 2016-05-25)
PROC: 4A133J1 Monitoring of Arterial Pulse, Peripheral, Percutaneous Approach (ICD-10-PCS; 2016-05-25)
PROC: 02HV33Z Insertion of Infusion Device into Superior Vena Cava, Percutaneous Approach (ICD-10-PCS; 2016-05-31)
PROC: B548ZZA Ultrasonography of Superior Vena Cava, Guidance (ICD-10-PCS; 2016-05-31)
DX: I21.4 Non-ST elevation (NSTEMI) myocardial infarction (principal); I46.9 Cardiac arrest, cause unspecified; J96.01 Acute respiratory failure with hypoxia; K72.00 Acute and subacute hepatic failure without coma; J15.1 Pneumonia due to Pseudomonas; G92 Toxic encephalopathy; J90 Pleural effusion, not elsewhere classified; J15.5 Pneumonia due to Escherichia coli; B20 Human immunodeficiency virus [HIV] disease; G93.1 Anoxic brain damage, not elsewhere classified; N17.9 Acute kidney failure, unspecified; E87.4 Mixed disorder of acid-base balance; E87.0 Hyperosmolality and hypernatremia; E87.1 Hypo-osmolality and hyponatremia; M62.82 Rhabdomyolysis; J98.11 Atelectasis; N39.0 Urinary tract infection, site not specified; E46 Unspecified protein-calorie malnutrition; R18.8 Other ascites; Z76.82 Awaiting organ transplant status; E11.21 Type 2 diabetes mellitus with diabetic nephropathy; E11.42 Type 2 diabetes mellitus with diabetic polyneuropathy; E11.22 Type 2 diabetes mellitus with diabetic chronic kidney disease; E87.8 Other disorders of electrolyte and fluid balance, not elsewhere classified; E87.70 Fluid overload, unspecified; E11.65 Type 2 diabetes mellitus with hyperglycemia; N18.3 Chronic kidney disease, stage 3 (moderate); K74.60 Unspecified cirrhosis of liver; D64.9 Anemia, unspecified; I25.10 Atherosclerotic heart disease of native coronary artery without angina pectoris; E87.6 Hypokalemia; F32.9 Major depressive disorder, single episode, unspecified; S82.202D Unspecified fracture of shaft of left tibia, subsequent encounter for closed fracture with routine healing; S82.402D Unspecified fracture of shaft of left fibula, subsequent encounter for closed fracture with routine healing; E78.5 Hyperlipidemia, unspecified; B96.4 Proteus (mirabilis) (morganii) as the cause of diseases classified elsewhere; F41.9 Anxiety disorder, unspecified; K76.0 Fatty (change of) liver, not elsewhere classified; I12.9 Hypertensive chronic kidney disease with stage 1 through stage 4 chronic kidney disease, or unspecified chronic kidney disease; Z16.12 Extended spectrum beta lactamase (ESBL) resistance; Z90.49 Acquired absence of other specified parts of digestive tract; Z88.0 Allergy status to penicillin; Z79.4 Long term (current) use of insulin; Z79.899 Other long term (current) drug therapy; Z82.3 Family history of stroke; Z82.49 Family history of ischemic heart disease and other diseases of the circulatory system
CPT/HCPCS: 36415; 36569; 36600; 70450; 71010; 71020; 71275; 76937; 77001; 80048; 80053; 80299; 80306; 81001; 82140; 82550; 82553; 82805; 83036; 83735; 83880; 84100; 84132; 84443; 84484; 85025; 85610; 85730; 87040; 87070; 87077; 87086; 87186; 87205; 93005; 93306; 94002; 94003; 94640; 94760; 95816; 95819; 96365; 96366; 96367; 96376; 99291

== ENCOUNTER 2016-07-15 22:36 | Inpatient (IN) | payer MEDICARE, OTHER ==
--- NOTE | 2016-07-15 23:16 | ED ---
General Adult HPI - General Chief complaint: Recheck/Abnormal Lab/Rx Stated complaint: low potassium needs infusion Time Seen by Provider: 07/15/16 23:00 Source: patient, family, RN notes reviewed Mode of arrival: wheelchair Limitations: no limitations - History of Present Illness Initial comments: Patient is a pleasant 55-year-old male presenting to the emergency department complaining of reported low potassium level. Patient does have a history of hypokalemia in the past year patient has been dealing with this over the past year or so. They're unclear why his potassium level drops. Patient is on chronic potassium therapy. Patient was recently discharged from rehab and infusions have discontinued. Patient also recently had his oral potassium replacement cut in half. Patient states he made feel a little bit shaky however feels that could also just be from his anxiety. No muscle spasms or uncontrolled movements otherwise. - Related Data Home Medications Medication Instructions Recorded Confirmed Raltegravir Potassium [Isentress] 400 mg PO BID 01/04/14 05/24/16 Tenofovir Disoproxil Fumarate 300 mg PO MOWEFR 01/04/14 05/24/16 [Viread] lamiVUDine [Epivir] 300 mg PO DAILY 01/04/14 05/24/16 Cevimeline HCl [Evoxac] 30 mg PO TID 02/15/14 05/24/16 Ergocalciferol [Vitamin D2 50,000 unit PO Q7D 04/22/16 05/24/16 (DRISDOL)] Lactulose 20 gm PO TID PRN 04/22/16 05/24/16 Maraviroc [Selzentry] 300 mg PO BID 04/22/16 05/24/16 Metoprolol Tartrate [Lopressor] 12.5 mg PO BID 04/22/16 05/24/16 Rifaximin [Xifaxan] 550 mg PO BID 04/22/16 05/24/16 INSULIN LISPRO (HumaLOG) [humaLOG] See Protocol SQ ACHS 05/24/16 05/24/16 Multivitamins, Thera [Multivitamin] 1 tab PO DAILY@1200 05/24/16 05/24/16 Pantoprazole Sodium [Protonix] 40 mg PO DAILY 05/24/16 05/24/16 Potassium Chloride ER [K-Dur 10] 40 meq PO DAILY 05/24/16 05/24/16 Previous Rx's Medication Instructions Recorded Artificial Tears-Hypromellose 1 drops BOTH EYES Q4HR PRN #0 06/07/16 [Artificial Tear Drops] bottle Aspirin 81 mg PO DAILY #1 chewable 06/07/16 Atorvastatin Calcium [Lipitor] 20 mg PO DAILY #1 tab 06/07/16 Furosemide [Lasix] 40 mg PO DAILY #0 06/07/16 INSULIN LISPRO (humaLOG) [humaLOG 8 unit SQ AC-TID vial 06/07/16 (formulary)] Insulin Glargine [Lantus] 26 unit SQ HS vial 06/07/16 Ipratropium-Albuterol Nebulize 3 ml INHALATION RT-QID ampul.neb 06/07/16 [Duoneb 0.5 mg-3 mg/3 ml Soln] Lactulose [Cephulac] 20 gm PO TID PRN #0 ml 06/07/16 Metoprolol Tartrate [Lopressor] 12.5 mg PO BID tab 06/07/16 Morphine Sulfate ER [Ms Contin] 15 mg PO HS #10 tablet 06/07/16 Spironolactone [Aldactone] 100 mg PO DAILY #1 tab 06/07/16 Allergies Allergy/AdvReac Type Severity Reaction Status Date / Time Penicillins Allergy Intermediate Rash/Hives Verified 07/15/16 22:54 Review of Systems ROS Statement: Those systems with pertinent positive or pertinent negative responses have been documented in the HPI. ROS Other: All systems not noted in ROS Statement are negative. Constitutional: Denies: fever Eyes: Denies: eye pain ENT: Denies: ear pain Respiratory: Denies: cough Cardiovascular: Denies: chest pain, palpitations Endocrine: Denies: fatigue Gastrointestinal: Denies: abdominal pain Genitourinary: Denies: dysuria Musculoskeletal: Denies: back pain Skin: Denies: rash Neurological: Denies: weakness Psychiatric: Reports: anxiety Past Medical History Past Medical History: Diabetes Mellitus, Hypertension, Liver Disease Additional Past Medical History / Comment(s): HIV, IDDM type II, cellulitis BLE , loss of all his teeth due to prior medications for the treatment of underlying illnesses, chronic bilateral leg pain, "hole in my heart", murmur, R side of heart is "larger", bilateral leg/feet neuropathy, anemia.12-2-16 lt tibial fracture d/t fall History of Any Multi-Drug Resistant Organisms: ESBL Date of last positivie culture/infection: 05/25/16 ESBL-E.coli 05/25/16 ESBL Proteus MDRO Source:: Sputum-ESBL; Urine- ESBL Past Surgical History: Cholecystectomy, Hernia Repair Additional Past Surgical History / Comment(s): Fatty tumor removed from back of neck, incisional hernia repair, liver shunt, cystoscopy, colonoscopy.04/25/16 insertion intramedullary nail lt tibia fx. Past Anesthesia/Blood Transfusion Reactions: No Reported Reaction Past Psychological History: Anxiety Additional Psychological History / Comment(s): per pt's niece,pt just returned home 1 week ago after being at [facility] for rehab after lt tibia sx.is recieving home nurse and pt(niece not sure what company)Pt lives with his nephew , Misael alvarado. There are dogs in the house. He has a walker and a wheelchair pt is single. before sx/rehab,pt was independant. no service in past. Smoking Status: Never smoker Past Alcohol Use History: None Reported Additional Past Alcohol Use History / Comment(s): ronment. Past Drug Use History: None Reported - Past Family History Mother Family Medical History: Congestive Heart Failure (CHF), Myocardial Infarction ( [place]) Additional Family Medical History / Comment(s): murmur Father Family Medical History: Congestive Heart Failure (CHF), CVA/TIA General Exam Limitations: no limitations General appearance: alert, in no apparent distress Head exam: Present: atraumatic Eye exam: Present: other (Bilateral haziness) ENT exam: Present: normal exam Neck exam: Present: normal inspection Respiratory exam: Present: normal lung sounds bilaterally Cardiovascular Exam: Present: regular rate, normal rhythm GI/Abdominal exam: Present: soft. Absent: tenderness Extremities exam: Present: pedal edema (+1 bilateral) Neurological exam: Present: alert Psychiatric exam: Present: normal affect, normal mood Skin exam: Absent: rash Course Vital Signs 07/15/16 22:47 Temperature 99.5 F Pulse Rate 88 Respiratory 18 Rate Blood Pressure 136/72 O2 Sat by Pulse 98 Oximetry EKG Findings - EKG Comments: EKG Findings:: Normal sinus rhythm at 84. NJ 188. QRS 112. QT 382. QTC 569. Left axis. LVH with repolarization change. Medical Decision Making - Medical Decision Making Patient reevaluated and resting comfortably in bed. Patient updated on results and plan. Patient is family agreeable to admission after detailed conversation. Case discussed in detail with Dr. bhakta, who will admit for Dr. Garcia. IV and oral potassium has been replaced. Oral calcium replaced 1. Levels will need to be redrawn cytogenetic technologist and reevaluated. Hyperglycemia treatment will be held at this time secondary to severe hypokalemia. This will also need to be reevaluated the morning. - Lab Data Result diagrams: 07/15/16 23:13 07/15/16 23:13 Lab Results 07/15/16 07/15/16 Range/Units 23:13 23:13 WBC 7.3 (3.8-10.6) k/uL RBC 3.65 L (4.30-5.90) m/uL Hgb 11.6 L (13.0-17.5) gm/dL Hct 33.4 L (39.0-53.0) % MCV 91.7 (80.0-100.0) fL MCH 31.9 (25.0-35.0) pg MCHC 34.8 (31.0-37.0) g/dL RDW 16.7 H (11.5-15.5) % Plt Count 120 L (150-450) k/uL Neutrophils % 70 % Lymphocytes % 17 % Monocytes % 8 % Eosinophils % 1 % Basophils % 0 % Neutrophils # 5.1 (1.3-7.7) k/uL Lymphocytes # 1.3 (1.0-4.8) k/uL Monocytes # 0.6 (0-1.0) k/uL Eosinophils # 0.1 (0-0.7) k/uL Basophils # 0.0 (0-0.2) k/uL Hyperchromasia Slight Poikilocytosis Slight Anisocytosis Slight Sodium 131 L (137-145) mmol/L Potassium 2.3 L* (3.5-5.1) mmol/L Chloride 90 L (98-107) mmol/L Carbon Dioxide 33 H (22-30) mmol/L Anion Gap 8 mmol/L BUN 26 H (9-20) mg/dL Creatinine 1.20 (0.66-1.25) mg/dL Est GFR (MDRD) Af Amer >60 (>60 ml/min/1.73 sqM) Est GFR (MDRD) Non-Af >60 (>60 ml/min/1.73 sqM) Glucose 468 H* (74-99) mg/dL Calcium 8.3 L (8.4-10.2) mg/dL Ionized Calcium Amber 4.3 L (4.5-5.3) mg/dL Phosphorus 2.8 (2.5-4.5) mg/dL Magnesium 2.0 (1.6-2.3) mg/dL Total Bilirubin 3.1 H (0.2-1.3) mg/dL AST 72 H (17-59) U/L ALT 55 (21-72) U/L Alkaline Phosphatase 478 H (38-126) U/L Total Protein 6.9 (6.3-8.2) g/dL Albumin 2.4 L (3.5-5.0) g/dL Critical Care Time Critical Care Time: Yes Total Critical Care Time: 32 Disposition Clinical Impression: Hypokalemia Disposition: ADMITTED IP TO THIS [facility] Condition: Serious
[2016-07-15 23:25] LABS: Anisocytosis Slight; Basophils % (A) 0 %; CH 33.3; CHCM 36.6; Eosinophils # (A) 0.1 k/uL (0-0.7); Eosinophils % (A) 1 %; HCT 33.4 % (39.0-53.0); HDW 3.73; HGB 11.6 gm/dL (13.0-17.5); Hyperchromasia Slight; Luc # (Auto) 0.21; Luc % (Auto) 3; Lymphocytes # (A) 1.3 k/uL (1.0-4.8); Lymphocytes % (A) 17 %; MCH 31.9 pg (25.0-35.0); MCHC 34.8 g/dL (31.0-37.0); MCV 91.7 fL (80.0-100.0); Mean Platelet Volume 8.6; Monocytes # (A) 0.6 k/uL (0-1.0); Monocytes % (A) 8 %; Neutrophils # (A) 5.1 k/uL (1.3-7.7); Neutrophils % (A) 70 %; Poikilocytosis Slight; RBC 3.65 m/uL (4.30-5.90); RDW 16.7 % (11.5-15.5); WBC 7.3 k/uL (3.8-10.6); WBC (Perox) 7.59
[2016-07-15 23:28] LABS: Ionized Calcium 4.3 mg/dL (4.5-5.3)
[2016-07-15 23:36] LABS: ALT 55 U/L (21-72); AST 72 U/L (17-59); Alkaline Phosphatase 478 U/L (38-126); Anion Gap 8 mmol/L; Blood Urea Nitrogen 26 mg/dL (9-20); Calcium 8.3 mg/dL (8.4-10.2); Carbon Dioxide 33 mmol/L (22-30); Chloride 90 mmol/L (98-107); Non-African American GFR(MDRD) >60 (>60 ml/min/1.73 sqM); Phosphorous 2.8 mg/dL (2.5-4.5); Sodium 131 mmol/L (137-145); Total Bilirubin 3.1 mg/dL (0.2-1.3); Total Protein 6.9 g/dL (6.3-8.2)
[2016-07-15 23:40] LABS: Glucose 468 mg/dL (74-99); Potassium 2.3 mmol/L (3.5-5.1)
[2016-07-15] MEDS ORDERED: POTASSIUM CHLORIDE ER 20 MEQ TAB.ER PO STA (23:43)
[2016-07-15] MEDS ORDERED: CALCIUM CARBONATE 500 MG CHEWABLE PO ONE (23:50)
[2016-07-16] MEDS ORDERED: POTASSIUM CHLORIDE 10 MEQ, LIDOCAINE 2% INJ 10 MG in SODIUM CHLORIDE 0.9% 100 ML IVPB SCH ×3
[2016-07-16] MEDS ORDERED: NALOXONE 0.4 MG/ML 1 ML VIAL IV PRN (00:11)
[2016-07-16 01:50] VITALS: BMI 27.2
[2016-07-16] MEDS: POTASSIUM CHLORIDE 10 MEQ, LIDOCAINE 2% INJ 10 MG in SODIUM CHLORIDE 0.9% 100 ML IVPB SCH ×3 (01:51→04:26)
[2016-07-16] MEDS: 0.9% NACL WITH KCL 20 MEQ/L 1,000 ML IV SCH ×2 (01:51→21:11)
[2016-07-16 06:20] LABS: Glucose,Whole Blood 241 mg/dL (75-99)
[2016-07-16] MEDS ORDERED: INSULIN NPH/REG INSULIN 70/30 300 UNIT/3 ML VIAL SQ ONE (06:51)
[2016-07-16 06:52] LABS: ALT 52 U/L (21-72); AST 54 U/L (17-59); Alkaline Phosphatase 368 U/L (38-126); Anion Gap 6 mmol/L; Blood Urea Nitrogen 23 mg/dL (9-20); Calcium 8.1 mg/dL (8.4-10.2); Carbon Dioxide 36 mmol/L (22-30); Chloride 93 mmol/L (98-107); Glucose 233 mg/dL (74-99); Non-African American GFR(MDRD) >60 (>60 ml/min/1.73 sqM); Sodium 135 mmol/L (137-145); Total Bilirubin 2.6 mg/dL (0.2-1.3); Total Protein 5.8 g/dL (6.3-8.2)
[2016-07-16 06:56] LABS: Potassium 2.2 mmol/L (3.5-5.1)
[2016-07-16] MEDS ORDERED: Potassium Replacement Protocol 1 EACH MISC MISCELLANE PRN ×2 (07:03→16:18)
[2016-07-16] MEDS: POTASSIUM CHLORIDE ER 20 MEQ TAB.ER PO SCH ×7 (07:06→20:42)
[2016-07-16] MEDS: INSULIN LISPRO (humaLOG) 300 UNIT/3 ML VIAL SQ SCH ×5 (07:27→21:14)
[2016-07-16] MEDS ORDERED: POTASSIUM CHLORIDE 10 MEQ, LIDOCAINE 2% INJ 10 MG in SODIUM CHLORIDE 0.9% 100 ML IV SCH (08:00)
[2016-07-16 11:55] LABS: Glucose,Whole Blood 313 mg/dL (75-99)
[2016-07-16 11:58] LABS: Hemoglobin A1C 6.5 % (4.2-6.1)
[2016-07-16] MEDS ORDERED: LACTULOSE 20 GM/30 ML CUP PO PRN (14:57)
[2016-07-16] MEDS ORDERED: ARTIFICIAL TEARS-HYPROMELLOSE DROPS 15 ML BTL BOTH EYES PRN (14:57)
[2016-07-16] MEDS: IPRATROPIUM-ALBUTEROL 3 ML NEB INHALATION SCH ×2 (16:17→20:49)
[2016-07-16 16:48] LABS: Glucose,Whole Blood 318 mg/dL (75-99)
[2016-07-16] MEDS: CEVIMELINE 30 MG CAP PO SCH ×2 (17:20→21:16)
[2016-07-16] MEDS: ASPIRIN 81 MG CHEW PO SCH (17:21)
[2016-07-16] MEDS: ATORVASTATIN 20 MG TAB PO SCH (17:21)
[2016-07-16] MEDS: SPIRONOLACTONE 25 MG TAB PO SCH (17:21)
[2016-07-16] MEDS: POTASSIUM CHLORIDE ORAL LIQUID 40 MEQ/30 ML CUP PO SCH ×3 (20:09→23:02)
[2016-07-16] MEDS: LAMIVUDINE 300 MG PO SCH (20:09)
[2016-07-16] MEDS: METOPROLOL TARTRATE 12.5 MG TAB PO SCH (20:42)
[2016-07-16] MEDS: RALTEGRAVIR POTASSIUM 400 MG PO SCH (20:42)
[2016-07-16] MEDS: MARAVIROC 300 MG PO SCH (20:42)
[2016-07-16 20:52] LABS: Glucose,Whole Blood 249 mg/dL (75-99)
[2016-07-16] MEDS ORDERED: MORPHINE SULFATE ER 15 MG TABLET PO SCH (21:00)
[2016-07-16] MEDS ORDERED: INSULIN GLARGINE 100 UNIT/ML 10 ML VIAL SQ SCH (21:00)
[2016-07-16] MEDS: RIFAXIMIN 550 MG TABLET PO SCH (21:16)
--- NOTE | 2016-07-16 21:38 | HP ---
DATE OF ADMISSION: 07/16/2016 PRESENTING COMPLAINT: Low Potassium. HISTORY OF PRESENTING COMPLAINT: This is a very pleasant 55-year-old patient of Dr. Garcia who was here in the hospital in May of this year, had a rather extensive medical course. The patient at that time had an acute myocardial infarction with cardiac arrest. Also, patient known to have chronic conditions that includes liver cirrhosis, HIV, Type 2 diabetes mellitus, peripheral neuropathy, hyperlipidemia. Since then, patient is doing well, was sent in because Potassium came back at 2.2. Patient does take lactulose, to get about average of 3 stools a day presented feeling weak and tired. Sugars also running high. Hence, patient was admitted. REVIEW OF SYSTEMS: CONSTITUTIONAL: Tired. HEENT: Decreased vision. RESPIRATORY: None. CARDIOVASCULAR: None. GASTROINTESTINAL: None. GENITOURINARY: None. MUSCULOSKELETAL: None. Dermatological: None. HEMATOLOGICAL: None. LYMPHATIC: None. None. NEUROLOGICAL: None. PSYCHIATRY: none. PAST HISTORY: Coronary artery disease, liver cirrhosis, HIV diabetes mellitus, type II, on insulin with peripheral neuropathy, hyperlipidemia, loss of all of his teeth due to prior medications. Peripheral neuropathy. PAST SURGICAL HISTORY: Cholecystectomy, hernia repair, fatty tumor removed from the back of the neck, incisional hernia repair, ( ) shunt, intramedullary nail to the left tibia. SOCIAL HISTORY: The patient was in [place] and about week ago he has gone back to live at home with his niece, with his son nephews ( ). He is a walker and a wheelchair. No smoking. No alcohol. FAMILY HISTORY: Congestive heart failure and stroke. HOME MEDICATIONS: 1. Vitamin D2, 50,000 units p.o. Friday. 2. MS Contin 50 mg p.o. q.h.s. 3. Lantus 26 units subcu q.h.s. 4. Duricef 5 mg p.o. b.i.d. 5. ( ) 10 mg daily b.i.d. 6. ( ) mg p.o. Friday, Friday and Friday. 7. Aldactone 100 mg p.o. daily. 8. ( ) 50 mg p.o. b.i.d. 9. Isentress 400 mg p.o. b.i.d. 10. Potassium 40 meq p.o. daily. 11. Protonix 40 mg p.o. daily. 12. Multivitamin 1 tablet p.o. daily. 13. Lopressor 12.5 p.o. b.i.d. 14. Selzetry 300 milligrams p.o. b.i.d. 15. Lactulose 20 grams p.o. t.i.d. p.r.n. 16. DuoNeb q.i.d. 17. Humalog per protocol before meals and at bedtime. 18. Lasix 40 mg p.o. daily. 19. ( ) 30 mg p.o. t.i.d. 20. Lipitor 20 mg p.o. daily. 21. Aspirin 81 mg p.o. daily. 22. Artificial tears drops one drop to both eyes q.4 p.r.n. ALLERGIES: PENICILLIN. On examination at on examination, afebrile, pulse 72, respirations 19, blood pressure 130/68, pulse ox 96% on room air. GENERAL APPEARANCE: Average build, lying in bed, not in distress. EYES: Pupils equal. Conjunctivae pale. HEENT: External appearance of nose and ears normal. Oral cavity no teeth. NECK: JVD not raised. Mass not palpable. RESPIRATORY: Effort normal. LUNGS: Fair air entry. CARDIOVASCULAR: First and second sounds normal. No edema. ABDOMEN: Soft, nontender. Liver and spleen not palpable. LYMPHATIC: No lymph node palpable in neck or axillae. PSYCHIATRY: Alert and oriented x3. Mood and affect normal. NEUROLOGICAL: Pupils equal. Cranial nerves grossly intact. Power and sensation decreased distally. INVESTIGATIONS: White count 7.6, hemoglobin 11.6, platelets 120, potassium 2.3 then 2.2. BUN 26, creatinine 1.2, glucose 468; repeat 233, HbA1c 6.5, bilirubin 3.1. Serum acetone negative. ASSESSMENT: 1. Severe hypokalemia, probably from patient diarrhea and insufficient replacement. 2. Coronary artery disease with prior history of cardiac arrest and myocardial infarction. 3. Liver cirrhosis. 4. HIV. 5. Diabetes mellitus type 2, chronically on insulin, causing peripheral neuropathy. 6. Hyperlipidemia. PLAN: Patient Potassium will be aggressively replaced. Other home medications are resumed. Patient will be put back on lactulose to prevent encephalopathy. Care was discussed with the patient and niece at the bedside. Questions were answered. Home medications will be resumed.
[2016-07-17] MEDS: POTASSIUM CHLORIDE ER 20 MEQ TAB.ER PO SCH ×2 (00:51→12:33)
[2016-07-17 06:04] LABS: Glucose,Whole Blood 164 mg/dL (75-99)
[2016-07-17] MEDS: INSULIN LISPRO (humaLOG) 300 UNIT/3 ML VIAL SQ SCH ×4 (07:00→12:39)
[2016-07-17] MEDS ORDERED: PANTOPRAZOLE 40 MG TABLET PO SCH (07:30)
[2016-07-17 08:19] VITALS: PULSE 61; RESP 16
[2016-07-17] MEDS: IPRATROPIUM-ALBUTEROL 3 ML NEB INHALATION SCH ×2 (08:24→11:55)
[2016-07-17] MEDS ORDERED: Tenofovir Disoproxil Fumarate [Viread] 300 MG PO SCH (09:00)
[2016-07-17] MEDS: ATORVASTATIN 20 MG TAB PO SCH (09:57)
[2016-07-17] MEDS: ASPIRIN 81 MG CHEW PO SCH (09:57)
[2016-07-17] MEDS: METOPROLOL TARTRATE 12.5 MG TAB PO SCH (09:58)
[2016-07-17] MEDS: CEVIMELINE 30 MG CAP PO SCH (09:58)
[2016-07-17] MEDS: LAMIVUDINE 300 MG PO SCH (09:59)
[2016-07-17] MEDS: RALTEGRAVIR POTASSIUM 400 MG PO SCH (10:00)
[2016-07-17] MEDS: RIFAXIMIN 550 MG TABLET PO SCH (10:00)
[2016-07-17] MEDS: SPIRONOLACTONE 25 MG TAB PO SCH (10:00)
[2016-07-17] MEDS: MARAVIROC 300 MG PO SCH (10:05)
[2016-07-17 11:39] VITALS: TEMP 97.5
[2016-07-17 11:53] LABS: Glucose,Whole Blood 144 mg/dL (75-99)
[2016-07-17 16:55] VITALS: BP 128/60
--- NOTE | 2016-07-18 09:05 | DS ---
DATE OF ADMISSION: 07/16/2016 DATE OF DISCHARGE: 07/17/2016 FINAL DIAGNOSES: 1. Severe hypokalemia, probably secondary to diarrhea from lactulose. 2. Coronary artery disease with prior history of cardiac arrest and myocardial infarction. 3. Liver cirrhosis. 4. HIV. 5. Diabetes mellitus type 2, chronically on insulin causing peripheral neuropathy. 6. Hyperlipidemia. HOSPITAL COURSE: This patient presented with severe hypokalemia. Patient does take lactulose and patient's potassium supplement was recently cut back. Potassium was down to 1.9. Patient had to be aggressively replaced but earlier today, potassium had gone up to 5.3. With further lactulose, expected to come down. Patient was counseled about getting his potassium checked and maintaining his stool. On exam, lungs are clear. CARDIOVASCULAR: First and second sounds are normal. DISCHARGE MEDICATIONS: 1. Isentress 400 p.o. b.i.d. 2. Viread 300 mg p.o. Friday, Friday and Friday. 3. Epivir 300 mg p.o. daily. 4. Evoxac 30 mg t.i.d. 5. Drisdol 50,000 units p.o. on Friday. 6. Lactulose 20 gm p.o. t.i.d. p.r.n. 7. Selzentry 300 mg p.o. b.i.d. 8. Lopressor 12.5 p.o. b.i.d. 9. Xifaxan 550 mg p.o. b.i.d. 10. Humalog per scale. 11. Multivitamin 1 tablet p.o. daily. 12. Protonix 40 mg p.o. daily. 13. Teardrops both eyes q.4 p.r.n. 14. Aspirin 81 mg daily. 15. Lipitor 20 mg daily. 16. Lasix 40 mg p.o. daily. 17. Lantus 26 units subQ q.h.s. 18. DuoNeb q.i.d. 19. Lactulose 20 gm p.o. t.i.d. p.r.n. ( ). 20. Aldactone 100 mg p.o. daily. 21. Duricef 500 mg p.o. b.i.d., complete course. 22. Humalog 8 units a.c. t.i.d. 23. Potassium 40 mEq b.i.d. Follow up with Dr. Garcia 07/29/2016. LABS: BMP on 07/23/2016. On exam, LUNGS: Slight decreased breath sounds. CARDIOVASCULAR: First and second sounds are normal. DC planning more than 35. Care was discussed in detail with the patient.
== END 2016-07-17 17:06 | disposition home or self-care (01) | DRG 640 ==
LOC: EC 22:36 → 6SEL 07-16 00:14
PROVIDERS: ADMIT Hospitalist; ATTEND Hospitalist
DX: E87.6 Hypokalemia (principal); B20 Human immunodeficiency virus [HIV] disease; K74.60 Unspecified cirrhosis of liver; E11.42 Type 2 diabetes mellitus with diabetic polyneuropathy; I25.2 Old myocardial infarction; E78.5 Hyperlipidemia, unspecified; F41.9 Anxiety disorder, unspecified; I10 Essential (primary) hypertension; D64.9 Anemia, unspecified; I25.10 Atherosclerotic heart disease of native coronary artery without angina pectoris; Z16.24 Resistance to multiple antibiotics; Z86.74 Personal history of sudden cardiac arrest; Z79.4 Long term (current) use of insulin; Z79.82 Long term (current) use of aspirin; Z79.899 Other long term (current) drug therapy
CPT/HCPCS: 36415; 80053; 82009; 82330; 83036; 83735; 84100; 84132; 85025; 86360; 93005; 96365; 99291

== ENCOUNTER → 2016-07-24 | Outpatient (CLI) | payer MEDICARE, OTHER ==
[2016-07-24 14:19] LABS: Calcium 8.6 mg/dL (8.4-10.2); Potassium 3.9 mmol/L (3.5-5.1)
== END | disposition home or self-care (01) ==
LOC: LABWHC1 13:00
PROVIDERS: ATTEND Internal Medicine Infectious Disease
DX: E87.6 Hypokalemia (principal)
CPT/HCPCS: 36415; 80048

== ENCOUNTER 2016-07-31 18:17 | Emergency (ER) | payer MEDICARE, OTHER ==
[2016-07-31 18:41] VITALS: RESP 18; TEMP 98.5
--- NOTE | 2016-07-31 18:47 | ED ---
General Adult HPI - General Chief complaint: Recheck/Abnormal Lab/Rx Stated complaint: Abnormal labs,Potassium Time Seen by Provider: 07/31/16 18:35 Source: patient, RN notes reviewed Mode of arrival: ambulatory - History of Present Illness Initial comments: This is a 56-year-old male who presents emergency department with past history significant for diabetes. Patient comes into the emergency department today because he was told to come in because potassium was low. Patient states she's had quite a bit of problems keep his potassium up. Patient states he has no symptoms. Patient denies any headache patient denies numbness weakness. Patient denies lightheadedness dizziness or near syncopal episode. Patient denies any recent fever chills or cough. Patient denies any palpitations. Patient denies chest pain difficult breathing or shortness breath. Patient denies abdominal pain patient denies nausea vomiting however states yesterday he did have some diarrhea. Patient denies any recent injury or trauma. Patient states he is taking potassium at home daily. - Related Data Home Medications Medication Instructions Recorded Confirmed Raltegravir Potassium [Isentress] 400 mg PO BID 01/04/14 07/31/16 Tenofovir Disoproxil Fumarate 300 mg PO MOWEFR 01/04/14 07/31/16 [Viread] lamiVUDine [Epivir] 300 mg PO DAILY 01/04/14 07/31/16 Cevimeline HCl [Evoxac] 30 mg PO TID 02/15/14 07/31/16 Ergocalciferol [Vitamin D2 50,000 unit PO TH 04/22/16 07/31/16 (DRISDOL)] Lactulose 20 gm PO TID PRN 04/22/16 07/31/16 Maraviroc [Selzentry] 300 mg PO BID 04/22/16 07/31/16 Metoprolol Tartrate [Lopressor] 12.5 mg PO BID 04/22/16 07/31/16 Rifaximin [Xifaxan] 550 mg PO BID 04/22/16 07/31/16 INSULIN LISPRO (HumaLOG) [humaLOG] See Protocol SQ ACHS 05/24/16 07/31/16 Multivitamins, Thera [Multivitamin 1 tab PO DAILY 05/24/16 07/31/16 (formulary)] Pantoprazole Sodium [Protonix] 40 mg PO DAILY 05/24/16 07/31/16 Potassium Chloride ER [K-Dur 10] 50 meq PO BID 07/31/16 07/31/16 Previous Rx's Medication Instructions Recorded Artificial Tears-Hypromellose 1 drops BOTH EYES Q4HR PRN #0 06/07/16 [Artificial Tear Drops] bottle Aspirin 81 mg PO DAILY #1 chewable 06/07/16 Atorvastatin Calcium [Lipitor] 20 mg PO DAILY #1 tab 06/07/16 Furosemide [Lasix] 40 mg PO DAILY #0 06/07/16 Insulin Glargine [Lantus] 26 unit SQ HS vial 06/07/16 Lactulose [Cephulac] 20 gm PO TID PRN #0 ml 06/07/16 Morphine Sulfate ER [Ms Contin] 15 mg PO HS #10 tablet 06/07/16 Spironolactone [Aldactone] 100 mg PO DAILY #1 tab 06/07/16 INSULIN LISPRO (humaLOG) [humaLOG 8 unit SQ AC-TID vial 07/17/16 (formulary)] Allergies Allergy/AdvReac Type Severity Reaction Status Date / Time Penicillins Allergy Intermediate Rash/Hives Verified 07/31/16 19:01 Review of Systems ROS Statement: Those systems with pertinent positive or pertinent negative responses have been documented in the HPI. ROS Other: All systems not noted in ROS Statement are negative. Past Medical History Past Medical History: Diabetes Mellitus, Hypertension, Liver Disease Additional Past Medical History / Comment(s): HIV, IDDM type II, cellulitis BLE , loss of all his teeth due to prior medications for the treatment of underlying illnesses, chronic bilateral leg pain, "hole in my heart", murmur, R side of heart is "larger", bilateral leg/feet neuropathy, anemia.04-05-16 lt tibial fracture d/t fall. Patient went into cardiac arrest in May 2016, was in a coma for 5 days after. At this time patient had an infection. Patient has picc line for IV antibiotics. Finished antibiotics on 2016. Now on oral antibiotics. Still has PICC line per Dr. Santana for possible cellulitis- per patient's niece. History of Any Multi-Drug Resistant Organisms: ESBL Date of last positivie culture/infection: 05/25/16 ESBL-E.coli 05/25/16 ESBL Proteus MDRO Source:: Sputum-ESBL; Urine- ESBL Past Surgical History: Cholecystectomy, Hernia Repair Additional Past Surgical History / Comment(s): Fatty tumor removed from back of neck, incisional hernia repair, liver shunt, cystoscopy, colonoscopy.04/25/16 insertion intramedullary nail lt tibia fx. Past Anesthesia/Blood Transfusion Reactions: No Reported Reaction Past Psychological History: Anxiety Additional Psychological History / Comment(s): per pt's niece,pt just returned home 1 week ago after being at [facility] for rehab after lt tibia sx.is recieving home nurse and pt(niece not sure what company)Pt lives with his nephew , Misael alvarado. There are dogs in the house. He has a walker and a wheelchair pt is single. before sx/rehab,pt was independant. no service in past. Smoking Status: Never smoker Past Alcohol Use History: None Reported Additional Past Alcohol Use History / Comment(s): ronment. Past Drug Use History: None Reported - Past Family History Mother Family Medical History: Congestive Heart Failure (CHF), Myocardial Infarction ( [place]) Additional Family Medical History / Comment(s): murmur Father Family Medical History: Congestive Heart Failure (CHF), CVA/TIA General Exam - General Exam Comments Initial Comments: GENERAL: Patient is well-developed and well-nourished. Patient is nontoxic and well- hydrated and is in no acute distress. ENT: Neck is soft and supple. No significant lymphadenopathy is noted. Oropharynx is clear. Moist mucous membranes. Neck has full range of motion without eliciting any pain. EYES: The sclera were anicteric and conjunctiva were pink and moist. Extraocular movements were intact and pupils were equal round and reactive to light. Eyelids were unremarkable. PULMONARY: Unlabored respirations. Good breath sounds bilaterally. Patient has crackles in the left base. CARDIOVASCULAR: There is a regular rate and rhythm without any murmurs gallops or rubs. ABDOMEN: Soft and nontender with normal bowel sounds. No palpable organomegaly was noted. There is no palpable pulsatile mass. SKIN: Skin is clear with no lesions or rashes and otherwise unremarkable. NEUROLOGIC: Patient is alert and oriented x3. Cranial nerves II through XII are grossly intact. Motor and sensory are also intact. Normal speech, volume and content. Symmetrical smile. MUSCULOSKELETAL: Normal extremities with adequate strength and full range of motion. No lower extremity swelling or edema. No calf tenderness. LYMPHATICS: No significant lymphadenopathy is noted PSYCHIATRIC: Normal psychiatric evaluation. Normal interpersonal interactions appears functionally intact in deals appropriately with others. No signs of depression. No signs of anxiety Course Vital Signs 07/31/16 18:35 Temperature 98.5 F Pulse Rate 68 Respiratory 18 Rate Blood Pressure 131/65 O2 Sat by Pulse 98 Oximetry Medical Decision Making - Medical Decision Making EKG shows a normal sinus rhythm at 70 bpm WA interval 286 QRS is 106 QT intervals 468 QTC is 505. Patient's EKG shows no ST segment elevation or depression. Chest x-ray is normal. Patient's potassium was 2.8. I replaced it with 20 mg of Anne Dur by mouth and 20 mg of KCl IV Patient will take 20 mg of his potassium when he gets home. - Lab Data Result diagrams: 07/31/16 18:50 07/31/16 18:50 Lab Results 07/31/16 07/31/16 Range/Units 18:50 18:50 WBC 6.1 (3.8-10.6) k/uL RBC 3.58 L (4.30-5.90) m/uL Hgb 11.6 L (13.0-17.5) gm/dL Hct 32.4 L (39.0-53.0) % MCV 90.5 (80.0-100.0) fL MCH 32.4 (25.0-35.0) pg MCHC 35.8 (31.0-37.0) g/dL RDW 16.1 H (11.5-15.5) % Plt Count 147 L (150-450) k/uL Neutrophils % 66 % Lymphocytes % 24 % Monocytes % 6 % Eosinophils % 2 % Basophils % 1 % Neutrophils # 4.0 (1.3-7.7) k/uL Lymphocytes # 1.5 (1.0-4.8) k/uL Monocytes # 0.4 (0-1.0) k/uL Eosinophils # 0.1 (0-0.7) k/uL Basophils # 0.0 (0-0.2) k/uL Hyperchromasia Slight Poikilocytosis Slight Anisocytosis Slight Sodium 135 L (137-145) mmol/L Potassium 2.8 L* (3.5-5.1) mmol/L Chloride 96 L (98-107) mmol/L Carbon Dioxide 32 H (22-30) mmol/L Anion Gap 7 mmol/L BUN 21 H (9-20) mg/dL Creatinine 1.26 H (0.66-1.25) mg/dL Est GFR (MDRD) Af Amer >60 (>60 ml/min/1.73 sqM) Est GFR (MDRD) Non-Af 59 (>60 ml/min/1.73 sqM) Glucose 233 H (74-99) mg/dL Calcium 8.3 L (8.4-10.2) mg/dL Total Bilirubin 1.9 H (0.2-1.3) mg/dL AST 97 H (17-59) U/L ALT 51 (21-72) U/L Alkaline Phosphatase 409 H (38-126) U/L Total Protein 6.9 (6.3-8.2) g/dL Albumin 2.4 L (3.5-5.0) g/dL Disposition Clinical Impression: Hypokalemia Disposition: HOME SELF-CARE Condition: Good Instructions: Hypokalemia (ED) Additional Instructions: Patient should double her potassium and then follow primary medical care doctor' s instructions. Patient should get his potassium checked tomorrow. Referrals: Sushant Garcia DO [Primary Care Provider] - 1-2 days
[2016-07-31] MEDS ORDERED: POTASSIUM CHLORIDE 20 MEQ, LIDOCAINE 2% INJ 20 MG in SODIUM CHLORIDE 0.9% 100 ML IVPB ONE (18:48)
[2016-07-31] MEDS ORDERED: POTASSIUM CHLORIDE ER 20 MEQ TAB.ER PO STA (18:48)
[2016-07-31 19:15] LABS: ALT 51 U/L (21-72); AST 97 U/L (17-59); Alkaline Phosphatase 409 U/L (38-126); Anion Gap 7 mmol/L; Blood Urea Nitrogen 21 mg/dL (9-20); Calcium 8.3 mg/dL (8.4-10.2); Carbon Dioxide 32 mmol/L (22-30); Chloride 96 mmol/L (98-107); Glucose 233 mg/dL (74-99); Non-African American GFR(MDRD) 59 (>60 ml/min/1.73 sqM); Sodium 135 mmol/L (137-145); Total Bilirubin 1.9 mg/dL (0.2-1.3); Total Protein 6.9 g/dL (6.3-8.2)
[2016-07-31 19:19] LABS: Anisocytosis Slight; Basophils % (A) 1 %; CH 33.1; CHCM 36.8; Eosinophils # (A) 0.1 k/uL (0-0.7); Eosinophils % (A) 2 %; HCT 32.4 % (39.0-53.0); HDW 3.76; HGB 11.6 gm/dL (13.0-17.5); Hyperchromasia Slight; Luc # (Auto) 0.13; Luc % (Auto) 2; Lymphocytes # (A) 1.5 k/uL (1.0-4.8); Lymphocytes % (A) 24 %; MCH 32.4 pg (25.0-35.0); MCHC 35.8 g/dL (31.0-37.0); MCV 90.5 fL (80.0-100.0); Mean Platelet Volume 8.5; Monocytes # (A) 0.4 k/uL (0-1.0); Monocytes % (A) 6 %; Neutrophils % (A) 66 %; Poikilocytosis Slight; RBC 3.58 m/uL (4.30-5.90); RDW 16.1 % (11.5-15.5); WBC 6.1 k/uL (3.8-10.6)
[2016-07-31 19:20] LABS: Potassium 2.8 mmol/L (3.5-5.1)
--- NOTE | 2016-07-31 19:44 | XR ---
EXAMINATION TYPE: XR chest 2V DATE OF EXAM: 07/31/2016 7:24 PM COMPARISON: Prior chest x-ray June 05, 2016. HISTORY: Difficulty in breathing. TECHNIQUE: Frontal and lateral views of the chest are obtained. FINDINGS: There is no focal air space opacity, pleural effusion, or pneumothorax seen. The cardiac silhouette size is upper limits of normal currently. Mild compression type fracture deformity at roug hly T11 level is redemonstrated. IMPRESSION: No acute cardiopulmonary process on current study.
[2016-07-31] MEDS ORDERED: POTASSIUM CHLORIDE ORAL LIQUID 40 MEQ/30 ML CUP PO ONE (19:51)
[2016-07-31 20:48] VITALS: BP 130/69; PULSE 73
== END 2016-07-31 21:06 | disposition home or self-care (01) ==
LOC: EC 18:17
DX: E87.6 Hypokalemia (principal); I10 Essential (primary) hypertension; B20 Human immunodeficiency virus [HIV] disease; E11.40 Type 2 diabetes mellitus with diabetic neuropathy, unspecified; K76.9 Liver disease, unspecified; Z79.899 Other long term (current) drug therapy; Z79.4 Long term (current) use of insulin; Z88.0 Allergy status to penicillin
CPT/HCPCS: 36415; 93005; 80053; 85025; 71020; 99285; 96365; 96366; J2001; J3480

== ENCOUNTER → 2016-08-01 | Outpatient (CLI) | payer MEDICARE, OTHER ==
[2016-08-01 11:26] LABS: ALT 52 U/L (21-72); AST 85 U/L (17-59); Alkaline Phosphatase 396 U/L (38-126); Anion Gap 6 mmol/L; Blood Urea Nitrogen 16 mg/dL (9-20); Calcium 8.5 mg/dL (8.4-10.2); Carbon Dioxide 31 mmol/L (22-30); Chloride 101 mmol/L (98-107); Glucose 287 mg/dL (74-99); Non-African American GFR(MDRD) >60 (>60 ml/min/1.73 sqM); Potassium 4.3 mmol/L (3.5-5.1); Sodium 138 mmol/L (137-145); Total Bilirubin 2.4 mg/dL (0.2-1.3); Total Protein 6.6 g/dL (6.3-8.2)
== END | disposition home or self-care (01) ==
LOC: LABWHC1 10:41
PROVIDERS: ATTEND Family Medicine
DX: E87.6 Hypokalemia (principal)
CPT/HCPCS: 36415; 80053

== ENCOUNTER 2016-09-16 17:18 | Inpatient (IN) | payer MEDICARE, OTHER ==
[2016-09-16 18:14] VITALS: RESP 18
[2016-09-16 19:22] LABS: Basophils % (A) 1 %; CH 32.5; CHCM 34.6; Eosinophils # (A) 0.1 k/uL (0-0.7); Eosinophils % (A) 1 %; HCT 33.1 % (39.0-53.0); HDW 3.49; HGB 11.1 gm/dL (13.0-17.5); Luc # (Auto) 0.15; Luc % (Auto) 2; Lymphocytes % (A) 16 %; MCH 31.9 pg (25.0-35.0); MCHC 33.6 g/dL (31.0-37.0); MCV 94.8 fL (80.0-100.0); Mean Platelet Volume 7.4; Monocytes # (A) 0.5 k/uL (0-1.0); Monocytes % (A) 7 %; Neutrophils # (A) 4.6 k/uL (1.3-7.7); Neutrophils % (A) 72 %; Poikilocytosis Slight; RBC 3.49 m/uL (4.30-5.90); RDW 14.6 % (11.5-15.5); WBC 6.3 k/uL (3.8-10.6); WBC (Perox) 6.56
[2016-09-16 19:24] LABS: Appearance,Urine Clear (Clear); Bacteria,Urine Rare /hpf; Bilirubin,Urine Negative (Negative); Glucose,Urine (UA) Negative (Negative); Ketones,Urine Negative (Negative); Leukocyte Esterase,Urine Negative (Negative); Mucus,Urine Rare /hpf; Nitrite,Urine Negative (Negative); Particle Count 1049; Protein,Urine 1+ (Negative); RBC,Urine 1 /hpf (0-5); Specific Gravity,Urine 1.007 (1.001-1.035); Squamous Epithelial Cell,Urine <1 /hpf (0-4); UA Billing (MACRO vs. MICRO) MICRO; Urobilinogen,Urine <2.0 mg/dL (<2.0); WBC,Urine <1 /hpf (0-5)
--- NOTE | 2016-09-16 19:24 | ED ---
General Adult HPI - General Chief complaint: Recheck/Abnormal Lab/Rx Stated complaint: Abnormal Labs Time Seen by Provider: 09/16/16 18:24 Source: patient, family Mode of arrival: wheelchair - History of Present Illness Initial comments: 56-year-old male with history of HIV, cirrhosis, dementia, diabetes resenting for altered mental status and fatigue. His nephew is a primary caregiver states that he seemed more confused over the past 3 days. Patient is altered on exam and unable to provide much history. He is awake and alert however. He denies any chest pain or shortness of breath. Nephew states he is taking all of his normal medications. He denies any alcohol or drug abuse. Nephew states that his sugars have been in the 130s today. No falls or injury reported. - Related Data Home Medications Medication Instructions Recorded Confirmed Raltegravir Potassium [Isentress] 400 mg PO BID 01/04/14 09/16/16 Tenofovir Disoproxil Fumarate 300 mg PO SUTUTHSA 01/04/14 09/16/16 [Viread] Lactulose 30 gm PO TID 04/22/16 09/16/16 Maraviroc [Selzentry] 300 mg PO BID 04/22/16 09/16/16 Pantoprazole Sodium [Protonix] 20 mg PO BID 05/24/16 09/16/16 Potassium Chloride ER [K-Dur 10] 60 meq PO BID 07/31/16 09/16/16 Ergocalciferol [Vitamin D2] 50,000 unit PO MOTH 09/16/16 09/16/16 Furosemide [Lasix] 40 mg PO BID 09/16/16 09/16/16 Insulin Glargine [Lantus] 20 unit SQ DAILY@0000 09/16/16 09/16/16 Morphine Sulfate ER [Ms Contin] 7.5 mg PO BID 09/16/16 09/16/16 NIFEdipine [NIFEdipine ER] 30 mg PO HS 09/16/16 09/16/16 Pilocarpine [Salagen] 5 mg PO BID 09/16/16 09/16/16 Sertraline [Zoloft] 50 mg PO HS 09/16/16 09/16/16 lamiVUDine [Epivir] 300 mg PO DAILY 09/16/16 09/16/16 Allergies Allergy/AdvReac Type Severity Reaction Status Date / Time Penicillins Allergy Intermediate Rash/Hives Verified 09/16/16 21:41 Review of Systems ROS Statement: Those systems with pertinent positive or pertinent negative responses have been documented in the HPI. ROS Other: All systems not noted in ROS Statement are negative. Past Medical History Past Medical History: Diabetes Mellitus, Hypertension, Liver Disease Additional Past Medical History / Comment(s): HIV, IDDM type II, cellulitis BLE , loss of all his teeth due to prior medications for the treatment of underlying illnesses, chronic bilateral leg pain, "hole in my heart", murmur, R side of heart is "larger", bilateral leg/feet neuropathy, anemia.04-05-16 lt tibial fracture d/t fall. Patient went into cardiac arrest in May 2016, was in a coma for 5 days after. At this time patient had an infection. Patient has picc line for IV antibiotics. Finished antibiotics on 2016. History of Any Multi-Drug Resistant Organisms: ESBL Date of last positivie culture/infection: 05/25/16 ESBL-E.coli 05/25/16 ESBL Proteus MDRO Source:: Sputum-ESBL; Urine- ESBL Past Surgical History: Cholecystectomy, Hernia Repair Additional Past Surgical History / Comment(s): Fatty tumor removed from back of neck, incisional hernia repair, liver shunt, cystoscopy, colonoscopy.04/25/16 insertion intramedullary nail lt tibia fx. Past Anesthesia/Blood Transfusion Reactions: No Reported Reaction Past Psychological History: Anxiety Additional Psychological History / Comment(s): per pt's niece,pt just returned home 1 week ago after being at [facility] for rehab after lt tibia sx.is recieving home nurse and pt(niece not sure what company)Pt lives with his nephew , Misael alvarado. There are dogs in the house. He has a walker and a wheelchair pt is single. before sx/rehab,pt was independant. no service in past. Smoking Status: Never smoker Past Alcohol Use History: None Reported Additional Past Alcohol Use History / Comment(s): ila. Past Drug Use History: None Reported - Past Family History Mother Family Medical History: Congestive Heart Failure (CHF), Myocardial Infarction ( [place]) Additional Family Medical History / Comment(s): murmur Father Family Medical History: Congestive Heart Failure (CHF), CVA/TIA General Exam - General Exam Comments Initial Comments: General: Awake and Alert. No acute distress. Does not appear acutely ill. Eyes: WALTER, EOM intact. No nystagmus. No scleral icterus. HENT: Atraumatic, normocephalic. Mucous membranes moist. Trachea midline. Neck: The neck is supple, there is no tenderness or JVD. Cardiovascular: Regular rate and rhythm. No murmur, rub, or gallop is appreciated. Distal pulses intact. Respiratory: Lungs are clear to auscultation bilaterally. No wheezes, rales, rhonchi. No respiratory distress. Gastrointestinal: Soft, Nontender. No rebound or guarding. Non-distended. No masses or organomegaly noted. No CVA tenderness. Musculoskeletal: No tenderness. Normal ROM. No gross deformity. No strength deficits. Neurological: A&Ox2. There are no obvious motor or sensory deficits. Speech is normal. Patient appears confused. Skin: Skin is warm and dry and no rashes or lesions are noted. Psychiatric: Cooperative, labile affect. Course Vital Signs 09/16/16 09/16/16 09/16/16 18:08 19:33 20:05 Temperature 100 F H Pulse Rate 94 96 94 Pulse Rate [ Pulse Oximetery ] Respiratory 18 18 18 Rate Blood Pressure 159/62 152/69 139/64 Blood Pressure [Left Arm] O2 Sat by Pulse 99 100 94 L Oximetry 09/16/16 09/16/16 21:14 22:05 Temperature 97.7 F 99.5 F Pulse Rate 96 92 Pulse Rate [ 100 Pulse Oximetery ] Respiratory 18 18 Rate Blood Pressure 159/82 158/76 Blood Pressure 159/76 [Left Arm] O2 Sat by Pulse 100 100 Oximetry EKG Findings - EKG Comments: EKG Findings:: EKG 19:09. Sinus rhythm. Rate 101. Normal axis. No STEMI. Nonspecific EKG. Medical Decision Making - Medical Decision Making 56-year-old male with history of liver failure, HIV, dementia, diabetes presenting for altered mental status. He is awake and alert however he appears disoriented on initial exam. He has no active complaints at this time. Lab workup and imaging ordered. Chest x-ray no acute process. Lab work is stable CBC. BMP stable. LFTs elevated consistent with chronic liver failure. Ammonia is 130. UA without convincing evidence of infection. Patient reevaluated and remains altered but awake. Updated patient and nephew on findings. Given significant elevated ammonia likely cause of his altered mental status this time. Lactulose was administered. Plan for admission for further management of hepatic encephalopathy. I spoke with Belen Cerda, nurse practitioner for Dr. Thrasher, agrees with plan for admission. Requests consultation GI. - Lab Data Result diagrams: 09/16/16 19:05 09/16/16 19:05 Lab Results 09/16/16 09/16/16 09/16/16 Range/Units 19:05 19:05 19:05 WBC 6.3 (3.8-10.6) k/uL RBC 3.49 L (4.30-5.90) m/uL Hgb 11.1 L (13.0-17.5) gm/dL Hct 33.1 L (39.0-53.0) % MCV 94.8 (80.0-100.0) fL MCH 31.9 (25.0-35.0) pg MCHC 33.6 (31.0-37.0) g/dL RDW 14.6 (11.5-15.5) % Plt Count 133 L (150-450) k/uL Neutrophils % 72 % Lymphocytes % 16 % Monocytes % 7 % Eosinophils % 1 % Basophils % 1 % Neutrophils # 4.6 (1.3-7.7) k/uL Lymphocytes # 1.0 (1.0-4.8) k/uL Monocytes # 0.5 (0-1.0) k/uL Eosinophils # 0.1 (0-0.7) k/uL Basophils # 0.0 (0-0.2) k/uL Poikilocytosis Slight PT (9.0-12.0) sec INR (<1.1) Sodium 144 (137-145) mmol/L Potassium 4.1 (3.5-5.1) mmol/L Chloride 113 H (98-107) mmol/L Carbon Dioxide 22 (22-30) mmol/L Anion Gap 9 mmol/L BUN 18 (9-20) mg/dL Creatinine 1.50 H (0.66-1.25) mg/dL Est GFR (MDRD) Af Amer 58 (>60 ml/min/1.73 sqM) Est GFR (MDRD) Non-Af 48 (>60 ml/min/1.73 sqM) Glucose 134 H (74-99) mg/dL Plasma Lactic Acid Vargas 2.0 (0.7-2.0) mmol/L Calcium 9.1 (8.4-10.2) mg/dL Magnesium 1.9 (1.6-2.3) mg/dL Total Bilirubin 2.6 H (0.2-1.3) mg/dL AST 209 H (17-59) U/L ALT 63 (21-72) U/L Alkaline Phosphatase 316 H (38-126) U/L Ammonia 130 H (<30) umol/L Total Protein 7.4 (6.3-8.2) g/dL Albumin 2.6 L (3.5-5.0) g/dL Lipase 67 (23-300) U/L Urine Color Urine Appearance (Clear) Urine pH (5.0-8.0) Ur Specific [place] (1.001-1.035) Urine Protein (Negative) Urine Glucose (UA) (Negative) Urine Ketones (Negative) Urine Blood (Negative) Urine Nitrite (Negative) Urine Bilirubin (Negative) Urine Urobilinogen (<2.0) mg/dL Ur Leukocyte Esterase (Negative) Urine RBC (0-5) /hpf Urine WBC (0-5) /hpf Ur Squamous Epith Cells (0-4) /hpf Urine Bacteria (None) /hpf Hyaline Casts (0-2) /lpf Urine Mucus (None) /hpf 09/16/16 09/16/16 Range/Units 19:05 19:05 WBC (3.8-10.6) k/uL RBC (4.30-5.90) m/uL Hgb (13.0-17.5) gm/dL Hct (39.0-53.0) % MCV (80.0-100.0) fL MCH (25.0-35.0) pg MCHC (31.0-37.0) g/dL RDW (11.5-15.5) % Plt Count (150-450) k/uL Neutrophils % % Lymphocytes % % Monocytes % % Eosinophils % % Basophils % % Neutrophils # (1.3-7.7) k/uL Lymphocytes # (1.0-4.8) k/uL Monocytes # (0-1.0) k/uL Eosinophils # (0-0.7) k/uL Basophils # (0-0.2) k/uL Poikilocytosis PT 12.8 H (9.0-12.0) sec INR 1.3 (<1.1) Sodium (137-145) mmol/L Potassium (3.5-5.1) mmol/L Chloride (98-107) mmol/L Carbon Dioxide (22-30) mmol/L Anion Gap mmol/L BUN (9-20) mg/dL Creatinine (0.66-1.25) mg/dL Est GFR (MDRD) Af Amer (>60 ml/min/1.73 sqM) Est GFR (MDRD) Non-Af (>60 ml/min/1.73 sqM) Glucose (74-99) mg/dL Plasma Lactic Acid [place] (0.7-2.0) mmol/L Calcium (8.4-10.2) mg/dL Magnesium (1.6-2.3) mg/dL Total Bilirubin (0.2-1.3) mg/dL AST (17-59) U/L ALT (21-72) U/L Alkaline Phosphatase (38-126) U/L Ammonia (<30) umol/L Total Protein (6.3-8.2) g/dL Albumin (3.5-5.0) g/dL Lipase (23-300) U/L Urine Color Yellow Urine Appearance Clear (Clear) Urine pH 5.0 (5.0-8.0) Ur Specific [place] 1.007 (1.001-1.035) Urine Protein 1+ H (Negative) Urine Glucose (UA) Negative (Negative) Urine Ketones Negative (Negative) Urine Blood Moderate H (Negative) Urine Nitrite Negative (Negative) Urine Bilirubin Negative (Negative) Urine Urobilinogen <2.0 (<2.0) mg/dL Ur Leukocyte Esterase Negative (Negative) Urine RBC 1 (0-5) /hpf Urine WBC <1 (0-5) /hpf Ur Squamous Epith Cells <1 (0-4) /hpf Urine Bacteria Rare H (None) /hpf Hyaline Casts 4 H (0-2) /lpf Urine Mucus Rare H (None) /hpf - EKG Data -: EKG Interpreted by Nd EKG shows normal: sinus rhythm Rate: tachycardia - Radiology Data Radiology results: report reviewed, image reviewed Disposition Clinical Impression: Hepatic encephalopathy, Liver failure, Mental status change, Diabetes, HIV ( human immunodeficiency virus infection), CKD (chronic kidney disease) Disposition: ADMITTED IP TO THIS HOSP Condition: Undetermined Decision to Admit Reason: Admit from EC
[2016-09-16 19:27] LABS: INR 1.3 (<1.1); Prothrombin Time 12.8 sec (9.0-12.0)
[2016-09-16 19:33] LABS: Calcium 9.1 mg/dL (8.4-10.2); Magnesium 1.9 mg/dL (1.6-2.3); Potassium 4.1 mmol/L (3.5-5.1); Total Bilirubin 2.6 mg/dL (0.2-1.3); Total Protein 7.4 g/dL (6.3-8.2)
[2016-09-16] MEDS ORDERED: LACTULOSE 20 GM/30 ML CUP PO ONE (20:25)
--- NOTE | 2016-09-16 20:32 | XR ---
EXAMINATION TYPE: XR chest 2V DATE OF EXAM: 09/16/2016 8:27 PM COMPARISON: 07/31/2016 HISTORY: Cough TECHNIQUE: Frontal and lateral views of the chest are obtained. FINDINGS: There is no focal air space opacity, pleural effusion, or pneumothorax seen. The cardiac silhouette size is within normal limits. There is redemonstration of an unchanged compression deformi ty of the low thoracic spine. IMPRESSION: 1. No acute cardiopulmonary process. 2. Old compression deformity of the low thoracic spine.
[2016-09-16] MEDS ORDERED: NALOXONE 0.4 MG/ML 1 ML VIAL IV PRN (20:41)
[2016-09-16] MEDS ORDERED: ONDANSETRON 4 MG/2 ML VIAL IVP PRN (20:41)
[2016-09-16] MEDS ORDERED: MORPHINE SULFATE 4 MG/ML SYRINGE IV PRN (20:41)
[2016-09-16] MEDS: SODIUM CHLORIDE 0.9% 1,000 ML IV SCH (20:48)
[2016-09-16] MEDS: LACTULOSE 20 GM/30 ML CUP PO SCH (23:54)
[2016-09-17 00:35] LABS: Glucose,Whole Blood 145 mg/dL (75-99)
[2016-09-17] MEDS: INSULIN GLARGINE 100 UNIT/ML 10 ML VIAL SQ SCH (00:43)
[2016-09-17 05:43] LABS: Glucose,Whole Blood 113 mg/dL (75-99)
[2016-09-17] MEDS: LACTULOSE 20 GM/30 ML CUP PO SCH ×3 (06:14→20:31)
[2016-09-17] MEDS: SODIUM CHLORIDE 0.9% 1,000 ML IV SCH (06:15)
[2016-09-17 06:19] LABS: Basophils # (A) 0.1 k/uL (0-0.2); Basophils % (A) 1 %; CH 32.4; CHCM 35.1; Eosinophils # (A) 0.1 k/uL (0-0.7); Eosinophils % (A) 1 %; HCT 31.4 % (39.0-53.0); HDW 3.66; HGB 10.8 gm/dL (13.0-17.5); Luc # (Auto) 0.18; Luc % (Auto) 3; Lymphocytes # (A) 1.2 k/uL (1.0-4.8); Lymphocytes % (A) 18 %; MCH 32.1 pg (25.0-35.0); MCHC 34.5 g/dL (31.0-37.0); MCV 93.1 fL (80.0-100.0); Mean Platelet Volume 7.3; Monocytes # (A) 0.5 k/uL (0-1.0); Monocytes % (A) 7 %; Neutrophils # (A) 4.7 k/uL (1.3-7.7); Neutrophils % (A) 70 %; Poikilocytosis Slight; RBC 3.38 m/uL (4.30-5.90); RDW 14.6 % (11.5-15.5); WBC 6.7 k/uL (3.8-10.6)
[2016-09-17 06:34] LABS: INR 1.3 (<1.1); Prothrombin Time 12.9 sec (9.0-12.0)
[2016-09-17 06:44] LABS: ALT 61 U/L (21-72); AST 202 U/L (17-59); Alkaline Phosphatase 275 U/L (38-126); Anion Gap 7 mmol/L; Blood Urea Nitrogen 15 mg/dL (9-20); Calcium 8.9 mg/dL (8.4-10.2); Carbon Dioxide 21 mmol/L (22-30); Chloride 114 mmol/L (98-107); Glucose 111 mg/dL (74-99); Magnesium 1.8 mg/dL (1.6-2.3); Non-African American GFR(MDRD) >60 (>60 ml/min/1.73 sqM); Phosphorous 3.3 mg/dL (2.5-4.5); Potassium 3.4 mmol/L (3.5-5.1); Sodium 142 mmol/L (137-145); Total Bilirubin 2.7 mg/dL (0.2-1.3); Total Protein 6.8 g/dL (6.3-8.2)
[2016-09-17] MEDS: INSULIN LISPRO (humaLOG) 300 UNIT/3 ML VIAL SQ SCH ×4 (08:39→20:35)
[2016-09-17] MEDS: FUROSEMIDE 40 MG TAB PO SCH ×2 (08:40→20:26)
[2016-09-17] MEDS: PILOCARPINE 5 MG TAB PO SCH ×2 (08:40→20:25)
[2016-09-17] MEDS: EPIVIR PO SCH (08:41)
[2016-09-17] MEDS: SELZENTRY PO SCH ×2 (08:43→20:27)
[2016-09-17] MEDS: POTASSIUM CHLORIDE ER 20 MEQ TAB.ER PO SCH ×2 (08:44→20:26)
[2016-09-17] MEDS: MORPHINE SULFATE ER 15 MG TABLET PO SCH ×2 (08:52→20:28)
[2016-09-17] MEDS ORDERED: PANTOPRAZOLE SODIUM 20 MG PO SCH (09:00)
[2016-09-17] MEDS ORDERED: RALTEGRAVIR POTASSIUM 400 MG TABLET PO SCH (09:00)
[2016-09-17] MEDS ORDERED: VIREAD 300 MG PO SCH (09:00)
[2016-09-17] MEDS ORDERED: PANTOPRAZOLE 40 MG/10 ML VIAL IV SCH (09:00)
--- NOTE | 2016-09-17 09:42 | P.CONS ---
History of Present Illness - Reason for Consult Consult date: 09/17/16 hepatic encephalopathy Requesting physician: Lobo Thrasher - History of Present Illness 56-year-old male with a history of HIV, cryptogenic cirrhosis with portacaval shunt, liver biopsy; followed by assistant signal maintainer at [facility], hepatic encephalopathy, cholecystectomy, diabetes mellitus, left tib-fib fracture April 2016, presents with altered mental status and fatigue x 3 days. Consultation requested for elevated serum ammonia level 130. Lactulose given repeat ammonia level 24. Liver enzymes total bilirubin 2.6-2.7. AST 202-209. ALT 61-63. Alkaline phosphatase 275-316. Lipase 67. White count 6.3. Hemoglobin 11.1. Platelet 133. INR 1.3. T-max 100.0. Denies hematemesis, hematochezia, or melena. Liver biopsy 3-4 years ago. When reviewing prior medical records admission liver enzymes seem to be unchanged from previous admissions over the last few years. Review of Systems Constitutional: Denies fever, chills, sweats, weight gain, or loss. HEENT: Negative for migraines, blurred vision or loss, earaches, drainage, tinnitus, oral mucosal lesions, dysphagia, or odynophagia. Cardiac: Hypertension. Negative for chest pain, arrhythmias, or palpitation. Respiratory: Negative for shortness of breath, hemoptysis, cough, or sputum production. Gastrointestinal: See HPI for pertinent findings. Genitourinary: Negative for hematuria, urgency, frequency, polyuria, dysuria, or penile discharge. Musculoskeletal: Negative for muscle aches, swelling, arthritis, and arthralgias. Neurologic: Negative for stroke or TIA. Endocrine: Negative for thyroid problems. Diabetes mellitus. Infectious disease: HIV. Skin: History of cellulitis. Negative for rash or itching. Psychiatric: history of anxiety All systems: negative (See HPI) Past Medical History Past Medical History: Diabetes Mellitus, Hypertension, Liver Disease Additional Past Medical History / Comment(s): HIV, IDDM type II, cellulitis BLE , loss of all his teeth due to prior medications for the treatment of underlying illnesses, chronic bilateral leg pain, "hole in my heart", murmur, R side of heart is "larger", bilateral leg/feet neuropathy, anemia.04-05-16 lt tibial fracture d/t fall. Patient went into cardiac arrest in May 2016, was in a coma for 5 days after. At this time patient had an infection. Patient has picc line for IV antibiotics. Finished antibiotics on 2016. History of Any Multi-Drug Resistant Organisms: ESBL Year Discovered:: 05/25/16 ESBL-E.coli 05/25/16 ESBL Proteus MDRO Source:: Sputum-ESBL; Urine- ESBL Past Surgical History: Cholecystectomy, Hernia Repair Additional Past Surgical History / Comment(s): Fatty tumor removed from back of neck, incisional hernia repair, liver shunt, cystoscopy, colonoscopy.04/25/16 insertion intramedullary nail lt tibia fx. Past Anesthesia/Blood Transfusion Reactions: No Reported Reaction Past Psychological History: Anxiety Additional Psychological History / Comment(s): per pt's niece,pt just returned home 1 week ago after being at [facility] for rehab after lt tibia sx.is recieving home nurse and pt(niece not sure what company)Pt lives with his nephew , Misael alvarado. There are dogs in the house. He has a walker and a wheelchair pt is single. before sx/rehab,pt was independant. no service in past. Smoking Status: Never smoker Past Alcohol Use History: None Reported Additional Past Alcohol Use History / Comment(s): ronment. Past Drug Use History: None Reported - Past Family History Mother Family Medical History: Congestive Heart Failure (CHF), Myocardial Infarction ( [place]) Additional Family Medical History / Comment(s): murmur Father Family Medical History: Congestive Heart Failure (CHF), CVA/TIA Medications and Allergies Home Medications Medication Instructions Recorded Confirmed Type Raltegravir Potassium [Isentress] 400 mg PO BID 01/04/14 09/16/16 History Tenofovir Disoproxil Fumarate 300 mg PO SUTUTHSA 01/04/14 09/16/16 History [Viread] Lactulose 30 gm PO TID 04/22/16 09/16/16 History Maraviroc [Selzentry] 300 mg PO BID 04/22/16 09/16/16 History Pantoprazole Sodium [Protonix] 20 mg PO BID 05/24/16 09/16/16 History Potassium Chloride ER [K-Dur 10] 60 meq PO BID 07/31/16 09/16/16 History Ergocalciferol [Vitamin D2] 50,000 unit PO MOTH 09/16/16 09/16/16 History Furosemide [Lasix] 40 mg PO BID 09/16/16 09/16/16 History Insulin Glargine [Lantus] 20 unit SQ DAILY@0000 09/16/16 09/16/16 History Morphine Sulfate ER [Ms Contin] 7.5 mg PO BID 09/16/16 09/16/16 History NIFEdipine [NIFEdipine ER] 30 mg PO HS 09/16/16 09/16/16 History Pilocarpine [Salagen] 5 mg PO BID 09/16/16 09/16/16 History Sertraline [Zoloft] 50 mg PO HS 09/16/16 09/16/16 History lamiVUDine [Epivir] 300 mg PO DAILY 09/16/16 09/16/16 History Allergies Allergy/AdvReac Type Severity Reaction Status Date / Time Penicillins Allergy Intermediate Rash/Hives Verified 09/16/16 21:41 Physical Exam Vitals: Vital Signs Temp Pulse Pulse Resp BP BP Pulse Ox 09/17/16 04:00 98.2 F 90 18 144/88 100 09/17/16 00:00 98.9 F 99 17 148/72 99 09/16/16 22:05 99.5 F 92 100 18 158/76 159/76 100 09/16/16 21:14 97.7 F 96 18 159/82 100 09/16/16 20:05 94 18 139/64 94 L 09/16/16 19:33 96 18 152/69 100 09/16/16 18:08 100 F H 94 18 159/62 99 Intake and Output 09/16/16 09/17/16 09/17/16 22:59 06:59 14:59 Intake Total 1280 Balance 1280 Intake: Intake, IV Titration 800 Amount Sodium Chloride 0.9% 1, 800 000 ml @ 100 mls/hr IV . Q10H ADAN Rx#:[id number] Oral 480 Other: # Voids 600 Weight 90 kg 89 kg General appearance: The patient is alert, oriented, in no acute distress. HET: Head is normocephalic and atraumatic. Pupils are equal and reactive. Oropharynx is clear without lesions. Neck: Supple without lymphadenopathy. Trachea midline. Heart: S1 S2. Regular rate and rhythm. Lungs: No crackles or wheezes are heard. Abdomen: Soft, nontender, nondistended with bowel sounds. No peritoneal signs. No palpable organomegaly or masses. Extremities: LLE tremaine wrap with +2 bilateral lower extremity edema. Neurological: No focal deficits. Strength and sensation are grossly intact. Results CBC & Chem 7: 09/17/16 05:49 09/17/16 05:49 Labs: Abnormal Lab Results - Last 24 Hours (Table) 09/16/16 09/16/16 09/16/16 Range/Units 19: 19:05 19:05 RBC 3.49 L (4.30-5.90) m/uL Hgb 11.1 L (13.0-17.5) gm/dL Hct 33.1 L (39.0-53.0) % Plt Count 133 L (150-450) k/uL PT (9.0-12.0) sec Potassium (3.5-5.1) mmol/L Chloride 113 H (98-107) mmol/L Carbon Dioxide (22-30) mmol/L Creatinine 1.50 H (0.66-1.25) mg/dL Glucose 134 H (74-99) mg/dL POC Glucose (mg/dL) (75-99) mg/dL Total Bilirubin 2.6 H (0.2-1.3) mg/dL AST 209 H (17-59) U/L Alkaline Phosphatase 316 H (38-126) U/L Ammonia 130 H (<30) umol/L Albumin 2.6 L (3.5-5.0) g/dL Urine Protein (Negative) Urine Blood (Negative) Urine Bacteria (None) /hpf Hyaline Casts (0-2) /lpf Urine Mucus (None) /hpf 09/16/16 09/16/16 09/17/16 Range/Units 19:05 19:05 00:31 RBC (4.30-5.90) m/uL Hgb (13.0-17.5) gm/dL Hct (39.0-53.0) % Plt Count (150-450) k/uL PT 12.8 H (9.0-12.0) sec Potassium (3.5-5.1) mmol/L Chloride (98-107) mmol/L Carbon Dioxide (22-30) mmol/L Creatinine (0.66-1.25) mg/dL Glucose (74-99) mg/dL POC Glucose (mg/dL) 145 H (75-99) mg/dL Total Bilirubin (0.2-1.3) mg/dL AST (17-59) U/L Alkaline Phosphatase (38-126) U/L Ammonia (<30) umol/L Albumin (3.5-5.0) g/dL Urine Protein 1+ H (Negative) Urine Blood Moderate H (Negative) Urine Bacteria Rare H (None) /hpf Hyaline Casts 4 H (0-2) /lpf Urine Mucus Rare H (None) /hpf 09/17/16 09/17/16 09/17/16 Range/Units 05:40 05:49 05:49 RBC 3.38 L (4.30-5.90) m/uL Hgb 10.8 L (13.0-17.5) gm/dL Hct 31.4 L (39.0-53.0) % Plt Count 130 L (150-450) k/uL PT (9.0-12.0) sec Potassium 3.4 L (3.5-5.1) mmol/L Chloride 114 H (98-107) mmol/L Carbon Dioxide 21 L (22-30) mmol/L Creatinine (0.66-1.25) mg/dL Glucose 111 H (74-99) mg/dL POC Glucose (mg/dL) 113 H (75-99) mg/dL Total Bilirubin 2.7 H (0.2-1.3) mg/dL AST 202 H (17-59) U/L Alkaline Phosphatase 275 H (38-126) U/L Ammonia (<30) umol/L Albumin 2.3 L (3.5-5.0) g/dL Urine Protein (Negative) Urine Blood (Negative) Urine Bacteria (None) /hpf Hyaline Casts (0-2) /lpf Urine Mucus (None) /hpf Assessment and Plan (1) Hepatic encephalopathy Status: Acute (2) Chronic liver disease and cirrhosis Narrative/Plan: Cryptogenic cirrhosis history of portacaval shunt and liver biopsy 3-4 years ago at [facility]. Status: Acute (3) HIV disease Status: Acute (4) Elevated liver enzymes Status: Acute Plan: 1. Continue lactulose 30 g 3 times daily titrated 3-4 bowel movements daily. 2. Monitor ammonia levels and mental status. 3. Will obtain hepatitis panel, ultrasound, AFP marker for surveillance. Patient was advised to follow with his [facility] assistant signal maintainer for discussion of repeat liver biopsy considering transaminases have been elevated for more than a year. Patient was also advised he can follow-up locally in 1-2 weeks after discharge for reevaluation and further discussion of this recommendation. Thank you for this kind referral and the opportunity to participate in the care of your patient. This consultation was discussed with Dr. Masters. The impression and plan of care have been directed as dictated.
[2016-09-17 11:52] LABS: Glucose,Whole Blood 128 mg/dL (75-99)
[2016-09-17] MEDS: SODIUM CHLORIDE 0.45% 1,000 ML IV SCH (11:56)
[2016-09-17 15:01] LABS: Bilirubin, Delta 1.1 mg/dL (0.0-0.2); Total Bilirubin 2.7 mg/dL (0.2-1.3)
--- NOTE | 2016-09-17 16:39 | US ---
EXAMINATION TYPE: US abdomen limited DATE OF EXAM: 09/17/2016 2:18 PM COMPARISON: NONE CLINICAL HISTORY: elevated liver enzymes . Elevated LFT's, history of cirrhosis EXAM MEASUREMENTS: Liver Length: 13.4 cm CBD: 0.6 cm Right Kidney: 10.9 x 5.7 x 5.9 cm Pancreas: Obscured by bowel gas Liver: Heterogeneous, small right lobe with enlarged left lobe, known hepatofugal flow in portal vei n Gallbladder: Surgically absent CBD: wnl Right Kidney: wnl IMPRESSION: 1. Hepatofugal flow within the portal vein present previously. 2. Right upper quadrant ultrasound is otherwise unremarkable, limited by bowel gas.
[2016-09-17 16:44] LABS: Glucose,Whole Blood 146 mg/dL (75-99)
[2016-09-17 19:47] LABS: Anion Gap 7 mmol/L; Blood Urea Nitrogen 14 mg/dL (9-20); Calcium 8.6 mg/dL (8.4-10.2); Carbon Dioxide 20 mmol/L (22-30); Chloride 114 mmol/L (98-107); Glucose 170 mg/dL (74-99); Non-African American GFR(MDRD) >60 (>60 ml/min/1.73 sqM); Potassium 3.5 mmol/L (3.5-5.1); Sodium 141 mmol/L (137-145)
[2016-09-17 20:40] LABS: Glucose,Whole Blood 178 mg/dL (75-99)
[2016-09-17] MEDS ORDERED: SERTRALINE 50 MG TAB PO SCH (21:00)
[2016-09-17] MEDS ORDERED: NIFEdipine XL 30 MG TAB.ER.24 PO SCH (21:00)
[2016-09-18 00:27] LABS: Glucose,Whole Blood 167 mg/dL (75-99)
[2016-09-18] MEDS: INSULIN GLARGINE 100 UNIT/ML 10 ML VIAL SQ SCH (00:40)
[2016-09-18] MEDS: SODIUM CHLORIDE 0.45% 1,000 ML IV SCH ×2 (00:41→12:25)
[2016-09-18 06:15] LABS: Glucose,Whole Blood 190 mg/dL (75-99)
[2016-09-18 06:34] LABS: Basophils % (A) 0 %; CH 32.6; CHCM 34.7; Eosinophils # (A) 0.1 k/uL (0-0.7); Eosinophils % (A) 1 %; HCT 33.6 % (39.0-53.0); HDW 3.61; HGB 11.3 gm/dL (13.0-17.5); Luc # (Auto) 0.13; Luc % (Auto) 2; Lymphocytes # (A) 1.5 k/uL (1.0-4.8); Lymphocytes % (A) 19 %; MCH 31.9 pg (25.0-35.0); MCHC 33.7 g/dL (31.0-37.0); MCV 94.6 fL (80.0-100.0); Mean Platelet Volume 7.7; Monocytes # (A) 0.6 k/uL (0-1.0); Monocytes % (A) 8 %; Neutrophils # (A) 5.4 k/uL (1.3-7.7); Neutrophils % (A) 70 %; Poikilocytosis Slight; RBC 3.55 m/uL (4.30-5.90); RDW 14.4 % (11.5-15.5); WBC 7.7 k/uL (3.8-10.6); WBC (Perox) 7.71
[2016-09-18 06:47] LABS: Anion Gap 8 mmol/L; Blood Urea Nitrogen 14 mg/dL (9-20); Calcium 8.5 mg/dL (8.4-10.2); Carbon Dioxide 20 mmol/L (22-30); Chloride 114 mmol/L (98-107); Glucose 191 mg/dL (74-99); Non-African American GFR(MDRD) >60 (>60 ml/min/1.73 sqM); Potassium 3.3 mmol/L (3.5-5.1); Sodium 142 mmol/L (137-145)
[2016-09-18] MEDS: INSULIN LISPRO (humaLOG) 300 UNIT/3 ML VIAL SQ SCH ×2 (07:02→12:27)
[2016-09-18] MEDS ORDERED: PANTOPRAZOLE 40 MG TABLET PO SCH (07:30)
--- NOTE | 2016-09-18 07:47 | HP ---
DATE OF ADMISSION: CHIEF COMPLAINT: Altered mental status. HISTORY OF PRESENT ILLNESS: Mr. Mcintyre is a 56-year-old male with known history of liver cirrhosis, HIV and dementia and diabetes, came to the hospital for altered mental status and fatigue for the past 3 days. Patient apparently lives with his nephew. The patient otherwise denied any drug abuse or alcohol abuse. The patient was found to have elevated ammonia level to 130 on admission. Patient currently on breathing treatment for hepatic encephalopathy. Patient does have a history of cryptogenic liver cirrhosis with portocaval shunt and liver biopsy and follows with the porcelain enamel installer at [facility]. Otherwise patient denied any hematemesis or melena. No nausea or vomiting or abdominal pain. Currently ammonia level has improved. Otherwise patient is still confused and poor historian. REVIEW OF SYSTEMS: CONSTITUTIONAL: No fever. No chills. No weakness. RESPIRATORY: No cough or sputum production. No short of breath. CARDIOVASCULAR: No chest pain. No short of breath. No palpitations. No leg swelling. RESPIRATORY: No cough or sputum production. GASTROINTESTINAL: No nausea, vomiting, or abdominal pain. No hematemesis. GENITOURINARY: No dysuria. No hematuria. MUSCULOSKELETAL: Negative. NEUROLOGIC: No focal weakness. No headache or dizziness. PSYCHIATRIC: Could not be assessed completely. MUSCULOSKELETAL: Negative. All other fourteen-point review of systems negative except as above. PAST MEDICAL HISTORY: HIV, insulin-dependent diabetes mellitus type 2, hypertension, liver cirrhosis with portacaval shunt, chronic bilateral leg pain, history of heart murmurs, history of cardiopulmonary arrest, history of his ESBL E. coli urine infection. PAST SURGICAL HISTORY: Cholecystectomy, hernia repair, fatty tumor removed from back and back of neck, liver shunt, cystoscope, colonoscopy, intramedullary nail for tibial fracture. PSYCHOSOCIAL HISTORY: Anxiety. SOCIAL HISTORY: Patient currently lives with his nephew. Never a smoker. No history of severe alcohol abuse. FAMILY HISTORY: Mother has congestive heart failure and mild murmur. Father has heart failure, CVA/ TIA. ALLERGIES: PENICILLIN. Home medication include: Raltegravir, tenofovir, lactulose, ( ), Protonix, potassium chloride, vitamin D2, Lasix, insulin glargine, morphine sulfate, nifedipine, pilocarpine, sertraline, ( ). PHYSICAL EXAMINATION: A 56-year-old man lying in bed, awake, alert, but confused, oriented x1 to 2. He appears in no apparent distress. VITALS: Blood pressure is 144/88, pulse is 90, respirations 18, temperature afebrile, pulse ox 100% on room air. HEENT: Atraumatic, normocephalic. Neck is supple. No JVD. CVS: S1, S2 heard. Patient does have systolic murmur present. No gallop. LUNGS: Bilateral air entry is present. No wheezing. No crackles. ABDOMEN: Soft, nontender. Bowel sounds present. RESEARCH CONSULTANT: Awake, alert, oriented x1 to 2. No focal deficit noted. EXTREMITIES: No edema. Pulses palpable bilaterally. No clubbing or cyanosis. PSYCHIATRIC: Cooperative. LABORATORY DATA: WBC 6.3, hemoglobin 11.1, platelets 133, INR 1.3, sodium 144, potassium 4.1, chloride 113, bicarb is 22, BUN 18, creatinine 1.5. Bilirubin 2.6, AST 209, alk phos 316, ammonia 130, albumin 2.6. UA negative. EKG: Sinus tachycardia. Chest x-ray, no acute cardiopulmonary process board. Old compression deformity of the lower thoracic spine. An ultrasound of the abdomen showed hepatofugal flow within the portal vein present previously. Right upper quadrant ultrasound is otherwise unremarkable. IMPRESSION: 1. Acute hepatic encephalopathy due to elevated ammonia level to 130, improved now. 2. History of liver cirrhosis with portocaval shunt and liver biopsy. Hepatitis panel was ordered. 3. Human immunodeficiency virus on HAART therapy. 4. Elevated liver enzymes. 5. Normocytic anemia. 6. Thrombocytopenia. 7. Acute kidney injury, most likely prerenal, improved now. 8. Mild to moderate protein calorie malnutrition with albumin level of 2.6. 9. Hypertension. 10. Diabetes type 2 insulin-dependent. 11. ( ) disorder. 12. Chronic pain. DISCUSSION AND PLAN: The patient will be continued on lactulose. Continue the home medications and pain management. Continue with antiretroviral therapy. GI is following this patient. Will continue the current management and further recommendations based on the clinical course. Anticipate discharge in the next 1 to 2 days and follow with his porcelain enamel installer at [facility] upon discharge.
[2016-09-18] MEDS: FUROSEMIDE 40 MG TAB PO SCH (08:06)
[2016-09-18] MEDS: MORPHINE SULFATE ER 15 MG TABLET PO SCH (08:06)
[2016-09-18] MEDS: LACTULOSE 20 GM/30 ML CUP PO SCH (08:07)
[2016-09-18] MEDS: SELZENTRY PO SCH (08:08)
[2016-09-18] MEDS: EPIVIR PO SCH (08:08)
[2016-09-18] MEDS: PILOCARPINE 5 MG TAB PO SCH (08:09)
[2016-09-18] MEDS: POTASSIUM CHLORIDE ER 20 MEQ TAB.ER PO SCH (08:09)
--- NOTE | 2016-09-18 08:54 | P.PN ---
Subjective Principal diagnosis: Hepatic encephalopathy 56-year-old gentleman with a history of cryptogenic cirrhosis hepatic encephalopathy admitted with hepatic encephalopathy. Ammonia level normalized history. He feels well. Interesting discharged today. Ultrasound liver reported no focal masses. Otitis screen pending. AFP 1.8. Liver function tests not obtained this morning. Objective - Vital Signs Vital signs: Vital Signs Temp 98 F 09/18/16 08:00 Pulse 100 09/18/16 08:00 Resp 18 09/18/16 08:00 BP 143/83 09/18/16 08:00 Pulse Ox 98 09/18/16 08:00 Intake & Output 09/17/16 09/18/16 09/18/16 18:59 06:59 18:59 Intake Total 360 Output Total 300 Balance 60 Weight 88.7 kg Intake: Oral 360 Output: Urine 300 Other: # Voids 2 1 # Bowel Movements 3 5 - Exam General appearance: The patient is alert, oriented, in no acute distress. HET: Head is normocephalic and atraumatic. Pupils are equal and reactive. Oropharynx is clear without lesions. Neck: Supple without lymphadenopathy. Trachea midline. Heart: S1 S2. Regular rate and rhythm. Lungs: No crackles or wheezes are heard. Abdomen: Soft, nontender, nondistended with bowel sounds. No peritoneal signs. No palpable organomegaly or masses. Extremities: LLE tremaine wrap with +2 bilateral lower extremity edema. Neurological: No focal deficits. Strength and sensation are grossly intact. - Labs CBC & Chem 7: 09/18/16 05:57 09/18/16 05:57 Labs: Abnormal Lab Results - Last 24 Hours (Table) 09/17/16 09/17/16 09/17/16 Range/Units 05:49 11:50 16:42 RBC (4.30-5.90) m/uL Hgb (13.0-17.5) gm/dL Hct (39.0-53.0) % Plt Count (150-450) k/uL Potassium (3.5-5.1) mmol/L Chloride (98-107) mmol/L Carbon Dioxide (22-30) mmol/L Glucose (74-99) mg/dL POC Glucose (mg/dL) 128 H 146 H (75-99) mg/dL Total Bilirubin 2.7 H (0.2-1.3) mg/dL Unconjugated Bilirubin 1.6 H (0.0-1.1) mg/dL Delta Bilirubin 1.1 H (0.0-0.2) mg/dL AST 207 H (17-59) U/L Alkaline Phosphatase 275 H (38-126) U/L Albumin 2.3 L (3.5-5.0) g/dL 09/17/16 09/17/16 09/18/16 Range/Units 19:21 20:34 00:26 RBC (4.30-5.90) m/uL Hgb (13.0-17.5) gm/dL Hct (39.0-53.0) % Plt Count (150-450) k/uL Potassium (3.5-5.1) mmol/L Chloride 114 H (98-107) mmol/L Carbon Dioxide 20 L (22-30) mmol/L Glucose 170 H (74-99) mg/dL POC Glucose (mg/dL) 178 H 167 H (75-99) mg/dL Total Bilirubin (0.2-1.3) mg/dL Unconjugated Bilirubin (0.0-1.1) mg/dL Delta Bilirubin (0.0-0.2) mg/dL AST (17-59) U/L Alkaline Phosphatase (38-126) U/L Albumin (3.5-5.0) g/dL 09/18/16 09/18/16 09/18/16 Range/Units 05:57 05:57 06:12 RBC 3.55 L (4.30-5.90) m/uL Hgb 11.3 L (13.0-17.5) gm/dL Hct 33.6 L (39.0-53.0) % Plt Count 123 L (150-450) k/uL Potassium 3.3 L (3.5-5.1) mmol/L Chloride 114 H (98-107) mmol/L Carbon Dioxide 20 L (22-30) mmol/L Glucose 191 H (74-99) mg/dL POC Glucose (mg/dL) 190 H (75-99) mg/dL Total Bilirubin (0.2-1.3) mg/dL Unconjugated Bilirubin (0.0-1.1) mg/dL Delta Bilirubin (0.0-0.2) mg/dL AST (17-59) U/L Alkaline Phosphatase (38-126) U/L Albumin (3.5-5.0) g/dL Assessment and Plan (1) Hepatic encephalopathy Status: Acute (2) Chronic liver disease and cirrhosis Narrative/Plan: Cryptogenic cirrhosis history of portacaval shunt and liver biopsy 3-4 years ago at [facility]. Status: Acute (3) HIV disease Status: Acute (4) Elevated liver enzymes Status: Acute Plan: 1. Agreeable for discharge. Continue home dose Lactulose 30 g 3 times daily titrated 3-4 bowel movements daily. 2. Return to GI office in 1 week for reevaluation. 3. Repeat CMP 3-5 days after discharge. Assessment and plan a care discussed with Dr. Masters.
[2016-09-18 12:09] VITALS: BMI 28.8
[2016-09-18 12:13] LABS: Glucose,Whole Blood 222 mg/dL (75-99)
[2016-09-18 12:33] VITALS: BP 141/73; PULSE 78; TEMP 97.9
--- NOTE | 2016-09-18 14:00 | P.DS ---
Providers Date of admission: 09/16/16 20:41 Attending physician: Lobo Thrasher Primary care physician: Sushant [facility] Course: 56-year-old gentleman that was admitted to the hospital with the change in mental status this is secondary to hepatic encephalopathy. Patient has a liver cirrhosis which is cryptogenic in nature. There is some attribution to patient being on anti-HIV therapy causing the current condition. Patient was noted to have an ammonia 130 thereafter was given lactulose and patient improved rapidly. Patient today states to be able to ambulate denies having any headaches blurry vision confusion nausea vomiting. Her graft Physical exam Gen. appearance oriented 3 in no distress Neck is supple no JVD Lungs good air entry clear to auscultation no rhonchi or wheezing Heart S1-S2 heard regular rate and rhythm no murmurs appreciated Abdomen is soft nontender no organomegaly bowel sounds are intact Neurologically cranial nerves II-12 grossly intact no focal motor or sensory deficits noted Skin changes noted on the left lower extremity due to previous fracture and surgery #1 acute metabolic encephalopathy secondary to hyperammonemia due to a slightly decompensated liver cirrhosis #2 history of HIV #3 thrombocytopenia secondary to liver disease #4 acute kidney injury secondary to above #5 mild to moderate protein calorie malnutrition #6 hypertension #Diabetes type 2. #8 chronic pain #9 recent left lower extremity fracture. Did discuss 3-4 bowel movements per day with lactulose in regards to preventing further exacerbation of hepatic encephalopathy Patient Condition at Discharge: Undetermined Plan - Discharge Summary New Discharge Prescriptions: Lactulose 30 gm PO TID #30 Discharge Medication List Raltegravir Potassium [Isentress] 400 mg PO BID 01/04/14 [History] Tenofovir Disoproxil Fumarate [Viread] 300 mg PO SUTUTHSA 01/04/14 [History] Maraviroc [Selzentry] 300 mg PO BID 04/22/16 [History] Pantoprazole Sodium [Protonix] 20 mg PO BID 05/24/16 [History] Potassium Chloride ER [K-Dur 10] 60 meq PO BID 07/31/16 [History] Ergocalciferol [Vitamin D2 (DRISDOL)] 50,000 unit PO MOTH 09/16/16 [History] Furosemide [Lasix] 40 mg PO BID 09/16/16 [History] Insulin Glargine [Lantus] 20 unit SQ DAILY@0000 09/16/16 [History] Morphine Sulfate ER [Ms Contin] 7.5 mg PO BID 09/16/16 [History] NIFEdipine [NIFEdipine ER] 30 mg PO HS 09/16/16 [History] Pilocarpine [Salagen] 5 mg PO BID 09/16/16 [History] Sertraline [Zoloft] 50 mg PO HS 09/16/16 [History] lamiVUDine [Epivir] 300 mg PO DAILY 09/16/16 [History] Lactulose 30 gm PO TID #30 09/18/16 [Rx] Follow up Appointment(s)/Referral(s): Chris Masters MD [STAFF PHYSICIAN] - 1 Week Sushant Garcia DO [Primary Care Provider] - 1-2 days Discharge Disposition: HOME SELF-CARE
== END 2016-09-18 16:08 | disposition home or self-care (01) | DRG 441 ==
LOC: EC 17:18 → 6SEL 20:41
PROVIDERS: ADMIT Hospitalist; ATTEND Hospitalist
DX: K72.00 Acute and subacute hepatic failure without coma (principal); B20 Human immunodeficiency virus [HIV] disease; N17.9 Acute kidney failure, unspecified; E44.0 Moderate protein-calorie malnutrition; E11.22 Type 2 diabetes mellitus with diabetic chronic kidney disease; D69.59 Other secondary thrombocytopenia; E11.42 Type 2 diabetes mellitus with diabetic polyneuropathy; F03.90 Unspecified dementia, unspecified severity, without behavioral disturbance, psychotic disturbance, mood disturbance, and anxiety; D64.9 Anemia, unspecified; F41.9 Anxiety disorder, unspecified; G89.29 Other chronic pain; I12.9 Hypertensive chronic kidney disease with stage 1 through stage 4 chronic kidney disease, or unspecified chronic kidney disease; K72.10 Chronic hepatic failure without coma; K74.69 Other cirrhosis of liver; N18.9 Chronic kidney disease, unspecified; R01.1 Cardiac murmur, unspecified; K08.109 Complete loss of teeth, unspecified cause, unspecified class; Z79.4 Long term (current) use of insulin; Z79.899 Other long term (current) drug therapy; Z86.74 Personal history of sudden cardiac arrest; Z82.49 Family history of ischemic heart disease and other diseases of the circulatory system
CPT/HCPCS: 36415; 71020; 76705; 80048; 80053; 80076; 81001; 82105; 82140; 83605; 83690; 83735; 84100; 85025; 85610; 93005

== ENCOUNTER → 2016-09-23 | Outpatient (CLI) | payer MEDICARE, OTHER ==
[2016-09-23 14:38] LABS: ALT 61 U/L (21-72); AST 84 U/L (17-59); Alkaline Phosphatase 286 U/L (38-126); Amylase 54 U/L (30-110); Anion Gap 6 mmol/L; Blood Urea Nitrogen 9 mg/dL (9-20); Calcium 8.1 mg/dL (8.4-10.2); Carbon Dioxide 25 mmol/L (22-30); Chloride 107 mmol/L (98-107); Glucose 325 mg/dL (74-99); Magnesium 1.8 mg/dL (1.6-2.3); Non-African American GFR(MDRD) >60 (>60 ml/min/1.73 sqM); Sodium 138 mmol/L (137-145); Total Bilirubin 2.5 mg/dL (0.2-1.3); Total Protein 6.9 g/dL (6.3-8.2)
[2016-09-23 15:12] LABS: Basophils % (A) 0 %; CH 32.2; CHCM 33.6; Eosinophils # (A) 0.2 k/uL (0-0.7); Eosinophils % (A) 3 %; HCT 34.9 % (39.0-53.0); HDW 3.53; HGB 11.4 gm/dL (13.0-17.5); Luc % (Auto) 2; Lymphocytes % (A) 17 %; MCH 31.5 pg (25.0-35.0); MCHC 32.7 g/dL (31.0-37.0); MCV 96.6 fL (80.0-100.0); Monocytes # (A) 0.5 k/uL (0-1.0); Monocytes % (A) 9 %; Neutrophils # (A) 4.1 k/uL (1.3-7.7); Neutrophils % (A) 70 %; Poikilocytosis Slight; RBC 3.61 m/uL (4.30-5.90); RDW 14.9 % (11.5-15.5); WBC 5.9 k/uL (3.8-10.6); WBC (Perox) 6.09
== END | disposition home or self-care (01) ==
LOC: LABWHC1 13:41
PROVIDERS: ATTEND Family Medicine
DX: R89.9 Unspecified abnormal finding in specimens from other organs, systems and tissues (principal); E87.6 Hypokalemia
CPT/HCPCS: 36415; 80053; 82140; 82150; 83735; 85025

== ENCOUNTER → 2016-10-07 | Outpatient (CLI) | payer MEDICARE, OTHER | END | disposition home or self-care (01) | LOC: LABWHC1 11:30 | PROVIDERS: ATTEND Family Medicine | DX: E87.6 Hypokalemia (principal) | CPT/HCPCS: 36415; 84132 ==

== ENCOUNTER → 2016-12-07 | Outpatient (CLI) | payer MEDICARE, OTHER | LOC: LABWHC1 11:23 | PROVIDERS: ATTEND Family Medicine | DX: E87.6 Hypokalemia (principal) | CPT/HCPCS: 36415; 84132 ==

== ENCOUNTER → 2017-03-13 | Outpatient (CLI) | payer MEDICARE, OTHER ==
[2017-03-17 14:20] LABS: LOG HIV Copies/mL <1.60 (<1.60)
== END | disposition home or self-care (01) ==
LOC: LABWHC1 16:01
PROVIDERS: ATTEND Internal Medicine Infectious Disease
DX: K74.60 Unspecified cirrhosis of liver (principal); B20 Human immunodeficiency virus [HIV] disease
CPT/HCPCS: 36415; 82140; 83880; 86360; 87536

== ENCOUNTER 2017-03-31 01:03 | Emergency (ER) | payer MEDICARE, OTHER ==
[~2017-03-31 01:03] MED LIST: EPINEPHrine 10 ML SYRINGE (0.1 MG/ML) ONE
[2017-03-31 01:12] VITALS: BP 146/93; TEMP 94.5
--- NOTE | 2017-05-29 07:32 | ED ---
CPR HPI - General Chief Complaint: Cardiac Arrest/CPR Stated Complaint: unresponsive Time Seen by Provider: 03/31/17 01:11 Source: patient, police, EMS Mode of arrival: EMS Limitations: physical limitation (Unresponsive) - History of Present Illness Initial Comments: This patient is 56-year-old man brought by ambulance to be evaluated after he was found unresponsive. Patient's family had stated that they had spoken with him about 15 minutes prior to going back and checking and finding him unresponsive. They phoned EMS who arrived shortly thereafter. Given the family had seen him reportedly 15 minutes earlier resuscitative efforts were continued. He had ACLS protocol. Jaswant tube was placed and he had ventilations through that. IV was started. He had 3 rounds of epinephrine. He remained in asystole on their monitor the entire time. MD Complaint: found unresponsive -: minute(s) Place: home Bystander CPR Performed: No AED Applied by Bystander/Framing Consultant: Yes Shock Advised: No Initial Findings in the Field: unresponsive, no respirations, no pulse ROSC in the Field: No Associated Injuries: No Treatments Prior to Arrival: intubation, chest compressions, epinephrine mgs # ( 3) - Related Data Home Medications Medication Instructions Recorded Confirmed Raltegravir Potassium [Isentress] 400 mg PO BID 01/04/14 09/16/16 Tenofovir Disoproxil Fumarate 300 mg PO SUTUTHSA 01/04/14 09/16/16 [Viread] Maraviroc [Selzentry] 300 mg PO BID 04/22/16 09/16/16 Pantoprazole Sodium [Protonix] 20 mg PO BID 05/24/16 09/16/16 Potassium Chloride ER [K-Dur 10] 60 meq PO BID 07/31/16 09/16/16 Ergocalciferol [Vitamin D2 50,000 unit PO MOTH 09/16/16 09/16/16 (DRISDOL)] Furosemide [Lasix] 40 mg PO BID 09/16/16 09/16/16 Insulin Glargine [Lantus] 20 unit SQ DAILY@0000 09/16/16 09/16/16 Morphine Sulfate ER [Ms Contin] 7.5 mg PO BID 09/16/16 09/16/16 NIFEdipine [NIFEdipine ER] 30 mg PO HS 09/16/16 09/16/16 Pilocarpine [Salagen] 5 mg PO BID 09/16/16 09/16/16 Sertraline [Zoloft] 50 mg PO HS 09/16/16 09/16/16 lamiVUDine [Epivir] 300 mg PO DAILY 09/16/16 09/16/16 Previous Rx's Medication Instructions Recorded Lactulose 30 gm PO TID #30 09/18/16 Allergies Allergy/AdvReac Type Severity Reaction Status Date / Time Penicillins Allergy Intermediate Rash/Hives Verified 03/31/17 01:14 Review of Systems ROS Statement: Those systems with pertinent positive or pertinent negative responses have been documented in the HPI. ROS Other: All systems not noted in ROS Statement are negative. Limitations: ROS unobtainable due to patients medical condition Past Medical History Past Medical History: Diabetes Mellitus, Hypertension, Liver Disease Additional Past Medical History / Comment(s): HIV, IDDM type II, cellulitis BLE , loss of all his teeth due to prior medications for the treatment of underlying illnesses, chronic bilateral leg pain, "hole in my heart", murmur, R side of heart is "larger", bilateral leg/feet neuropathy, anemia.04-05-16 lt tibial fracture d/t fall. Patient went into cardiac arrest in May 2016, was in a coma for 5 days after. At this time patient had an infection. Patient has picc line for IV antibiotics. Finished antibiotics on 2016. History of Any Multi-Drug Resistant Organisms: ESBL Date of last positivie culture/infection: 05/25/16 ESBL-E.coli 05/25/16 ESBL Proteus MDRO Source:: Sputum-ESBL; Urine- ESBL Past Surgical History: Cholecystectomy, Hernia Repair Additional Past Surgical History / Comment(s): Fatty tumor removed from back of neck, incisional hernia repair, liver shunt, cystoscopy, colonoscopy.04/25/16 insertion intramedullary nail lt tibia fx. Past Anesthesia/Blood Transfusion Reactions: No Reported Reaction Past Psychological History: Anxiety Smoking Status: Never smoker Past Alcohol Use History: None Reported Past Drug Use History: None Reported - Past Family History Mother Family Medical History: Congestive Heart Failure (CHF), Myocardial Infarction ( MD) Additional Family Medical History / Comment(s): murmur Father Family Medical History: Congestive Heart Failure (CHF), CVA/TIA General Exam Limitations: physical limitation General appearance: other (Unresponsive) Head exam: Present: atraumatic, normocephalic Eye exam: Present: other (Pupils are fixed and nonreactive. There is corneal drying.) ENT exam: Present: mucous membranes dry, other (There is a Jaswant tube present in the oropharynx.) Neck exam: Present: normal inspection, other (No evidence of trauma to the neck or bony deformity.) Respiratory exam: Present: other (Breath sounds with bagging show few scattered rhonchi. Without bagging there is no spontaneous inspiratory effort or breath sounds.) Cardiovascular Exam: Present: other (No palpable PMI. No cardiac sounds. No detectable pulses) GI/Abdominal exam: Present: soft, other (No bowel sounds). Absent: tenderness Extremities exam: Present: other (No evidence of trauma). Absent: normal capillary refill Neurological exam: Present: other (The patient is [place] Coma Scale 3. There are no neurologic signs of life.) Skin exam: Present: pallor, other (There appears to be some dependent lividity.) Course Vital Signs 03/31/17 01:05 Temperature 94.5 F L Blood Pressure 146/93 Medical Decision Making - Medical Decision Making Patient's 56-year-old man found unresponsive by family. EMS instituted ACLS protocol. The patient was found in asystole and remained in asystole following resuscitative efforts and is pronounced . Disposition Clinical Impression: Cardiopulmonary arrest Disposition: Referrals: Sushant Garcia DO [Primary Care Provider] - 1-2 days Preliminary Cause of : Cardiopulmonary arrest
== END 2017-03-31 03:53 | disposition expired ==
LOC: EC 01:03
DX: I46.9 Cardiac arrest, cause unspecified (principal)
CPT/HCPCS: 92950; J0171